=== PATIENT | male | born 1950 | race Caucasian/White ===

== ENCOUNTER 2019-08-18 21:58 | Inpatient (IN) | payer MEDICARE, MEDICAID ==
[~2019-08-18] VITALS: Ht 175.3 cm; Wt 103.5 kg
[2019-08-18] MEDS ORDERED: NS IV 1000 ML 1,000 ML IV SCH ×2 (22:37)
[2019-08-18] MEDS ORDERED: PIPERACILLIN SODIUM/TAZOBACTAM 4.5 GM in NS (IVPB) 100 ML IV ONE (22:45)
[2019-08-18] MEDS ORDERED: ACETAMINOPHEN 500 MG TAB (TYLENOL) PO PRN (22:45)
[2019-08-18] MEDS ORDERED: LIDOCAINE 1% INJ 20 ML 20 ML VIAL INJ ONE (22:45)
[2019-08-18] MEDS ORDERED: VANCOMYCIN INJECTION 1,000 MG in NS (IVPB) 250 ML IV ONE (22:45)
[2019-08-18] MEDS ORDERED: fentaNYL INJECTION 100 MCG/2 ML AMP IVP ONE (22:45)
--- NOTE | 2019-08-18 22:46 | ED General ---
General Chief Complaint: Rect Problems Stated Complaint: CYST ON BOTTOM Nursing Triage Note: PT AMBULATE TO [id number] WITH C/O A CYST ON HIS RECTUM. Nursing Sepsis Screen: No Definite Risk Source of Information: Patient, Family (daughter), Spouse Exam Limitations: No Limitations History of Present Illness Date Seen by Provider: Aug 18, 2019 Time Seen by Provider: 22:26 Initial Comments Patient presents to ER by private conveyance with chief complaint is had a abscess on his right medial cleft for the past 3 or 4 days. His been treating it with a poultice made of bread and milk. It is starting to come to the head. For the past 3 days however his daughter says he has had a fever Tmax of 103.1 and laying in bed not getting up checking his blood sugar or taking his medications routinely. He says he takes Trulicity and 80 units of Lantus daily. He does not take short acting insulin. He is not noticed blood sugar was for the past couple days. He's had some on again off again nausea but none presently. He rates pain as about a 7 out of 10 at present. Worse with movement or touching. He is having normal bowel movements. Normal fluid intake but not eating as much. He has not seen anybody for this or start any antibiotics. He's never had abscesses in the past. He follows with primary care provider Zana in [place], [place]. He has a history of hypertension but denies heart disease. Allergies and Home Medications Allergies Coded Allergies: Penicillins (Verified Adverse Reaction, Unknown, ears pop and eye's blurry, 08/18/19) Patient Home Medication List Home Medication List Reviewed: Yes Review of Systems Review of Systems Constitutional: chills, diaphoresis, dizziness, fever, malaise, weakness EENTM: No ear discharge, No ear pain Respiratory: No cough, No short of breath Cardiovascular: No chest pain, No edema Gastrointestinal: No abdominal pain, No constipation, No diarrhea; nausea; No vomiting Genitourinary: No discharge, No dysuria Musculoskeletal: No back pain, No joint pain, No joint swelling Skin: see HPI; No pruritus, No rash Psychiatric/Neurological: Denies Anxiety, Denies Depressed Past Ofzcxgq-Xzspfg-Rjjing Hx Patient Social History Alcohol Use: Denies Use Recreational Drug Use: No Smoking Status: Never a Smoker Recent Foreign Travel: No Contact w/Someone Who Travel: No Recent Infectious Disease Expo: No Physical Exam-Suspected Sepsis Physical Exam Vital Signs Vital Signs - First Documented 08/18/19 22:32 Temp 39.2 Pulse 111 Resp 19 B/P (MAP) 148/75 (99) O2 Delivery Room Air Capillary Refill : Less Than 3 Seconds Blood Pressure Mean: 99 Height, Weight, BMI Height: '" Weight: lbs. oz. kg; 32.00 BMI Method: General Appearance: Moderate Distress, Obese Eyes: Bilateral Eye Normal Inspection, Bilateral Eye PERRL, Bilateral Eye EOMI HEENT: PERRL/EOMI; No Pharynx Normal (dry mucosa), No Moist Mucous Membranes Neck: Full Range of Motion, Normal Inspection Respiratory: Lungs Clear, Normal Breath Sounds, No Accessory Muscle Use, No Respiratory Distress Cardiovascular: Regular Rate, Rhythm, No Edema Gastrointestinal: Normal Bowel Sounds, Non Tender, Soft Extremity: Normal Capillary Refill, Normal Inspection, No Pedal Edema Neurologic/Psychiatric: Alert, Oriented x3, No Motor/Sensory Deficits Skin: other (superior portion of the right gluteal cleft has a 6 cm area of induration with a central pore and fluctuance.) Focused Exam Sepsis Stage: Sepsis Possible Source: Skin/Soft Tissue Lactate Level 08/18/19 22:50: Lactic Acid Level 1.43 Time of Focused Exam: 00:01 Respiratory: Lungs Clear, Normal Breath Sounds, No Accessory Muscle Use, No Respiratory Distress Cardiovascular: Regular Rate, Rhythm, Normal Peripheral Pulses, Tachycardia Capillary Refill: Less Than 3 Seconds Peripheral Pulses: 2+ Dorsalis Pedis (R), 2+ Left Dors-Pedis (L) Skin: other (warm, indurated, erythematous around the right butt cheek) Lactic Acid Level Laboratory Tests Test 08/18/19 22:50 Lactic Acid Level 1.43 MMOL/L (0.50-2.00) Within 3hrs of presentation: Admin fluids, Admin 30ml/kg IBW due to BMI>30, Admin ABX, Blood cultures prior to ABX's, Focus exam, Lactate level Procedures/Interventions Lumen: triple Central Line Procedure: betadine prep, sterile drapes applied, sterile dressing applied Anesthesia: Lidocaine Volume Anesthetic (ccs): 3 Complications: none Post Position: sutured, good blood return, position confirmed w/ CXR Risks, benefits and alternatives were explained the patient and he accepted and consented to the procedure. We positioned him appropriately draped in usual sterile fashion and cleaned the skin using chlorhexidine. After it dried we draped him out and applied 3 mL of 1% lidocaine the skin. We then used the ultrasound to guide the tip of the introducer needle into the right internal jugular. We were able to pass the guidewire. No ectopy was noted on the monitor. We will then able to make a small incision in the skin using the supplied 11 blade scalpel and removed the needle. The dilator was passed and removed. The triple-lumen 20 cm 7 Latvian catheter was flushed and then threaded over the central lumen of the central line. It was stitched in place at 15 cm tear points using the supplied suture. We then used the supplied sterile dressing with bio gel. Patient tolerated procedure well. Minimal blood loss. I&D : Site: right buttock Blade Size: 11 I & D Procedure: betadine prep (chlorhexidine, sterile water and alcohol) Packing/Drain: Idoform 06/20 Progress Patient's wound was thoroughly cleaned using chlorhexidine and alcohol and then infiltrated around the skin with 6 cc of 1% lidocaine until we obtained good analgesia. We use an 11 blade scalpel to make a cross vargas incision over the central pore and expressed no 100 cc of thin, purulent, malodorous material. We obtained a sterile wound culture. We then probed the wound using sterile cotton tip applicators down to about 5-6 cm heading towards the perineum and stopped. Broke up any loculations or could flush the wound using the sterile saline and reexpressed. We then packed it with about 15 cm iodinated quarter inch gauze packing strip. Patient tolerated procedure well. Progress/Results/Core Measures Suspected Sepsis Recent Fever Within 48 Hours: No Infection Criteria Present: None New/Unexplained Altered Menta: No Sepsis Screen: No Definite Risk SIRS Temperature: Pulse: 111 Respiratory Rate: 19 Laboratory Tests 08/18/19 22:50: White Blood Count 18.8H Blood Pressure 148 /75 Mean: 99 08/18/19 22:50: Lactic Acid Level 1.43 Laboratory Tests 08/18/19 22:50: Creatinine 1.70H, INR Comment 1.2, Platelet Count 152, Total Bilirubin 0.6 Results/Orders Lab Results Laboratory Tests Test 08/18/19 22:37 08/18/19 22:50 08/18/19 23:30 08/19/19 00:24 Range/Units Glucometer 211 H 199 H 70-110 MG/DL White Blood Count 18.8 H 4.3-11.0 10^3/uL Red Blood Count 4.37 4.35-5.85 10^6/uL Hemoglobin 12.6 L 13.3-17.7 G/DL Hematocrit 39 L 40-54 % Mean Corpuscular Volume 88 80-99 FL Mean Corpuscular Hemoglobin 29 25-34 PG Mean Corpuscular Hemoglobin Concent 33 32-36 G/DL Red Cell Distribution Width 14.3 10.0-14.5 % Platelet Count 152 130-400 10^3/uL Mean Platelet Volume 11.4 H 7.4-10.4 FL Neutrophils (%) (Auto) 81 H 42-75 % Lymphocytes (%) (Auto) 6 L 12-44 % Monocytes (%) (Auto) 12 0-12 % Eosinophils (%) (Auto) 0 0-10 % Basophils (%) (Auto) 0 0-10 % Neutrophils # (Auto) 15.3 H 1.8-7.8 X 10^3 Lymphocytes # (Auto) 1.1 1.0-4.0 X 10^3 Monocytes # (Auto) 2.3 H 0.0-1.0 X 10^3 Eosinophils # (Auto) 0.0 0.0-0.3 10^3/uL Basophils # (Auto) 0.0 0.0-0.1 10^3/uL Neutrophils % (Manual) 77 % Lymphocytes % (Manual) 5 % Monocytes % (Manual) 8 % Band Neutrophils 10 % Blood Morphology Comment NORMAL Prothrombin Time 15.3 H 12.2-14.7 SEC INR Comment 1.2 0.8-1.4 Activated Partial Thromboplast Time 36 H 24-35 SEC Sodium Level 132 L 135-145 MMOL/L Potassium Level 5.2 H 3.6-5.0 MMOL/L Chloride Level 99 98-107 MMOL/L Carbon Dioxide Level 22 21-32 MMOL/L Anion Gap 11 5-14 MMOL/L Blood Urea Nitrogen 44 H 7-18 MG/DL Creatinine 1.70 H 0.60-1.30 MG/DL Estimat Glomerular Filtration Rate 40 BUN/Creatinine Ratio 26 Glucose Level 225 H 70-105 MG/DL Lactic Acid Level 1.43 0.50-2.00 MMOL/L Calcium Level 9.5 8.5-10.1 MG/DL Corrected Calcium 9.6 8.5-10.1 MG/DL Total Bilirubin 0.6 0.1-1.0 MG/DL Aspartate Amino Transf (AST/SGOT) 17 5-34 U/L Alanine Aminotransferase (ALT/SGPT) 18 0-55 U/L Alkaline Phosphatase 100 40-136 U/L Total Protein 7.0 6.4-8.2 GM/DL Albumin 3.9 3.2-4.5 GM/DL Urine Color YELLOW Urine Clarity CLEAR Urine pH 6.0 5-9 Urine Specific [place] 1.010 L 1.016-1.022 Urine Protein NEGATIVE NEGATIVE Urine Glucose (UA) 3+ H NEGATIVE Urine Ketones NEGATIVE NEGATIVE Urine Nitrite NEGATIVE NEGATIVE Urine Bilirubin NEGATIVE NEGATIVE Urine Urobilinogen 0.2 < = 1.0 MG/DL Urine Leukocyte Esterase NEGATIVE NEGATIVE Urine RBC (Auto) NEGATIVE NEGATIVE Urine RBC RARE /HPF Urine WBC NONE /HPF Urine Squamous Epithelial Cells RARE /HPF Urine Crystals NONE /LPF Urine Bacteria TRACE /HPF Urine Casts NONE /LPF Urine Mucus NEGATIVE /LPF Urine Culture Indicated CULTURE PENDING My Orders Orders - DEBBY LÓPEZ Accucheck Stat ONCE (08/18/19 22:37) Cbc With Automated Diff (08/18/19 22:37) Comprehensive Metabolic Panel (08/18/19 22:37) Blood Culture (08/18/19 22:37) Urinalysis (08/18/19 22:37) Urine Culture (08/18/19 22:37) Protime With Inr (08/18/19 22:37) Partial Thromboplastin Time (08/18/19 22:37) Chest 1 View, Ap/Pa Only (08/18/19 22:37) Acetaminophen Tablet (Tylenol Tablet) (08/18/19 22:45) Ed Iv/Invasive Line Start (08/18/19 22:37) Ed Iv/Invasive Line Start (08/18/19 22:37) Vital Signs Adult Sepsis Patie Q15M (08/18/19 22:37) O2 (08/18/19 22:37) Remove Rings In Anticipation O (08/18/19 22:37) Lactic Acid Analyzer (08/18/19 22:37) Ns Iv 1000 Ml (Sodium Chloride 0.9%) (08/18/19 22:37) Piperacillin Sodium/Tazobactam (Zosyn Vi (08/18/19 22:45) Vancomycin Injection (Vancomycin Injecti (08/18/19 22:45) Ed Iv/Invasive Line Start (08/18/19 22:37) Ns Iv 1000 Ml (Sodium Chloride 0.9%) (08/18/19 22:37) Fentanyl Injection (Sublimaze Injection (08/18/19 22:45) Lidocaine 1% Inj 20 Ml (Xylocaine 1% Inj (08/18/19 22:45) Vancomycin Injection (Vancomycin Injecti (08/18/19 23:00) Manual Differential (08/18/19 22:50) Wound Culture (08/19/19 00:03) Accucheck Stat ONCE (08/19/19 00:25) Ed Iv/Invasive Line Start (08/19/19 00:25) Ns Iv 1000 Ml (Sodium Chloride 0.9%) (08/19/19 00:25) Chest 1 View, Ap/Pa Only (08/19/19 00:29) Ct Abdomen/Pelvis Wo (08/19/19 00:35) Medications Given in ED Current Medications Medications Dose Ordered Sig/Jania Route Start Time Stop Time Status Last Admin Dose Admin Acetaminophen 1,000 mg ONCE PRN PO 08/18/19 22:45 08/18/19 23:32 DC 08/18/19 23:30 1,000 MG Fentanyl Citrate 50 mcg ONCE ONCE IVP 08/18/19 22:45 08/18/19 22:46 DC 08/18/19 23:31 50 MCG Lidocaine HCl 20 ml ONCE ONCE INJ 08/18/19 22:45 08/18/19 22:46 DC 08/18/19 23:40 20 ML Piperacillin Sod/ Tazobactam Sod 4.5 gm/Sodium Chloride 100 ml @ 200 mls/hr ONCE ONCE IV 08/18/19 22:45 08/18/19 23:14 DC 08/19/19 00:26 200 MLS/HR Vital Signs/I&O 08/18/19 08/18/19 08/19/19 22:32 23:30 00:25 Temp 39.2 39.2 39.1 Pulse 111 Resp 19 B/P (MAP) 148/75 (99) O2 Delivery Room Air Capillary Refill : Less Than 3 Seconds Blood Pressure Mean: 99 Point of Care Testing Finger Stick Blood Glucose: 211 Blood Glucose Action Taken: rn notified Progress Note #1: Time: 22:45 Progress Note Plan to maximiliano the abscess. We have him some fentanyl for his pain. He is septic so he is going to get a workup and since he is diabetic we will give him Zosyn and vancomycin. IV fluids 2 L which is greater than 20 mm/kg based on an adjusted ideal body weight of 182 pounds. He has a stated allergy to penicillin which does not seem to be a true allergy. Progress Note #2: Time: 01:26 Progress Note The patient's blood pressure continue to dwindle even before the antibiotics were given around 100 systolic. We increased the fluid bolus to greater than 30 mL/kg based on ideal body weight 3 L total. His blood pressure is staying stable around 100 210 systolic. A central line was initiated. We also bumped into the ICU instead of stepdown. Orders for pressors as needed were written. We'll send the patient down for a CT of the abdomen pelvis without IV contrast looking for evidence of abscess tracking up that may be amenable to surgical debridement. Diagnostic Imaging Diagonstic Imaging: Xray Plain Films/CT/US/NM/MRI: chest (1v) Comments No acute pulmonary cardiopulmonary process. Reviewed: Reviewed by Me Diagonstic Imaging: Xray Plain Films/CT/US/NM/MRI: chest Comments No acute cardiopulmonary process. No pneumothorax. There is a central line in her Duran placed over the silhouette of the right internal jugular terminating in the superior vena cava just above the right atrium. Reviewed: Reviewed by Me Diagonstic Imaging: CT (without IV contrast) Plain Films/CT/US/NM/MRI: abdomen, pelvis Comments No cyst is seen. Hepatomegaly with steatosis. Copious amounts of stool throughout the colon. Mild colonic diverticulosis. Reviewed: Reviewed Night edmar Study, Reviewed by Me Departure Communication (Admissions) Time/Spoke to Admitting Phy: 00:01 Discussed the case with Dr. Samuels. She agrees with anabolic selection and placing the patient and stepdown given his history of rheumatoid arthritis and immunocompromise. Impression Primary Impression: Sepsis Qualified Codes: A41.9 - Sepsis, unspecified organism; R65.20 - Severe sepsis without septic shock; N17.9 - Acute kidney failure, unspecified Additional Impressions: Abscess Acute kidney failure Qualified Codes: N17.9 - Acute kidney failure, unspecified Disposition: ADMITTED INPATIENT Condition: Stable Admissions Decision to Admit Reason: Admit from ER (General) Decision to Admit/Date: Aug 19, 2019 Time/Decision to Admit Time: 00:00 Departure-Patient Inst. Referrals: PETTY MIRANDA (PCP) Primary Care Physician DEBBY LÓPEZ Aug 18, 2019 22:46
[2019-08-18 23:14] LABS: BASOPHILS % (AUTO) 0 % (0-10); EOSINOPHILS % (AUTO) 0 % (0-10); HEMATOCRIT 39 % (40-54); HEMOGLOBIN 12.6 G/DL (13.3-17.7); LYMPHOCYTES # (AUTO) 1.1 X 10^3 (1.0-4.0); LYMPHOCYTES % (AUTO) 6 % (12-44); MEAN CORPUSCULAR HEMOGLOBIN 29 PG (25-34); MEAN CORPUSCULAR HGB CONC 33 G/DL (32-36); MEAN CORPUSCULAR VOLUME 88 FL (80-99); MEAN PLATELET VOLUME 11.4 FL (7.4-10.4); MONOCYTES # (AUTO) 2.3 X 10^3 (0.0-1.0); MONOCYTES % (AUTO) 12 % (0-12); NEUTROPHILS # (AUTO) 15.3 X 10^3 (1.8-7.8); NEUTROPHILS % (AUTO) 81 % (42-75); PLATELET COUNT 152 10^3/uL (130-400); RED CELL DISTRIBUTION WIDTH 14.3 % (10.0-14.5); WHITE BLOOD COUNT 18.8 10^3/uL (4.3-11.0)
[2019-08-18 23:25] LABS: INR 1.2 (0.8-1.4); PROTHROMBIN TIME PATIENT 15.3 SEC (12.2-14.7)
[2019-08-18 23:35] LABS: ALBUMIN 3.9 GM/DL (3.2-4.5); BILIRUBIN,TOTAL 0.6 MG/DL (0.1-1.0); CALCIUM 9.5 MG/DL (8.5-10.1); CREATININE SERUM 1.7 MG/DL (0.60-1.30); POTASSIUM 5.2 MMOL/L (3.6-5.0)
--- NOTE | 2019-08-18 23:43 | NUR ---
WOUND CX COLLECTED FROM RIGHT GLUTEAL FOLD/PERINEUM AREA. Addendum: 08/18/19 at 2356 by DAYNE I&D PER DR. LÓPEZ WITH 4 IODOFORM PACKING PLACED.
[2019-08-18 23:44] LABS: BILIRUBIN,URINE NEGATIVE (NEGATIVE); CLARITY,URINE CLEAR; COLOR,URINE YELLOW; GLUCOSE, URINE (UA) 3+ (NEGATIVE); KETONES,URINE NEGATIVE (NEGATIVE); LEUKOCYTE ESTERASE ,URINE NEGATIVE (NEGATIVE); NITRITE,URINE NEGATIVE (NEGATIVE); PROTEIN,URINE NEGATIVE (NEGATIVE)
[2019-08-18 23:46] LABS: BAND NEUTROPHILS 10 %; LYMPHOCYTES % (MANUAL) 5 %; MONOCYTES % (MANUAL) 8 %; NEUTROPHILS % (MANUAL) 77 %; RBC MORPH NORMAL
[2019-08-18 23:57] LABS: BACTERIA,URINE TRACE /HPF; RBC,URINE RARE /HPF; SQUAMOUS EPITHELIAL CELL,UR RARE /HPF
[2019-08-19] VITALS (23 sets, daily range): BP systolic 73–155; BP diastolic 41–95
[2019-08-19] MEDS ORDERED: NS IV 1000 ML 1,000 ML IV SCH (00:25)
[2019-08-19] MEDS: VANCOMYCIN INJECTION 1,000 MG in NS (IVPB) 250 ML IV SCH ×2 (00:27→01:42)
--- NOTE | 2019-08-19 01:25 | NUR ---
CENTRAL LINE IS OK TO USE PER DR. LÓPEZ.
[2019-08-19] MEDS: NS IV 1000 ML 1,000 ML IV SCH ×4 (03:45→19:33)
[2019-08-19] MEDS ORDERED: ONDANSETRON 4 MG/2 ML (SDV) Z0FRAN IV PRN (03:45)
[2019-08-19] MEDS ORDERED: IBUPROFEN 600 MG (MOTRIN) TAB PO PRN (03:45)
[2019-08-19] MEDS ORDERED: fentaNYL INJECTION 100 MCG/2 ML AMP IV PRN (03:45)
[2019-08-19 04:29] LABS: BASOPHILS % (AUTO) 0 % (0-10); EOSINOPHILS % (AUTO) 0 % (0-10); HEMATOCRIT 35 % (40-54); HEMOGLOBIN 11.4 G/DL (13.3-17.7); LYMPHOCYTES # (AUTO) 1.1 X 10^3 (1.0-4.0); LYMPHOCYTES % (AUTO) 6 % (12-44); MEAN CORPUSCULAR HEMOGLOBIN 29 PG (25-34); MEAN CORPUSCULAR HGB CONC 33 G/DL (32-36); MEAN CORPUSCULAR VOLUME 88 FL (80-99); MEAN PLATELET VOLUME 11.7 FL (7.4-10.4); MONOCYTES # (AUTO) 1.8 X 10^3 (0.0-1.0); MONOCYTES % (AUTO) 10 % (0-12); NEUTROPHILS # (AUTO) 14.6 X 10^3 (1.8-7.8); NEUTROPHILS % (AUTO) 83 % (42-75); PLATELET COUNT 132 10^3/uL (130-400); RED CELL DISTRIBUTION WIDTH 14.2 % (10.0-14.5); WHITE BLOOD COUNT 17.6 10^3/uL (4.3-11.0)
[2019-08-19 04:54] LABS: ALBUMIN 3.2 GM/DL (3.2-4.5); BILIRUBIN,TOTAL 0.7 MG/DL (0.1-1.0); CALCIUM 7.9 MG/DL (8.5-10.1); CREATININE SERUM 1.47 MG/DL (0.60-1.30); MAGNESIUM 1.6 MG/DL (1.6-2.4); PHOSPHORUS 2.6 MG/DL (2.3-4.7); POTASSIUM 4.7 MMOL/L (3.6-5.0); TOTAL PROTEIN 5.7 GM/DL (6.4-8.2)
[2019-08-19] MEDS: ACETAMINOPHEN 500 MG TAB (TYLENOL) PO PRN ×2 (04:56→17:33)
[2019-08-19] MEDS: inSUlin ASPART (NovoLOG) 1 UNIT/0.01 ML (CHARGE PER UNIT) SC SCH ×4 (05:57→21:28)
[2019-08-19] MEDS: CEFEPIME 1,000 MG/SWFI 10 ML IV PUSH IV SCH ×6 (05:57→17:34)
[2019-08-19] MEDS: LEVOTHYROXINE 50 MCG (LEVOTHROID) TAB PO SCH (05:57)
--- NOTE | 2019-08-19 06:39 | Diagnostic Imaging Report ---
INDICATION: Follow-up right central line placement. Comparison with 08/18/2019. FINDINGS: Right central line has been placed tip is in the superior vena cava. Lungs are well-aerated and clear. Heart is not enlarged. No pulmonary edema or hilar adenopathy. No pneumothorax or pleural effusion. IMPRESSION: Satisfactory right central line placement. Dictated by: Dictated on workstation # [id number]
--- NOTE | 2019-08-19 07:05 | Diagnostic Imaging Report ---
INDICATION: Cough, congestion and fever Upright portable chest shows normal heart size and vascularity. The lungs are clear. There is no effusion or pneumothorax. There is no bony abnormality. IMPRESSION: Normal chest. Dictated by: Dictated on workstation # [id number]
--- NOTE | 2019-08-19 07:06 | Diagnostic Imaging Report ---
PROCEDURE: CT abdomen and pelvis without contrast. TECHNIQUE: Multiple contiguous axial images were obtained through the abdomen and pelvis without the use of intravenous contrast. Auto Exposure Controls were utilized during the CT exam to meet ALARA standards for radiation dose reduction. INDICATION: Complains of cyst in the gluteal region. FINDINGS: There is 12 mm low-density lesion in the left lobe of the liver, consistent with a cyst. No suspicious liver lesions are seen. Liver is prominent measuring 19 cm in cephalocaudad length. The spleen, pancreas, and adrenals are normal. The kidneys, ureters, and bladder are normal. Fat planes around the prostate are well maintained. There is constipation with no acute bowel abnormality seen. The appendix is normal. There is no mass or adenopathy. There is no ascites. No acute bony abnormality is seen. No pilonidal cyst or other soft tissue mass in the gluteal region is seen. IMPRESSION: No acute abnormality is seen. There is hepatomegaly. There is constipation. Dictated by: Dictated on workstation # [id number]
--- NOTE | 2019-08-19 07:36 | History & Physical ---
LUKAS HUDDLESTON MED STUDENT 08/19/19 0736: HPI History of Present Illness: CC: "cyst on my butt" Mr. Alvarado reports that a cyst developed on the right side of his buttocks about a week ago. It has been painful and he felt feverish and weak during that time. He did not have any particular words to describe the pain associated with it, and he was unsure of anything that made the pain worse or improved the pain. His pain did not radiate elsewhere. He did notice that his blood sugar had become difficult to control recently. Interval Update: - I&D was completed after arrival to the hospital 08/17. He feels like things are improving and he feels like stuff is draining out. He feels 'worn out' this morning and his pain is hardly bothering him. He did not have any complaints. Source: patient Exam Limitations: no limitations Date seen by provider: Aug 19, 2019 Time Seen by Provider: 07:15 Attending Physician Laura Wiggins MD PCP Brian Claudio MD Consult Date of Admission Aug 19, 2019 at 00:30 Home Medications Home Medications Reviewed patient Home Medication Reconciliation performed by pharmacy medication reconciliations location and measurement technician and/or nursing. Patients Allergies have been reviewed. Allergies Coded Allergies: Penicillins (Verified Adverse Reaction, Unknown, ears pop and eye's blurry, 08/18/19) BEY-Jmgpte-Hvqxpi Hx Patient Social History Marrital Status: Employed/Student: retired Alcohol Use: Denies Use Recreational Drug Use: No Smoking Status: Former Smoker (quit 20 years ago) Type Used: Smokeless Tobacco 2nd Hand Smoke Exposure: Yes Recent Foreign Travel: No Contact w/other who traveled: No Recent Hopitalizations: No Recent Infectious Disease Expo: No Immunizations Up To Date Date of Pneumonia Vaccine: Mar 17, 2018 Date of Influenza Vaccine: Mar 17, 2019 Past Medical History Pt reports history of rheumatoid arthritis (doctor says in remission, pt doesn't think it is), diabetes mellitus - type 2, depression, "thyroid," and says "he can't remember them all" Family Medical History Significant Family History: No Pertinent Family Hx Review of Systems ([facility]) Constitutional: chills, diaphoresis, fever, malaise, weakness EENTM: blurred vision Respiratory: cough; No hemoptysis; short of breath Cardiovascular: No chest pain, No palpitations Gastrointestinal: No abdominal pain, No constipation, No diarrhea Genitourinary: No dysuria Musculoskeletal: joint pain (a/w RA) Physical Exam-([facility]) Physical Exam Vital Signs VS - Last 72 Hours, by Label 08/18/19 08/18/19 08/19/19 08/19/19 22:32 23:30 00:25 02:38 Temp 39.2 39.2 39.1 39.1 Pulse 111 97 Resp 19 20 B/P (MAP) 148/75 (99) 122/58 (99) Pulse Ox 93 O2 Delivery Room Air Room Air 08/19/19 08/19/19 08/19/19 08/19/19 02:56 02:57 03:00 03:15 Temp 37.7 Pulse 92 105 100 101 Resp 18 28 16 B/P (MAP) 127/90 (102) 154/44 (80) Pulse Ox 93 89 O2 Delivery Room Air Room Air Room Air 08/19/19 08/19/19 08/19/19 08/19/19 03:18 03:30 04:15 04:17 Temp 38.8 Pulse 103 104 Resp 18 29 B/P (MAP) 155/74 (101) 125/84 (98) Pulse Ox 93 90 O2 Delivery Room Air Room Air Room Air 08/19/19 08/19/19 08/19/19 08/19/19 04:56 04:56 05:00 05:57 Temp 38.4 38.4 37.3 Pulse 106 B/P (MAP) 113/95 (101) O2 Delivery Room Air 08/19/19 08/19/19 08/19/19 08/19/19 06:00 06:15 06:30 06:49 Temp 37.2 Pulse 108 93 96 Resp 31 B/P (MAP) 106/52 (70) O2 Delivery Room Air Room Air 08/19/19 08/19/19 08/19/19 08/19/19 07:00 07:21 08:00 08:00 Temp 36.6 Pulse 93 91 Resp 13 26 B/P (MAP) 123/65 (84) 146/68 (94) Pulse Ox 92 90 O2 Delivery Room Air Room Air Room Air 08/19/19 08/19/19 09:00 09:54 Pulse 90 Resp 23 B/P (MAP) 132/56 (81) Pulse Ox 90 O2 Delivery Room Air Nasal Cannula O2 Flow Rate 2.00 Capillary Refill : Less Than 3 Seconds Eyes: Bilateral Eye EOMI Neck: other (Central line in place on R side) Respiratory: chest non-tender, lungs clear, other (became tachynpeic during interview) Cardiovascular: tachycardia Gastrointestinal: normal bowel sounds, non tender Genital/Rectal: other (Duran in place; dark yellow to verito urine) Extremities: no pedal edema, no calf tenderness Neurologic/Psychiatric: alert, oriented x 3 Skin: normal color (lower legs cool, chest diaphoretic) Assessment/Plan Assessment/Plan Admission Dx #Suspicion of sepsis - Continue to maintain IV access - Continue IVF; can decrease NS rate to 100mL/h with stabilization of vitals and adequate PO intake - Continue metronidazole and cefepime #R gluteal cleft cyst/abscess - I&D completed; change packing @ 24h - Imaging completed to check for complication of abscess; none seen on CT #Diabetes Mellitus Type 2 - Insulin for control of blood sugar - Hold [employer] Trulicity #Hypothyroidism - Continue [employer] synthroid 50mcg #Depression - Continue [employer] sertraline #Acute Kidney Injury - BUN and Cr improving with fluids; continue to monitor with daily BMP - Having adequate urine output - Encourage PO fluid intake - If pt having good PO fluid intake, can consider decreasing rate of IVF and removing Duran catheter Clinical Quality Measures DVT/VTE Risk/Contraindication: Risk Factor Score Per Nursin RFS Level Per Nursing on Admit: 4+=Very High LAURA WIGGINS MD 08/19/19 1430: HPI History of Present Illness: Time Seen by Provider: 08:25 Home Medications Allergies Coded Allergies: Penicillins (Verified Adverse Reaction, Unknown, ears pop and eye's blurry, 08/18/19) Physical Exam-([facility]) Physical Exam General Appearance: no apparent distress Genital/Rectal: other (Duran in place; dark yellow to verito urine) Skin: other (packing in place in right buttock with surrounding erythema, no fluctuance) Assessment/Plan Assessment/Plan Admission Status: Inpatient Order (span 2 midnights) Reason for Inpatient Admission: Sepsis with multiple underlying comorbidities, high risk for decompensation (1) Sepsis Status: Acute Assessment & Plan: Secondary to cellulitis. Lactic acid normal. IVF and started on vancomycin, cefepime and metronidazole. Blood cultures pending. Fever still present overnight. Qualifiers: Qualified Codes: A41.9 - Sepsis, unspecified organism; R65.20 - Severe sepsis without septic shock; N17.9 - Acute kidney failure, unspecified (2) Abscess Status: Acute Assessment & Plan: Symptomatically improving, change packing q24, monitor with abx. CT does not show deep abscess. (3) Acute kidney failure Status: Acute Assessment & Plan: Improving overnight with IVF, monitor. Qualifiers: Qualified Codes: N17.9 - Acute kidney failure, unspecified (4) Hypertension Status: Chronic Assessment & Plan: Currently low to low normal BP, hold home meds. Qualifiers: Qualified Codes: I10 - Essential (primary) hypertension (5) Hyperlipidemia Status: Chronic Assessment & Plan: Resume home statin (6) Hypothyroidism Status: Chronic Assessment & Plan: Resume home levothyroxine (7) Diabetes Status: Chronic Assessment & Plan: Resume home medications, diabetic diet, sliding scale insulin Qualifiers: (8) Depression Status: Chronic Assessment & Plan: Resume home SSRI (9) DVT prophylaxis Status: Acute Assessment & Plan: Enoxaparin Supervisory-Addendum Brief Verification & Attestation Participated in pt care: history, MDM, physical Personally performed: exam, history, MDM Care discussed with: Medical Student Procedures: n/a I personally have seen and evaluated the patient and performed the history and physical exam, I agree with student documentation, see problem list for my assessment and plan. LUKAS HUDDLESTON MED STUDENT Aug 19, 2019 07:36 LAURA WIGGINS MD Aug 19, 2019 14:30
--- NOTE | 2019-08-19 08:13 | NUR ---
PHARMACY TO DOSE VANCOMYCIN X 3 DAYS: PATIENT WEIGHT 100.7 KG, CrCl 57.1, LOADING DOSE 20MG/KG X 100.7 KG ~ 2G (LOADING DOSE 2X1G GIVEN 08/18 @0000), MAINT DOSE 15MG/KG X 100.7KG ~ 1500MG Q24H X 2 ADDITIONAL DAYS STARTING 08/19 @0000
[2019-08-19] MEDS: metroNIDAZOLE 500 MG/100 ML IVPB (PRE-MIX) IV SCH ×2 (08:29→21:28)
[2019-08-19] MEDS ORDERED: SERTRALINE 100 MG (ZOLOFT) TAB PO SCH (09:00)
[2019-08-19] MEDS: ENOXAPARIN 40 MG/0.4 ML (LOVENOX) SYR SQ SCH (12:09)
[2019-08-19] MEDS ORDERED: INSU100I10 SC (13:38)
[2019-08-19] MEDS ORDERED: DULA1.5P2 SC (13:38)
[2019-08-19] MEDS ORDERED: SERT100T8 PO (13:38)
[2019-08-19] MEDS ORDERED: LEVO50TA6 PO (13:38)
[2019-08-19] MEDS ORDERED: ROSU40TA23 PO (13:38)
[2019-08-19] MEDS ORDERED: LISI10TA2 PO (13:38)
[2019-08-19] MEDS ORDERED: FENO160T12 PO (13:38)
[2019-08-19] MEDS ORDERED: EMPA1TAB21 PO (13:38)
[2019-08-19] MEDS ORDERED: FOLI1TAB24 PO (13:38)
[2019-08-19] MEDS ORDERED: ATEN50TA PO (13:38)
[2019-08-19] MEDS ORDERED: ACET-2267 PO (13:39)
--- NOTE | 2019-08-19 13:45 | NUR ---
SPOKE WITH THE PT (AND CALLED HIS CORNELIO) WENT THRU THE EXT MED HISTORY AND SPOKE WITH RUDY TO COMPLETE THE MED REC. THE FOLLOWING ARE FILL DATES NOT ON THE EXT MED HISTORY: 07-27-2019 TRULICITY 1.5MG/50ML #4/28DS 07-27-2019 FOLIC ACID 1 MG #30/30DS 07-27-2019 SYNJARDY XR 12.10/999 #60/30DS ON THE EXT MED HISTORY IT SHOW LEFLUNOMIDE 20MG FROM 06-24-2019- WHEN I SPOKE WITH THE PT'S SHE SAID HE WAS TOLD TO NOT TAKE THE MEDS FOR 3 MONTHS UNTIL A FOLLOW UP APPT. FOR THAT REASON I LEFT IT OFF THE MED REC. OTC MEDS: TYLENOL
[2019-08-19] MEDS ORDERED: NON-FORMULARY MEDICATION 1 EA EA (Dulaglutide (Trulicity) 1.5 MG) SC SCH (14:30)
[2019-08-19] MEDS ORDERED: EMPAGLIFLOZIN PO SCH (21:00)
[2019-08-19] MEDS ORDERED: INSULIN GLARGINE HUM REC ANLOG 80 UNIT SC SCH (21:00)
[2019-08-19] MEDS ORDERED: [UNRECOGNIZED DRUG - OTHER] SC SCH (21:00)
[2019-08-19] MEDS ORDERED: NON-FORMULARY MEDICATION 1 EA EA (Rosuvastatin Calcium 40 MG) PO SCH (21:00)
[2019-08-19] MEDS ORDERED: [UNRECOGNIZED DRUG - OTHER] PO SCH (21:00)
[2019-08-19] MEDS ORDERED: METFORMIN HCL PO SCH (21:00)
[2019-08-19] MEDS: ROSUVASTATIN 20 MG (CRESTOR) TABLET PO SCH (21:28)
[2019-08-20] VITALS (15 sets, daily range): BP systolic 114–181; BP diastolic 51–114
[2019-08-20] MEDS: VANCOMYCIN 1500 MG/NS 500 ML IVPB IV SCH ×2 (00:22)
[2019-08-20] MEDS: CEFEPIME 1,000 MG/SWFI 10 ML IV PUSH IV SCH ×8 (00:22→18:08)
[2019-08-20] MEDS: NS IV 1000 ML 1,000 ML IV SCH (00:22)
[2019-08-20] MEDS: HYDROcodone/APAP 5 MG/325 MG (LORTAB) TAB PO PRN ×2 (03:05→10:22)
[2019-08-20 03:07] LABS: BASOPHILS % (AUTO) 0 % (0-10); EOSINOPHILS # (AUTO) 0.3 10^3/uL (0.0-0.3); EOSINOPHILS % (AUTO) 2 % (0-10); HEMATOCRIT 32 % (40-54); HEMOGLOBIN 10.2 G/DL (13.3-17.7); LYMPHOCYTES # (AUTO) 1.1 X 10^3 (1.0-4.0); LYMPHOCYTES % (AUTO) 7 % (12-44); MEAN CORPUSCULAR HEMOGLOBIN 29 PG (25-34); MEAN CORPUSCULAR HGB CONC 32 G/DL (32-36); MEAN CORPUSCULAR VOLUME 90 FL (80-99); MEAN PLATELET VOLUME 11.6 FL (7.4-10.4); MONOCYTES # (AUTO) 1.9 X 10^3 (0.0-1.0); MONOCYTES % (AUTO) 12 % (0-12); NEUTROPHILS # (AUTO) 11.7 X 10^3 (1.8-7.8); NEUTROPHILS % (AUTO) 78 % (42-75); PLATELET COUNT 119 10^3/uL (130-400); RED CELL DISTRIBUTION WIDTH 14.1 % (10.0-14.5)
[2019-08-20 03:29] LABS: BUN/CREATININE RATIO 29; CALCIUM 7.6 MG/DL (8.5-10.1); CARBON DIOXIDE 18 MMOL/L (21-32); CHLORIDE 112 MMOL/L (98-107); CREATININE SERUM 0.91 MG/DL (0.60-1.30); GFR ESTIMATED > 60; GLUCOSE 107 MG/DL (70-105); MAGNESIUM 1.8 MG/DL (1.6-2.4); PHOSPHORUS 1.8 MG/DL (2.3-4.7); POTASSIUM 4.4 MMOL/L (3.6-5.0); SODIUM 138 MMOL/L (135-145)
[2019-08-20] MEDS: inSUlin ASPART (NovoLOG) 1 UNIT/0.01 ML (CHARGE PER UNIT) SC SCH ×4 (05:27→20:29)
[2019-08-20] MEDS: LEVOTHYROXINE 50 MCG (LEVOTHROID) TAB PO SCH (05:39)
--- NOTE | 2019-08-20 07:24 | Diagnostic Imaging Report ---
INDICATION: Sepsis COMPARISON: 08/19/2019 FINDINGS: Single view of the chest demonstrates stable right IJ central venous catheter. The lungs remain clear. There is no pneumothorax. The heart is normal in size. Osseous structures are age-appropriate. IMPRESSION: No acute cardiopulmonary findings. Stable right IJ catheter. Dictated by: Dictated on workstation # [id number]
[2019-08-20] MEDS ORDERED: SODIUM PHOSPHATE INJ 15 MM in D5W 100 ML IVPB 100 ML IV NR (08:30)
[2019-08-20] MEDS ORDERED: NON-FORMULARY MEDICATION 1 EA EA (Fenofibrate 160 MG) PO SCH (09:00)
[2019-08-20] MEDS ORDERED: LEVOTHYROXINE 50 MCG (LEVOTHROID) TAB PO SCH (09:00)
[2019-08-20] MEDS: metroNIDAZOLE 500 MG/100 ML IVPB (PRE-MIX) IV SCH ×2 (10:21→20:29)
[2019-08-20] MEDS: FENOFIBRATE 134 MG (LOFIBRA) CAPSULE PO SCH (10:22)
[2019-08-20] MEDS: SERTRALINE 100 MG (ZOLOFT) TAB PO SCH ×2 (10:22→20:29)
[2019-08-20] MEDS: 1/2 NS IV SOLUTION 1,000 ML IV SCH ×2 (10:41→16:58)
[2019-08-20] MEDS: ENOXAPARIN 40 MG/0.4 ML (LOVENOX) SYR SQ SCH (12:07)
--- NOTE | 2019-08-20 13:50 | Progress Note ---
DEBBI HUDDLESTON MED STUDENT 08/20/19 1350: Subjective Subjective/Events-last exam Pt without complaints this morning. He felt feverish overnight but is unsure if he actually had a fever. Had a BM yesterday; reports no difficulty with defecation. Pain is responsive to pain medications. He feels a little anxious, but reports that it is 'part of his depression.' Review of Systems General: Chills, Other (Feverish) HEENT: No Head Aches, No Sore Throat Pulmonary: Dyspnea Cardiovascular: No: Chest Pain Gastrointestinal: No: Nausea, Vomiting, Abdominal Pain, Diarrhea, Constipation Focused Exam Lactate Level 08/18/19 22:50: Lactic Acid Level 1.43 Time of Focused Exam: 00:01 Objective Exam Last Set of Vital Signs Vital Signs Date Time Temp Pulse Resp B/P (MAP) Pulse Ox O2 Delivery O2 Flow Rate FiO2 08/20/19 12:00 36.8 08/20/19 12:00 91 25 130/59 (82) 94 Nasal Cannula 2.00 Capillary Refill : Less Than 3 Seconds I&O Intake and Output 08/20/19 00:00 Intake Total 5950 ml Output Total 3100 ml Balance 2850 ml Intake Oral 2250 ml IV Total 3700 ml Output Urine Total 3100 ml # Bowel Movements 1 Daily Weight Change No General: Alert, Oriented X3, No Acute Distress HEENT: EOMI Lungs: Other (Audible wheezing; occasional periods of tachypnea, especially while talking) Heart: Regular Rate Abdomen: Normal Bowel Sounds, Soft, No Tenderness Extremities: No Edema, Normal Pulses Skin: Other (Area around incised abscess is red; draining purulent fluid; tender to palpation) Neuro: Normal Speech Psych/Mental Status: Mental Status NL, Mood NL Results/Procedures Lab Laboratory Tests 08/19/19 16:37: Glucometer 172H 08/19/19 20:54: Glucometer 148H 08/20/19 03:00: White Blood Count 15.0H, Red Blood Count 3.50L, Hemoglobin 10.2L, Hematocrit 32L , Mean Corpuscular Volume 90, Mean Corpuscular Hemoglobin 29, Mean Corpuscular Hemoglobin Concent 32, Red Cell Distribution Width 14.1, Platelet Count 119L, Mean Platelet Volume 11.6H, Neutrophils (%) (Auto) 78H, Lymphocytes (%) (Auto) 7L, Monocytes (%) (Auto) 12, Eosinophils (%) (Auto) 2, Basophils (%) (Auto) 0, Neutrophils # (Auto) 11.7H, Lymphocytes # (Auto) 1.1, Monocytes # (Auto) 1.9H, Eosinophils # (Auto) 0.3, Basophils # (Auto) 0.0, Sodium Level 138, Potassium Level 4.4, Chloride Level 112H, Carbon Dioxide Level 18L, Anion Gap 8, Blood Urea Nitrogen 26H, Creatinine 0.91, Estimat Glomerular Filtration Rate > 60, BUN/Creatinine Ratio 29, Glucose Level 107H, Calcium Level 7.6L, Phosphorus Level 1.8L, Magnesium Level 1.8 08/20/19 12:00: Glucometer 159H Microbiology 08/19/19 MRSA Screen - Final, Complete MRSA not isolated 08/18/19 Gram Stain, Resulted Pending 08/18/19 Wound Culture - Preliminary, Resulted No growth 08/18/19 Urine Culture - Final, Complete 3 or more isolates 08/18/19 Blood Culture - Preliminary, Resulted No growth Assessment/Plan Assessment/Plan Admission Dx #Sepsis - Vitals improving; afebrile >24h - Only requiring oxygen when sleeping - Urine culture pending - Blood cultures showing no growth - Continue Tx with broad spectrum antibiotics (vancomycin, cefepime, metronidazole); F/U cultures for possible narrowing - Can move to floor given improvement #Abscess - Continuing to drain purulent fluid - Change dressing q24h - Hydrocodone available for pain #Acute Kidney Failure - BUN continuing to improve; down to 26 today from 40 yesterday - Continue adequate PO fluid intake #Hypertension - BP 130s-150s/60s-80s - Hold [employer] atenolol #Hyperlipidemia - Continue [employer] meds #Diabetes Mellitus - BS in acceptable range; continue to monitor - Continue insulin; hold Trulicity #Depression - Continue [employer] sertraline (1) Sepsis Status: Acute Assessment & Plan: Secondary to cellulitis. Lactic acid normal. IVF and started on vancomycin, cefepime and metronidazole. Blood cultures pending. Fever still present overnight. Qualifiers: Qualified Codes: A41.9 - Sepsis, unspecified organism; R65.20 - Severe sepsis without septic shock; N17.9 - Acute kidney failure, unspecified (2) Abscess Status: Acute Assessment & Plan: Symptomatically improving, change packing q24, monitor with abx. CT does not show deep abscess. (3) Acute kidney failure Status: Acute Assessment & Plan: Improving overnight with IVF, monitor. Qualifiers: Qualified Codes: N17.9 - Acute kidney failure, unspecified (4) Hypertension Status: Chronic Assessment & Plan: Currently low to low normal BP, hold home meds. Qualifiers: Qualified Codes: I10 - Essential (primary) hypertension (5) Hyperlipidemia Status: Chronic Assessment & Plan: Resume home statin (6) Hypothyroidism Status: Chronic Assessment & Plan: Resume home levothyroxine (7) Diabetes Status: Chronic Assessment & Plan: Resume home medications, diabetic diet, sliding scale insulin Qualifiers: (8) Depression Status: Chronic Assessment & Plan: Resume home SSRI (9) DVT prophylaxis Status: Acute Assessment & Plan: Enoxaparin Clinical Quality Measures DVT/VTE Risk/Contraindication: Risk Factor Score Per Nursin RFS Level Per Nursing on Admit: 4+=Very High LAURA WIGGINS MD 08/20/19 4833: Objective Exam Skin: Other (Area around incised abscess is red; draining purulent fluid; tender to palpation) Supervisory-Addendum Brief Verification & Attestation Participated in pt care: history, MDM, physical Personally performed: exam, history Care discussed with: Medical Student Procedures: n/a I personally have seen and evaluated the patient and repeated the history and physical exam. I agree with the documentation by MS3 Debbi Huddleston. DEBBI HUDDLESTON MED STUDENT Aug 20, 2019 13:50 LAURA WIGGINS MD Aug 20, 2019 16:53
--- NOTE | 2019-08-20 15:55 | NUR ---
REPORT GIVEN TO ORQUIDEA PANDYA. PT TRANSPORTED TO ROOM [id number]
[2019-08-20] MEDS ORDERED: WATER (STERILE) FOR INJECTION 10 ML ONE (17:58)
[2019-08-20] MEDS ORDERED: CEFEPIME 1 GM (MAXIPIME) VIAL ONE (17:58)
[2019-08-20] MEDS: ROSUVASTATIN 20 MG (CRESTOR) TABLET PO SCH (20:29)
[2019-08-21] MEDS: VANCOMYCIN 1500 MG/NS 500 ML IVPB IV SCH ×2 (00:03)
[2019-08-21] MEDS: CEFEPIME 1,000 MG/SWFI 10 ML IV PUSH IV SCH ×4 (00:03→05:46)
[2019-08-21 04:15] VITALS: BP 152/65
[2019-08-21 05:15] LABS: BASOPHILS % (AUTO) 0 % (0-10); EOSINOPHILS # (AUTO) 0.6 10^3/uL (0.0-0.3); EOSINOPHILS % (AUTO) 4 % (0-10); HEMATOCRIT 30 % (40-54); HEMOGLOBIN 9.7 G/DL (13.3-17.7); LYMPHOCYTES # (AUTO) 1.4 X 10^3 (1.0-4.0); LYMPHOCYTES % (AUTO) 11 % (12-44); MEAN CORPUSCULAR HEMOGLOBIN 29 PG (25-34); MEAN CORPUSCULAR HGB CONC 32 G/DL (32-36); MEAN CORPUSCULAR VOLUME 89 FL (80-99); MEAN PLATELET VOLUME 11.6 FL (7.4-10.4); MONOCYTES # (AUTO) 1.5 X 10^3 (0.0-1.0); MONOCYTES % (AUTO) 11 % (0-12); NEUTROPHILS # (AUTO) 9.8 X 10^3 (1.8-7.8); NEUTROPHILS % (AUTO) 74 % (42-75); PLATELET COUNT 140 10^3/uL (130-400); RED CELL DISTRIBUTION WIDTH 14.5 % (10.0-14.5); WHITE BLOOD COUNT 13.3 10^3/uL (4.3-11.0)
[2019-08-21 05:25] LABS: BUN/CREATININE RATIO 18; CALCIUM 7.6 MG/DL (8.5-10.1); CARBON DIOXIDE 21 MMOL/L (21-32); CHLORIDE 112 MMOL/L (98-107); CREATININE SERUM 0.83 MG/DL (0.60-1.30); GFR ESTIMATED > 60; GLUCOSE 119 MG/DL (70-105); POTASSIUM 4.1 MMOL/L (3.6-5.0); SODIUM 138 MMOL/L (135-145)
[2019-08-21] MEDS: inSUlin ASPART (NovoLOG) 1 UNIT/0.01 ML (CHARGE PER UNIT) SC SCH ×2 (05:29→12:49)
[2019-08-21] MEDS: 1/2 NS IV SOLUTION 1,000 ML IV SCH (05:47)
[2019-08-21] MEDS: LEVOTHYROXINE 50 MCG (LEVOTHROID) TAB PO SCH (05:47)
[2019-08-21 08:00] VITALS: BP 142/57
--- NOTE | 2019-08-21 08:33 | Progress Note ---
LUKAS HUDDLESTON MED STUDENT 08/21/19 0833: Subjective Subjective/Events-last exam Pt reports that he had a rough night; wasn't able to get comfortable and didn't sleep well due to being awakened frequently. He had a couple episodes of 'the squirts' and expressed embarrassment about this. He also had a mild headache that resolved. He feels like he just can't get rested and reports being tired. Review of Systems General: No Chills; Fatigue HEENT: Head Aches Pulmonary: No Dyspnea Cardiovascular: No: Chest Pain, Palpitations Gastrointestinal: Diarrhea (Denies blood in stool or dark tarry color); No: Nausea, Vomiting, Abdominal Pain Focused Exam Lactate Level 08/18/19 22:50: Lactic Acid Level 1.43 Time of Focused Exam: 00:01 Objective Exam Last Set of Vital Signs Vital Signs Date Time Temp Pulse Resp B/P (MAP) Pulse Ox O2 Delivery O2 Flow Rate FiO2 08/21/19 06:40 88 08/21/19 04:15 37.6 20 152/65 (94) 96 Nasal Cannula 2.00 Capillary Refill : Less Than 3 Seconds I&O Intake and Output 08/21/19 00:00 Intake Total 2905 ml Output Total 3050 ml Balance -145 ml Intake Oral 2290 ml IV Total 615 ml Output Urine Total 3050 ml # Bowel Movements 2 General: Alert, Oriented X3, Cooperative, No Acute Distress HEENT: Atraumatic Lungs: Other (Wheeze in L upper lung; denies being short of breath on ROS, but pt placed NC on during exam) Heart: Regular Rate Abdomen: Normal Bowel Sounds, No Tenderness Extremities: No Edema Neuro: Normal Speech Psych/Mental Status: Mental Status NL, Mood NL Results/Procedures Lab Laboratory Tests 08/20/19 12:00: Glucometer 159H 08/20/19 16:18: Glucometer 97 08/20/19 20:26: Glucometer 187H 08/21/19 05:00: White Blood Count 13.3H, Red Blood Count 3.39L, Hemoglobin 9.7L, Hematocrit 30L, Mean Corpuscular Volume 89, Mean Corpuscular Hemoglobin 29, Mean Corpuscular Hemoglobin Concent 32, Red Cell Distribution Width 14.5, Platelet Count 140, Mean Platelet Volume 11.6H, Neutrophils (%) (Auto) 74, Lymphocytes (%) (Auto) 11L, Monocytes (%) (Auto) 11, Eosinophils (%) (Auto) 4, Basophils (%) (Auto) 0, Neutrophils # (Auto) 9.8H, Lymphocytes # (Auto) 1.4, Monocytes # (Auto) 1.5H, Eosinophils # (Auto) 0.6H, Basophils # (Auto) 0.0, Sodium Level 138, Potassium Level 4.1, Chloride Level 112H, Carbon Dioxide Level 21, Anion Gap 5, Blood Urea Nitrogen 15, Creatinine 0.83, Estimat Glomerular Filtration Rate > 60, BUN/Creatinine Ratio 18, Glucose Level 119H, Calcium Level 7.6L Microbiology 08/19/19 MRSA Screen - Final, Complete MRSA not isolated 08/18/19 Gram Stain, Resulted Pending 08/18/19 Wound Culture - Preliminary, Resulted Usual Mixed Skin Toshia 08/18/19 Urine Culture - Final, Complete 3 or more isolates 08/18/19 Blood Culture - Preliminary, Resulted No growth Assessment/Plan Assessment/Plan Admission Dx #Sepsis - Pt remains afebrile; vitals stable - Reports feeling well enough to go home - Can D/C with clindamycin #Abscess - Area still red but drainage has decreased - No longer need to pack #Acute kidney injury - Resolved; BUN and Cr normalized - Patient has not been in maintenance fluids & appears to be having adequate PO intake of fluids - Remove Duran catheter #Normocytic Anemia - Hgb has dropped approximately 1 each day since admission - Denies blood in stool, easy bruising, or easy bleeding - Can f/u outpatient #Diabetes Mellitus Type 2 - Restart 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 Lactic acid normal. IVF and started on vancomycin, cefepime and metronidazole. Blood cultures pending. Fever still present overnight. Qualifiers: Qualified Codes: A41.9 - Sepsis, unspecified organism; R65.20 - Severe sepsis without septic shock; N17.9 - Acute kidney failure, unspecified (2) Abscess Status: Acute Assessment & Plan: Symptomatically improving, change packing q24, monitor with abx. CT does not show deep abscess. (3) Acute kidney failure Status: Resolved Assessment & Plan: Improving overnight with IVF, monitor. Qualifiers: Qualified Codes: N17.9 - Acute kidney failure, unspecified (4) Hypertension Status: Chronic Assessment & Plan: Currently low to low normal BP, hold home meds. Qualifiers: Qualified Codes: I10 - Essential (primary) hypertension (5) Hyperlipidemia Status: Chronic Assessment & Plan: Resume home statin (6) Hypothyroidism Status: Chronic Assessment & Plan: Resume home levothyroxine (7) Diabetes Status: Chronic Assessment & Plan: Resume home medications, diabetic diet, sliding scale insulin Qualifiers: (8) Depression Status: Chronic Assessment & Plan: Resume home SSRI (9) DVT prophylaxis Status: Acute Assessment & Plan: Enoxaparin Clinical Quality Measures DVT/VTE Risk/Contraindication: Risk Factor Score Per Nursin RFS Level Per Nursing on Admit: 4+=Very High LAURA WIGGINS MD 08/21/19 1044: Supervisory-Addendum Brief Verification & Attestation Participated in pt care: history, MDM, physical Personally performed: exam, history, MDM Care discussed with: Medical Student Procedures: n/a See discharge summary for my note today. LUKAS HUDDLESTON MED STUDENT Aug 21, 2019 08:33 LAURA WIGGINS MD Aug 21, 2019 10:44
[2019-08-21] MEDS ORDERED: ATENOLOL 50 MG (TENORMIN) TAB PO SCH (09:00)
[2019-08-21] MEDS: metroNIDAZOLE 500 MG/100 ML IVPB (PRE-MIX) IV SCH (09:07)
[2019-08-21] MEDS: SERTRALINE 100 MG (ZOLOFT) TAB PO SCH (09:07)
[2019-08-21] MEDS: FENOFIBRATE 134 MG (LOFIBRA) CAPSULE PO SCH (09:07)
[2019-08-21] MEDS ORDERED: CLIN300C11 PO (10:07)
[2019-08-21] MEDS ORDERED: CEPH500T PO (10:07)
--- NOTE | 2019-08-21 10:11 | Discharge Summary ---
Discharge Summary Hospital Course Problems/Diagnosis: (1) Sepsis Status: Resolved Resolution Date/Time: 08/21/19 @ 10:07 Assessment & Plan: Secondary to cellulitis. Lactic acid normal. IVF and started on vancomycin, cefepime and metronidazole. Blood cultures no growth at d/c, wound/abscess culture with mixed skin laura. Sepsis criteria resolved before d/c, sent on clindamycin and cephalexin. Qualifiers: Qualified Codes: A41.9 - Sepsis, unspecified organism; R65.20 - Severe sepsis without septic shock; N17.9 - Acute kidney failure, unspecified (2) Abscess Status: Acute Assessment & Plan: Symptomatically improving, change packing q24, monitor with abx. CT does not show deep abscess. On d/c had minimal drainage, change dressing daily, okay to stop packing. (3) Acute kidney failure Status: Resolved Resolution Date/Time: 08/20/19 @ 10:08 Assessment & Plan: Improving overnight with IVF, monitor. Qualifiers: Qualified Codes: N17.9 - Acute kidney failure, unspecified (4) Hypertension Status: Chronic Assessment & Plan: Initially had low to low normal BP, held home meds, but on d/c BP was back up and all meds resumed. Qualifiers: Qualified Codes: I10 - Essential (primary) hypertension (5) Hyperlipidemia Status: Chronic Assessment & Plan: Resume home statin (6) Hypothyroidism Status: Chronic Assessment & Plan: Resume home levothyroxine (7) Diabetes Status: Chronic Assessment & Plan: Resume home medications, diabetic diet, sliding scale insulin Qualifiers: (8) Depression Status: Chronic Assessment & Plan: Resume home SSRI Hospital Course Date of Admission: Aug 19, 2019 at 00:30 Admission Diagnosis : Family Physician/Provider: Kristopher Dela Cruz [facility] Date of Discharge: 08/21/19 Discharge Diagnosis: See problem list Hospital Course: See problem list Labs and Pending Lab Test: Laboratory Tests 08/20/19 12:00: Glucometer 159H 08/20/19 16:18: Glucometer 97 08/20/19 20:26: Glucometer 187H 08/21/19 05:00: White Blood Count 13.3H, Red Blood Count 3.39L, Hemoglobin 9.7L, Hematocrit 30L, Mean Corpuscular Volume 89, Mean Corpuscular Hemoglobin 29, Mean Corpuscular Hemoglobin Concent 32, Red Cell Distribution Width 14.5, Platelet Count 140, Mean Platelet Volume 11.6H, Neutrophils (%) (Auto) 74, Lymphocytes (%) (Auto) 11L, Monocytes (%) (Auto) 11, Eosinophils (%) (Auto) 4, Basophils (%) (Auto) 0, Neutrophils # (Auto) 9.8H, Lymphocytes # (Auto) 1.4, Monocytes # (Auto) 1.5H, Eosinophils # (Auto) 0.6H, Basophils # (Auto) 0.0, Sodium Level 138, Potassium Level 4.1, Chloride Level 112H, Carbon Dioxide Level 21, Anion Gap 5, Blood Urea Nitrogen 15, Creatinine 0.83, Estimat Glomerular Filtration Rate > 60, BUN/Creatinine Ratio 18, Glucose Level 119H, Calcium Level 7.6L Microbiology 08/19/19 MRSA Screen - Final, Complete MRSA not isolated 08/18/19 Gram Stain, Resulted Pending 08/18/19 Wound Culture - Final, Resulted Usual Mixed Skin Laura 08/18/19 Urine Culture - Final, Complete 3 or more isolates 08/18/19 Blood Culture - Preliminary, Resulted No growth Home Meds Active Reported Tylenol Extra Strength (Acetaminophen) 500 Mg Tablet 1,000 Mg PO Q8H PRN Folic Acid 1 Mg Tablet 1 Mg PO HS Sertraline HCl 100 Mg Tablet 100 Mg PO BID Synjardy Xr 12.5-1,000 mg Tab (Empagliflozin/Metformin HCl) 1 Each Tab.bp.24h 1 Tab PO BID Atenolol 50 Mg Tablet 50 Mg PO DAILY Fenofibrate 160 Mg Tablet 160 Mg PO DAILY Levothyroxine Sodium 50 Mcg Tablet 50 Mcg PO DAILY Trulicity (Dulaglutide) 1.5 Mg/0.5 Ml Pen.injctr 1.5 Mg SC INJECT ONCE WEEKLY ON SATURDAY Rosuvastatin Calcium 40 Mg Tablet 40 Mg PO HS Lantus Solostar (Insulin Glargine,Hum.rec.anlog) 100 Unit/1 Ml Insuln.pen 80 Units SC HS Lisinopril 10 Mg Tablet 10 Mg PO DAILY Assessment/Pt DC Instructions Follow up with Alexandra Wynn APRN (Dr. Claudio is out of the office next week) on 08/25 at 12:20 pm. Change dressing over wound with gauze and tape daily or when saturated. Discharge Diet: ADA Diet Activity as Tolerated: Yes Discharge Physical Examination Allergies: Coded Allergies: Penicillins (Verified Adverse Reaction, Unknown, ears pop and eye's blurry, 08/18/19) General Appearance: No Apparent Distress, WD/WN Respiratory: Lungs Clear, Normal Breath Sounds Cardiovascular: Regular Rate, Rhythm, No Murmur Gastrointestinal: Normal Bowel Sounds Skin: Other (no purulence from right buttock abscess area, erythema improved but continues to have induration) Neurologic/Psychiatric: Alert, Normal Mood/Affect Copy Copies To 1: William Claudio MD Clinical Quality Measures DVT/VTE Risk/Contraindication: Risk Factor Score Per Nursin RFS Level Per Nursing on Admit: 4+=Very High LAURA WIGGINS MD Aug 21, 2019 10:11
[2019-08-21 12:00] VITALS: BP 136/54
--- OUTSIDE RECORDS SUMMARY | 2019-08-24 05:11 | XMS REPORT | Continuity of Care Document ---
Author Organization Unknown Address Unknown Phone Unavailable Allergies Active Description Code Type Severity Reaction Onset Reported/Identified Relationship to Patient Clinical Status Yes No Known Drug Allergies [id number] Drug Allergy Unknown N/A 08/18/2019 Yes Penicillins [id number] Drug Aller gy Unknown ears pop and ey 08/18/2019 Medications There is no data. Problems Date Dx Coded Attending Type Code Diagnosis Diagnosed By 08/20/2019 LAURA WIGGINS MD, Ot A41 .9 SEPSIS, UNSPECIFIED ORGANISM 08/20/2019 LAURA WIGGINS MD Ot E03 .9 HYPOTHYROIDISM, UNSPECIFIED 08/20/2019 LAURA WIGGINS MD Ot E66 .9 OBESITY, UNSPECIFIED 08/20/2019 LAURA WIGGINS MD Ot E78 .5 HYPERLIPIDEMIA, UNSPECIFIED 08/20/2019 LAURA WIGGINS MD Ot F32 .9 MAJOR DEPRESSIVE DISORDER, SINGLE EPISOD 08/20/2019 LAURA WIGGINS MD Ot L02.31 CUTANEOUS ABSCESS OF BUTTOCK 08/20/2019 LAURA WIGGINS MD Ot M06 .9 RHEUMATOID ARTHRITIS, UNSPECIFIED 08/20/2019 LAURA WIGGINS MD Ot N17 .9 ACUTE KIDNEY FAILURE, UNSPECIFIED 08/20/2019 LAURA WIGGINS MD Ot R65.20 SEVERE SEPSIS WITHOUT SEPTIC SHOCK 08/20/2019 LAURA WIGGINS MD Ot Z68.34 BODY MASS INDEX (BMI) 34.0-34.9, ADULT 08/20/2019 LAURA WIGGINS MD Ot Z87.891 PERSONAL HISTORY OF NICOTINE DEPENDENCE 08/20/2019 LAURA WIGGINS MD Ot A41 .9 SEPSIS, UNSPECIFIED ORGANISM 08/20/2019 LAURA WIGGINS MD Ot E03 .9 HYPOTHYROIDISM, UNSPECIFIED 08/20/2019 LAURA WIGGINS MD Ot E66 .9 OBESITY, UNSPECIFIED 08/20/2019 LAURA WIGGINS MD Ot E78 .5 HYPERLIPIDEMIA, UNSPECIFIED 08/20/2019 LAURA WIGGINS MD Ot F32 .9 MAJOR DEPRESSIVE DISORDER, SINGLE EPISOD 08/20/2019 LAURA WIGGINS MD N Ot L02.31 CUTANEOUS ABSCESS OF BUTTOCK 08/20/2019 LAURA WIGGINS MD Ot M06 .9 RHEUMATOID ARTHRITIS, UNSPECIFIED 08/20/2019 LAURA WIGGINS MD Ot N17 .9 ACUTE KIDNEY FAILURE, UNSPECIFIED 08/20/2019 LAURA WIGGINS MD Ot R65.20 SEVERE SEPSIS WITHOUT SEPTIC SHOCK 08/20/2019 LAURA WIGGINS MD Ot Z68.34 BODY MASS INDEX (BMI) 34.0-34.9, ADULT 08/20/2019 LAURA WIGGINS MD Ot Z87.891 PERSONAL HISTORY OF NICOTINE DEPENDENCE 08/21/2019 LAURA WIGGINS MD Ot A41 .9 SEPSIS, UNSPECIFIED ORGANISM 08/21/2019 LAURA WIGGINS MD Ot E03 .9 HYPOTHYROIDISM, UNSPECIFIED 08/21/2019 LAURA WIGGINS MD N Ot E66 .9 OBESITY, UNSPECIFIED 08/21/2019 LAURA WIGGINS MD Ot E78 .5 HYPERLIPIDEMIA, UNSPECIFIED 08/21/2019 LAURA WIGGINS MD Ot F32 .9 MAJOR DEPRESSIVE DISORDER, SINGLE EPISOD 08/21/2019 LAURA WIGGINS MD Ot L02.31 CUTANEOUS ABSCESS OF BUTTOCK 08/21/2019 LAURA WIGGINS MD Ot M06 .9 RHEUMATOID ARTHRITIS, UNSPECIFIED 08/21/2019 LAURA WIGGINS MD Ot N17 .9 ACUTE KIDNEY FAILURE, UNSPECIFIED 08/21/2019 LAURA WIGGINS MD N Ot R65.20 SEVERE SEPSIS WITHOUT SEPTIC SHOCK 08/21/2019 LAURA WIGGINS MD Ot Z68.34 BODY MASS INDEX (BMI) 34.0-34.9, ADULT 08/21/2019 LAURA WIGGINS MD Ot Z87.891 PERSONAL HISTORY OF NICOTINE DEPENDENCE 08/21/2019 LAURA WIGGINS MD Ot A41 .9 SEPSIS, UNSPECIFIED ORGANISM 08/21/2019 LAURA WIGGINS MD Ot E03 .9 HYPOTHYROIDISM, UNSPECIFIED 08/21/2019 LAURA WIGGINS MD N Ot E66 .9 OBESITY, UNSPECIFIED 08/21/2019 LAURA WIGGINS MD, Ot E78 .5 HYPERLIPIDEMIA, UNSPECIFIED 08/21/2019 LAURA WIGGINS MD, Ot F32 .9 MAJOR DEPRESSIVE DISORDER, SINGLE EPISOD 08/21/2019 LAURA WIGGINS MD Ot L02.31 CUTANEOUS ABSCESS OF BUTTOCK 08/21/2019 LAURA WIGGINS MD, Ot M06 .9 RHEUMATOID ARTHRITIS, UNSPECIFIED 08/21/2019 LAURA WIGGINS MD, Ot N17 .9 ACUTE KIDNEY FAILURE, UNSPECIFIED 08/21/2019 LAURA WIGGINS MD, Ot R65.20 SEVERE SEPSIS WITHOUT SEPTIC SHOCK 08/21/2019 LAURA WIGGINS MD, Ot Z68.34 BODY MASS INDEX (BMI) 34.0-34.9, ADULT 08/21/2019 LAURA WIGGINS MD, Ot Z87.891 PERSONAL HISTORY OF NICOTINE DEPENDENCE Procedures Code Description Performed By Per formed On [id number] DR CABRALES OF BUTTOCK SUBCU/FASCIA, PERC A 08/18/2019 Results Test Result Range Capillary blood glucose measurement by g lucometer (mass/volume) - 08/18/19 22:37 Capillary blood glucose measurement by glucometer (mas s/volume) 211 mg/dL 70-110 Complete blood count (CBC) with automate d white blood cell (WBC) differential - 08/18/19 22:50 Blood leukocytes automated count (number/volume) 18.8 10*3/uL 4.3-11.0 Blood erythrocytes automated count (number/volume) 4.37 10*6/uL 4.35-5.85 Venous blood hemoglobin measurement (mass/volume) 12.6 g/dL 13.3-17.7 Blood hematocrit (volume fraction) 39 % 40-54 Automated erythrocyte mean corpuscular volume 88 [ foz_us] 80-99 Automated erythrocyte mean corpuscular h emoglobin (mass per erythrocyte) 29 pg 25-34 Automated erythrocyte mean corpuscular h emoglobin concentration measurement (mass/volume) 33 g/dL 32-36 Automated erythrocyte distribution width ratio 14. 3 % 10.0- 14.5 Automated blood platelet count (count/volume) 152 10*3/uL 130-400 Automated blood platelet mean volume measurement 11.4 [foz_us] 7.4-10.4 Automated blood neutrophils/100 leukocytes 81 % 42-75 Automated blood lymphocytes/100 leukocytes 6 % 12-44 Blood monocytes/100 leukocytes 12 % 0-12 Automated blood eosinophils/100 leukocytes 0 % 0-10 Automated blood basophils/100 leukocytes 0 % 0-10 Blood neutrophils automated count (number/volume) 15.3 10*3 1.8-7.8 Blood lymphocytes automated count (number/volume) 1.1 10*3 1.0-4.0 Blood monocytes automated count (number/volume) 2. 3 10*3 0.0-1.0 Automated eosinophil count 0.0 10*3/uL 0 .0-0.3 Automated blood basophil count (count/volume) 0.0 10*3/uL 0.0-0.1 Blood lactic acid measurement (moles/vol ume) - 08/18/19 22:50 Blood lactic acid measurement (moles/volume) 1.43 mmol/L 0.50-2.00 PT panel in platelet poor plasma by coag ulation assay - 08/18/19 22:50 Prothrombin time (PT) in platelet poor plasma by coagu lation assay 15.3 s 12.2-14.7 INR in platelet poor plasma or blood by coagulation as say 1.2 0.8-1.4 Activated partial thromboplastin time (a PTT) in platelet poor plasma bycoagulation assay - 08/18/19 22:50 Activated partial thromboplastin time (a PTT) in platelet poor plasma bycoagulation assay 36 s 24-35 Comprehensive metabolic panel - 08/18/19 22:50 Serum or plasma sodium measurement (moles/volume) 132 mmol/L 135-145 Serum or plasma potassium measurement (moles/volume) 5.2 mmol/L 3.6-5.0 Serum or plasma chloride measurement (moles/volume) 99 mmol/L 98-107 Carbon dioxide 22 mmol/L 21-32 Serum or plasma anion gap determination (moles/volume) 11 mmol/L 5-14 Serum or plasma urea nitrogen measurement (mass/volume ) 44 mg/dL 7-18 Serum or plasma creatinine measurement (mass/volume) 1.70 mg/dL 0.60-1.30 Serum or plasma urea nitrogen/creatinine mass ratio 26 NRG Serum or plasma creatinine measurement w ith calculation of estimated glomerular filtration rate 40 NRG Serum or plasma glucose measurement (mass/volume) 225 mg/dL 70-105 Serum or plasma calcium measurement (mass/volume) 9.5 mg/dL 8.5-10.1 Serum or plasma total bilirubin measurement (mass/volu me) 0.6 mg/dL 0.1-1.0 Serum or plasma alkaline phosphatase marco surement (enzymatic activity/volume) 100 U/L 40-136 Serum or plasma aspartate aminotransfera se measurement (enzymatic activity/volume) 17 U/L 5-34 Serum or plasma alanine aminotransferase measurement (enzymatic activity/volume) 18 U/L 0-55 Serum or plasma protein measurement (mass/volume) 7.0 g/dL 6.4-8.2 Serum or plasma albumin measurement (mass/volume) 3.9 g/dL 3.2-4.5 CALCIUM CORRECTED 9.6 mg/dL 8.5-10.1 Manual absolute plasma cell count - 09/03 22:50 Blood monocytes/100 leukocytes 8 % NRG Manual blood segmented neutrophils/100 leukocytes 77 % NRG Blood band neutrophils/100 leukocytes 10 % NRG Manual blood lymphocytes/100 leukocytes 5 % NRG Blood erythrocyte morphology finding identification NORMAL NRG Bacterial blood culture - 08/18/19 22:50 Bacterial blood culture NG NRG Bacterial blood culture - 08/18/19 22:57 Bacterial blood culture NG NRG Complete urinalysis with reflex to cultu re - 08/18/19 23:30 Urine color determination YELLOW NRG Urine clarity determination CLEAR NR G Urine pH measurement by test strip 6.0 5-9 Specific gravity of urine by test strip 1.010 1.016-1.022 Urine protein assay by test strip, semi-quantitative NEGATIVE NEGATIVE Urine glucose detection by automated test strip 3+ NEGATIVE Erythrocytes detection in urine sediment by light micr oscopy NEGATIVE NEGATIVE Urine ketones detection by automated test strip NE GATIVE NEGATIVE Urine nitrite detection by test strip NEGATIVE NEGATIVE Urine total bilirubin detection by test strip NEGA TIVE NEGATIVE Urine urobilinogen measurement by automated test strip (mass/volume) 0.2 mg/dL < = 1.0 Urine leukocyte esterase detection by dipstick NEG ATIVE NEGATIVE Automated urine sediment erythrocyte cou nt by microscopy (number/high power field) RARE NRG Automated urine sediment leukocyte count by microscopy (number/high power field) NONE NRG Bacteria detection in urine sediment by light microsco py TRACE NRG Squamous epithelial cells detection in u rine sediment by light microscopy RARE NRG Crystals detection in urine sediment by light microsco py NONE NRG Casts detection in urine sediment by light microscopy NONE NRG Mucus detection in urine sediment by light microscopy NEGATIVE NRG Complete urinalysis with reflex to culture CULTURE PENDING NRG Bacterial urine culture - 08/18/19 23:30 Bacterial urine culture 3 OR MORE NRG COLONY COUNT 20,000 CFU/ML NRG FTX;REPORTABLE GRAM POSITIVES , SUGGESTING PROBABL E NRG FREE TEXT ENTRY 2 COLLECTION CONTAMINATION WITH SK IN RAFI NRG FREE TEXT ENTRY 3 NO SUSCEPTIBILITY PERFORMED NRG Bacteria identification in wound by cult ure - 08/18/19 23:43 Bacteria identification in wound by culture UMSF NRG QUANTITY OF GROWTH Rare NRG Capillary blood glucose measurement by g lucometer (mass/volume) - 08/19/19 00:24 Capillary blood glucose measurement by glucometer (mas s/volume) 199 mg/dL 70-110 Methicillin resistant Staphylococcus aur eus (MRSA) screening culture - 08/19/19 03:09 Methicillin resistant Staphylococcus aureus (MRSA) scr eening culture NEG NRG Complete blood count (CBC) with automate d white blood cell (WBC) differential - 08/19/19 04:16 Blood leukocytes automated count (number/volume) 17.6 10*3/uL 4.3-11.0 Blood erythrocytes automated count (number/volume) 3.97 10*6/uL 4.35-5.85 Venous blood hemoglobin measurement (mass/volume) 11.4 g/dL 13.3-17.7 Blood hematocrit (volume fraction) 35 % 40-54 Automated erythrocyte mean corpuscular volume 88 [ foz_us] 80-99 Automated erythrocyte mean corpuscular h emoglobin (mass per erythrocyte) 29 pg 25-34 Automated erythrocyte mean corpuscular h emoglobin concentration measurement (mass/volume) 33 g/dL 32-36 Automated erythrocyte distribution width ratio 14. 2 % 10.0- 14.5 Automated blood platelet count (count/volume) 132 10*3/uL 130-400 Automated blood platelet mean volume measurement 11.7 [foz_us] 7.4-10.4 Automated blood neutrophils/100 leukocytes 83 % 42-75 Automated blood lymphocytes/100 leukocytes 6 % 12-44 Blood monocytes/100 leukocytes 10 % 0-12 Automated blood eosinophils/100 leukocytes 0 % 0-10 Automated blood basophils/100 leukocytes 0 % 0-10 Blood neutrophils automated count (number/volume) 14.6 10*3 1.8-7.8 Blood lymphocytes automated count (number/volume) 1.1 10*3 1.0-4.0 Blood monocytes automated count (number/volume) 1. 8 10*3 0.0-1.0 Automated eosinophil count 0.0 10*3/uL 0 .0-0.3 Automated blood basophil count (count/volume) 0.0 10*3/uL 0.0-0.1 Comprehensive metabolic panel - 08/19/19 04:16 Serum or plasma sodium measurement (moles/volume) 134 mmol/L 135-145 Serum or plasma potassium measurement (moles/volume) 4.7 mmol/L 3.6-5.0 Serum or plasma chloride measurement (moles/volume) 107 mmol/L 98-107 Carbon dioxide 17 mmol/L 21-32 Serum or plasma anion gap determination (moles/volume) 10 mmol/L 5-14 Serum or plasma urea nitrogen measurement (mass/volume ) 40 mg/dL 7-18 Serum or plasma creatinine measurement (mass/volume) 1.47 mg/dL 0.60-1.30 Serum or plasma urea nitrogen/creatinine mass ratio 27 NRG Serum or plasma creatinine measurement w ith calculation of estimated glomerular filtration rate 48 NRG Serum or plasma glucose measurement (mass/volume) 175 mg/dL 70-105 Serum or plasma calcium measurement (mass/volume) 7.9 mg/dL 8.5-10.1 Serum or plasma total bilirubin measurement (mass/volu me) 0.7 mg/dL 0.1-1.0 Serum or plasma alkaline phosphatase marco surement (enzymatic activity/volume) 82 U/L 40-136 Serum or plasma aspartate aminotransfera se measurement (enzymatic activity/volume) 17 U/L 5-34 Serum or plasma alanine aminotransferase measurement (enzymatic activity/volume) 15 U/L 0-55 Serum or plasma protein measurement (mass/volume) 5.7 g/dL 6.4-8.2 Serum or plasma albumin measurement (mass/volume) 3.2 g/dL 3.2-4.5 CALCIUM CORRECTED 8.5 mg/dL 8.5-10.1 Serum or plasma phosphate measurement (m ass/volume) - 08/19/19 04:16 Serum or plasma phosphate measurement (mass/volume) 2.6 mg/dL 2.3-4.7 Magnesium - 08/19/19 04:16 Magnesium 1.6 mg/dL 1.6-2.4 Capillary blood glucose measurement by g lucometer (mass/volume) - 08/19/19 11:59 Capillary blood glucose measurement by glucometer (mas s/volume) 182 mg/dL 70-110 Capillary blood glucose measurement by g lucometer (mass/volume) - 08/19/19 16:37 Capillary blood glucose measurement by glucometer (mas s/volume) 172 mg/dL 70-110 Capillary blood glucose measurement by g lucometer (mass/volume) - 08/19/19 20:54 Capillary blood glucose measurement by glucometer (mas s/volume) 148 mg/dL 70-110 Complete blood count (CBC) with automate d white blood cell (WBC) differential - 08/20/19 03:00 Blood leukocytes automated count (number/volume) 15.0 10*3/uL 4.3-11.0 Blood erythrocytes automated count (number/volume) 3.50 10*6/uL 4.35-5.85 Venous blood hemoglobin measurement (mass/volume) 10.2 g/dL 13.3-17.7 Blood hematocrit (volume fraction) 32 % 40-54 Automated erythrocyte mean corpuscular volume 90 [ foz_us] 80-99 Automated erythrocyte mean corpuscular h emoglobin (mass per erythrocyte) 29 pg 25-34 Automated erythrocyte mean corpuscular h emoglobin concentration measurement (mass/volume) 32 g/dL 32-36 Automated erythrocyte distribution width ratio 14. 1 % 10.0- 14.5 Automated blood platelet count (count/volume) 119 10*3/uL 130-400 Automated blood platelet mean volume measurement 11.6 [foz_us] 7.4-10.4 Automated blood neutrophils/100 leukocytes 78 % 42-75 Automated blood lymphocytes/100 leukocytes 7 % 12-44 Blood monocytes/100 leukocytes 12 % 0-12 Automated blood eosinophils/100 leukocytes 2 % 0-10 Automated blood basophils/100 leukocytes 0 % 0-10 Blood neutrophils automated count (number/volume) 11.7 10*3 1.8-7.8 Blood lymphocytes automated count (number/volume) 1.1 10*3 1.0-4.0 Blood monocytes automated count (number/volume) 1. 9 10*3 0.0-1.0 Automated eosinophil count 0.3 10*3/uL 0 .0-0.3 Automated blood basophil count (count/volume) 0.0 10*3/uL 0.0-0.1 Whole blood basic metabolic panel - 11/03 03:00 Serum or plasma sodium measurement (moles/volume) 138 mmol/L 135-145 Serum or plasma potassium measurement (moles/volume) 4.4 mmol/L 3.6-5.0 Serum or plasma chloride measurement (moles/volume) 112 mmol/L 98-107 Carbon dioxide 18 mmol/L 21-32 Serum or plasma anion gap determination (moles/volume) 8 mmol/L 5-14 Serum or plasma urea nitrogen measurement (mass/volume ) 26 mg/dL 7-18 Serum or plasma creatinine measurement (mass/volume) 0.91 mg/dL 0.60-1.30 Serum or plasma urea nitrogen/creatinine mass ratio 29 NRG Serum or plasma creatinine measurement w ith calculation of estimated glomerular filtration rate > NRG Serum or plasma glucose measurement (mass/volume) 107 mg/dL 70-105 Serum or plasma calcium measurement (mass/volume) 7.6 mg/dL 8.5-10.1 Serum or plasma phosphate measurement (m ass/volume) - 08/20/19 03:00 Serum or plasma phosphate measurement (mass/volume) 1.8 mg/dL 2.3-4.7 Magnesium - 08/20/19 03:00 Magnesium 1.8 mg/dL 1.6-2.4 Capillary blood glucose measurement by g lucometer (mass/volume) - 08/20/19 12:00 Capillary blood glucose measurement by glucometer (mas s/volume) 159 mg/dL 70-110 Capillary blood glucose measurement by g lucometer (mass/volume) - 08/20/19 16:18 Capillary blood glucose measurement by glucometer (mas s/volume) 97 mg/dL 70-110 Capillary blood glucose measurement by g lucometer (mass/volume) - 08/20/19 20:26 Capillary blood glucose measurement by glucometer (mas s/volume) 187 mg/dL 70-110 Whole blood basic metabolic panel - 12/04 05:00 Serum or plasma sodium measurement (moles/volume) 138 mmol/L 135-145 Serum or plasma potassium measurement (moles/volume) 4.1 mmol/L 3.6-5.0 Serum or plasma chloride measurement (moles/volume) 112 mmol/L 98-107 Carbon dioxide 21 mmol/L 21-32 Serum or plasma anion gap determination (moles/volume) 5 mmol/L 5-14 Serum or plasma urea nitrogen measurement (mass/volume ) 15 mg/dL 7-18 Serum or plasma creatinine measurement (mass/volume) 0.83 mg/dL 0.60-1.30 Serum or plasma urea nitrogen/creatinine mass ratio 18 NRG Serum or plasma creatinine measurement w ith calculation of estimated glomerular filtration rate > NRG Serum or plasma glucose measurement (mass/volume) 119 mg/dL 70-105 Serum or plasma calcium measurement (mass/volume) 7.6 mg/dL 8.5-10.1 Complete blood count (CBC) with automate d white blood cell (WBC) differential - 08/21/19 05:00 Blood leukocytes automated count (number/volume) 13.3 10*3/uL 4.3-11.0 Blood erythrocytes automated count (number/volume) 3.39 10*6/uL 4.35-5.85 Venous blood hemoglobin measurement (mass/volume) 9.7 g/dL 13.3-17.7 Blood hematocrit (volume fraction) 30 % 40-54 Automated erythrocyte mean corpuscular volume 89 [ foz_us] 80-99 Automated erythrocyte mean corpuscular h emoglobin (mass per erythrocyte) 29 pg 25-34 Automated erythrocyte mean corpuscular h emoglobin concentration measurement (mass/volume) 32 g/dL 32-36 Automated erythrocyte distribution width ratio 14. 5 % 10.0- 14.5 Automated blood platelet count (count/volume) 140 10*3/uL 130-400 Automated blood platelet mean volume measurement 11.6 [foz_us] 7.4-10.4 Automated blood neutrophils/100 leukocytes 74 % 42-75 Automated blood lymphocytes/100 leukocytes 11 % 12-44 Blood monocytes/100 leukocytes 11 % 0-12 Automated blood eosinophils/100 leukocytes 4 % 0-10 Automated blood basophils/100 leukocytes 0 % 0-10 Blood neutrophils automated count (number/volume) 9.8 10*3 1.8-7.8 Blood lymphocytes automated count (number/volume) 1.4 10*3 1.0-4.0 Blood monocytes automated count (number/volume) 1. 5 10*3 0.0-1.0 Automated eosinophil count 0.6 10*3/uL 0 .0-0.3 Automated blood basophil count (count/volume) 0.0 10*3/uL 0.0-0.1 Capillary blood glucose measurement by g lucometer (mass/volume) - 08/21/19 12:20 Capillary blood glucose measurement by glucometer (mas s/volume) 128 mg/dL 70-110 Encounters ACCT No. Visit Date/Time Discharge Status Pt. Type Provider Facility Loc./Unit Complaint [id number] 08/12/2019 14:00:00 08/12/2019 23:59: 59 [facility] [id number] 08/19/2019 00:30:00 020 15:08:00 DIS Inpatient FELICIANO RIOJAS, LAURA [facility] 4TH SEPSIS,ABSCESS
--- OUTSIDE RECORDS SUMMARY | 2019-08-24 05:15 | XMS REPORT | Continuity of Care Document ---
Author Organization Unknown Address Unknown Phone Unavailable Allergies Active Description Code Type Severity Reaction Onset Reported/Identified Relationship to Patient Clinical Status Yes No Known Drug Allergies [id number] Drug Allergy Unknown N/A 08/18/2019 Yes Penicillins [id number] Drug Aller gy Unknown ears pop and [...] MASS INDEX (BMI) 34.0-34.9, ADULT 08/21/2019 LAURA WIGIGNS MD Ot Z87.891 PERSONAL HISTORY OF NICOTINE [...] Code Description Performed By Per formed On [id number] DR CABRALES OF BUTTOCK SUBCU/FASCIA, PERC A [...] Status Pt. Type Provider Facility Loc./Unit Complaint [id number] 08/12/2019 14:00:00 08/12/2019 23:59: 59 [facility] [place] [id number] 08/19/2019 00:30:00 020 15:08:00 DIS Inpatient FELICIANO RIOJAS, LAURA Loaiza [facility] 4TH SEPSIS,ABSCESS
--- NOTE | 2019-08-24 17:02 | Physician Query Clarification ---
PQ-Link Manifestation-Etiology Admission/Discharge Admission Date: Aug 19, 2019 at 00:30 Discharge Date: Aug 21, 2019 at 15:08 The medical record reflects the following clinical scenario: History/Risk Factors: Diabetes type q Clinical Findings: abscess/cellulitis buttock Treatment: IV antibiotics, I&D Question: Can you specify if the CELLULITIS is due to/associated with diabetes mellitus type 2? Please document a response in the Progress Note or Discharge Summary. 1. Yes - cellulitis is due to/associated with diabetes mellitus. 2. No - cellulitis is not due to/associated with diabetes mellitus. 3. Other, with explanation of the clinical findings. 4. Clinically undetermined, no explanation for the clinical findings. PHYSICIAN RESPONSE Manifestation due to/assoic: Yes Please remember a lack of response to the above will prompt a phone page by [facility]/Coding staff. In responding to this query, please exercise your independent professional judgment. The purpose of this communication is to more accurately reflect the complexity of your patients condition. The fact that a question is asked does not imply that any particular answer is desired or expected. Thank you for your timely response to this clarification. Requestors name: Tatianna THIS PHYSICIAN QUERY FORM IS A PERMANENT PART OF THE MEDICAL RECORD TATIANNA PRESCOTT Aug 24, 2019 17:02 LAURA WIGGINS MD Aug 27, 2019 11:06
== END 2019-08-21 15:08 | disposition home or self-care (01) | DRG 872 ==
LOC: EDUNIT# 21:58 → ER 22:00 → ICU 08-19 00:30 → 4TH 08-20 15:54
PROVIDERS: ADMIT Family Medicine; ATTEND Family Medicine
PROC: 0J993ZZ Drainage of Buttock Subcutaneous Tissue and Fascia, Percutaneous Approach (ICD-10-PCS; principal; 2019-08-18)
DX: A41.9 Sepsis, unspecified organism (principal); R65.20 Severe sepsis without septic shock; N17.9 Acute kidney failure, unspecified; L02.31 Cutaneous abscess of buttock; L03.317 Cellulitis of buttock; E11.628 Type 2 diabetes mellitus with other skin complications; E66.9 Obesity, unspecified; Z68.34 Body mass index [BMI] 34.0-34.9, adult; M06.9 Rheumatoid arthritis, unspecified; E03.9 Hypothyroidism, unspecified; F32.9 Major depressive disorder, single episode, unspecified; E78.5 Hyperlipidemia, unspecified; I10 Essential (primary) hypertension; D64.9 Anemia, unspecified; Z87.891 Personal history of nicotine dependence; Z79.4 Long term (current) use of insulin
CPT/HCPCS: 36415; 46050; 71045; 74176; 80048; 80053; 81000; 82962; 83605; 83735; 84100; 85007; 85025; 85027; 85610; 85730; 87040; 87070; 87081; 87088; 87205; 96361; 96365; 96366; 96367; 96375; G0378

== ENCOUNTER 2023-01-15 11:07 | Inpatient (IN) | payer MEDICARE, MEDICAID ==
[~2023-01-15] VITALS: Ht 175.3 cm; Wt 109.6 kg
[~2023-01-15 11:07] MED LIST: ACET-2267 PO; ATEN50TA PO; CEPH500T PO; CLIN-144 PO; DULA1.5P2 SC; EMPA1TAB21 PO; FENO160T12 PO; FOLI1TAB33 PO; INSU100I10 SC; LEVO50TA6 PO; LISI10TA25 PO; ROSU40TA23 PO; SERT-414 PO
[2023-01-15 11:24] LABS: HEMATOCRIT 38 % (40-54); HEMOGLOBIN 11.8 g/dL (13.3-17.7); MEAN CORPUSCULAR HEMOGLOBIN 28 pg (25-34); MEAN CORPUSCULAR HGB CONC 31 g/dL (32-36); MEAN CORPUSCULAR VOLUME 89 fL (80-99); MEAN PLATELET VOLUME 12.9 fL (9.0-12.2); PLATELET COUNT 176 10^3/uL (130-400)
[2023-01-15 11:28] LABS: ALBUMIN 3.7 GM/DL (3.2-4.5); CHLORIDE 105 MMOL/L (98-107); POTASSIUM 4.5 MMOL/L (3.6-5.0); SODIUM 140 MMOL/L (135-145)
[2023-01-15 11:29] LABS: CALCIUM 8.6 MG/DL (8.5-10.1)
[2023-01-15] MEDS ORDERED: IOHEXOL 350 MG/ML 100 ML (OMNIPAQUE 350) VIAL IV ONE (11:30)
[2023-01-15] MEDS ORDERED: Tetanus/Diphtheria/Pertussis (Acell) ADULT Vaccine 0.5 ML IM ONE (11:30)
[2023-01-15] MEDS ORDERED: NS 100 ML (IVPB) BAG IV ONE (11:30)
[2023-01-15] MEDS ORDERED: HOLD METFORMIN - RECEIVED CONTRAST 20 ML VIAL IV SCH (11:30)
[2023-01-15 11:31] LABS: GLUCOSE 204 MG/DL (70-105); TOTAL PROTEIN 6.6 GM/DL (6.4-8.2)
[2023-01-15 11:32] LABS: BILIRUBIN,TOTAL 0.5 MG/DL (0.1-1.0); CARBON DIOXIDE 23 MMOL/L (21-32)
[2023-01-15 11:34] LABS: ALKALINE PHOSPHATASE 112 U/L (40-136); GFR ESTIMATED 72
[2023-01-15 11:35] LABS: BUN/CREATININE RATIO 15
[2023-01-15 11:36] LABS: BILIRUBIN,DIRECT 0.2 MG/DL (0.0-0.3); BILIRUBIN,INDIRECT 0.3 MG/DL
[2023-01-15 11:37] LABS: ALANINE AMINOTRANSFERASE 33 U/L (0-55)
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
--- NOTE | 2023-01-15 11:42 | Diagnostic Imaging Report ---
EXAMINATION: Pelvis 1 or 2 views HISTORY: Pelvic injury. COMPARISON: None available. FINDINGS: The film is underpenetrated. There is a right hip arthroplasty. No dislocation. No fracture. There is moderate left hip osteoarthritis. IMPRESSION: 1. No fracture is seen in the pelvis. Dictated by: Dictated on workstation # [id number]
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
[2023-01-15] MEDS ORDERED: morphine INJ 10 MG/ML 1ML (SYR OR VIAL) IVP STA (12:13)
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
[2023-01-15 12:35] LABS: BILIRUBIN,URINE NEGATIVE (NEGATIVE); CLARITY,URINE CLEAR; COLOR,URINE YELLOW; GLUCOSE, URINE (UA) 3+ (NEGATIVE); KETONES,URINE NEGATIVE (NEGATIVE); LEUKOCYTE ESTERASE ,URINE NEGATIVE (NEGATIVE); NITRITE,URINE NEGATIVE (NEGATIVE); PROTEIN,URINE 2+ (NEGATIVE)
[2023-01-15] MEDS ORDERED: LIDOCAINE 1% INJ 10 ML VIAL ONE (12:43)
[2023-01-15] MEDS ORDERED: CLINDAMYCIN 600 MG/50 ML IVPB 50 ML IV ONE (12:45)
[2023-01-15] MEDS ORDERED: LIDOCAINE 1% INJ 20 ML VIAL INJ ONE (12:45)
[2023-01-15 12:46] LABS: BACTERIA,URINE NEGATIVE /HPF; SQUAMOUS EPITHELIAL CELL,UR RARE /HPF
[2023-01-15 12:49] LABS: AMPHETAMINE SCREEN, URINE NEGATIVE (NEGATIVE); BARBITURATE SCREEN URINE NEGATIVE (NEGATIVE); BENZODIAZEPINES SCREEN URINE NEGATIVE (NEGATIVE); CANNABINOID SCREEN, URINE NEGATIVE (NEGATIVE); COCAINE SCREEN URINE NEGATIVE (NEGATIVE); METHADONE STAT NEGATIVE (NEGATIVE); OPIATE SCREEN URINE NEGATIVE (NEGATIVE); OXYCODONE STAT NEGATIVE (NEGATIVE); PROPOXYPHENE STAT NEGATIVE (NEGATIVE); TRICYCLIC ANTIDEPRESSANTS SCRE NEGATIVE (NEGATIVE)
[2023-01-15] MEDS ORDERED: morphine INJ 10 MG/ML 1ML (SYR OR VIAL) ONE (13:54)
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
--- NOTE | 2023-01-15 15:01 | Diagnostic Imaging Report ---
SHOULDER, RIGHT, 3 VIEWS INDICATION: Right shoulder pain. COMPARISON: None available. TECHNIQUE: Three views of the right shoulder. FINDINGS: Moderate hypertrophic osteoarthrosis of the AC joint. No acute fracture or traumatic malalignment. Subacromial space is preserved. No abnormal soft tissue mineralizations. IMPRESSION: 1. No acute osseous abnormality about the right shoulder. 2. AC joint osteoarthritis. Dictated by: Dictated on workstation # [id number]
--- NOTE | 2023-01-15 15:06 | Diagnostic Imaging Report ---
EXAMINATION: Right elbow radiographs, 3 views. COMPARISON: None. HISTORY: 72-year-old male, right elbow pain. FINDINGS: There is a soft tissue defect posteriorly superficial to the olecranon. There is no elbow joint effusion. There is no identified acute fracture. There is no radiopaque foreign body. IMPRESSION: 1. Soft tissue defect posteriorly superficial to the olecranon. 2. No identified radiopaque foreign body. 3. No acute osseous abnormality. Dictated by: Dictated on workstation # [id number]
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
--- NOTE | 2023-01-15 15:19 | Diagnostic Imaging Report ---
INDICATION: Hand pain. FINDINGS: There are superficial soft tissue radiopaque foreign bodies, presumed from trauma. Two of these are just dorsal to the second and third MCP levels measuring each about 4-5 mm. There are two dorsal to the carpometacarpal joints along the third ray of similar size, and there is an additional one posterior to the radiocarpal level dorsally. This one is not clearly seen on the frontal view, and I am uncertain as to its laterality. No identifiable fracture. There are arthritic changes to the carpus, MCPs, and phalangeal joints. No dislocation. IMPRESSION: Superficial dorsal soft tissue foreign bodies accompany soft tissue swelling. No fracture identified. Dictated by: Dictated on workstation # [id number]
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
[2023-01-15 16:02] VITALS: BP 109/54
[2023-01-15] MEDS ORDERED: ONDANSETRON INJECTION 4 MG/2 ML (SDV) IV PRN (16:30)
[2023-01-15] MEDS: CLINDAMYCIN 150 MG CAPSULE PO SCH ×2 (16:45→20:53)
[2023-01-15 17:02] VITALS: BP 109/54
[2023-01-15 19:07] VITALS: BP 111/58
[2023-01-15] MEDS ORDERED: FAMOTIDINE 20 MG TABLET PO SCH (21:00)
[2023-01-15] MEDS: RT-ALBUTEROL SULF 2.5 MG/3 ML PRE-MIX VIAL INH PRN (21:07)
[2023-01-15] MEDS: oxyCODONE/ACETAMINOPHEN 5/325MG TABLET PO PRN (21:16)
[2023-01-15 23:20] VITALS: BP 125/69
[2023-01-16] VITALS (12 sets, daily range): BP systolic 112–170; BP diastolic 57–80
[2023-01-16 05:25] LABS: BASOPHILS # (AUTO) 0.1 10^3/uL (0.0-0.1); BASOPHILS % (AUTO) 1 % (0-10); EOSINOPHILS # (AUTO) 0.1 10^3/uL (0.0-0.3); EOSINOPHILS % (AUTO) 1 % (0-10); HEMATOCRIT 37 % (40-54); HEMOGLOBIN 11.2 g/dL (13.3-17.7); LYMPHOCYTES # (AUTO) 1.3 10^3/uL (1.0-4.0); LYMPHOCYTES % (AUTO) 13 % (12-44); MEAN CORPUSCULAR HEMOGLOBIN 28 pg (25-34); MEAN CORPUSCULAR HGB CONC 31 g/dL (32-36); MEAN CORPUSCULAR VOLUME 90 fL (80-99); MEAN PLATELET VOLUME 12.9 fL (9.0-12.2); MONOCYTES # (AUTO) 1.5 10^3/uL (0.0-1.0); MONOCYTES % (AUTO) 14 % (0-12); NEUTROPHILS # (AUTO) 7.5 10^3/uL (1.8-7.8); NEUTROPHILS % (AUTO) 72 % (42-75); PLATELET COUNT 157 10^3/uL (130-400); WHITE BLOOD COUNT 10.5 10^3/uL (4.3-11.0)
[2023-01-16 05:33] LABS: POTASSIUM 5.6 MMOL/L (3.6-5.0)
[2023-01-16 05:34] LABS: CALCIUM 8.4 MG/DL (8.5-10.1)
[2023-01-16 05:39] LABS: CREATININE SERUM 2.53 MG/DL (0.60-1.30)
[2023-01-16] MEDS: oxyCODONE/ACETAMINOPHEN 5/325MG TABLET PO PRN ×2 (06:24→15:10)
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
[2023-01-16] MEDS: CLINDAMYCIN 150 MG CAPSULE PO SCH ×4 (08:13→20:44)
[2023-01-16] MEDS ORDERED: NS IV 1000 ML 1,000 ML IV SCH ×2 (09:15→19:30)
[2023-01-16] MEDS ORDERED: ACET-2650 PO (10:11)
[2023-01-16] MEDS ORDERED: PANT40TA52 PO (10:11)
[2023-01-16] MEDS ORDERED: LEFL20TA18 PO (10:11)
[2023-01-16] MEDS: inSUlin ASPART 1 UNIT/0.01 ML (PER UNIT) SC SCH ×3 (11:44→22:28)
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
[2023-01-16] MEDS: HYPOCHLOROUS ACID/NaCl WOUND SOLN 250 ML IR SCH (16:48)
[2023-01-16] MEDS: SILVER SULFADIAZINE 400 GM CREAM TOP SCH (16:48)
[2023-01-16 18:10] LABS: CALCIUM 8.5 MG/DL (8.5-10.1)
[2023-01-16 18:15] LABS: CREATININE SERUM 3.56 MG/DL (0.60-1.30)
[2023-01-16 18:18] LABS: POTASSIUM 6.6 MMOL/L (3.6-5.0)
[2023-01-16] MEDS ORDERED: SODIUM POLYSTYRENE POWDER 15 GM BOTTLE PO NR (18:30)
[2023-01-16] MEDS: RT-ALBUTEROL SULF 2.5 MG/3 ML PRE-MIX VIAL INH PRN (18:49)
[2023-01-16] MEDS ORDERED: inSUlin ASPART 1 UNIT/0.01 ML (PER UNIT) SC NR (19:00)
[2023-01-16] MEDS ORDERED: NS IV 1000 ML 1,000 ML ONE (19:28)
[2023-01-16] MEDS ORDERED: CALCIUM GLUCONATE 1GM IVPB 100 ML IV ONE ×2 (20:09→20:15)
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
[2023-01-16] MEDS: SERTRALINE 100 MG TABLET PO SCH (20:44)
[2023-01-16] MEDS: FAMOTIDINE 20 MG TABLET PO SCH (20:44)
[2023-01-16] MEDS: NS IV 1000 ML 1,000 ML IV SCH (20:44)
[2023-01-16 21:45] LABS: POTASSIUM 5.8 MMOL/L (3.6-5.0)
[2023-01-16 21:46] LABS: CALCIUM 8.4 MG/DL (8.5-10.1)
[2023-01-16 21:50] LABS: CREATININE SERUM 3.39 MG/DL (0.60-1.30)
--- NOTE | 2023-01-16 22:22 | Tele-ICU Progress Note ---
Subjective Date Seen by a Provider: Jan 16, 2023 Time Seen by a Provider: 22:20 Subjective/Events-last exam Repeat potassium 5.8, will give IV insulin, IV NaHCO3, IV D50W CK lower than I expcected at 3351 Bobby Sterling MD Sepsis Event Evaluation Height, Weight, BMI Height: '" Weight: lbs. oz. kg; 33.22 BMI Method: Focused Exam Time of Focused Exam: 07:19 Exam Exam Patient acknowledged, consented, and participated in this virtual visit which was conducted using real time audio/video Vital Signs Date Time Temp Pulse Resp B/P (MAP) Pulse Ox O2 Delivery O2 Flow Rate FiO2 01/16/23 21:20 95 Nasal Cannula 1.50 01/16/23 20:05 92 01/16/23 19:50 36.9 Nasal Cannula 2.00 01/16/23 18:50 95 Nasal Cannula 2.00 01/16/23 15:52 37.3 82 18 154/64 (94) 96 Nasal Cannula 2.00 01/16/23 11:37 37.0 82 22 112/57 (75) 94 Nasal Cannula 2.00 01/16/23 07:53 Nasal Cannula 2.00 01/16/23 07:31 36.8 89 20 170/72 (104) 95 Nasal Cannula 2.00 01/16/23 06:53 94 Nasal Cannula 1.00 01/16/23 04:05 36.6 77 18 123/72 (89) 98 Nasal Cannula 4.00 01/16/23 02:33 96 Nasal Cannula 4.00 01/15/23 23:20 36.4 80 18 125/69 (87) 92 Nasal Cannula 4.00 I & O 01/16/23 07:00 Intake Total 450 ml Output Total 275 ml Balance 175 ml Height & Weight Height: '" Weight: lbs. oz. kg; 33.22 BMI Method: General Appearance: No Apparent Distress, Other (drowsy but and answer quesitons) HEENT: PERRL/EOMI Neck: Tender Lateral (rt) Respiratory: Lungs Clear, No Accessory Muscle Use, No Respiratory Distress, Wheezing Cardiovascular: Regular Rate, Rhythm, No Murmur Peripheral Pulses: 2+ Carotid (R), 2+ Carotid (L), 2+ Dorsalis Pedis (R), 2+ Left Dors-Pedis (L), 2+ Radial Pulses (L) Gastrointestinal: non tender, soft Extremity: No Calf Tenderness, No Pedal Edema Neurologic/Psychiatric: Alert, Oriented x3, No Motor/Sensory Deficits Skin: Other (rash on forehead, right elbow to wrist, black eye on right, right knee) Results Lab Laboratory Tests 01/15/23 11:14 01/16/23 05:05 01/16/23 17:35 01/16/23 21:09 Assessment/Plan Assessment/Plan Repeat potassium 5.8, will give IV insulin, IV NaHCO3, IV D50W CK lower than I expcected at 3351 Critical Care: Critically Ill Patient Time spent with patient (mins): 15 EDMUND STERLING MD Jan 16, 2023 22:22
[2023-01-16] MEDS ORDERED: inSUlin (REGULAR) HUMAN 1 UNIT/0.01 ML (CHARGE PER UNIT) SC ONE (22:30)
[2023-01-16] MEDS ORDERED: SODIUM BICARB 8.4% 50 MEQ/50 ML (ABBOTT) SYR IV ONE (22:30)
[2023-01-16] MEDS ORDERED: DEXTROSE 50% 50 ML (IMS) SYR IV ONE (22:30)
[2023-01-17] VITALS (7 sets, daily range): BP systolic 138–175; BP diastolic 63–78
[2023-01-17] MEDS ORDERED: NS IV 500 ML 500 ML IV PRN (00:45)
[2023-01-17] MEDS: NS IV 1000 ML 1,000 ML IV SCH ×5 (02:32→19:30)
[2023-01-17] MEDS: oxyCODONE/ACETAMINOPHEN 5/325MG TABLET PO PRN ×2 (03:42→09:43)
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
[2023-01-17 04:58] LABS: POTASSIUM 5.5 MMOL/L (3.6-5.0)
[2023-01-17 04:59] LABS: CALCIUM 8.5 MG/DL (8.5-10.1)
[2023-01-17 05:03] LABS: CREATININE SERUM 2.84 MG/DL (0.60-1.30)
[2023-01-17 05:04] LABS: BASOPHILS # (AUTO) 0.1 10^3/uL (0.0-0.1); MONOCYTES % (AUTO) 16 % (0-12)
[2023-01-17 05:06] LABS: BASOPHILS % (AUTO) 1 % (0-10); EOSINOPHILS # (AUTO) 0.1 10^3/uL (0.0-0.3); EOSINOPHILS % (AUTO) 1 % (0-10); HEMATOCRIT 32 % (40-54); LYMPHOCYTES # (AUTO) 0.7 10^3/uL (1.0-4.0); LYMPHOCYTES % (AUTO) 9 % (12-44); MEAN CORPUSCULAR HEMOGLOBIN 28 pg (25-34); MEAN CORPUSCULAR HGB CONC 31 g/dL (32-36); MEAN CORPUSCULAR VOLUME 89 fL (80-99); MEAN PLATELET VOLUME 12.9 fL (9.0-12.2); MONOCYTES # (AUTO) 1.3 10^3/uL (0.0-1.0); NEUTROPHILS # (AUTO) 5.9 10^3/uL (1.8-7.8); NEUTROPHILS % (AUTO) 74 % (42-75); PLATELET COUNT 101 10^3/uL (130-400); WHITE BLOOD COUNT 8.1 10^3/uL (4.3-11.0)
[2023-01-17 05:23] LABS: BAND NEUTROPHILS 9 %; EOSINOPHILS % (MANUAL) 1 %; LYMPHOCYTES % (MANUAL) 9 %; MONOCYTES % (MANUAL) 15 %; NEUTROPHILS % (MANUAL) 66 %
[2023-01-17 05:24] LABS: ANISOCYTOSIS SLIGHT
[2023-01-17] MEDS: POTASSIUM CHLORIDE 20 MEQ TABLET PO SCH (05:28)
[2023-01-17] MEDS: POTASSIUM CL 10MEQ/50ML IVPB 50 ML IV SCH (05:28)
[2023-01-17] MEDS: inSUlin ASPART 1 UNIT/0.01 ML (PER UNIT) SC SCH ×4 (05:40→21:25)
[2023-01-17] MEDS: LEVOTHYROXINE 50 MCG TABLET PO SCH (05:41)
[2023-01-17] MEDS: MAGNESIUM 1 GM/100 ML IVPB 100 ML IV SCH (06:23)
[2023-01-17] MEDS ORDERED: MAGNESIUM 1 GM/100 ML IVPB 100 ML IV SCH (06:30)
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
[2023-01-17] MEDS ORDERED: MAGNESIUM 1 GM/100 ML IVPB 100 ML IV ONE (07:00)
--- NOTE | 2023-01-17 07:18 | Physical Therapy Progress Note ---
Therapy Progress Note Patient transferred to ICU due to critical labs. PT will require new orders when patient is deemed medically stable and able to safely participate with skilled PT. GRISEL PALAFOX PT Jan 17, 2023 07:18
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
[2023-01-17] MEDS ORDERED: ANTACID SUSPENSION 30 ML UDC PO PRN (09:45)
[2023-01-17] MEDS ORDERED: LORazepam 1 MG TABLET PO ONE (09:45)
[2023-01-17] MEDS ORDERED: ONDANSETRON INJECTION 4 MG/2 ML (SDV) IV PRN (09:45)
[2023-01-17] MEDS ORDERED: 1/2 NS IV SOLUTION 1000 ML 1,000 ML IV PRN (09:45)
[2023-01-17] MEDS ORDERED: ONDANSETRON 4 MG ORAL DISSOLVE TABLET SL PRN (09:45)
[2023-01-17] MEDS ORDERED: SENNA W/DOCUSATE TABLET PO PRN (09:45)
[2023-01-17] MEDS ORDERED: D5 1/2 NS 1,000 ML IV 1,000 ML IV PRN (09:45)
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
[2023-01-17 09:59] LABS: INR 1.2 (0.8-1.4); PROTHROMBIN TIME PATIENT 15.7 SEC (12.2-14.7)
[2023-01-17] MEDS: SERTRALINE 100 MG TABLET PO SCH ×2 (10:14→21:24)
[2023-01-17] MEDS: SILVER SULFADIAZINE 400 GM CREAM TOP SCH (10:17)
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
--- NOTE | 2023-01-17 14:11 | Diagnostic Imaging Report ---
INDICATION: Acute renal failure. PROCEDURE: Ultrasound abdomen complete. TECHNIQUE: Multiple Real-time grayscale images were obtained of the abdomen in various projections. FINDINGS: The liver is normal in size at 16 cm. The portal vein is patent and shows normal direction of flow. No liver mass is identified. The gallbladder is hydropic measuring approximately 9 x 4 cm. No stones are detected. There is no wall thickening identified. The extrahepatic bile duct measures approximately 8 mm. The visualized pancreas is unremarkable. The spleen is normal in size at 13 cm. The aorta is nonaneurysmal. The IVC is patent. The kidneys demonstrate normal cortical thickness and echogenicity. The right kidney is 10.8 cm in length and the left kidney is 11.5 cm in length. No calculus or hydronephrosis is detected. There is no ascites. IMPRESSION: Essentially unremarkable abdominal ultrasound apart from gallbladder hydrops. No gallstone or evidence of acute cholecystitis is identified. Dictated by: Dictated on workstation # [id number]
[2023-01-17] MEDS: CLINDAMYCIN 150 MG CAPSULE PO SCH ×4 (14:40→21:24)
[2023-01-17] MEDS: morphine INJ 10 MG/ML 1ML (SYR OR VIAL) IV PRN (15:01)
[2023-01-17 15:26] LABS: HEMATOCRIT 31 % (40-54); HEMOGLOBIN 9.4 g/dL (13.3-17.7); MEAN CORPUSCULAR HEMOGLOBIN 28 pg (25-34); MEAN CORPUSCULAR HGB CONC 31 g/dL (32-36); MEAN CORPUSCULAR VOLUME 91 fL (80-99); MEAN PLATELET VOLUME 13.2 fL (9.0-12.2); PLATELET COUNT 110 10^3/uL (130-400); WHITE BLOOD COUNT 6.7 10^3/uL (4.3-11.0)
[2023-01-17 15:37] LABS: POTASSIUM 5.3 MMOL/L (3.6-5.0)
[2023-01-17 15:38] LABS: CALCIUM 8.4 MG/DL (8.5-10.1)
[2023-01-17 15:42] LABS: CREATININE SERUM 2.3 MG/DL (0.60-1.30)
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
[2023-01-17] MEDS: FAMOTIDINE 20 MG TABLET PO SCH (21:24)
[2023-01-18] MEDS: NS IV 1000 ML 1,000 ML IV SCH ×3 (02:11→23:37)
[2023-01-18 03:38] LABS: BASOPHILS # (AUTO) 0.1 10^3/uL (0.0-0.1); BASOPHILS % (AUTO) 1 % (0-10); EOSINOPHILS # (AUTO) 0.2 10^3/uL (0.0-0.3); EOSINOPHILS % (AUTO) 2 % (0-10); HEMATOCRIT 32 % (40-54); HEMOGLOBIN 9.6 g/dL (13.3-17.7); LYMPHOCYTES # (AUTO) 0.6 10^3/uL (1.0-4.0); LYMPHOCYTES % (AUTO) 8 % (12-44); MEAN CORPUSCULAR HEMOGLOBIN 27 pg (25-34); MEAN CORPUSCULAR HGB CONC 30 g/dL (32-36); MEAN CORPUSCULAR VOLUME 91 fL (80-99); MEAN PLATELET VOLUME 13.7 fL (9.0-12.2); MONOCYTES # (AUTO) 1.2 10^3/uL (0.0-1.0); MONOCYTES % (AUTO) 17 % (0-12); NEUTROPHILS % (AUTO) 71 % (42-75)
[2023-01-18 03:46] LABS: ALBUMIN 3.1 GM/DL (3.2-4.5); POTASSIUM 5.2 MMOL/L (3.6-5.0)
[2023-01-18 03:48] LABS: CALCIUM 8.5 MG/DL (8.5-10.1)
[2023-01-18 03:51] LABS: BILIRUBIN,TOTAL 0.6 MG/DL (0.1-1.0)
[2023-01-18 03:52] LABS: CREATININE SERUM 1.55 MG/DL (0.60-1.30)
[2023-01-18 03:55] LABS: MAGNESIUM 2.2 MG/DL (1.6-2.4)
[2023-01-18 04:04] LABS: SMEAR SCAN COMMENT YES
[2023-01-18 04:05] LABS: PLATELET COUNT 90 10^3/uL (130-400)
--- NOTE | 2023-01-18 06:20 | Diagnostic Imaging Report ---
INDICATION: Wheezing TECHNIQUE: Single view chest 6:00 AM CORRELATION STUDY: 01/16/2023 FINDINGS: Heart size and mediastinum are unremarkable. Vascularity is borderline. Faint opacities of both lung mathews have developed particularly in the right [id number] lung field. IMPRESSION: 1. Borderline heart size with vasculature appearing slightly increased along with increasing opacities of both lung mathews. May be reflective of edema versus developing infiltrate. Follow-up imaging recommended. Dictated by: Dictated on workstation # [id number]
[2023-01-18] MEDS: MAGNESIUM 1 GM/100 ML IVPB 100 ML IV SCH (06:52)
[2023-01-18] MEDS: inSUlin ASPART 1 UNIT/0.01 ML (PER UNIT) SC SCH ×4 (06:52→20:53)
[2023-01-18] MEDS: POTASSIUM CHLORIDE 20 MEQ TABLET PO SCH (06:52)
[2023-01-18] MEDS: POTASSIUM CL 10MEQ/50ML IVPB 50 ML IV SCH (06:52)
[2023-01-18] MEDS: LEVOTHYROXINE 50 MCG TABLET PO SCH (06:55)
--- NOTE | 2023-01-18 07:13 | Physical Therapy Progress Note ---
Therapy Progress Note Patient transferred to ICU due to critical labs. PT will require new orders when patient is deemed medically stable and able to safely participate with skilled PT. GRISEL PALAFOX PT Jan 18, 2023 07:13
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
[2023-01-18] MEDS: SERTRALINE 100 MG TABLET PO SCH ×2 (08:37→20:52)
[2023-01-18] MEDS: oxyCODONE/ACETAMINOPHEN 5/325MG TABLET PO PRN ×2 (08:37→13:53)
[2023-01-18] MEDS: CLINDAMYCIN 150 MG CAPSULE PO SCH ×4 (08:37→20:52)
[2023-01-18] MEDS: SILVER SULFADIAZINE 400 GM CREAM TOP SCH (08:45)
[2023-01-18] MEDS: RT-ALBUTEROL SULF 2.5 MG/3 ML PRE-MIX VIAL INH PRN (09:10)
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
--- NOTE | 2023-01-18 12:53 | Tele-ICU Progress Note ---
Subjective Date Seen by a Provider: Jan 18, 2023 Time Seen by a Provider: 12:53 Subjective/Events-last exam 1 Sepsis Event Evaluation Height, Weight, BMI Height: '" Weight: lbs. oz. kg; 33.22 BMI Method: Focused Exam Time of Focused Exam: 07:19 Exam Exam Patient acknowledged, consented, and participated in this virtual visit which was conducted using real time audio/video Vital Signs Date Time Temp Pulse Resp B/P (MAP) Pulse Ox O2 Delivery O2 Flow Rate FiO2 01/18/23 12:33 74 01/18/23 12:17 36.3 01/18/23 12:00 73 16 123/52 (84) 99 Nasal Cannula 1.50 01/18/23 11:00 76 14 141/51 (77) 97 Nasal Cannula 1.50 01/18/23 10:00 78 14 141/51 (74) 94 Nasal Cannula 1.50 01/18/23 09:16 97 Nasal Cannula 2.00 01/18/23 09:07 36.3 01/18/23 09:00 87 18 160/58 (92) 97 Nasal Cannula 1.50 01/18/23 08:37 36.3 01/18/23 08:00 96 22 142/107 (109) 95 Nasal Cannula 1.50 01/18/23 08:00 96 Nasal Cannula 2.00 01/18/23 07:51 36.3 01/18/23 07:24 97 Nasal Cannula 2.00 01/18/23 07:00 79 01/18/23 07:00 81 18 188/61 (124) 99 Nasal Cannula 1.50 01/18/23 06:00 76 16 165/57 (93) 98 Nasal Cannula 1.50 01/18/23 05:00 87 28 98 Nasal Cannula 1.50 01/18/23 04:00 96 Nasal Cannula 2.00 01/18/23 04:00 82 17 130/63 (85) 99 Nasal Cannula 1.50 01/18/23 03:00 96 17 165/68 (100) 98 Nasal Cannula 1.50 01/18/23 02:52 99 Nasal Cannula 2.00 01/18/23 02:00 93 18 157/87 (110) 97 Nasal Cannula 1.50 01/18/23 01:00 91 01/18/23 01:00 83 17 124/57 (79) 97 Nasal Cannula 1.50 01/18/23 00:00 90 17 128/62 (84) 98 Nasal Cannula 1.50 01/18/23 00:00 36.4 Nasal Cannula 1.50 01/17/23 23:29 97 Nasal Cannula 2.00 01/17/23 23:00 93 21 154/68 (96) 97 Nasal Cannula 1.50 01/17/23 22:00 93 18 179/76 (110) 98 Nasal Cannula 1.50 01/17/23 21:22 97 Nasal Cannula 2.00 01/17/23 21:00 90 15 168/83 (111) 98 Nasal Cannula 1.50 01/17/23 20:00 97 Nasal Cannula 2.00 01/17/23 20:00 81 14 98 Nasal Cannula 1.50 01/17/23 20:00 36.3 Nasal Cannula 1.50 01/17/23 19:00 82 15 98 Nasal Cannula 1.50 01/17/23 19:00 80 01/17/23 18:03 97 Nasal Cannula 2.00 01/17/23 18:00 82 16 97 Nasal Cannula 1.50 01/17/23 17:00 81 17 143/56 (85) 95 Nasal Cannula 1.50 01/17/23 16:11 93 Nasal Cannula 1.50 01/17/23 16:00 36.2 Nasal Cannula 1.50 01/17/23 16:00 94 Nasal Cannula 1.50 01/17/23 16:00 81 20 94 Nasal Cannula 1.50 01/17/23 15:31 36.2 01/17/23 15:01 36.4 01/17/23 15:00 89 17 93 Nasal Cannula 1.50 01/17/23 14:00 24 24 127/59 (81) 95 Nasal Cannula 1.50 01/17/23 13:00 100 01/17/23 13:00 93 20 89 Nasal Cannula 1.50 I & O 01/18/23 07:00 Intake Total 2200 ml Output Total 1850 ml Balance 350 ml Height & Weight Height: '" Weight: lbs. oz. kg; 33.22 BMI Method: General Appearance: No Apparent Distress HEENT: PERRL/EOMI, Moist Mucous Membranes Respiratory: No Accessory Muscle Use, No Respiratory Distress, Inspiration, Whe ezing Cardiovascular: Regular Rate, Rhythm, No Murmur Gastrointestinal: non tender, soft Extremity: No Calf Tenderness Neurologic/Psychiatric: Alert, Oriented x3 Skin: Other (wound healing on rt forehead, rt shoulder to rt hand, rt big toe scabbing) Results Lab Laboratory Tests 01/16/23 17:35 01/16/23 21:09 01/17/23 04:21 01/17/23 15:04 01/18/23 03:25 Assessment/Plan Assessment/Plan 1 PAIGE MCMANUS MD Jan 18, 2023 12:53
[2023-01-18] MEDS: predniSONE 20 MG TABLET PO SCH (15:59)
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
[2023-01-18] MEDS: morphine INJ 10 MG/ML 1ML (SYR OR VIAL) IV PRN ×2 (16:24→18:20)
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
[2023-01-18] MEDS: FAMOTIDINE 20 MG TABLET PO SCH (20:52)
[2023-01-19 04:26] LABS: BASOPHILS % (AUTO) 0 % (0-10); EOSINOPHILS % (AUTO) 0 % (0-10); HEMATOCRIT 31 % (40-54); HEMOGLOBIN 9.3 g/dL (13.3-17.7); MEAN CORPUSCULAR HEMOGLOBIN 28 pg (25-34); MEAN CORPUSCULAR HGB CONC 31 g/dL (32-36); MEAN CORPUSCULAR VOLUME 91 fL (80-99)
[2023-01-19 04:28] LABS: LYMPHOCYTES # (AUTO) 0.3 10^3/uL (1.0-4.0); LYMPHOCYTES % (AUTO) 7 % (12-44); MONOCYTES # (AUTO) 0.3 10^3/uL (0.0-1.0); MONOCYTES % (AUTO) 7 % (0-12); NEUTROPHILS # (AUTO) 4.3 10^3/uL (1.8-7.8); NEUTROPHILS % (AUTO) 86 % (42-75); PLATELET COUNT 95 10^3/uL (130-400)
[2023-01-19 04:42] LABS: BILIRUBIN,TOTAL 0.4 MG/DL (0.1-1.0); CALCIUM 8.5 MG/DL (8.5-10.1); CREATININE SERUM 1.29 MG/DL (0.60-1.30); POTASSIUM 5.7 MMOL/L (3.6-5.0); TOTAL PROTEIN 5.7 GM/DL (6.4-8.2)
[2023-01-19] MEDS ORDERED: SODIUM POLYSTYRENE POWDER 15 GM BOTTLE PO ONE (05:30)
[2023-01-19] MEDS: LEVOTHYROXINE 50 MCG TABLET PO SCH (06:16)
[2023-01-19] MEDS: inSUlin ASPART 1 UNIT/0.01 ML (PER UNIT) SC SCH ×4 (06:16→21:04)
[2023-01-19] MEDS: predniSONE 20 MG TABLET PO SCH (06:16)
[2023-01-19] MEDS: POTASSIUM CL 10MEQ/50ML IVPB 50 ML IV SCH (06:53)
[2023-01-19] MEDS: MAGNESIUM 1 GM/100 ML IVPB 100 ML IV SCH (06:53)
[2023-01-19] MEDS: POTASSIUM CHLORIDE 20 MEQ TABLET PO SCH (06:53)
[2023-01-19] MEDS: RT-ALBUTEROL SULF 2.5 MG/3 ML PRE-MIX VIAL INH PRN (08:18)
[2023-01-19] MEDS: CLINDAMYCIN 150 MG CAPSULE PO SCH ×4 (08:27→21:27)
[2023-01-19] MEDS: oxyCODONE/ACETAMINOPHEN 5/325MG TABLET PO PRN (08:27)
[2023-01-19] MEDS: SERTRALINE 100 MG TABLET PO SCH ×2 (08:27→21:01)
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
[2023-01-19] MEDS ORDERED: LABETALOL 5 mg/ml 4 ML SINGLE DOSE SYRINGE IV ONE (09:00)
[2023-01-19] MEDS: SILVER SULFADIAZINE 400 GM CREAM TOP SCH (10:20)
[2023-01-19] MEDS: HYPOCHLOROUS ACID/NaCl WOUND SOLN 250 ML IR SCH (10:20)
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
[2023-01-19] MEDS ORDERED: amLODIPine 5 MG TABLET PO ONE (11:15)
[2023-01-19] MEDS: LORazepam 1 MG TABLET PO PRN ×3 (11:46→13:49)
[2023-01-19] MEDS: NS IV 1000 ML 1,000 ML IV SCH ×2 (11:52→20:23)
[2023-01-19] MEDS ORDERED: LACTULOSE SYRUP 10GM/15ML 30ML UDC PO PRN (12:30)
[2023-01-19] MEDS ORDERED: SENNA W/DOCUSATE TABLET PO SCH (12:30)
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
[2023-01-19 15:54] LABS: ABG BASE EXCESS -1.6 MMOL/L (-2.5-2.5); ABG OXYGEN SATURATION 91 % (94-100); ABG PCO2 56 MMHG (35-45); ABG PO2 63 MMHG (79-93); ABG TCO2 26.3 MMOL/L (21.0-31.0)
[2023-01-19 15:58] LABS: ABG PH 7.26 (7.37-7.43); ALLENS TEST YES-POS; INSPIRED O2 3; PATIENT TEMP 36.7; VENTILATOR NO
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
[2023-01-19 16:28] VITALS: BP 145/56
[2023-01-19] MEDS: DexMEDEtomidine 1,000mcg/250ml 250 ML IV SCH (16:50)
--- NOTE | 2023-01-19 21:11 | Tele-ICU Progress Note ---
Progress Note Pt is on BIPAP and unable to take PO medications, Clindamycin and Pepcid Switched to IV for tonight. Focused Exam Height, Weight, BMI Height: '" Weight: lbs. oz. kg; 33.22 BMI Method: Time of Focused Exam: 07:19 LUIS KRUEGER MD Jan 19, 2023 21:11
[2023-01-19] MEDS ORDERED: FAMOTIDINE INJ 20MG/2ML VIAL IVP ONE (21:15)
[2023-01-19] MEDS ORDERED: CLINDAMYCIN 300 MG/50 ML IVPB 50 ML IV SCH (21:15)
[2023-01-19] MEDS: FAMOTIDINE 20 MG TABLET PO SCH (21:27)
[2023-01-19 21:50] VITALS: BP 99/49
[2023-01-19 22:25] LABS: ABG BASE EXCESS 0.4 MMOL/L (-2.5-2.5); ABG OXYGEN SATURATION 99 % (94-100); ABG PCO2 66 MMHG (35-45); ABG PO2 136 MMHG (79-93); ABG TCO2 29.4 MMOL/L (21.0-31.0)
[2023-01-19 22:29] LABS: ALLENS TEST YES-POS; INSPIRED O2 40%; PATIENT TEMP 36.3; VENTILATOR NO
[2023-01-19 22:36] LABS: ABG PH 7.23 (7.37-7.43)
--- NOTE | 2023-01-19 23:15 | Tele-ICU Progress Note ---
Progress Note ABG reviewed , Pt with KACEY and hypercapnic respiratory failure. Bipap changed to AVAPS TV 400. d/w the bedside nurse, ABG ordered for 2 am. nurse to call eicu with results. Focused Exam Height, Weight, BMI Height: '" Weight: lbs. oz. kg; 33.22 BMI Method: Time of Focused Exam: 07:19 LUIS KRUEGER MD Jan 19, 2023 23:14
[2023-01-19 23:38] VITALS: BP 112/51
[2023-01-20] VITALS (7 sets, daily range): BP systolic 103–162; BP diastolic 52–78
[2023-01-20 01:52] LABS: ABG BASE EXCESS 0.8 MMOL/L (-2.5-2.5); ABG OXYGEN SATURATION 99 % (94-100); ABG PCO2 53 MMHG (35-45); ABG PO2 155 MMHG (79-93)
[2023-01-20 01:53] LABS: ABG PH 7.31 (7.37-7.43)
[2023-01-20 01:54] LABS: ALLENS TEST YES-POS; INSPIRED O2 40%; PATIENT TEMP 36.5; VENTILATOR NO
[2023-01-20 05:46] LABS: BASOPHILS % (AUTO) 1 % (0-10); EOSINOPHILS # (AUTO) 0.1 10^3/uL (0.0-0.3); EOSINOPHILS % (AUTO) 1 % (0-10); HEMATOCRIT 27 % (40-54); HEMOGLOBIN 8.6 g/dL (13.3-17.7); LYMPHOCYTES # (AUTO) 0.9 10^3/uL (1.0-4.0); LYMPHOCYTES % (AUTO) 21 % (12-44); MEAN CORPUSCULAR HEMOGLOBIN 28 pg (25-34); MEAN CORPUSCULAR HGB CONC 32 g/dL (32-36); MEAN CORPUSCULAR VOLUME 89 fL (80-99); MEAN PLATELET VOLUME 11.5 fL (9.0-12.2); MONOCYTES # (AUTO) 0.5 10^3/uL (0.0-1.0); MONOCYTES % (AUTO) 13 % (0-12); NEUTROPHILS # (AUTO) 2.5 10^3/uL (1.8-7.8); NEUTROPHILS % (AUTO) 64 % (42-75); PLATELET COUNT 110 10^3/uL (130-400)
[2023-01-20] MEDS: inSUlin ASPART 1 UNIT/0.01 ML (PER UNIT) SC SCH ×4 (05:47→20:39)
[2023-01-20 05:58] LABS: ALBUMIN 2.8 GM/DL (3.2-4.5); POTASSIUM 4.7 MMOL/L (3.6-5.0)
[2023-01-20 05:59] LABS: CALCIUM 8.4 MG/DL (8.5-10.1)
[2023-01-20 06:01] LABS: TOTAL PROTEIN 5.5 GM/DL (6.4-8.2)
[2023-01-20 06:02] LABS: BILIRUBIN,TOTAL 0.5 MG/DL (0.1-1.0)
[2023-01-20 06:04] LABS: CREATININE SERUM 1.13 MG/DL (0.60-1.30); PHOSPHORUS 2.3 MG/DL (2.3-4.7)
[2023-01-20 06:07] LABS: MAGNESIUM 2.4 MG/DL (1.6-2.4)
[2023-01-20] MEDS: MAGNESIUM 1 GM/100 ML IVPB 100 ML IV SCH (06:08)
[2023-01-20] MEDS: POTASSIUM CHLORIDE 20 MEQ TABLET PO SCH (06:08)
[2023-01-20] MEDS: POTASSIUM CL 10MEQ/50ML IVPB 50 ML IV SCH (06:08)
[2023-01-20] MEDS: LEVOTHYROXINE 50 MCG TABLET PO SCH (06:24)
[2023-01-20] MEDS: predniSONE 20 MG TABLET PO SCH (06:24)
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
[2023-01-20] MEDS: NS IV 1000 ML 1,000 ML IV SCH ×2 (09:32→23:05)
[2023-01-20] MEDS: SERTRALINE 100 MG TABLET PO SCH ×2 (10:06→20:38)
[2023-01-20] MEDS: CLINDAMYCIN 150 MG CAPSULE PO SCH ×2 (10:06→13:50)
[2023-01-20] MEDS: amLODIPine 5 MG TABLET PO SCH (10:07)
--- NOTE | 2023-01-20 11:01 | Diagnostic Imaging Report ---
CLINICAL INDICATION: Patient with shortness of air and increased oxygen. Patient needs BiPAP. EXAM: Portable chest x-ray upright view. COMPARISON: Chest x-ray dated 01/18/2023. FINDINGS: Lungs/pleura: There is interval development of medial mild right lung base/inferior perihilar atelectasis versus infiltrate. There is stable groundglass consolidation involving the left lung base which may represent atelectasis versus infiltrate. There is blunting of the left costophrenic angle region and a pleural effusion cannot be completely excluded. There is no pneumothorax. Mediastinum: Unremarkable. Pulmonary vasculature: Unremarkable. Heart: Unremarkable. Bones/extrathoracic soft tissue: Unremarkable. IMPRESSION: 1: There is interval progression of atelectasis versus infiltrate involving the inferior right perihilar/medial right lung base region. 2: Stable blunting of left costophrenic angle region and a small pleural effusion may be considered. There is stable groundglass consolidation in the left lung base which may represent atelectasis versus infiltrate. 3. The remainder of this exam shows no significant interval change compared to the prior study of comparison. Dictated by: Dictated on workstation # [id number]
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
[2023-01-20] MEDS: SILVER SULFADIAZINE 400 GM CREAM TOP SCH (12:32)
[2023-01-20] MEDS: HYPOCHLOROUS ACID/NaCl WOUND SOLN 250 ML IR SCH (12:32)
[2023-01-20] MEDS: RT-Ipratropium/Albuterol NEB 3 ML VIAL INH SCH ×2 (14:39→21:22)
[2023-01-20] MEDS: DexMEDEtomidine 1,000mcg/250ml 250 ML IV SCH (20:30)
[2023-01-20] MEDS: FAMOTIDINE 20 MG TABLET PO SCH (20:39)
[2023-01-20] MEDS: morphine INJ 10 MG/ML 1ML (SYR OR VIAL) IV PRN (23:06)
[2023-01-21 00:36] LABS: ABG BASE EXCESS -0.9 MMOL/L (-2.5-2.5); ABG OXYGEN SATURATION 98 % (94-100); ABG PCO2 50 MMHG (35-45); ABG PO2 90 MMHG (79-93); ABG TCO2 26.3 MMOL/L (21.0-31.0)
[2023-01-21 00:37] LABS: ALLENS TEST YES-POS; INSPIRED O2 30%; PATIENT TEMP 36.1; VENTILATOR NO
[2023-01-21 00:38] LABS: ABG PH 7.31 (7.37-7.43)
[2023-01-21] MEDS ORDERED: QUEtiapine IMMEDIATE RELEASE 25 MG TABLET PO SCH (01:00)
[2023-01-21] MEDS ORDERED: QUEtiapine IMMEDIATE RELEASE 25 MG TABLET ONE (01:04)
[2023-01-21] MEDS: RT-Ipratropium/Albuterol NEB 3 ML VIAL INH SCH ×4 (03:19→21:31)
[2023-01-21 03:55] LABS: ABG BASE EXCESS -0.9 MMOL/L (-2.5-2.5); ABG OXYGEN SATURATION 98 % (94-100); ABG PCO2 52 MMHG (35-45); ABG PO2 114 MMHG (79-93); ABG TCO2 26.7 MMOL/L (21.0-31.0)
[2023-01-21 03:56] LABS: ALLENS TEST YES-POS; INSPIRED O2 30%; PATIENT TEMP 36; VENTILATOR NO
[2023-01-21 03:57] LABS: ABG PH 7.29 (7.37-7.43)
--- NOTE | 2023-01-21 04:55 | Anesthesia-Procedure Note ---
Procedures/Interventions Procedure Start/Stop/Diagnosis Date of Procedure: Jan 21, 2023 Start Time: 04:30 Brief History Called to intubate patient who is uncooperative wearing Bipap and has deteriorating ABG values. Increased confusion and agitation this admission. Stop Time: 04:38 Intubation 100% pre-Ox, [id number]: Yes Intubation Method: orotracheal (7.5) Videoscope used: Yes (glidescope 3 ) Grade View: 1 Medications: Propofol (100mg), Succinylcholine (100mg) Mask Ventilation: positive Positive End Tide CO2: Yes Breath Sounds after Intubation: bilateral-equal ETT Securred @ (cm): 22 Intubated with ease: Yes (x1 attempt) Intubation Complications: no complications Post Intubation Xray-done: Yes (ordered ) SE MARIN CRNA Jan 21, 2023 04:54
[2023-01-21 05:10] LABS: BASOPHILS % (AUTO) 1 % (0-10); EOSINOPHILS # (AUTO) 0.1 10^3/uL (0.0-0.3); EOSINOPHILS % (AUTO) 1 % (0-10); HEMATOCRIT 30 % (40-54); HEMOGLOBIN 9.3 g/dL (13.3-17.7); LYMPHOCYTES # (AUTO) 0.9 10^3/uL (1.0-4.0); LYMPHOCYTES % (AUTO) 15 % (12-44); MEAN CORPUSCULAR HEMOGLOBIN 27 pg (25-34); MEAN CORPUSCULAR HGB CONC 31 g/dL (32-36); MEAN CORPUSCULAR VOLUME 87 fL (80-99); MEAN PLATELET VOLUME 12.5 fL (9.0-12.2); MONOCYTES # (AUTO) 0.7 10^3/uL (0.0-1.0); MONOCYTES % (AUTO) 12 % (0-12); NEUTROPHILS # (AUTO) 4.3 10^3/uL (1.8-7.8); NEUTROPHILS % (AUTO) 71 % (42-75); PLATELET COUNT 133 10^3/uL (130-400); WHITE BLOOD COUNT 6.1 10^3/uL (4.3-11.0)
[2023-01-21 05:35] LABS: ALBUMIN 2.9 GM/DL (3.2-4.5); BILIRUBIN,TOTAL 0.5 MG/DL (0.1-1.0); CALCIUM 8.3 MG/DL (8.5-10.1); CREATININE SERUM 0.88 MG/DL (0.60-1.30); MAGNESIUM 2.1 MG/DL (1.6-2.4); PHOSPHORUS 2.6 MG/DL (2.3-4.7); POTASSIUM 4.5 MMOL/L (3.6-5.0); TOTAL PROTEIN 5.4 GM/DL (6.4-8.2)
[2023-01-21] MEDS: POTASSIUM CHLORIDE 20 MEQ TABLET PO SCH (06:58)
[2023-01-21] MEDS: POTASSIUM CL 10MEQ/50ML IVPB 50 ML IV SCH (06:58)
[2023-01-21] MEDS: MAGNESIUM 1 GM/100 ML IVPB 100 ML IV SCH (06:58)
[2023-01-21] MEDS: inSUlin ASPART 1 UNIT/0.01 ML (PER UNIT) SC SCH ×3 (07:06→17:26)
[2023-01-21] MEDS: LEVOTHYROXINE 50 MCG TABLET PO SCH (07:07)
[2023-01-21] MEDS: predniSONE 20 MG TABLET PO SCH (07:07)
--- NOTE | 2023-01-21 07:15 | Physical Therapy Progress Note ---
Therapy Progress Note Patient currently intubated. PT will require new orders when patient is deemed medically stable and able to actively participate with skilled PT. GRISEL PALAFOX PT Jan 21, 2023 07:15
[2023-01-21 07:25] VITALS: BP 167/89
[2023-01-21] MEDS ORDERED: proPOfol INJECTION 200 MG/20 ML VIAL IV ONE (07:28)
[2023-01-21] MEDS ORDERED: SUCCINYLCHOLINE INJ 100 MG/5 ML SYR/VIAL INJ ONE (07:28)
[2023-01-21 07:30] LABS: ABG BASE EXCESS -0.5 MMOL/L (-2.5-2.5); ABG OXYGEN SATURATION 98 % (94-100); ABG PCO2 40 MMHG (35-45); ABG PH 7.39 (7.37-7.43); ABG PO2 120 MMHG (79-93); ABG TCO2 25.2 MMOL/L (21.0-31.0)
[2023-01-21 07:31] LABS: ALLENS TEST YES-POS; VENTILATOR YES
[2023-01-21 07:32] LABS: INSPIRED O2 40%; PATIENT TEMP 36.1
--- NOTE | 2023-01-21 07:45 | Diagnostic Imaging Report ---
EXAM: CHEST 1 VIEW, AP/PA ONLY INDICATION: Respiratory failure. COMPARISON: Chest radiograph 01/20/2023. FINDINGS: Examination is limited by low lung volumes. Marked perihilar atelectasis. No large pleural effusion or pneumothorax. Heart size appears normal. ETT tip just below the level of the clavicles. NG tube tip is obscured by underpenetration. IMPRESSION: 1. Low lung volumes with marked perihilar atelectasis. 2. ETT tip just below the level clavicles. Dictated by: Dictated on workstation # [id number]
[2023-01-21] MEDS: SERTRALINE 100 MG TABLET PO SCH ×2 (09:22→21:05)
[2023-01-21] MEDS: amLODIPine 5 MG TABLET PO SCH (09:22)
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
[2023-01-21 10:38] VITALS: BP 135/65
[2023-01-21] MEDS: HYPOCHLOROUS ACID/NaCl WOUND SOLN 250 ML IR SCH (10:55)
[2023-01-21] MEDS: SILVER SULFADIAZINE 400 GM CREAM TOP SCH (10:55)
[2023-01-21] MEDS: MIDAZOLAM DRIP PRE-MIX 100 ML IV SCH (11:49)
[2023-01-21] MEDS: NS IV 1000 ML 1,000 ML IV SCH (12:46)
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
[2023-01-21 14:26] VITALS: BP 126/67
[2023-01-21 18:37] VITALS: BP 130/66
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
[2023-01-21] MEDS: ENOXAPARIN 40 MG/0.4 ML SYRINGE SC SCH (21:05)
[2023-01-21] MEDS: FAMOTIDINE 20 MG TABLET PO SCH (21:05)
[2023-01-21 21:32] VITALS: BP 151/64
[2023-01-21] MEDS: morphine INJ 10 MG/ML 1ML (SYR OR VIAL) IV PRN (22:34)
[2023-01-22] MEDS: inSUlin ASPART 1 UNIT/0.01 ML (PER UNIT) SC SCH ×5 (01:44→23:41)
[2023-01-22] MEDS: NS IV 1000 ML 1,000 ML IV SCH ×2 (02:16→18:30)
[2023-01-22 02:33] VITALS: BP 150/64
[2023-01-22] MEDS: RT-Ipratropium/Albuterol NEB 3 ML VIAL INH SCH ×4 (02:33→21:39)
[2023-01-22] MEDS: MIDAZOLAM DRIP PRE-MIX 100 ML IV SCH ×3 (03:11→22:19)
[2023-01-22 05:04] LABS: BASOPHILS % (AUTO) 0 % (0-10); EOSINOPHILS # (AUTO) 0.1 10^3/uL (0.0-0.3); EOSINOPHILS % (AUTO) 2 % (0-10); HEMATOCRIT 29 % (40-54); HEMOGLOBIN 9.2 g/dL (13.3-17.7); LYMPHOCYTES % (AUTO) 14 % (12-44); MEAN CORPUSCULAR HEMOGLOBIN 27 pg (25-34); MEAN CORPUSCULAR HGB CONC 32 g/dL (32-36); MEAN CORPUSCULAR VOLUME 86 fL (80-99); MEAN PLATELET VOLUME 11.6 fL (9.0-12.2); MONOCYTES # (AUTO) 0.6 10^3/uL (0.0-1.0); MONOCYTES % (AUTO) 9 % (0-12); NEUTROPHILS # (AUTO) 5.3 10^3/uL (1.8-7.8); NEUTROPHILS % (AUTO) 74 % (42-75); PLATELET COUNT 153 10^3/uL (130-400); WHITE BLOOD COUNT 7.1 10^3/uL (4.3-11.0)
[2023-01-22 05:32] LABS: ALBUMIN 2.5 GM/DL (3.2-4.5); BILIRUBIN,TOTAL 0.4 MG/DL (0.1-1.0); CREATININE SERUM 0.91 MG/DL (0.60-1.30); PHOSPHORUS 2.6 MG/DL (2.3-4.7); POTASSIUM 3.9 MMOL/L (3.6-5.0); TOTAL PROTEIN 4.8 GM/DL (6.4-8.2)
[2023-01-22] MEDS: MAGNESIUM 1 GM/100 ML IVPB 100 ML IV SCH (05:39)
[2023-01-22] MEDS: POTASSIUM CHLORIDE 20 MEQ TABLET PO SCH (05:40)
[2023-01-22] MEDS: POTASSIUM CL 10MEQ/50ML IVPB 50 ML IV SCH (05:58)
[2023-01-22] MEDS: predniSONE 20 MG TABLET PO SCH (06:25)
[2023-01-22] MEDS: LEVOTHYROXINE 50 MCG TABLET PO SCH (06:25)
[2023-01-22 06:30] VITALS: BP 125/61
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
[2023-01-22] MEDS: DexMEDEtomidine 1,000mcg/250ml 250 ML IV SCH (08:57)
[2023-01-22] MEDS: amLODIPine 5 MG TABLET PO SCH (08:57)
[2023-01-22] MEDS: SERTRALINE 100 MG TABLET PO SCH ×2 (08:57→22:20)
--- NOTE | 2023-01-22 09:45 | Diagnostic Imaging Report ---
HISTORY: Pneumonia. COMPARISON: 01/21/2023. TECHNIQUE: Frontal view of the chest. FINDINGS: The endotracheal tube is about 6.8 cm above the kenna. The enteric tube is difficult to visualize distal to the GE junction, likely due to radiographic underpenetration. Lung volumes are low. There are airspace opacities in the lungs bilaterally, particularly at the lung bases. There is a small left pleural effusion. The heart is normal in size. There is aortic atherosclerosis. IMPRESSION: 1. The endotracheal tube is about 6.8 cm above the kenna. The enteric tube is not visible beyond the GE junction. 2. Bilateral pulmonary airspace opacities with moderately improved aeration compared to the prior exam. 3. Low lung volumes with small left pleural effusion. Dictated by: Dictated on workstation # [id number]
[2023-01-22] MEDS: ACETAMINOPHEN 325 MG/10.15 ML ORAL SOLN UDC PO PRN (10:10)
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
[2023-01-22] MEDS ORDERED: PIPERACILLIN/Tazobactam 4.5 GM in NS (IVPB) 100 ML 100 ML IV ONE (12:30)
[2023-01-22 14:14] LABS: CLARITY,URINE CLEAR; COLOR,URINE YELLOW
[2023-01-22 14:15] LABS: BILIRUBIN,URINE NEGATIVE (NEGATIVE); GLUCOSE, URINE (UA) 3+ (NEGATIVE); KETONES,URINE TRACE (NEGATIVE); LEUKOCYTE ESTERASE ,URINE NEGATIVE (NEGATIVE); NITRITE,URINE NEGATIVE (NEGATIVE); PROTEIN,URINE 2+ (NEGATIVE)
[2023-01-22 14:23] LABS: BACTERIA,URINE TRACE /HPF
[2023-01-22 14:24] VITALS: BP 135/67
[2023-01-22 14:24] LABS: URIC ACID CRYSTALS,URINE MODERATE /LPF
[2023-01-22 14:42] LABS: ABG BASE EXCESS -3.3 MMOL/L (-2.5-2.5); ABG OXYGEN SATURATION 95 % (94-100); ABG PCO2 36 MMHG (35-45); ABG PH 7.38 (7.37-7.43); ABG PO2 72 MMHG (79-93); ABG TCO2 22.2 MMOL/L (21.0-31.0)
[2023-01-22 14:45] LABS: ALLENS TEST Positive; INSPIRED O2 30%; PATIENT TEMP 36.6; VENTILATOR YES
[2023-01-22] MEDS: morphine INJ 10 MG/ML 1ML (SYR OR VIAL) IV PRN (16:30)
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
[2023-01-22 18:22] VITALS: BP 146/76
[2023-01-22] MEDS: PIPERACILLIN/Tazobactam 4.5 GM in NS (IVPB) 100 ML 100 ML IV SCH (18:30)
[2023-01-22 21:39] VITALS: BP 150/71
[2023-01-22] MEDS: ENOXAPARIN 40 MG/0.4 ML SYRINGE SC SCH (22:19)
[2023-01-22] MEDS: MICONAZOLE 2% POWDER 90 GM TOP SCH (22:20)
[2023-01-22] MEDS: FAMOTIDINE 20 MG TABLET PO SCH (22:20)
[2023-01-23] MEDS: DexMEDEtomidine 1,000mcg/250ml 250 ML IV SCH ×2 (00:55→14:27)
[2023-01-23] MEDS: RT-Ipratropium/Albuterol NEB 3 ML VIAL INH SCH ×4 (02:44→19:43)
[2023-01-23 02:55] LABS: ABG OXYGEN SATURATION 95 % (94-100); ABG PCO2 39 MMHG (35-45); ABG PH 7.38 (7.37-7.43); ABG PO2 75 MMHG (79-93); ABG TCO2 23.7 MMOL/L (21.0-31.0)
[2023-01-23 02:56] LABS: ALLENS TEST YES-POS; INSPIRED O2 30%; PATIENT TEMP 36.7; VENTILATOR NO
[2023-01-23] MEDS: PIPERACILLIN/Tazobactam 4.5 GM in NS (IVPB) 100 ML 100 ML IV SCH ×3 (03:57→18:28)
[2023-01-23 04:00] LABS: BASOPHILS % (AUTO) 0 % (0-10); EOSINOPHILS # (AUTO) 0.1 10^3/uL (0.0-0.3); EOSINOPHILS % (AUTO) 1 % (0-10); HEMATOCRIT 27 % (40-54); HEMOGLOBIN 8.5 g/dL (13.3-17.7); LYMPHOCYTES # (AUTO) 0.8 10^3/uL (1.0-4.0); LYMPHOCYTES % (AUTO) 12 % (12-44); MEAN CORPUSCULAR HEMOGLOBIN 27 pg (25-34); MEAN CORPUSCULAR HGB CONC 32 g/dL (32-36); MEAN CORPUSCULAR VOLUME 86 fL (80-99); MEAN PLATELET VOLUME 12.4 fL (9.0-12.2); MONOCYTES # (AUTO) 0.7 10^3/uL (0.0-1.0); MONOCYTES % (AUTO) 10 % (0-12); NEUTROPHILS # (AUTO) 5.2 10^3/uL (1.8-7.8); NEUTROPHILS % (AUTO) 77 % (42-75); PLATELET COUNT 145 10^3/uL (130-400); WHITE BLOOD COUNT 6.8 10^3/uL (4.3-11.0)
[2023-01-23 04:21] LABS: ALBUMIN 2.4 GM/DL (3.2-4.5); BILIRUBIN,TOTAL 0.3 MG/DL (0.1-1.0); CALCIUM 7.5 MG/DL (8.5-10.1); CREATININE SERUM 0.85 MG/DL (0.60-1.30); PHOSPHORUS 2.4 MG/DL (2.3-4.7); POTASSIUM 4.1 MMOL/L (3.6-5.0); TOTAL PROTEIN 4.7 GM/DL (6.4-8.2)
[2023-01-23] MEDS: POTASSIUM CHLORIDE 20 MEQ TABLET PO SCH (04:47)
[2023-01-23] MEDS: POTASSIUM CL 10MEQ/50ML IVPB 50 ML IV SCH (04:47)
[2023-01-23] MEDS: MAGNESIUM 1 GM/100 ML IVPB 100 ML IV SCH (04:47)
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
[2023-01-23] MEDS: inSUlin ASPART 1 UNIT/0.01 ML (PER UNIT) SC SCH ×3 (05:50→18:28)
[2023-01-23] MEDS: LEVOTHYROXINE 50 MCG TABLET PO SCH (05:50)
[2023-01-23] MEDS: MIDAZOLAM DRIP PRE-MIX 100 ML IV SCH (07:05)
[2023-01-23 07:24] VITALS: BP 162/76
--- NOTE | 2023-01-23 08:14 | Diagnostic Imaging Report ---
INDICATION: Pneumonia, intubated. TECHNIQUE: Single view chest 3:26 AM CORRELATION STUDY: 01/22/2023 FINDINGS: Endotracheal tube, gastric tube right-sided central line all remain in place. Heart size and mediastinum are generally stable. Improved aeration of the lung mathews. Some residual infiltrate-like opacity and/or edema persisting in the right lung base medially and left lung base. Small effusions suspected. IMPRESSION: 1. Stable support lines and tubes. 2. Improvement in overall aeration of the lung mathews with some residual infiltrate or edema suggested about the lung bases along with small effusions. Dictated by: Dictated on workstation # [id number]
[2023-01-23] MEDS: SERTRALINE 100 MG TABLET PO SCH ×2 (08:52→20:16)
[2023-01-23] MEDS: NS IV 1000 ML 1,000 ML IV SCH (08:52)
[2023-01-23] MEDS: amLODIPine 5 MG TABLET PO SCH (08:52)
[2023-01-23] MEDS: morphine INJ 10 MG/ML 1ML (SYR OR VIAL) IV PRN ×3 (09:50→22:26)
[2023-01-23] MEDS: MICONAZOLE 2% POWDER 90 GM TOP SCH ×2 (09:52→22:28)
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
[2023-01-23 10:45] VITALS: BP 162/76
[2023-01-23] MEDS: HYPOCHLOROUS ACID/NaCl WOUND SOLN 250 ML IR SCH (11:05)
[2023-01-23] MEDS: ACETAMINOPHEN 325 MG/10.15 ML ORAL SOLN UDC PO PRN (11:44)
[2023-01-23] MEDS ORDERED: ACETAMINOPHEN 325 MG/10.15 ML ORAL SOLN UDC PO ONE (13:45)
[2023-01-23 14:24] VITALS: BP 129/62
[2023-01-23 19:53] LABS: ABG BASE EXCESS -1.6 MMOL/L (-2.5-2.5); ABG OXYGEN SATURATION 95 % (94-100); ABG PCO2 49 MMHG (35-45); ABG PO2 79 MMHG (79-93); ABG TCO2 25.3 MMOL/L (21.0-31.0); ALLENS TEST YES-POS; INSPIRED O2 30%; PATIENT TEMP 36.9; VENTILATOR YES
[2023-01-23 19:57] LABS: ABG PH 7.31 (7.37-7.43)
[2023-01-23] MEDS: ENOXAPARIN 40 MG/0.4 ML SYRINGE SC SCH (20:16)
[2023-01-23] MEDS: FAMOTIDINE 20 MG TABLET PO SCH (20:17)
[2023-01-23] MEDS: fentaNYL DRIP PRE-MIX 250 ML IV SCH (21:00)
[2023-01-23] MEDS: fentaNYL INJECTION 100 MCG/2 ML VIAL IVP PRN (21:29)
[2023-01-23 22:19] VITALS: BP 153/85
[2023-01-24 02:41] VITALS: BP 162/81
[2023-01-24] MEDS: RT-Ipratropium/Albuterol NEB 3 ML VIAL INH SCH ×3 (02:41→14:37)
[2023-01-24] MEDS: PIPERACILLIN/Tazobactam 4.5 GM in NS (IVPB) 100 ML 100 ML IV SCH ×3 (03:26→17:39)
[2023-01-24] MEDS: hydrALAZINE INJECTION 20 MG/ML VIAL IV PRN ×2 (03:26→08:22)
[2023-01-24] MEDS: fentaNYL INJECTION 100 MCG/2 ML VIAL IVP PRN ×4 (03:26→09:33)
[2023-01-24] MEDS: DexMEDEtomidine 1,000mcg/250ml 250 ML IV SCH ×4 (03:27→20:32)
[2023-01-24 04:12] LABS: BASOPHILS % (AUTO) 0 % (0-10); EOSINOPHILS # (AUTO) 0.4 10^3/uL (0.0-0.3); EOSINOPHILS % (AUTO) 4 % (0-10); HEMATOCRIT 30 % (40-54); HEMOGLOBIN 9.5 g/dL (13.3-17.7); LYMPHOCYTES # (AUTO) 1.1 10^3/uL (1.0-4.0); LYMPHOCYTES % (AUTO) 12 % (12-44); MEAN CORPUSCULAR HEMOGLOBIN 28 pg (25-34); MEAN CORPUSCULAR HGB CONC 32 g/dL (32-36); MEAN CORPUSCULAR VOLUME 87 fL (80-99); MEAN PLATELET VOLUME 10.7 fL (9.0-12.2); MONOCYTES # (AUTO) 0.9 10^3/uL (0.0-1.0); MONOCYTES % (AUTO) 9 % (0-12); NEUTROPHILS # (AUTO) 7.3 10^3/uL (1.8-7.8); NEUTROPHILS % (AUTO) 74 % (42-75); PLATELET COUNT 154 10^3/uL (130-400); WHITE BLOOD COUNT 9.9 10^3/uL (4.3-11.0)
[2023-01-24 04:20] LABS: ABG BASE EXCESS -1.8 MMOL/L (-2.5-2.5); ABG OXYGEN SATURATION 98 % (94-100); ABG PCO2 37 MMHG (35-45); ABG PH 7.39 (7.37-7.43); ABG PO2 91 MMHG (79-93); ABG TCO2 23.5 MMOL/L (21.0-31.0)
[2023-01-24 04:21] LABS: INSPIRED O2 30%; PATIENT TEMP 36.9; VENTILATOR YES
[2023-01-24 04:22] LABS: ALLENS TEST YES-POS
[2023-01-24 04:31] LABS: ALBUMIN 2.6 GM/DL (3.2-4.5); BILIRUBIN,TOTAL 0.5 MG/DL (0.1-1.0); CREATININE SERUM 0.93 MG/DL (0.60-1.30); MAGNESIUM 2.1 MG/DL (1.6-2.4); PHOSPHORUS 2.8 MG/DL (2.3-4.7); POTASSIUM 4.6 MMOL/L (3.6-5.0); TOTAL PROTEIN 5.1 GM/DL (6.4-8.2)
[2023-01-24] MEDS: MAGNESIUM 1 GM/100 ML IVPB 100 ML IV SCH (04:43)
[2023-01-24] MEDS: POTASSIUM CL 10MEQ/50ML IVPB 50 ML IV SCH (04:43)
[2023-01-24] MEDS: POTASSIUM CHLORIDE 20 MEQ TABLET PO SCH (04:43)
[2023-01-24] MEDS: LEVOTHYROXINE 50 MCG TABLET PO SCH (05:25)
[2023-01-24] MEDS: inSUlin ASPART 1 UNIT/0.01 ML (PER UNIT) SC SCH ×4 (05:26→17:45)
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
[2023-01-24 07:10] VITALS: BP 175/91
[2023-01-24] MEDS: amLODIPine 5 MG TABLET PO SCH (08:08)
[2023-01-24] MEDS: SERTRALINE 100 MG TABLET PO SCH ×2 (08:08→20:30)
[2023-01-24] MEDS: MICONAZOLE 2% POWDER 90 GM TOP SCH ×2 (08:09→22:56)
[2023-01-24] MEDS ORDERED: FUROSEMIDE INJECTION 40 MG/4 ML VIAL IVP ONE (09:00)
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
--- NOTE | 2023-01-24 10:27 | Diagnostic Imaging Report ---
CHEST 1 VIEW, AP/PA ONLY Indication: Pneumonia and intubation Comparison: 01/23/2023 Findings: Stable ET and enteric tubes. Stable right PICC. Bibasilar hazy pulmonary opacities have worsened as lung volumes have decreased. No pleural effusion or pneumothorax. Stable cardiac silhouette. Impression: 1. Stable support devices. 2. Increased basilar opacities may in part be due to atelectasis as lung volumes have increased. Worsening pneumonia or edema could also give this appearance. Dictated by: Dictated on workstation # [id number]
[2023-01-24] MEDS: morphine INJ 10 MG/ML 1ML (SYR OR VIAL) IV PRN (10:39)
[2023-01-24 10:49] VITALS: BP 143/67
[2023-01-24] MEDS ORDERED: BUMETANIDE INJ 1 MG/4 ML VIAL IV NR (13:00)
--- NOTE | 2023-01-24 13:33 | Diagnostic Imaging Report ---
INDICATION: Nasogastric tube assessment. Portable AP view of the chest is obtained with comparison made to study of earlier in the day. FINDINGS: Endotracheal tube remains in place with tip at the level of the thoracic inlet. Nasogastric tube passes below the diaphragm. Right upper extremity PICC is in stable position with tip projecting over the lower superior vena cava. There is blunting of the costophrenic sulci suggestive of pleural fluid with continued atelectasis with associated edema and/or pneumonitis in the right lung. There is no pneumothorax. IMPRESSION: No evidence of complication or adverse positioning of support tubes. Dictated by: Dictated on workstation # [id number]
[2023-01-24 14:38] VITALS: BP 143/71
[2023-01-24] MEDS: MIDAZOLAM DRIP PRE-MIX 100 ML IV SCH (15:03)
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
[2023-01-24 18:24] VITALS: BP 138/72
[2023-01-24] MEDS: fentaNYL DRIP PRE-MIX 250 ML IV SCH (20:04)
[2023-01-24] MEDS: ENOXAPARIN 40 MG/0.4 ML SYRINGE SC SCH (20:31)
[2023-01-24] MEDS: FAMOTIDINE 20 MG TABLET PO SCH (20:32)
[2023-01-24 21:39] VITALS: BP 160/77
[2023-01-25] MEDS: inSUlin ASPART 1 UNIT/0.01 ML (PER UNIT) SC SCH ×4 (00:24→17:27)
[2023-01-25 01:53] VITALS: BP 170/83
[2023-01-25] MEDS: RT-Ipratropium/Albuterol NEB 3 ML VIAL INH SCH ×4 (01:53→22:36)
[2023-01-25] MEDS: DexMEDEtomidine 1,000mcg/250ml 250 ML IV SCH ×4 (02:30→20:17)
[2023-01-25] MEDS: PIPERACILLIN/Tazobactam 4.5 GM in NS (IVPB) 100 ML 100 ML IV SCH ×3 (02:43→17:27)
[2023-01-25 03:20] LABS: BASOPHILS % (AUTO) 0 % (0-10); EOSINOPHILS # (AUTO) 0.3 10^3/uL (0.0-0.3); EOSINOPHILS % (AUTO) 3 % (0-10); HEMATOCRIT 31 % (40-54); HEMOGLOBIN 9.9 g/dL (13.3-17.7); LYMPHOCYTES # (AUTO) 0.8 10^3/uL (1.0-4.0); LYMPHOCYTES % (AUTO) 8 % (12-44); MEAN CORPUSCULAR HEMOGLOBIN 27 pg (25-34); MEAN CORPUSCULAR HGB CONC 32 g/dL (32-36); MEAN CORPUSCULAR VOLUME 87 fL (80-99); MEAN PLATELET VOLUME 11.6 fL (9.0-12.2); MONOCYTES # (AUTO) 0.7 10^3/uL (0.0-1.0); MONOCYTES % (AUTO) 7 % (0-12); NEUTROPHILS % (AUTO) 81 % (42-75); PLATELET COUNT 158 10^3/uL (130-400); WHITE BLOOD COUNT 9.9 10^3/uL (4.3-11.0)
[2023-01-25 03:31] LABS: ALBUMIN 2.7 GM/DL (3.2-4.5); POTASSIUM 4.4 MMOL/L (3.6-5.0)
[2023-01-25 03:32] LABS: CALCIUM 8.6 MG/DL (8.5-10.1)
[2023-01-25 03:33] LABS: TOTAL PROTEIN 5.6 GM/DL (6.4-8.2)
[2023-01-25 03:35] LABS: BILIRUBIN,TOTAL 0.5 MG/DL (0.1-1.0)
[2023-01-25 03:36] LABS: PHOSPHORUS 3.3 MG/DL (2.3-4.7)
[2023-01-25 03:37] LABS: CREATININE SERUM 1.07 MG/DL (0.60-1.30)
[2023-01-25 03:40] LABS: MAGNESIUM 1.9 MG/DL (1.6-2.4)
[2023-01-25 04:33] LABS: ABG BASE EXCESS 0.9 MMOL/L (-2.5-2.5); ABG OXYGEN SATURATION 95 % (94-100); ABG PCO2 38 MMHG (35-45); ABG PH 7.43 (7.37-7.43); ABG PO2 66 MMHG (79-93); ABG TCO2 26.1 MMOL/L (21.0-31.0)
[2023-01-25] MEDS: POTASSIUM CL 10MEQ/50ML IVPB 50 ML IV SCH (04:33)
[2023-01-25 04:35] LABS: ALLENS TEST YES-POS; INSPIRED O2 30%; PATIENT TEMP 36.2; VENTILATOR NO
[2023-01-25] MEDS: MAGNESIUM 1 GM/100 ML IVPB 100 ML IV SCH ×3 (05:31→06:51)
[2023-01-25] MEDS: POTASSIUM CHLORIDE 20 MEQ TABLET PO SCH (05:32)
[2023-01-25] MEDS: LEVOTHYROXINE 50 MCG TABLET PO SCH (05:44)
[2023-01-25] MEDS: MIDAZOLAM DRIP PRE-MIX 100 ML IV SCH ×2 (06:47→21:14)
[2023-01-25 07:33] VITALS: BP 158/78
[2023-01-25] MEDS: MICONAZOLE 2% POWDER 90 GM TOP SCH ×2 (08:31→21:24)
[2023-01-25] MEDS: amLODIPine 5 MG TABLET PO SCH (08:31)
[2023-01-25] MEDS: SERTRALINE 100 MG TABLET PO SCH ×2 (08:31→19:53)
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
[2023-01-25] MEDS: inSUlin DETERMIR 1 UNIT/0.01 ML (CHARGE PER UNIT) SQ SCH ×2 (10:39→19:53)
[2023-01-25 10:50] VITALS: BP 132/76
--- NOTE | 2023-01-25 12:46 | Diagnostic Imaging Report ---
INDICATION: Pneumonia. COMPARISON: 01/24/2023. TECHNIQUE: Single frontal radiograph of the chest dated 01/25/2023. FINDINGS: Endotracheal tube, enteric catheter, and right-sided PICC line are again identified, appearing similar. Small left basilar pleural-parenchymal opacity is again identified, appearing similar to the prior examination. The right lung remains clear. No significant right-sided pleural effusion. No pneumothorax. No acute osseous abnormality. IMPRESSION: Essentially stable appearing examination with a small left basilar pleural-parenchymal opacity present with unchanged lines and tubes. Dictated by: Dictated on workstation # [id number]
[2023-01-25 14:28] VITALS: BP 159/76
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
[2023-01-25 18:30] VITALS: BP 155/77
[2023-01-25] MEDS: ENOXAPARIN 40 MG/0.4 ML SYRINGE SC SCH (19:52)
[2023-01-25] MEDS: FAMOTIDINE 20 MG TABLET PO SCH (19:53)
[2023-01-25] MEDS: fentaNYL DRIP PRE-MIX 250 ML IV SCH (21:33)
[2023-01-25 22:36] VITALS: BP 167/76
[2023-01-26] MEDS: inSUlin ASPART 1 UNIT/0.01 ML (PER UNIT) SC SCH ×4 (00:03→17:30)
[2023-01-26] MEDS: DexMEDEtomidine 1,000mcg/250ml 250 ML IV SCH ×4 (02:09→22:26)
[2023-01-26] MEDS: PIPERACILLIN/Tazobactam 4.5 GM in NS (IVPB) 100 ML 100 ML IV SCH ×3 (02:43→17:10)
[2023-01-26 02:53] VITALS: BP 145/67
[2023-01-26] MEDS: RT-Ipratropium/Albuterol NEB 3 ML VIAL INH SCH ×4 (02:53→21:07)
[2023-01-26 04:24] LABS: BASOPHILS % (AUTO) 0 % (0-10); EOSINOPHILS # (AUTO) 0.3 10^3/uL (0.0-0.3); EOSINOPHILS % (AUTO) 2 % (0-10); HEMATOCRIT 28 % (40-54); HEMOGLOBIN 8.9 g/dL (13.3-17.7); LYMPHOCYTES # (AUTO) 0.9 10^3/uL (1.0-4.0); LYMPHOCYTES % (AUTO) 9 % (12-44); MEAN CORPUSCULAR HEMOGLOBIN 28 pg (25-34); MEAN CORPUSCULAR HGB CONC 32 g/dL (32-36); MEAN CORPUSCULAR VOLUME 87 fL (80-99); MEAN PLATELET VOLUME 11.6 fL (9.0-12.2); MONOCYTES # (AUTO) 0.8 10^3/uL (0.0-1.0); MONOCYTES % (AUTO) 8 % (0-12); NEUTROPHILS # (AUTO) 8.3 10^3/uL (1.8-7.8); NEUTROPHILS % (AUTO) 81 % (42-75); PLATELET COUNT 161 10^3/uL (130-400); WHITE BLOOD COUNT 10.3 10^3/uL (4.3-11.0)
[2023-01-26 04:33] LABS: ALBUMIN 2.4 GM/DL (3.2-4.5); POTASSIUM 4.3 MMOL/L (3.6-5.0)
[2023-01-26 04:36] LABS: TOTAL PROTEIN 4.9 GM/DL (6.4-8.2)
[2023-01-26 04:37] LABS: BILIRUBIN,TOTAL 0.4 MG/DL (0.1-1.0)
[2023-01-26 04:39] LABS: CREATININE SERUM 0.98 MG/DL (0.60-1.30); PHOSPHORUS 2.6 MG/DL (2.3-4.7)
[2023-01-26] MEDS: POTASSIUM CHLORIDE 20 MEQ TABLET PO SCH (05:16)
[2023-01-26] MEDS: MAGNESIUM 1 GM/100 ML IVPB 100 ML IV SCH (05:16)
[2023-01-26] MEDS: POTASSIUM CL 10MEQ/50ML IVPB 50 ML IV SCH (05:16)
[2023-01-26] MEDS: LEVOTHYROXINE 50 MCG TABLET PO SCH (05:32)
[2023-01-26 05:33] LABS: ABG BASE EXCESS 0.3 MMOL/L (-2.5-2.5); ABG OXYGEN SATURATION 93 % (94-100); ABG PCO2 41 MMHG (35-45); ABG PO2 66 MMHG (79-93); ABG TCO2 25.7 MMOL/L (21.0-31.0)
[2023-01-26 05:34] LABS: ALLENS TEST YES-POS; INSPIRED O2 30%; PATIENT TEMP 37.4; VENTILATOR YES
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
[2023-01-26 07:19] VITALS: BP 150/86
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
[2023-01-26] MEDS: SERTRALINE 100 MG TABLET PO SCH ×2 (08:28→21:02)
[2023-01-26] MEDS: inSUlin DETERMIR 1 UNIT/0.01 ML (CHARGE PER UNIT) SQ SCH ×2 (08:28→21:02)
[2023-01-26] MEDS: amLODIPine 5 MG TABLET PO SCH (08:28)
[2023-01-26] MEDS: MICONAZOLE 2% POWDER 90 GM TOP SCH (09:11)
[2023-01-26] MEDS: MIDAZOLAM DRIP PRE-MIX 100 ML IV SCH (09:12)
--- NOTE | 2023-01-26 09:35 | Diagnostic Imaging Report ---
INDICATION: Dyspnea, follow-up pneumonia. COMPARISON: 01/25/2023. DISCUSSION: Single portable upright view of the chest was obtained. Endotracheal tube and enteric tube are stable. Stable heart size. Low lung volumes. Mild interstitial thickening is again noted bilaterally, stable. Stable right-sided PICC line. No pneumothorax. Possible small left effusion. No osseous abnormality. IMPRESSION: 1. Stable chest. Dictated by: Dictated on workstation # [id number]
[2023-01-26 10:00] VITALS: BP 158/76
[2023-01-26] MEDS: hydrALAZINE INJECTION 20 MG/ML VIAL IV PRN (13:54)
[2023-01-26 14:42] VITALS: BP 143/63
[2023-01-26] MEDS: ACETAMINOPHEN 325 MG/10.15 ML ORAL SOLN UDC PO PRN (17:02)
[2023-01-26 18:42] VITALS: BP 142/68
[2023-01-26] MEDS: fentaNYL INJECTION 100 MCG/2 ML VIAL IVP PRN ×2 (19:53→22:42)
[2023-01-26] MEDS: FAMOTIDINE 20 MG TABLET PO SCH (21:02)
[2023-01-26] MEDS: ENOXAPARIN 40 MG/0.4 ML SYRINGE SC SCH (21:02)
[2023-01-26 21:08] VITALS: BP_SYST 143; BP_SYST 145; BP_DIAS 63; BP_DIAS 68
[2023-01-26] MEDS: fentaNYL DRIP PRE-MIX 250 ML IV SCH (22:29)
[2023-01-27] MEDS: inSUlin ASPART 1 UNIT/0.01 ML (PER UNIT) SC SCH ×5 (00:37→23:33)
[2023-01-27] MEDS: MICONAZOLE 2% POWDER 90 GM TOP SCH ×3 (00:39→20:43)
[2023-01-27] MEDS: PIPERACILLIN/Tazobactam 4.5 GM in NS (IVPB) 100 ML 100 ML IV SCH ×3 (02:35→18:15)
[2023-01-27 03:26] VITALS: BP 155/75
[2023-01-27] MEDS: RT-Ipratropium/Albuterol NEB 3 ML VIAL INH SCH ×4 (03:26→21:58)
[2023-01-27] MEDS: DexMEDEtomidine 1,000mcg/250ml 250 ML IV SCH ×3 (04:28→18:20)
[2023-01-27 04:37] LABS: BASOPHILS # (AUTO) 0.1 10^3/uL (0.0-0.1); BASOPHILS % (AUTO) 0 % (0-10); EOSINOPHILS # (AUTO) 0.3 10^3/uL (0.0-0.3); EOSINOPHILS % (AUTO) 3 % (0-10); HEMATOCRIT 29 % (40-54); HEMOGLOBIN 8.9 g/dL (13.3-17.7); LYMPHOCYTES # (AUTO) 1.3 10^3/uL (1.0-4.0); LYMPHOCYTES % (AUTO) 11 % (12-44); MEAN CORPUSCULAR HEMOGLOBIN 27 pg (25-34); MEAN CORPUSCULAR HGB CONC 31 g/dL (32-36); MEAN CORPUSCULAR VOLUME 88 fL (80-99); MEAN PLATELET VOLUME 12.4 fL (9.0-12.2); MONOCYTES # (AUTO) 0.9 10^3/uL (0.0-1.0); MONOCYTES % (AUTO) 8 % (0-12); NEUTROPHILS # (AUTO) 9.2 10^3/uL (1.8-7.8); NEUTROPHILS % (AUTO) 78 % (42-75); PLATELET COUNT 165 10^3/uL (130-400); WHITE BLOOD COUNT 11.8 10^3/uL (4.3-11.0)
[2023-01-27 04:45] LABS: ALBUMIN 2.5 GM/DL (3.2-4.5)
[2023-01-27 04:47] LABS: CALCIUM 8.4 MG/DL (8.5-10.1)
[2023-01-27 04:48] LABS: TOTAL PROTEIN 5.4 GM/DL (6.4-8.2)
[2023-01-27 04:50] LABS: BILIRUBIN,TOTAL 0.5 MG/DL (0.1-1.0)
[2023-01-27 04:51] LABS: PHOSPHORUS 2.7 MG/DL (2.3-4.7)
[2023-01-27 04:52] LABS: CREATININE SERUM 1.02 MG/DL (0.60-1.30)
[2023-01-27 04:54] LABS: MAGNESIUM 2.1 MG/DL (1.6-2.4)
[2023-01-27] MEDS: MAGNESIUM 1 GM/100 ML IVPB 100 ML IV SCH (05:01)
[2023-01-27] MEDS: POTASSIUM CL 10MEQ/50ML IVPB 50 ML IV SCH (05:01)
[2023-01-27] MEDS: POTASSIUM CHLORIDE 20 MEQ TABLET PO SCH (05:02)
[2023-01-27 05:24] LABS: ABG BASE EXCESS -1.2 MMOL/L (-2.5-2.5); ABG OXYGEN SATURATION 95 % (94-100); ABG PCO2 37 MMHG (35-45); ABG PH 7.41 (7.37-7.43); ABG PO2 72 MMHG (79-93); ALLENS TEST YES-POS; INSPIRED O2 25%; VENTILATOR YES
[2023-01-27 05:25] LABS: PATIENT TEMP 36.5
[2023-01-27] MEDS: LEVOTHYROXINE 50 MCG TABLET PO SCH (06:17)
--- NOTE | 2023-01-27 07:21 | Diagnostic Imaging Report ---
INDICATION: Pneumonia, dyspnea, ICU management, intubated. TECHNIQUE: Single view chest 5:10 AM. CORRELATION STUDY: 01/26/2023. FINDINGS: Endotracheal tube, gastric tube, and right-sided central line all remain in place. Heart size and mediastinum are stable. Vasculature appears decreased from prior. Minimal perihilar and basilar opacities but overall are improved as well. Likely small effusion on the left. IMPRESSION: Generally stable appearance about the support lines and tubes. Overall improvement in appearance of the chest with improved aeration and overall decreased edema. Dictated by: Dictated on workstation # [id number]
[2023-01-27 07:47] VITALS: BP 154/80
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
[2023-01-27] MEDS: SERTRALINE 100 MG TABLET PO SCH ×2 (08:13→20:44)
[2023-01-27] MEDS: inSUlin DETERMIR 1 UNIT/0.01 ML (CHARGE PER UNIT) SQ SCH ×2 (08:13→20:47)
[2023-01-27] MEDS: amLODIPine 5 MG TABLET PO SCH (08:13)
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
[2023-01-27 10:00] VITALS: BP 152/70
[2023-01-27 12:55] VITALS: BP 149/69
--- NOTE | 2023-01-27 13:14 | Tele-ICU Progress Note ---
Progress Note attempted SBT this am, however patient failed by becoming aggitated, restless and combative. Placed back on vent. Will try again tomorrow Focused Exam Height, Weight, BMI Height: '" Weight: lbs. oz. kg; 37.84 BMI Method: Time of Focused Exam: 07:19 EDMUND LUNDY MD Jan 27, 2023 13:14
[2023-01-27] MEDS: MIDAZOLAM DRIP PRE-MIX 100 ML IV SCH (14:12)
[2023-01-27 14:20] VITALS: BP 145/60
[2023-01-27 18:32] VITALS: BP 154/76
[2023-01-27] MEDS: FAMOTIDINE 20 MG TABLET PO SCH (20:44)
[2023-01-27] MEDS: ENOXAPARIN 40 MG/0.4 ML SYRINGE SC SCH (20:44)
[2023-01-27] MEDS: fentaNYL DRIP PRE-MIX 250 ML IV SCH (21:01)
[2023-01-28] MEDS: DexMEDEtomidine 1,000mcg/250ml 250 ML IV SCH ×4 (00:33→21:53)
[2023-01-28 02:23] VITALS: BP 149/72
[2023-01-28] MEDS: RT-Ipratropium/Albuterol NEB 3 ML VIAL INH SCH ×4 (02:28→22:08)
[2023-01-28 04:40] LABS: BASOPHILS % (AUTO) 0 % (0-10); EOSINOPHILS # (AUTO) 0.3 10^3/uL (0.0-0.3); EOSINOPHILS % (AUTO) 3 % (0-10); HEMATOCRIT 25 % (40-54); HEMOGLOBIN 7.8 g/dL (13.3-17.7); LYMPHOCYTES # (AUTO) 1.1 10^3/uL (1.0-4.0); LYMPHOCYTES % (AUTO) 10 % (12-44); MEAN CORPUSCULAR HEMOGLOBIN 27 pg (25-34); MEAN CORPUSCULAR HGB CONC 31 g/dL (32-36); MEAN CORPUSCULAR VOLUME 89 fL (80-99); MEAN PLATELET VOLUME 12.5 fL (9.0-12.2); MONOCYTES # (AUTO) 0.7 10^3/uL (0.0-1.0); MONOCYTES % (AUTO) 7 % (0-12); NEUTROPHILS # (AUTO) 8.7 10^3/uL (1.8-7.8); NEUTROPHILS % (AUTO) 79 % (42-75); PLATELET COUNT 171 10^3/uL (130-400); WHITE BLOOD COUNT 10.9 10^3/uL (4.3-11.0)
[2023-01-28 04:48] LABS: ALBUMIN 2.3 GM/DL (3.2-4.5); POTASSIUM 3.8 MMOL/L (3.6-5.0)
[2023-01-28 04:49] LABS: CALCIUM 7.8 MG/DL (8.5-10.1)
[2023-01-28 04:50] LABS: TOTAL PROTEIN 5.1 GM/DL (6.4-8.2)
[2023-01-28 04:52] LABS: BILIRUBIN,TOTAL 0.4 MG/DL (0.1-1.0)
[2023-01-28 04:54] LABS: CREATININE SERUM 0.83 MG/DL (0.60-1.30)
[2023-01-28] MEDS: POTASSIUM CL 10MEQ/50ML IVPB 50 ML IV SCH ×3 (04:58→06:35)
[2023-01-28] MEDS: MAGNESIUM 1 GM/100 ML IVPB 100 ML IV SCH (04:58)
[2023-01-28] MEDS: POTASSIUM CHLORIDE 20 MEQ TABLET PO SCH (04:59)
[2023-01-28 05:18] LABS: ABG BASE EXCESS -2.2 MMOL/L (-2.5-2.5); ABG OXYGEN SATURATION 92 % (94-100); ABG PCO2 37 MMHG (35-45); ABG PH 7.39 (7.37-7.43); ABG PO2 65 MMHG (79-93); ABG TCO2 23.2 MMOL/L (21.0-31.0)
[2023-01-28 05:22] LABS: ALLENS TEST YES-POS; INSPIRED O2 21%; PATIENT TEMP 36.4; VENTILATOR YES
[2023-01-28] MEDS: inSUlin ASPART 1 UNIT/0.01 ML (PER UNIT) SC SCH ×4 (06:04→23:40)
[2023-01-28] MEDS: LEVOTHYROXINE 50 MCG TABLET PO SCH (06:05)
[2023-01-28] MEDS: MIDAZOLAM DRIP PRE-MIX 100 ML IV SCH (06:08)
[2023-01-28 07:03] VITALS: BP 127/65
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
[2023-01-28] MEDS: amLODIPine 5 MG TABLET PO SCH (08:36)
[2023-01-28] MEDS: SERTRALINE 100 MG TABLET PO SCH ×2 (08:36→20:55)
[2023-01-28] MEDS: inSUlin DETERMIR 1 UNIT/0.01 ML (CHARGE PER UNIT) SQ SCH ×2 (08:37→20:56)
--- NOTE | 2023-01-28 10:21 | Diagnostic Imaging Report ---
INDICATION: Pneumonia. Comparison is made with prior exam of 01/27/2023. FINDINGS: The ET and NG tube and right upper extremity PICC line are in satisfactory position. The heart size is normal. There is some left perihilar and right perihilar atelectasis and/or pneumonitis. There is no pleural effusion or pneumothorax. The mediastinum is unremarkable. IMPRESSION: Bilateral perihilar atelectasis and/or pneumonitis, right greater than left. Dictated by: Dictated on workstation # [id number]
[2023-01-28] MEDS: MICONAZOLE 2% POWDER 90 GM TOP SCH ×2 (12:15→20:56)
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
[2023-01-28 18:22] VITALS: BP 153/67
[2023-01-28] MEDS: fentaNYL DRIP PRE-MIX 250 ML IV SCH (20:44)
[2023-01-28] MEDS: ENOXAPARIN 40 MG/0.4 ML SYRINGE SC SCH (20:55)
[2023-01-28] MEDS: FAMOTIDINE 20 MG TABLET PO SCH (20:55)
[2023-01-28 22:08] VITALS: BP 146/68
[2023-01-29 02:58] VITALS: BP 138/72
[2023-01-29] MEDS: RT-Ipratropium/Albuterol NEB 3 ML VIAL INH SCH ×4 (02:58→22:19)
[2023-01-29 03:46] LABS: BASOPHILS % (AUTO) 0 % (0-10); EOSINOPHILS # (AUTO) 0.3 10^3/uL (0.0-0.3); EOSINOPHILS % (AUTO) 3 % (0-10); HEMATOCRIT 26 % (40-54); HEMOGLOBIN 8.1 g/dL (13.3-17.7); LYMPHOCYTES # (AUTO) 1.6 10^3/uL (1.0-4.0); LYMPHOCYTES % (AUTO) 16 % (12-44); MEAN CORPUSCULAR HEMOGLOBIN 27 pg (25-34); MEAN CORPUSCULAR HGB CONC 31 g/dL (32-36); MEAN CORPUSCULAR VOLUME 89 fL (80-99); MEAN PLATELET VOLUME 12.2 fL (9.0-12.2); MONOCYTES # (AUTO) 0.7 10^3/uL (0.0-1.0); MONOCYTES % (AUTO) 7 % (0-12); NEUTROPHILS # (AUTO) 7.2 10^3/uL (1.8-7.8); NEUTROPHILS % (AUTO) 72 % (42-75); PLATELET COUNT 162 10^3/uL (130-400)
[2023-01-29 03:57] LABS: ALBUMIN 2.3 GM/DL (3.2-4.5); POTASSIUM 3.8 MMOL/L (3.6-5.0)
[2023-01-29 03:58] LABS: CALCIUM 7.8 MG/DL (8.5-10.1)
[2023-01-29 04:01] LABS: BILIRUBIN,TOTAL 0.4 MG/DL (0.1-1.0)
[2023-01-29 04:03] LABS: CREATININE SERUM 0.81 MG/DL (0.60-1.30)
[2023-01-29 04:06] LABS: MAGNESIUM 1.9 MG/DL (1.6-2.4)
[2023-01-29] MEDS: POTASSIUM CL 10MEQ/50ML IVPB 50 ML IV SCH (04:32)
[2023-01-29] MEDS: POTASSIUM CHLORIDE 20 MEQ TABLET PO SCH (04:33)
[2023-01-29] MEDS: MAGNESIUM 1 GM/100 ML IVPB 100 ML IV SCH ×3 (04:33→05:58)
[2023-01-29] MEDS ORDERED: MAGNESIUM 1 GM/100 ML IVPB 200 ML IV ONE (04:35)
[2023-01-29] MEDS: LEVOTHYROXINE 50 MCG TABLET PO SCH (05:25)
[2023-01-29] MEDS ORDERED: POTASSIUM BICARB 20 MEQ effervescent TABLET PO ONE (05:30)
[2023-01-29] MEDS: MIDAZOLAM DRIP PRE-MIX 100 ML IV SCH (05:33)
[2023-01-29] MEDS: DexMEDEtomidine 1,000mcg/250ml 250 ML IV SCH ×2 (05:35→13:04)
[2023-01-29 05:38] LABS: ABG BASE EXCESS -2.4 MMOL/L (-2.5-2.5); ABG OXYGEN SATURATION 95 % (94-100); ABG PCO2 35 MMHG (35-45); ABG PH 7.41 (7.37-7.43); ABG PO2 77 MMHG (79-93); ABG TCO2 22.5 MMOL/L (21.0-31.0)
[2023-01-29 05:39] LABS: ALLENS TEST YES-POS; INSPIRED O2 21%; VENTILATOR YES
[2023-01-29] MEDS: inSUlin ASPART 1 UNIT/0.01 ML (PER UNIT) SC SCH ×4 (05:46→23:44)
[2023-01-29 06:45] VITALS: BP 146/68
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
[2023-01-29] MEDS: amLODIPine 5 MG TABLET PO SCH (08:59)
[2023-01-29] MEDS: SERTRALINE 100 MG TABLET PO SCH ×2 (08:59→21:13)
[2023-01-29] MEDS: inSUlin DETERMIR 1 UNIT/0.01 ML (CHARGE PER UNIT) SQ SCH ×2 (09:00→21:13)
[2023-01-29] MEDS: fentaNYL DRIP PRE-MIX 250 ML IV SCH ×2 (09:00→23:40)
[2023-01-29 09:56] VITALS: BP 144/64
--- NOTE | 2023-01-29 09:58 | Diagnostic Imaging Report ---
INDICATION: ICU care, pneumonia. COMPARISON: 01/28/2023 TECHNIQUE: Single radiograph of the chest dated 01/29/2023. FINDINGS: Right-sided PICC line, endotracheal tube and enteric catheter are again identified, appearing stable. The cardiac silhouette is within normal limits in size. No significant pulmonary vascular congestion. Perihilar and bibasilar pulmonary opacities are again identified. These appear slightly worsened within the medial left lung base with worsening obscuration of the left hemidiaphragm. No large-volume pleural effusion. No pneumothorax. Vascular calcifications of the aortic arch. No acute osseous abnormality. IMPRESSION: Persistent perihilar and bibasilar atelectasis and/or infiltrate, slightly worsened within the medial left lung base. Unchanged lines and tubes. Dictated by: Dictated on workstation # [id number]
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
[2023-01-29] MEDS: MICONAZOLE 2% POWDER 90 GM TOP SCH ×2 (10:38→21:14)
[2023-01-29 14:28] VITALS: BP 107/54
[2023-01-29] MEDS: ENOXAPARIN 40 MG/0.4 ML SYRINGE SC SCH (21:13)
[2023-01-29] MEDS: FAMOTIDINE 20 MG TABLET PO SCH (21:14)
[2023-01-29 22:19] VITALS: BP 118/65
[2023-01-30] VITALS (9 sets, daily range): BP systolic 117–149; BP diastolic 57–70
[2023-01-30] MEDS: DexMEDEtomidine 1,000mcg/250ml 250 ML IV SCH ×4 (00:37→22:39)
[2023-01-30] MEDS: RT-Ipratropium/Albuterol NEB 3 ML VIAL INH SCH ×4 (02:16→21:50)
[2023-01-30 05:05] LABS: BASOPHILS # (AUTO) 0.1 10^3/uL (0.0-0.1); BASOPHILS % (AUTO) 1 % (0-10); EOSINOPHILS # (AUTO) 0.3 10^3/uL (0.0-0.3); EOSINOPHILS % (AUTO) 3 % (0-10); HEMATOCRIT 25 % (40-54); HEMOGLOBIN 7.5 g/dL (13.3-17.7); LYMPHOCYTES # (AUTO) 1.3 10^3/uL (1.0-4.0); LYMPHOCYTES % (AUTO) 14 % (12-44); MEAN CORPUSCULAR HEMOGLOBIN 28 pg (25-34); MEAN CORPUSCULAR HGB CONC 31 g/dL (32-36); MEAN CORPUSCULAR VOLUME 90 fL (80-99); MEAN PLATELET VOLUME 12.4 fL (9.0-12.2); MONOCYTES # (AUTO) 0.6 10^3/uL (0.0-1.0); MONOCYTES % (AUTO) 6 % (0-12); NEUTROPHILS # (AUTO) 7.3 10^3/uL (1.8-7.8); NEUTROPHILS % (AUTO) 76 % (42-75); PLATELET COUNT 164 10^3/uL (130-400); WHITE BLOOD COUNT 9.7 10^3/uL (4.3-11.0)
[2023-01-30 05:16] LABS: ALBUMIN 2.3 GM/DL (3.2-4.5); POTASSIUM 4.4 MMOL/L (3.6-5.0)
[2023-01-30 05:17] LABS: CALCIUM 7.1 MG/DL (8.5-10.1)
[2023-01-30 05:18] LABS: TOTAL PROTEIN 4.9 GM/DL (6.4-8.2)
[2023-01-30 05:20] LABS: BILIRUBIN,TOTAL 0.3 MG/DL (0.1-1.0)
[2023-01-30 05:21] LABS: PHOSPHORUS 3.8 MG/DL (2.3-4.7)
[2023-01-30 05:25] LABS: MAGNESIUM 2.1 MG/DL (1.6-2.4)
[2023-01-30] MEDS: POTASSIUM CL 10MEQ/50ML IVPB 50 ML IV SCH (05:31)
[2023-01-30] MEDS: MAGNESIUM 1 GM/100 ML IVPB 100 ML IV SCH (05:31)
[2023-01-30] MEDS: POTASSIUM CHLORIDE 20 MEQ TABLET PO SCH (05:31)
[2023-01-30] MEDS: LEVOTHYROXINE 50 MCG TABLET PO SCH (05:52)
[2023-01-30] MEDS: inSUlin ASPART 1 UNIT/0.01 ML (PER UNIT) SC SCH ×4 (05:52→23:49)
[2023-01-30 08:05] LABS: ABG BASE EXCESS -3.3 MMOL/L (-2.5-2.5); ABG OXYGEN SATURATION 89 % (94-100); ABG PCO2 45 MMHG (35-45); ABG PO2 70 MMHG (79-93); ABG TCO2 22.9 MMOL/L (21.0-31.0)
[2023-01-30 08:08] LABS: ABG PH 7.32 (7.37-7.43); ALLENS TEST YES-POS; INSPIRED O2 25%; PATIENT TEMP 38.6; VENTILATOR YES
--- NOTE | 2023-01-30 08:13 | Diagnostic Imaging Report ---
EXAMINATION: Chest radiograph, portable AP view. DATE: 01/30/2023 6:29 AM INDICATION: 72-year-old male, shortness of breath, pneumonia. COMPARISON: January 29, 2023. FINDINGS: The endotracheal tube is approximately 5 cm above the kenna. The nasogastric tube tip is not well seen. There are limitations of the exam relating to patient body habitus and difficulties with exposure. Heart size and mediastinal contours appear unchanged. There is no identified pneumothorax. There is no identified large pleural effusion. There is unchanged opacification in the left medial lung base. There are streaky lung opacities bilaterally additionally present with overall unchanged appearance. IMPRESSION: 1. Nonspecific opacification in the left medial lung base and streaky bilateral lung opacities without interval change since January 29, 2023. 2. Support lines and tubes as above. The tip of the nasogastric tube is not well seen. Dictated by: Dictated on workstation # [id number]
--- NOTE | 2023-01-30 08:24 | Diagnostic Imaging Report ---
EXAMINATION: Chest radiograph, portable AP view. DATE: 01/30/2023 8:18 AM INDICATION: 72-year-old male, orogastric tube placement. COMPARISON: January 30, 2023 at 0602 hours. FINDINGS: The endotracheal tube position is unchanged. The nasogastric tube is in the stomach. There is a right-sided PICC line with tip near the level of the cavoatrial junction. Heart size and mediastinal contours are unchanged. There is no identified pneumothorax. There is nonspecific left basilar airspace consolidation. There are additional streaky bilateral lung opacities, right greater than left which are unchanged. IMPRESSION: 1. The nasogastric tube tip is in the stomach. 2. Unchanged nonspecific left basilar airspace consolidation and streaky bilateral lung opacities. Dictated by: Dictated on workstation # [id number]
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
[2023-01-30] MEDS: MEROPENEM INJECTION 500 MG in NS (IVPB) 100 ML 100 ML IV SCH ×3 (08:50→20:28)
[2023-01-30] MEDS: amLODIPine 5 MG TABLET PO SCH (08:50)
[2023-01-30] MEDS: inSUlin DETERMIR 1 UNIT/0.01 ML (CHARGE PER UNIT) SQ SCH ×2 (08:51→20:29)
[2023-01-30] MEDS: MICONAZOLE 2% POWDER 90 GM TOP SCH ×2 (08:51→21:44)
[2023-01-30] MEDS: SERTRALINE 100 MG TABLET PO SCH ×2 (08:51→20:29)
[2023-01-30] MEDS: ACETAMINOPHEN 325 MG/10.15 ML ORAL SOLN UDC PO PRN ×3 (08:52→20:30)
[2023-01-30] MEDS: fentaNYL DRIP PRE-MIX 250 ML IV SCH ×4 (09:00→23:54)
[2023-01-30] MEDS ORDERED: FUROSEMIDE INJECTION 40 MG/4 ML VIAL IVP NR ×2 (09:00→12:00)
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
[2023-01-30] MEDS ORDERED: NS IV 500 ML 500 ML IV SCH (09:15)
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
[2023-01-30 15:19] LABS: HEMATOCRIT 27 % (40-54); HEMOGLOBIN 8.4 g/dL (13.3-17.7); MEAN CORPUSCULAR HEMOGLOBIN 27 pg (25-34); MEAN CORPUSCULAR HGB CONC 31 g/dL (32-36); MEAN CORPUSCULAR VOLUME 89 fL (80-99); MEAN PLATELET VOLUME 11.9 fL (9.0-12.2); PLATELET COUNT 155 10^3/uL (130-400); WHITE BLOOD COUNT 10.7 10^3/uL (4.3-11.0)
[2023-01-30] MEDS: ENOXAPARIN 40 MG/0.4 ML SYRINGE SC SCH (20:28)
[2023-01-30] MEDS: FAMOTIDINE 20 MG TABLET PO SCH (20:29)
[2023-01-31] VITALS (7 sets, daily range): BP systolic 103–157; BP diastolic 52–80
[2023-01-31] MEDS: MEROPENEM INJECTION 500 MG in NS (IVPB) 100 ML 100 ML IV SCH ×4 (01:44→20:01)
[2023-01-31] MEDS: RT-Ipratropium/Albuterol NEB 3 ML VIAL INH SCH ×4 (02:35→23:04)
[2023-01-31] MEDS: fentaNYL DRIP PRE-MIX 250 ML IV SCH ×3 (03:24→10:13)
[2023-01-31] MEDS: DexMEDEtomidine 1,000mcg/250ml 250 ML IV SCH ×3 (04:08→15:48)
[2023-01-31 04:13] LABS: BASOPHILS # (AUTO) 0.1 10^3/uL (0.0-0.1); BASOPHILS % (AUTO) 1 % (0-10); EOSINOPHILS # (AUTO) 0.3 10^3/uL (0.0-0.3); EOSINOPHILS % (AUTO) 4 % (0-10); HEMATOCRIT 26 % (40-54); HEMOGLOBIN 8.1 g/dL (13.3-17.7); LYMPHOCYTES # (AUTO) 1.4 10^3/uL (1.0-4.0); LYMPHOCYTES % (AUTO) 15 % (12-44); MEAN CORPUSCULAR HEMOGLOBIN 28 pg (25-34); MEAN CORPUSCULAR HGB CONC 31 g/dL (32-36); MEAN CORPUSCULAR VOLUME 89 fL (80-99); MEAN PLATELET VOLUME 12.1 fL (9.0-12.2); MONOCYTES # (AUTO) 0.5 10^3/uL (0.0-1.0); MONOCYTES % (AUTO) 5 % (0-12); NEUTROPHILS # (AUTO) 6.8 10^3/uL (1.8-7.8); NEUTROPHILS % (AUTO) 75 % (42-75); PLATELET COUNT 155 10^3/uL (130-400); WHITE BLOOD COUNT 9.1 10^3/uL (4.3-11.0)
[2023-01-31 04:41] LABS: BAND NEUTROPHILS 1 %; BASOPHILS % (MANUAL) 0 %; EOSINOPHILS % (MANUAL) 4 %; LYMPHOCYTES % (MANUAL) 13 %; MONOCYTES % (MANUAL) 3 %; NEUTROPHILS % (MANUAL) 79 %
[2023-01-31 04:42] LABS: ANISOCYTOSIS SLIGHT; MICROCYTOSIS SLIGHT; POIKILOCYTOSIS SLIGHT; POLYCHROMASIA SLIGHT; TEAR DROP CELLS SLIGHT
[2023-01-31 04:48] LABS: ALBUMIN 2.2 GM/DL (3.2-4.5); BILIRUBIN,TOTAL 0.3 MG/DL (0.1-1.0); CALCIUM 6.7 MG/DL (8.5-10.1); CREATININE SERUM 0.87 MG/DL (0.60-1.30); MAGNESIUM 1.8 MG/DL (1.6-2.4); PHOSPHORUS 3.2 MG/DL (2.3-4.7); POTASSIUM 3.8 MMOL/L (3.6-5.0); TOTAL PROTEIN 4.3 GM/DL (6.4-8.2)
[2023-01-31] MEDS: MAGNESIUM 1 GM/100 ML IVPB 100 ML IV SCH ×3 (05:33→05:39)
[2023-01-31] MEDS: POTASSIUM CHLORIDE 20 MEQ TABLET PO SCH (05:33)
[2023-01-31] MEDS: POTASSIUM CL 10MEQ/50ML IVPB 50 ML IV SCH (05:33)
[2023-01-31] MEDS: inSUlin ASPART 1 UNIT/0.01 ML (PER UNIT) SC SCH ×3 (05:38→19:03)
[2023-01-31] MEDS: LEVOTHYROXINE 50 MCG TABLET PO SCH (05:38)
[2023-01-31] MEDS: ACETAMINOPHEN 325 MG/10.15 ML ORAL SOLN UDC PO PRN ×2 (05:46→16:18)
[2023-01-31] MEDS ORDERED: POTASSIUM BICARB 20 MEQ effervescent TABLET PO ONE (06:00)
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
--- NOTE | 2023-01-31 08:22 | Diagnostic Imaging Report ---
EXAMINATION: Chest 1 view HISTORY: Pneumonia COMPARISON: 01/30/2023 FINDINGS: Endotracheal tube tip terminates 5 cm above the kenna. Gastric tube tip terminates below the field of view. There is left base atelectasis or pneumonia. Lung volumes are small. No pneumothorax. Heart size is normal. IMPRESSION: 1. Left base atelectasis or pneumonia. Dictated by: Dictated on workstation # [id number]
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
[2023-01-31] MEDS: SERTRALINE 100 MG TABLET PO SCH ×2 (09:40→21:01)
[2023-01-31] MEDS: inSUlin DETERMIR 1 UNIT/0.01 ML (CHARGE PER UNIT) SQ SCH ×2 (09:40→21:02)
[2023-01-31] MEDS: amLODIPine 5 MG TABLET PO SCH (09:40)
[2023-01-31] MEDS: MICONAZOLE 2% POWDER 90 GM TOP SCH ×2 (09:42→21:02)
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
[2023-01-31] MEDS ORDERED: BUMETANIDE INJ 1 MG/4 ML VIAL IV NR ×2 (11:30→18:45)
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
[2023-01-31] MEDS: RT-ALBUTEROL SULF 2.5 MG/3 ML PRE-MIX VIAL INH PRN (14:47)
[2023-01-31] MEDS: RT-BUDESONIDE NEBS 0.5 MG/2ML VIAL INH SCH (19:09)
[2023-01-31 19:10] LABS: ABG BASE EXCESS -2.4 MMOL/L (-2.5-2.5); ABG OXYGEN SATURATION 95 % (94-100); ABG PCO2 49 MMHG (35-45); ABG PO2 78 MMHG (79-93); ABG TCO2 24.7 MMOL/L (21.0-31.0)
[2023-01-31 19:11] LABS: ALLENS TEST YES-POS; INSPIRED O2 35%; PATIENT TEMP 36.7; VENTILATOR YES
[2023-01-31] MEDS: FAMOTIDINE 20 MG TABLET PO SCH (21:01)
[2023-01-31] MEDS: ENOXAPARIN 40 MG/0.4 ML SYRINGE SC SCH (21:01)
[2023-02-01] MEDS: inSUlin ASPART 1 UNIT/0.01 ML (PER UNIT) SC SCH ×5 (00:15→23:24)
[2023-02-01] MEDS: MEROPENEM INJECTION 500 MG in NS (IVPB) 100 ML 100 ML IV SCH ×4 (01:36→21:28)
[2023-02-01 02:11] VITALS: BP 133/65
[2023-02-01] MEDS: RT-Ipratropium/Albuterol NEB 3 ML VIAL INH SCH ×6 (02:11→21:52)
[2023-02-01 03:13] LABS: BASOPHILS # (AUTO) 0.1 10^3/uL (0.0-0.1); BASOPHILS % (AUTO) 1 % (0-10); EOSINOPHILS # (AUTO) 0.3 10^3/uL (0.0-0.3); EOSINOPHILS % (AUTO) 3 % (0-10); HEMATOCRIT 28 % (40-54); HEMOGLOBIN 8.7 g/dL (13.3-17.7); LYMPHOCYTES # (AUTO) 1.4 10^3/uL (1.0-4.0); LYMPHOCYTES % (AUTO) 15 % (12-44); MEAN CORPUSCULAR HEMOGLOBIN 28 pg (25-34); MEAN CORPUSCULAR HGB CONC 31 g/dL (32-36); MEAN CORPUSCULAR VOLUME 88 fL (80-99); MEAN PLATELET VOLUME 12.8 fL (9.0-12.2); MONOCYTES # (AUTO) 0.5 10^3/uL (0.0-1.0); MONOCYTES % (AUTO) 5 % (0-12); NEUTROPHILS # (AUTO) 7.4 10^3/uL (1.8-7.8); NEUTROPHILS % (AUTO) 76 % (42-75); PLATELET COUNT 176 10^3/uL (130-400); WHITE BLOOD COUNT 9.8 10^3/uL (4.3-11.0)
[2023-02-01 03:37] LABS: ALBUMIN 2.4 GM/DL (3.2-4.5); BILIRUBIN,TOTAL 0.3 MG/DL (0.1-1.0); CALCIUM 7.8 MG/DL (8.5-10.1); CREATININE SERUM 1.11 MG/DL (0.60-1.30); MAGNESIUM 2.1 MG/DL (1.6-2.4); PHOSPHORUS 3.4 MG/DL (2.3-4.7); POTASSIUM 4.7 MMOL/L (3.6-5.0); TOTAL PROTEIN 5.4 GM/DL (6.4-8.2)
[2023-02-01] MEDS: POTASSIUM CHLORIDE 20 MEQ TABLET PO SCH (03:42)
[2023-02-01] MEDS: MAGNESIUM 1 GM/100 ML IVPB 100 ML IV SCH (03:42)
[2023-02-01] MEDS: POTASSIUM CL 10MEQ/50ML IVPB 50 ML IV SCH (03:42)
[2023-02-01] MEDS: fentaNYL DRIP PRE-MIX 250 ML IV SCH (03:56)
[2023-02-01] MEDS: LEVOTHYROXINE 50 MCG TABLET PO SCH (03:57)
[2023-02-01] MEDS: ACETAMINOPHEN 325 MG/10.15 ML ORAL SOLN UDC PO PRN (03:57)
[2023-02-01] MEDS: DexMEDEtomidine 1,000mcg/250ml 250 ML IV SCH ×2 (03:57→21:26)
[2023-02-01 04:05] LABS: LYMPHOCYTES % (MANUAL) 15 %; NEUTROPHILS % (MANUAL) 78 %
[2023-02-01 04:06] LABS: BASOPHILS % (MANUAL) 1 %; ELLIPT/OVALOCYTES SLIGHT; EOSINOPHILS % (MANUAL) 3 %; MONOCYTES % (MANUAL) 3 %
[2023-02-01 04:13] LABS: SCHISTOCYTES SLIGHT
[2023-02-01 05:17] LABS: ABG BASE EXCESS -2.2 MMOL/L (-2.5-2.5); ABG OXYGEN SATURATION 94 % (94-100); ABG PCO2 45 MMHG (35-45); ABG PO2 74 MMHG (79-93); ABG TCO2 24.1 MMOL/L (21.0-31.0)
[2023-02-01 05:18] LABS: ALLENS TEST YES-POS; INSPIRED O2 25%; PATIENT TEMP 37.5; VENTILATOR YES
[2023-02-01 05:19] LABS: ABG PH 7.33 (7.37-7.43)
[2023-02-01 06:40] VITALS: BP 175/79
[2023-02-01] MEDS: RT-BUDESONIDE NEBS 0.5 MG/2ML VIAL INH SCH ×2 (06:40→20:20)
[2023-02-01] MEDS: PANTOPRAZOLE INJECTION 40 MG VIAL IV SCH (08:09)
[2023-02-01] MEDS: SERTRALINE 100 MG TABLET PO SCH ×2 (08:09→21:28)
[2023-02-01] MEDS: inSUlin DETERMIR 1 UNIT/0.01 ML (CHARGE PER UNIT) SQ SCH ×2 (08:10→21:32)
[2023-02-01] MEDS: amLODIPine 5 MG TABLET PO SCH (08:17)
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
[2023-02-01] MEDS: MICONAZOLE 2% POWDER 90 GM TOP SCH ×2 (08:36→21:29)
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
--- NOTE | 2023-02-01 09:46 | Diagnostic Imaging Report ---
INDICATION: Pneumonia. COMPARISON: 01/31/2023 FINDINGS: Single frontal radiographic view of the chest was obtained and demonstrates indwelling endotracheal tube with tip approximately 1.4 cm above the kenna. Gastric tube extends inferiorly beyond the dirzc-ha-used. Right upper extremity PICC line is also seen with tip in the high SVC. Cardiac silhouette and pulmonary vasculature stable. Lungs show low inspiratory volumes with crowding of the central hilar structures. Again identified is partial opacification left hemidiaphragm. Overall, aeration is stable. There is no pneumothorax. IMPRESSION: 1. Lines and tubes as above. 2. Low lung volumes with probable left basilar atelectasis versus pneumonia. Dictated by: Dictated on workstation # [id number]
[2023-02-01 10:42] VITALS: BP 121/63
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
[2023-02-01 11:41] LABS: ABG BASE EXCESS -2.4 MMOL/L (-2.5-2.5); ABG OXYGEN SATURATION 98 % (94-100); ABG PCO2 52 MMHG (35-45); ABG PO2 98 MMHG (79-93)
[2023-02-01 11:45] LABS: ABG PH 7.28 (7.37-7.43)
[2023-02-01 11:46] LABS: ALLENS TEST YES-POS; INSPIRED O2 35%; VENTILATOR YES
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
[2023-02-01 15:11] LABS: ABG BASE EXCESS -2.5 MMOL/L (-2.5-2.5); ABG OXYGEN SATURATION 94 % (94-100); ABG PCO2 55 MMHG (35-45); ABG PO2 82 MMHG (79-93); ABG TCO2 25.2 MMOL/L (21.0-31.0)
[2023-02-01 15:21] LABS: ABG PH 7.26 (7.37-7.43); ALLENS TEST YES-POS; INSPIRED O2 3; PATIENT TEMP 37; VENTILATOR NO
[2023-02-01 16:11] VITALS: BP 82/57
[2023-02-01 18:38] LABS: ABG BASE EXCESS -2.7 MMOL/L (-2.5-2.5); ABG OXYGEN SATURATION 97 % (94-100); ABG PCO2 43 MMHG (35-45); ABG PO2 89 MMHG (79-93); ABG TCO2 23.7 MMOL/L (21.0-31.0)
[2023-02-01 18:39] LABS: ABG PH 7.33 (7.37-7.43); ALLENS TEST YES-POS; INSPIRED O2 RM; PATIENT TEMP 36.7; VENTILATOR NO
[2023-02-01 20:27] VITALS: BP 119/65
[2023-02-01] MEDS: FAMOTIDINE 20 MG TABLET PO SCH (21:28)
[2023-02-01] MEDS: ENOXAPARIN 40 MG/0.4 ML SYRINGE SC SCH (21:28)
[2023-02-02] MEDS: MEROPENEM INJECTION 500 MG in NS (IVPB) 100 ML 100 ML IV SCH ×4 (03:22→21:09)
[2023-02-02] MEDS: RT-Ipratropium/Albuterol NEB 3 ML VIAL INH SCH ×6 (03:25→22:48)
[2023-02-02 05:12] LABS: ABG BASE EXCESS -2.1 MMOL/L (-2.5-2.5); ABG OXYGEN SATURATION 98 % (94-100); ABG PCO2 54 MMHG (35-45); ABG PO2 113 MMHG (79-93); ABG TCO2 25.6 MMOL/L (21.0-31.0)
[2023-02-02 05:13] LABS: ALLENS TEST YES-POS; INSPIRED O2 30%; PATIENT TEMP 36.7; VENTILATOR NO
[2023-02-02 05:14] LABS: ABG PH 7.27 (7.37-7.43)
[2023-02-02 05:31] LABS: BASOPHILS # (AUTO) 0.1 10^3/uL (0.0-0.1); BASOPHILS % (AUTO) 1 % (0-10); EOSINOPHILS # (AUTO) 0.4 10^3/uL (0.0-0.3); EOSINOPHILS % (AUTO) 4 % (0-10); HEMATOCRIT 29 % (40-54); HEMOGLOBIN 8.6 g/dL (13.3-17.7); LYMPHOCYTES # (AUTO) 1.4 10^3/uL (1.0-4.0); LYMPHOCYTES % (AUTO) 16 % (12-44); MEAN CORPUSCULAR HEMOGLOBIN 27 pg (25-34); MEAN CORPUSCULAR HGB CONC 30 g/dL (32-36); MEAN CORPUSCULAR VOLUME 91 fL (80-99); MEAN PLATELET VOLUME 12.9 fL (9.0-12.2); MONOCYTES # (AUTO) 0.5 10^3/uL (0.0-1.0); MONOCYTES % (AUTO) 6 % (0-12); NEUTROPHILS % (AUTO) 72 % (42-75); PLATELET COUNT 147 10^3/uL (130-400); WHITE BLOOD COUNT 8.4 10^3/uL (4.3-11.0)
[2023-02-02 06:01] LABS: BASOPHILS % (MANUAL) 1 %; EOSINOPHILS % (MANUAL) 5 %; LYMPHOCYTES % (MANUAL) 18 %; MONOCYTES % (MANUAL) 1 %; NEUTROPHILS % (MANUAL) 75 %
[2023-02-02 06:02] LABS: SCHISTOCYTES SLIGHT
[2023-02-02 06:25] LABS: ALBUMIN 2.5 GM/DL (3.2-4.5); BILIRUBIN,TOTAL 0.5 MG/DL (0.1-1.0); CALCIUM 7.7 MG/DL (8.5-10.1); CREATININE SERUM 0.83 MG/DL (0.60-1.30); MAGNESIUM 2.2 MG/DL (1.6-2.4); PHOSPHORUS 3.7 MG/DL (2.3-4.7); TOTAL PROTEIN 5.6 GM/DL (6.4-8.2)
[2023-02-02] MEDS: MAGNESIUM 1 GM/100 ML IVPB 100 ML IV SCH (06:36)
[2023-02-02] MEDS: POTASSIUM CL 10MEQ/50ML IVPB 50 ML IV SCH (06:36)
[2023-02-02] MEDS: POTASSIUM CHLORIDE 20 MEQ TABLET PO SCH (06:36)
[2023-02-02] MEDS: inSUlin ASPART 1 UNIT/0.01 ML (PER UNIT) SC SCH ×3 (06:37→19:35)
[2023-02-02] MEDS: LEVOTHYROXINE 50 MCG TABLET PO SCH (06:42)
[2023-02-02] MEDS: RT-BUDESONIDE NEBS 0.5 MG/2ML VIAL INH SCH (07:06)
[2023-02-02] MEDS: fentaNYL DRIP PRE-MIX 250 ML IV SCH (07:39)
--- NOTE | 2023-02-02 08:28 | Diagnostic Imaging Report ---
EXAMINATION: Chest 1 view HISTORY: Pneumonia COMPARISON: 02/01/2023 FINDINGS: The left base opacity has improved and there is minimal atelectasis in the lung bases. Lung volumes are small. No pneumothorax. Heart size is normal. IMPRESSION: 1. Improving aeration in the lung bases with minimal atelectasis remaining. Dictated by: Dictated on workstation # [id number]
[2023-02-02] MEDS: PANTOPRAZOLE INJECTION 40 MG VIAL IV SCH (09:15)
[2023-02-02] MEDS: inSUlin DETERMIR 1 UNIT/0.01 ML (CHARGE PER UNIT) SQ SCH ×2 (09:15→21:10)
[2023-02-02] MEDS: SERTRALINE 100 MG TABLET PO SCH ×2 (09:15→21:10)
[2023-02-02] MEDS: amLODIPine 5 MG TABLET PO SCH (09:15)
[2023-02-02] MEDS: MICONAZOLE 2% POWDER 90 GM TOP SCH ×2 (09:16→21:11)
[2023-02-02 11:14] VITALS: BP 121/67
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
[2023-02-02 19:08] VITALS: BP 149/58
[2023-02-02] MEDS: ENOXAPARIN 40 MG/0.4 ML SYRINGE SC SCH (21:09)
[2023-02-02] MEDS: FAMOTIDINE 20 MG TABLET PO SCH (21:10)
[2023-02-02 22:49] VITALS: BP 174/62
[2023-02-03] MEDS: inSUlin ASPART 1 UNIT/0.01 ML (PER UNIT) SC SCH ×4 (00:40→17:41)
[2023-02-03] MEDS: RT-Ipratropium/Albuterol NEB 3 ML VIAL INH SCH ×6 (02:11→21:43)
[2023-02-03] MEDS: MEROPENEM INJECTION 500 MG in NS (IVPB) 100 ML 100 ML IV SCH ×2 (04:16→08:53)
[2023-02-03 04:35] LABS: BASOPHILS # (AUTO) 0.1 10^3/uL (0.0-0.1); BASOPHILS % (AUTO) 1 % (0-10); EOSINOPHILS # (AUTO) 0.5 10^3/uL (0.0-0.3); EOSINOPHILS % (AUTO) 4 % (0-10); HEMATOCRIT 29 % (40-54); HEMOGLOBIN 8.7 g/dL (13.3-17.7); LYMPHOCYTES # (AUTO) 1.4 10^3/uL (1.0-4.0); LYMPHOCYTES % (AUTO) 13 % (12-44); MEAN CORPUSCULAR HEMOGLOBIN 27 pg (25-34); MEAN CORPUSCULAR HGB CONC 30 g/dL (32-36); MEAN CORPUSCULAR VOLUME 90 fL (80-99); MEAN PLATELET VOLUME 12.1 fL (9.0-12.2); MONOCYTES # (AUTO) 0.8 10^3/uL (0.0-1.0); MONOCYTES % (AUTO) 7 % (0-12); NEUTROPHILS % (AUTO) 75 % (42-75); PLATELET COUNT 243 10^3/uL (130-400); WHITE BLOOD COUNT 10.7 10^3/uL (4.3-11.0)
[2023-02-03 04:53] LABS: ALBUMIN 2.6 GM/DL (3.2-4.5); BILIRUBIN,TOTAL 0.5 MG/DL (0.1-1.0); CREATININE SERUM 0.81 MG/DL (0.60-1.30); MAGNESIUM 2.1 MG/DL (1.6-2.4); PHOSPHORUS 3.2 MG/DL (2.3-4.7); POTASSIUM 3.5 MMOL/L (3.6-5.0); TOTAL PROTEIN 5.6 GM/DL (6.4-8.2)
[2023-02-03 04:55] LABS: BASOPHILS % (MANUAL) 1 %; ELLIPT/OVALOCYTES SLIGHT; EOSINOPHILS % (MANUAL) 4 %; LYMPHOCYTES % (MANUAL) 16 %; MONOCYTES % (MANUAL) 3 %; NEUTROPHILS % (MANUAL) 76 %
[2023-02-03] MEDS: MAGNESIUM 1 GM/100 ML IVPB 100 ML IV SCH (05:08)
[2023-02-03] MEDS: POTASSIUM CL 10MEQ/50ML IVPB 50 ML IV SCH (05:08)
[2023-02-03] MEDS: POTASSIUM CHLORIDE 20 MEQ TABLET PO SCH (05:33)
[2023-02-03] MEDS: LEVOTHYROXINE 50 MCG TABLET PO SCH (05:33)
[2023-02-03] MEDS: hydrALAZINE INJECTION 20 MG/ML VIAL IV PRN (06:06)
[2023-02-03] MEDS: RT-BUDESONIDE NEBS 0.5 MG/2ML VIAL INH SCH ×2 (06:39→21:43)
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
[2023-02-03] MEDS: fentaNYL DRIP PRE-MIX 250 ML IV SCH (08:52)
[2023-02-03] MEDS: inSUlin DETERMIR 1 UNIT/0.01 ML (CHARGE PER UNIT) SQ SCH ×2 (08:52→20:57)
[2023-02-03] MEDS: PANTOPRAZOLE INJECTION 40 MG VIAL IV SCH (08:53)
[2023-02-03] MEDS: SERTRALINE 100 MG TABLET PO SCH ×2 (08:53→20:57)
[2023-02-03] MEDS: amLODIPine 5 MG TABLET PO SCH (08:53)
[2023-02-03] MEDS: MICONAZOLE 2% POWDER 90 GM TOP SCH ×2 (08:54→20:57)
[2023-02-03 09:16] LABS: ABG BASE EXCESS -2.5 MMOL/L (-2.5-2.5); ABG OXYGEN SATURATION 98 % (94-100); ABG PCO2 40 MMHG (35-45); ABG PH 7.36 (7.37-7.43); ABG PO2 100 MMHG (79-93); ABG TCO2 23.5 MMOL/L (21.0-31.0)
[2023-02-03 09:17] LABS: ALLENS TEST YES-POS; INSPIRED O2 21%; PATIENT TEMP 36.5; VENTILATOR NO
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
[2023-02-03] MEDS: ENOXAPARIN 40 MG/0.4 ML SYRINGE SC SCH (20:57)
[2023-02-03] MEDS: FAMOTIDINE 20 MG TABLET PO SCH (20:57)
[2023-02-04] MEDS: RT-Ipratropium/Albuterol NEB 3 ML VIAL INH SCH ×4 (02:00→20:47)
[2023-02-04 05:06] LABS: BASOPHILS # (AUTO) 0.1 10^3/uL (0.0-0.1); BASOPHILS % (AUTO) 1 % (0-10); EOSINOPHILS # (AUTO) 0.5 10^3/uL (0.0-0.3); EOSINOPHILS % (AUTO) 5 % (0-10); HEMATOCRIT 29 % (40-54); HEMOGLOBIN 8.8 g/dL (13.3-17.7); LYMPHOCYTES # (AUTO) 1.4 10^3/uL (1.0-4.0); LYMPHOCYTES % (AUTO) 16 % (12-44); MEAN CORPUSCULAR HEMOGLOBIN 27 pg (25-34); MEAN CORPUSCULAR HGB CONC 30 g/dL (32-36); MEAN CORPUSCULAR VOLUME 91 fL (80-99); MEAN PLATELET VOLUME 11.8 fL (9.0-12.2); MONOCYTES # (AUTO) 0.8 10^3/uL (0.0-1.0); MONOCYTES % (AUTO) 9 % (0-12); NEUTROPHILS # (AUTO) 6.2 10^3/uL (1.8-7.8); NEUTROPHILS % (AUTO) 69 % (42-75); PLATELET COUNT 245 10^3/uL (130-400)
[2023-02-04 05:23] LABS: ALBUMIN 2.7 GM/DL (3.2-4.5); BILIRUBIN,TOTAL 0.4 MG/DL (0.1-1.0); CREATININE SERUM 0.77 MG/DL (0.60-1.30); MAGNESIUM 2.1 MG/DL (1.6-2.4); PHOSPHORUS 3.1 MG/DL (2.3-4.7); POTASSIUM 3.5 MMOL/L (3.6-5.0); TOTAL PROTEIN 5.2 GM/DL (6.4-8.2)
[2023-02-04] MEDS: inSUlin ASPART 1 UNIT/0.01 ML (PER UNIT) SC SCH ×4 (05:25→21:25)
[2023-02-04 05:28] LABS: ATYPICAL LYMPHOCYTES 1 %; EOSINOPHILS % (MANUAL) 5 %; HYPOCHROMASIA SLIGHT; LYMPHOCYTES % (MANUAL) 14 %; MONOCYTES % (MANUAL) 6 %; NEUTROPHILS % (MANUAL) 74 %
[2023-02-04 05:29] LABS: SCHISTOCYTES SLIGHT
[2023-02-04] MEDS: MAGNESIUM 1 GM/100 ML IVPB 100 ML IV SCH (05:44)
[2023-02-04] MEDS: POTASSIUM CL 10MEQ/50ML IVPB 50 ML IV SCH (05:44)
[2023-02-04] MEDS: POTASSIUM CHLORIDE 20 MEQ TABLET PO SCH (05:44)
[2023-02-04] MEDS: LEVOTHYROXINE 50 MCG TABLET PO SCH (06:16)
[2023-02-04] MEDS: RT-BUDESONIDE NEBS 0.5 MG/2ML VIAL INH SCH ×2 (07:10→20:47)
[2023-02-04 07:33] VITALS: BP 141/56
[2023-02-04] MEDS: fentaNYL DRIP PRE-MIX 250 ML IV SCH (08:07)
[2023-02-04] MEDS: amLODIPine 5 MG TABLET PO SCH (08:58)
[2023-02-04] MEDS: PANTOPRAZOLE INJECTION 40 MG VIAL IV SCH (08:58)
[2023-02-04] MEDS: MICONAZOLE 2% POWDER 90 GM TOP SCH ×2 (08:58→21:55)
[2023-02-04] MEDS: inSUlin DETERMIR 1 UNIT/0.01 ML (CHARGE PER UNIT) SQ SCH ×2 (08:58→21:55)
[2023-02-04] MEDS: SERTRALINE 100 MG TABLET PO SCH ×2 (08:58→20:08)
[2023-02-04] MEDS ORDERED: POTASSIUM CHLORIDE 20 MEQ TABLET PO ONE (09:00)
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
[2023-02-04 11:35] VITALS: BP 142/65
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
[2023-02-04 15:56] VITALS: BP 165/67
[2023-02-04 19:58] VITALS: BP 169/90
[2023-02-04] MEDS: FAMOTIDINE 20 MG TABLET PO SCH (20:08)
[2023-02-04] MEDS: ENOXAPARIN 40 MG/0.4 ML SYRINGE SC SCH (20:08)
[2023-02-04 23:50] VITALS: BP 189/83
[2023-02-05] MEDS: hydrALAZINE INJECTION 20 MG/ML VIAL IV PRN ×3 (00:23→11:27)
[2023-02-05 00:55] VITALS: BP 165/72
[2023-02-05] MEDS: RT-Ipratropium/Albuterol NEB 3 ML VIAL INH SCH ×2 (03:09→11:07)
[2023-02-05 03:49] VITALS: BP 168/67
[2023-02-05 05:19] LABS: BASOPHILS # (AUTO) 0.1 10^3/uL (0.0-0.1); BASOPHILS % (AUTO) 1 % (0-10); EOSINOPHILS # (AUTO) 0.4 10^3/uL (0.0-0.3); EOSINOPHILS % (AUTO) 5 % (0-10); HEMATOCRIT 30 % (40-54); HEMOGLOBIN 8.8 g/dL (13.3-17.7); LYMPHOCYTES % (AUTO) 13 % (12-44); MEAN CORPUSCULAR HEMOGLOBIN 27 pg (25-34); MEAN CORPUSCULAR HGB CONC 30 g/dL (32-36); MEAN CORPUSCULAR VOLUME 91 fL (80-99); MEAN PLATELET VOLUME 11.6 fL (9.0-12.2); MONOCYTES # (AUTO) 0.6 10^3/uL (0.0-1.0); MONOCYTES % (AUTO) 8 % (0-12); NEUTROPHILS # (AUTO) 5.7 10^3/uL (1.8-7.8); NEUTROPHILS % (AUTO) 72 % (42-75); PLATELET COUNT 237 10^3/uL (130-400); WHITE BLOOD COUNT 7.9 10^3/uL (4.3-11.0)
[2023-02-05] MEDS: inSUlin ASPART 1 UNIT/0.01 ML (PER UNIT) SC SCH ×2 (05:46→11:26)
[2023-02-05 05:47] LABS: ALBUMIN 2.7 GM/DL (3.2-4.5); BILIRUBIN,TOTAL 0.4 MG/DL (0.1-1.0); CALCIUM 8.1 MG/DL (8.5-10.1); CREATININE SERUM 0.7 MG/DL (0.60-1.30); MAGNESIUM 1.8 MG/DL (1.6-2.4); POTASSIUM 3.7 MMOL/L (3.6-5.0); TOTAL PROTEIN 5.2 GM/DL (6.4-8.2)
[2023-02-05 06:09] LABS: EOSINOPHILS % (MANUAL) 7 %; LYMPHOCYTES % (MANUAL) 20 %; MONOCYTES % (MANUAL) 3 %; NEUTROPHILS % (MANUAL) 70 %
[2023-02-05 06:10] LABS: SCHISTOCYTES SLIGHT
[2023-02-05] MEDS: LEVOTHYROXINE 50 MCG TABLET PO SCH (06:16)
[2023-02-05 07:36] VITALS: BP 169/61
[2023-02-05 07:47] VITALS: BP 158/68
[2023-02-05] MEDS: amLODIPine 5 MG TABLET PO SCH (09:05)
[2023-02-05] MEDS: SERTRALINE 100 MG TABLET PO SCH (09:05)
[2023-02-05] MEDS: PANTOPRAZOLE INJECTION 40 MG VIAL IV SCH (09:05)
[2023-02-05] MEDS: inSUlin DETERMIR 1 UNIT/0.01 ML (CHARGE PER UNIT) SQ SCH (09:07)
--- NOTE | 2023-02-05 09:12 | Physical Therapy Daily Note ---
PT Daily Note-Current Subjective Patient agrees to PT. Pain Section J - Health Conditions 1. Rarely or not at all 2. Occasionally 3. Frequently 4. Almost constantly 8. Unable to answer Pain Effect on Sleep: 1 Pain Interference with Therapy: 1 Pain Interference w/Day-to-Day: 1 Mental Status Attachments: Oxygen, Duran Catheter Transfers SCALE: Activities may be completed with or without assistive devices. 8-Pjcltbvavd-darbely completes the activity by him/herself with no assistance from a helper. 5-Set-up or Clean-up Assistance-helper sets up or cleans up; patient completes activity. [place] assists only prior to or following the activity. 4-Supervision or Touching Assistance-helper provides verbal cues and/or touching/steadying and/or contact guard assistance as patient completes activity. Assistance may be provided throughout the activity or intermittently. 3-Partial/Moderate Assistance-helper does LESS THAN HALF the effort. [place] lifts, holds or supports trunk or limbs, but provides less than half the effort. 2-Substantial/Maximal Assistance-helper does MORE THAN HALF the effort. [place] lifts or holds trunk or limbs and provides more than half the effort. 2-Tiledyrgt-qglcax does ALL the effort. Patient does none of the effort to complete the activity. Or, the assistance of 2 or more helpers is required for the patient to complete the activity. If activity was not attempted, code reason: 7-Patient Refused. 9-Not Applicable-not attempted and the patient did not perform the activity before the current illness, exacerbation or injury. 10-Not Attempted due to Environmental Limitations-(lack of equipment, weather restraints, etc.). 88-Not Attempted due to Medical Conditions or Safety Concerns. Lying to Sitting/Side of Bed(Q: 4 Sit to Stand (QC): 3 Chair/Zpe-pr-Ootnm Xfer(QC): 3 Weight Bearing Right Lower Extremity: Right Full Weight Bearing Left Lower Extremity: Left Full Weight Bearing Gait Training Distance: 40' Walk 10 feet (QC): 3 Gait Assistive Device: FWW slightly unsteady with PT correct Exercises Supine Ex: Ankle pumps, Quad Set, Heel Slides, Straight leg raise Supine Reps: 12 Seated Therapy Exercises: Ankle pumps, Long arc quads Seated Reps: 15 Assessment Patient up in recliner with chair alarm activated. Patient improving with treatment plan. Continue to increase activity as tolerated by patient. PT Short Term Goals Short Term Goals Time Frame: Feb 14, 2023 Roll Left & Right: 3 Sit to lyin Lying to sitting on side of be: 3 Sit to stand: 3 Chair/eih-qf-juksl transfer: 3 Toilet transfer: 3 Walk 10 feet: 3 Walk 50 feet with two turns: 3 Walk 150 feet: 3 PT Alf Goals Interior Mechanic Goals PT Alf Goals Time Frame: Mar 02, 2023 Roll Left & Right (QC): 6 Sit to Lying (QC): 6 Lying-Sitting on Side/Bed(QC): 6 Sit to Stand (QC): 6 Chair/Dyk-ga-Pyubc Xfer(QC): 6 Toilet Transfer (QC): 6 Does the Patient Walk: Yes Walk 10 feet (QC): 6 Walk 50ft with 2 Turns (QC): 5 Walk 150 ft (QC): 5 1 Step (curb) (QC): 3 4 Steps (QC): 3 12 Steps (QC): 3 PT Plan Treatment/Plan Treatment Plan: Continue Plan of Care Treatment Plan: Bed Mobility, Education, Functional Activity Shae, Functional Strength, Group Therapy, Gait, Safety, Therapeutic Exercise, Transfers Treatment Duration: Mar 02, 2023 Frequency: 6 times per week Estimated Hrs Per Day: .25 hour per day Patient and/or Family Agrees t: Yes Time Time In: 734 Time Out: 757 DATE: Feb 05, 2023 Total Billed Treatment Time: 23 Total Billed Treatment 1 visit GT 10 min EX 13 min GRISEL PALAFOX PT Feb 05, 2023 09:12
[2023-02-05] MEDS: MICONAZOLE 2% POWDER 90 GM TOP SCH (09:17)
--- NOTE | 2023-02-05 10:16 | Occupational Ther Daily Note ---
OT Current Status-Daily Note Subjective Pt found in room standing at bedside, chair alarm going off. No pain mentioned. Appearance Agreeable to OT. Decreased safety awareness ADL-Treatment Pt sat back in chair after found standing at bedside, cues to sit and reach back with arms for arm rests. Pt agreed that he needed to have BM. Cues for hand placement from recliner to transfer to BS and then physical assist for hand placement to get up off BSC. Two person transfer for safety. Two person assist for toileting - pt unable to manage nuria hygiene. Cont with Duran catheter. Pt with decreased awareness of O2 tubing. While seated on BSC, he washed his face with bath pack. Returned to recliner, with chair alarm on, fresh water, O2 in place, all needs met. Therapy Code Descriptions/Definitions Functional [place] Measure: 0=Not Assessed/NA 4=Minimal Assistance 1=Total Assistance 5=Supervision or Setup 2=Maximal Assistance 6=Modified [place] 3=Moderate Assistance 7=Complete IndependenceSCALE: Activities may be completed with or without assistive devices. 4-Dboykyczgh-koaruhi completes the activity by him/herself with no assistance from a helper. 5-Set-up or Clean-up Assistance-helper sets up or cleans up; patient completes activity. Viper assists only prior to or following the activity. 4-Supervision or Touching Assistance-helper provides verbal cues and/or touching/steadying and/or contact guard assistance as patient completes activity. Assistance may be provided throughout the activity or intermittently. 3-Partial/Moderate Assistance-helper does LESS THAN HALF the effort. Viper lifts, holds or supports trunk or limbs, but provides less than half the effort. 2-Substantial/Maximal Assistance-helper does MORE THAN HALF the effort. Viper lifts or holds trunk or limbs and provides more than half the effort. 4-Yanehfhrt-fsbhgm does ALL the effort. Patient does none of the effort to complete the activity. Or, the assistance of 2 or more helpers is required for the patient to complete the activity. If activity was not attempted, code reason: 7-Patient Refused. 9-Not Applicable-not attempted and the patient did not perform the activity before the current illness, exacerbation or injury. 10-Not Attempted due to Environmental Limitations-(lack of equipment, weather restraints, etc.). 88-Not Attempted due to Medical Conditions or Safety Concerns. Toileting Hygiene (QC): 1 Education OT Patient Education: Purpose of tx/functional activities, Safety issues, Transfer techniques Teaching Recipient: Patient Teaching Methods: Demonstration, Discussion Response to Teaching: Verbalize Understanding, Return Demonstration, Reinforcement Needed OT Racecar Driver Goals Racecar Driver Goals Time Frame: Feb 14, 2023 Eating (QC): 6 Oral Hygiene (QC): 6 Toileting Hygiene (QC): 4 Shower/Bathe Self (QC): 4 Upper Body Dressing (QC): 5 Lower Body Dressing (QC): 4 On/Off Footwear (QC): 4 Additional Goals: 1-Demonstrate ADL Tasks, 2-Verbalize Understanding, 3- ImproveStrength/Shae 1=Demonstrate adherence to instructed precautions during ADL tasks. 2=Patient will verbalize/demonstrate understanding of assistive devices/modifications for ADL. 3=Patient will improve strength/tolerance for activity to enable patient to perform ADL's. OT Education/Plan Discharge Recommendations Plan/Recommendations: Continue POC Treatment Plan/Plan of Care Patient would benefit from OT for education, treatment and training to promote independence in ADL's, mobility, safety and/or upper extremity function for ADL's. Plan of Care: ADL Retraining, Cognitive Retraining, Functional Mobility, UE Funct Exercise/Act Treatment Duration: Jan 25, 2023 Frequency: 3 times per week (3-5 TIMES PER WEEK) Estimated Hrs Per Day: .25 hour per day Agreement: Yes Rehab Potential: Fair Time Start Time: 09:50 Stop Time: 10:01 DATE: Feb 05, 2023 Total Time Billed (hr/min): 11 Billed Treatment Time visit, 11 minutes ADL GUSTAVO SANDOVAL OT Feb 05, 2023 10:16
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
[2023-02-05] MEDS: RT-BUDESONIDE NEBS 0.5 MG/2ML VIAL INH SCH (11:07)
[2023-02-05 11:14] VITALS: BP 180/68
--- NOTE | 2023-02-05 12:46 | Discharge Summary ---
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 (Auto) 0.1, Sodium Level 148H, Potassium Level 4.0, Chloride Level 117H, Carbon Dioxide Level 22, Anion Gap 9, Blood Urea Nitrogen 28H, Creatinine 1.02, Estimat Glomerular Filtration Rate 79, BUN/Creatinine Ratio 27, Glucose Level 312H, Calcium Level 8.4L, Corrected Calcium 9.6, Phosphorus Level 2.7, Magnesium Level 2.1, Total Bilirubin 0.5, Aspartate Amino Transf (AST/SGOT) 26, Alanine Aminotransferase (ALT/SGPT) 20, Alkaline Phosphatase 213H, Total Creatine Kinase 112, Total Protein 5.4L, Albumin 2.5L 01/27/23 05:15: Blood Gas Puncture Site LEFT RADIAL, Blood Gas Patient Temperature 36.5, Arterial Blood pH 7.41, Arterial Blood Partial Pressure CO2 37, Arterial Blood Partial Pressure O2 72L, Arterial Blood HCO3 23, Arterial Blood Total CO2 24.0, Arterial Blood Oxygen Saturation 95, Arterial Blood Base Excess -1.2, Kaiden Test YES-POS, Blood Gas Ventilator Setting YES, Blood Gas Inspired Oxygen 25% 01/27/23 06:03: Glucometer 296H 01/27/23 11:58: Glucometer 250H 01/27/23 17:30: Glucometer 268H 01/27/23 23:26: Glucometer 277H 01/28/23 04:30: White Blood Count 10.9, Red Blood Count 2.86L, Hemoglobin 7.8L, Hematocrit 25L, Mean Corpuscular Volume 89, Mean Corpuscular Hemoglobin 27, Mean Corpuscular Hemoglobin Concent 31L, Red Cell Distribution Width 16.1H, Platelet Count 171, Mean Platelet Volume 12.5H, Immature Granulocyte % (Auto) 1, Neutrophils (%) (Auto) 79H, Lymphocytes (%) (Auto) 10L, Monocytes (%) (Auto) 7, Eosinophils (%) (Auto) 3, Basophils (%) (Auto) 0, Neutrophils # (Auto) 8.7H, Lymphocytes # (Auto) 1.1, Monocytes # (Auto) 0.7, Eosinophils # (Auto) 0.3, Basophils # (Auto) 0.0, Immature Granulocyte # (Auto) 0.1, Sodium Level 147H, Potassium Level 3.8, Chloride Level 117H, Carbon Dioxide Level 20L, Anion Gap 10, Blood Urea Nitrogen 23H, Creatinine 0.83, Estimat Glomerular Filtration Rate 94, BUN/Creatinine Ratio 28, Glucose Level 271H, Calcium Level 7.8L, Corrected Calcium 9.2, Phosphorus Level 3.0, Magnesium Level 2.0, Total Bilirubin 0.4, Aspartate Amino Transf (AST/SGOT) 31, Alanine Aminotransferase (ALT/SGPT) 23, Alkaline Phosphatase 223H, Total Protein 5.1L, Albumin 2.3L 01/28/23 05:05: Blood Gas Puncture Site LEFT RADIAL, Blood Gas Patient Temperature 36.4, Arterial Blood pH 7.39, Arterial Blood Partial Pressure CO2 37, Arterial Blood Partial Pressure O2 65L, Arterial Blood HCO3 22L, Arterial Blood Total CO2 23.2, Arterial Blood Oxygen Saturation 92L, Arterial Blood Base Excess -2.2, Kaiden Test YES-POS, Blood Gas Ventilator Setting YES, Blood Gas Inspired Oxygen 21% 01/28/23 11:52: Glucometer 298H 01/28/23 17:49: Glucometer 255H 01/28/23 18:10: Glucometer 244H 01/28/23 23:35: Glucometer 205H 01/29/23 03:40: White Blood Count 10.0, Red Blood Count 2.97L, Hemoglobin 8.1L, Hematocrit 26L, Mean Corpuscular Volume 89, Mean Corpuscular Hemoglobin 27, Mean Corpuscular Hemoglobin Concent 31L, Red Cell Distribution Width 15.9H, Platelet Count 162, Mean Platelet Volume 12.2, Immature Granulocyte % (Auto) 1, Neutrophils (%) (Auto) 72, Lymphocytes (%) (Auto) 16, Monocytes (%) (Auto) 7, Eosinophils (%) (Auto) 3, Basophils (%) (Auto) 0, Neutrophils # (Auto) 7.2, Lymphocytes # (Auto) 1.6, Monocytes # (Auto) 0.7, Eosinophils # (Auto) 0.3, Basophils # (Auto) 0.0, Immature Granulocyte # (Auto) 0.1, Sodium Level 147H, Potassium Level 3.8, Chloride Level 119H, Carbon Dioxide Level 21, Anion Gap 7, Blood Urea Nitrogen 21H, Creatinine 0.81, Estimat Glomerular Filtration Rate 95, BUN/Creatinine Ratio 26, Glucose Level 211H, Calcium Level 7.8L, Corrected Calcium 9.2, Phosphorus Level 3.0, Magnesium Level 1.9, Total Bilirubin 0.4, Aspartate Amino Transf (AST/SGOT) 31, Alanine Aminotransferase (ALT/SGPT) 22, Alkaline Phosphatase 245H, Total Protein 5.0L, Albumin 2.3L 01/29/23 05:30: Blood Gas Puncture Site LR, Blood Gas Patient Temperature UNK, Arterial Blood pH 7.41, Arterial Blood Partial Pressure CO2 35, Arterial Blood Partial Pressure O2 77L, Arterial Blood HCO3 22L, Arterial Blood Total CO2 22.5, Arterial Blood Oxygen Saturation 95, Arterial Blood Base Excess -2.4, Kaiden Test YES-POS, Blood Gas Ventilator Setting YES, Blood Gas Inspired Oxygen 21% 01/29/23 11:27: Glucometer 229H 01/29/23 17:43: Glucometer 226H 01/29/23 23:43: Glucometer 179H 01/30/23 04:55: White Blood Count 9.7, Red Blood Count 2.72L, Hemoglobin 7.5L, Hematocrit 25L, Mean Corpuscular Volume 90, Mean Corpuscular Hemoglobin 28, Mean Corpuscular Hemoglobin Concent 31L, Red Cell Distribution Width 15.9H, Platelet Count 164, Mean Platelet Volume 12.4H, Immature Granulocyte % (Auto) 0, Neutrophils (%) (Auto) 76H, Lymphocytes (%) (Auto) 14, Monocytes (%) (Auto) 6, Eosinophils (%) (Auto) 3, Basophils (%) (Auto) 1, Neutrophils # (Auto) 7.3, Lymphocytes # (Auto) 1.3, Monocytes # (Auto) 0.6, Eosinophils # (Auto) 0.3, Basophils # (Auto) 0.1, Immature Granulocyte # (Auto) 0.0, Sodium Level 146H, Potassium Level 4.4, Chloride Level 119H, Carbon Dioxide Level 21, Anion Gap 6, Blood Urea Nitrogen 2 8H, Creatinine 1.00, Estimat Glomerular Filtration Rate 81, BUN/Creatinine Ratio 28, Glucose Level 195H, Calcium Level 7.1L, Corrected Calcium 8.5, Phosphorus Level 3.8, Magnesium Level 2.1, Total Bilirubin 0.3, Aspartate Amino Transf (AST/SGOT) 44H, Alanine Aminotransferase (ALT/SGPT) 28, Alkaline Phosphatase 264H, Total Protein 4.9L, Albumin 2.3L 01/30/23 08:02: Blood Gas Puncture Site R RAD, Blood Gas Patient Temperature 38.6, Arterial Blood pH 7.32*L, Arterial Blood Partial Pressure CO2 45, Arterial Blood Partial Pressure O2 70L, Arterial Blood HCO3 22L, Arterial Blood Total CO2 22.9, Arterial Blood Oxygen Saturation 89L, Arterial Blood Base Excess -3.3L, Kaiden Test YES-POS, Blood Gas Ventilator Setting YES, Blood Gas Inspired Oxygen 25% 01/30/23 11:31: Glucometer 172H 01/30/23 14:50: White Blood Count 10.7, Red Blood Count 3.07L, Hemoglobin 8.4L, Hematocrit 27L, Mean Corpuscular Volume 89, Mean Corpuscular Hemoglobin 27, Mean Corpuscular Hemoglobin Concent 31L, Red Cell Distribution Width 15.9H, Platelet Count 155, Mean Platelet Volume 11.9 01/30/23 17:31: Glucometer 218H 01/30/23 20:22: Glucometer 203H 01/30/23 23:40: Glucometer 239H 01/31/23 04:02: White Blood Count 9.1, Red Blood Count 2.95L, Hemoglobin 8.1L, Hematocrit 26L, Mean Corpuscular Volume 89, Mean Corpuscular Hemoglobin 28, Mean Corpuscular Hemoglobin Concent 31L, Red Cell Distribution Width 15.8H, Platelet Count 155, Mean Platelet Volume 12.1, Immature Granulocyte % (Auto) 0, Neutrophils (%) (Auto) 75, Lymphocytes (%) (Auto) 15, Monocytes (%) (Auto) 5, Eosinophils (%) (Auto) 4, Basophils (%) (Auto) 1, Neutrophils # (Auto) 6.8, Lymphocytes # (Auto) 1.4, Monocytes # (Auto) 0.5, Eosinophils # (Auto) 0.3, Basophils # (Auto) 0.1, Immature Granulocyte # (Auto) 0.0, Neutrophils % (Manual) 79, Lymphocytes % (Manual) 13, Monocytes % (Manual) 3, Eosinophils % (Manual) 4, Basophils % (Manual) 0, Band Neutrophils 1, Smudge Cells SLIGHT, Polychromasia SLIGHT, Poikilocytosis SLIGHT, Anisocytosis SLIGHT, Microcytosis SLIGHT, Tear Drop Cells SLIGHT, Sodium Level 144, Potassium Level 3.8, Chloride Level 120H, Carbon Dioxide Level 18L, Anion Gap 6, Blood Urea Nitrogen 28H, Creatinine 0.87, Estimat Glomerular Filtration Rate 93, BUN/Creatinine Ratio 32, Glucose Level 227H, Calcium Level 6.7L, Corrected Calcium 8.1L, Phosphorus Level 3.2, Magnesium Level 1.8, Total Bilirubin 0.3, Aspartate Amino Transf (AST/SGOT) 53H, Alanine Aminotransferase (ALT/SGPT) 33, Alkaline Phosphatase 295H, Total Protein 4.3L, Albumin 2.2L 01/31/23 11:45: Glucometer 250H 01/31/23 18:34: Glucometer 273H 01/31/23 19:00: Blood Gas Puncture Site LR, Blood Gas Patient Temperature 36.7, Arterial Blood pH 7.30*L, Arterial Blood Partial Pressure CO2 49H, Arterial Blood Partial Pressure O2 78L, Arterial Blood HCO3 23, Arterial Blood Total CO2 24.7, Arterial Blood Oxygen Saturation 95, Arterial Blood Base Excess -2.4, Kaiden Test YES-POS, Blood Gas Ventilator Setting YES, Blood Gas Inspired Oxygen 35% 01/31/23 20:59: Glucometer 256H 02/01/23 00:04: Glucometer 270H 02/01/23 02:55: White Blood Count 9.8, Red Blood Count 3.15L, Hemoglobin 8.7L, Hematocrit 28L, Mean Corpuscular Volume 88, Mean Corpuscular Hemoglobin 28, Mean Corpuscular Hemoglobin Concent 31L, Red Cell Distribution Width 15.8H, Platelet Count 176, Mean Platelet Volume 12.8H, Immature Granulocyte % (Auto) 1, Neutrophils (%) (Auto) 76H, Lymphocytes (%) (Auto) 15, Monocytes (%) (Auto) 5, Eosinophils (%) (Auto) 3, Basophils (%) (Auto) 1, Neutrophils # (Auto) 7.4, Lymphocytes # (Auto) 1.4, Monocytes # (Auto) 0.5, Eosinophils # (Auto) 0.3, Basophils # (Auto) 0.1, Immature Granulocyte # (Auto) 0.1, Neutrophils % (Manual) 78, Lymphocytes % (Manual) 15, Monocytes % (Manual) 3, Eosinophils % (Manual) 3, Basophils % (Manual) 1, Elliptocytes SLIGHT, Schistocytes SLIGHT, Sodium Level 145, Potassium Level 4.7, Chloride Level 115H, Carbon Dioxide Level 20L, Anion Gap 10, Blood Urea Nitrogen 35H, Creatinine 1.11, Estimat Glomerular Filtration Rate 71, BUN/Creatinine Ratio 32, Glucose Level 252H, Calcium Level 7.8L, Corrected Calcium 9.1, Phosphorus Level 3.4, Magnesium Level 2.1, Total Bilirubin 0.3, Aspartate Amino Transf (AST/SGOT) 69H, Alanine Aminotransferase (ALT/SGPT) 42, Alkaline Phosphatase 363H, Total Protein 5.4L, Albumin 2.4L 02/01/23 05:09: Blood Gas Puncture Site LR, Blood Gas Patient Temperature 37.5, Arterial Blood pH 7.33*L, Arterial Blood Partial Pressure CO2 45, Arterial Blood Partial Pressure O2 74L, Arterial Blood HCO3 23, Arterial Blood Total CO2 24.1, Arterial Blood Oxygen Saturation 94, Arterial Blood Base Excess -2.2, Kaiden Test YES-POS, Blood Gas Ventilator Setting YES, Blood Gas Inspired Oxygen 25% 02/01/23 06:08: Glucometer 224H 02/01/23 11:29: Glucometer 231H 02/01/23 11:35: Blood Gas Puncture Site LT RAD, Blood Gas Patient Temperature 37.0, Arterial Blood pH 7.28*L, Arterial Blood Partial Pressure CO2 52H, Arterial Blood Partial Pressure O2 98H, Arterial Blood HCO3 23, Arterial Blood Total CO2 25.0, Arterial Blood Oxygen Saturation 98, Arterial Blood Base Excess -2.4, Kaiden Test YES-POS, Blood Gas Ventilator Setting YES, Blood Gas Inspired Oxygen 35% 02/01/23 15:03: Blood Gas Puncture Site LEFT RADIAL, Blood Gas Patient Temperature 37, Arterial Blood pH 7.26*L, Arterial Blood Partial Pressure CO2 55H, Arterial Blood Partial Pressure O2 82, Arterial Blood HCO3 24, Arterial Blood Total CO2 25.2, Arterial Blood Oxygen Saturation 94, Arterial Blood Base Excess -2.5, Kaiden Test YES-POS, Blood Gas Ventilator Setting NO, Blood Gas Inspired Oxygen 3 02/01/23 18:17: Glucometer 133H 02/01/23 18:30: Blood Gas Puncture Site LEFT RADIAL, Blood Gas Patient Temperature 36.7, Arterial Blood pH 7.33*L, Arterial Blood Partial Pressure CO2 43, Arterial Blood Partial Pressure O2 89, Arterial Blood HCO3 22L, Arterial Blood Total CO2 23.7, Arterial Blood Oxygen Saturation 97, Arterial Blood Base Excess -2.7L, Kaiden Test YES-POS, Blood Gas Ventilator Setting NO, Blood Gas Inspired Oxygen RM 02/01/23 23:23: Glucometer 140H 02/02/23 05:00: Blood Gas Puncture Site LR, Blood Gas Patient Temperature 36.7, Arterial Blood pH 7.27*L, Arterial Blood Partial Pressure CO2 54H, Arterial Blood Partial Pressure O2 113H, Arterial Blood HCO3 24, Arterial Blood Total CO2 25.6, Arterial Blood Oxygen Saturation 98, Arterial Blood Base Excess -2.1, Kaiden Test YES-POS, Blood Gas Ventilator Setting NO, Blood Gas Inspired Oxygen 30% 02/02/23 05:15: White Blood Count 8.4, Red Blood Count 3.14L, Hemoglobin 8.6L, Hematocrit 29L, Mean Corpuscular Volume 91, Mean Corpuscular Hemoglobin 27, Mean Corpuscular Hemoglobin Concent 30L, Red Cell Distribution Width 15.8H, Platelet Count 147, Mean Platelet Volume 12.9H, Immature Granulocyte % (Auto) 1, Neutrophils (%) (Auto) 72, Lymphocytes (%) (Auto) 16, Monocytes (%) (Auto) 6, Eosinophils (%) (Auto) 4, Basophils (%) (Auto) 1, Neutrophils # (Auto) 6.0, Lymphocytes # (Auto) 1.4, Monocytes # (Auto) 0.5, Eosinophils # (Auto) 0.4H, Basophils # (Auto) 0.1, Immature Granulocyte # (Auto) 0.0, Neutrophils % (Manual) 75, Lymphocytes % (Manual) 18, Monocytes % (Manual) 1, Eosinophils % (Manual) 5, Basophils % (Manual) 1, Schistocytes SLIGHT, Sodium Level 148H, Potassium Level 4.0, Chloride Level 119H, Carbon Dioxide Level 22, Anion Gap 7, Blood Urea Nitrogen 33H, Creatinine 0.83, Estimat Glomerular Filtration Rate 94, BUN/Creatinine Ratio 40, Glucose Level 91, Calcium Level 7.7L, Corrected Calcium 8.9, Phosphorus Level 3.7, Magnesium Level 2.2, Total Bilirubin 0.5, Aspartate Amino Transf (AST/SGOT) 37H, Alanine Aminotransferase (ALT/SGPT) 34, Alkaline Phosphatase 322H, Total Protein 5.6L, Albumin 2.5L 02/02/23 05:46: Glucometer 86 02/02/23 13:49: Glucometer 111H 02/02/23 17:39: Glucometer 110 02/03/23 00:23: Glucometer 82 02/03/23 04:20: Glucometer 71 02/03/23 04:21: White Blood Count 10.7, Red Blood Count 3.23L, Hemoglobin 8.7L, Hematocrit 29L, Mean Corpuscular Volume 90, Mean Corpuscular Hemoglobin 27, Mean Corpuscular Hemoglobin Concent 30L, Red Cell Distribution Width 15.8H, Platelet Count 243, Mean Platelet Volume 12.1, Immature Granulocyte % (Auto) 1, Neutrophils (%) (Auto) 75, Lymphocytes (%) (Auto) 13, Monocytes (%) (Auto) 7, Eosinophils (%) (Auto) 4, Basophils (%) (Auto) 1, Neutrophils # (Auto) 8.0H, Lymphocytes # (Auto) 1.4, Monocytes # (Auto) 0.8, Eosinophils # (Auto) 0.5H, Basophils # (Auto) 0.1, Immature Granulocyte # (Auto) 0.1, Neutrophils % (Manual) 76, Lymphocytes % (Manual) 16, Monocytes % (Manual) 3, Eosinophils % (Manual) 4, Basophils % (Manual) 1, Elliptocytes SLIGHT, Sodium Level 147H, Potassium Level 3.5L, Chloride Level 118H, Carbon Dioxide Level 22, Anion Gap 7, Blood Urea Nitrogen 25H, Creatinine 0.81, Estimat Glomerular Filtration Rate 95, BUN/Creatinine Ratio 31, Glucose Level 88, Calcium Level 8.0L, Corrected Calcium 9.1, Phosphorus Level 3.2, Magnesium Level 2.1, Total Bilirubin 0.5, Aspartate Amino Transf (AST/SGOT) 37H, Alanine Aminotransferase (ALT/SGPT) 30, Alkaline Phosphatase 312H, Total Protein 5.6L, Albumin 2.6L 02/03/23 09:06: Blood Gas Puncture Site L RADIAL, Blood Gas Patient Temperature 36.5, Arterial Blood pH 7.36L, Arterial Blood Partial Pressure CO2 40, Arterial Blood Partial Pressure O2 100H, Arterial Blood HCO3 22L, Arterial Blood Total CO2 23.5, Arterial Blood Oxygen Saturation 98, Arterial Blood Base Excess -2.5, Kaiden Test YES-POS, Blood Gas Ventilator Setting NO, Blood Gas Inspired Oxygen 21% 02/03/23 11:48: Glucometer 141H 02/03/23 17:20: Glucometer 167H 02/03/23 20:52: Glucometer 138H 02/04/23 04:40: White Blood Count 9.0, Red Blood Count 3.22L, Hemoglobin 8.8L, Hematocrit 29L, Mean Corpuscular Volume 91, Mean Corpuscular Hemoglobin 27, Mean Corpuscular Hemoglobin Concent 30L, Red Cell Distribution Width 15.8H, Platelet Count 245, Mean Platelet Volume 11.8, Immature Granulocyte % (Auto) 1, Neutrophils (%) (Auto) 69, Lymphocytes (%) (Auto) 16, Monocytes (%) (Auto) 9, Eosinophils (%) (Auto) 5, Basophils (%) (Auto) 1, Neutrophils # (Auto) 6.2, Lymphocytes # (Auto) 1.4, Monocytes # (Auto) 0.8, Eosinophils # (Auto) 0.5H, Basophils # (Auto) 0.1, Immature Granulocyte # (Auto) 0.1, Neutrophils % (Manual) 74, Lymphocytes % (Manual) 14, Monocytes % (Manual) 6, Eosinophils % (Manual) 5, Atypical Lymphocytes 1, Hypochromasia SLIGHT, Schistocytes SLIGHT, Sodium Level 148H, Potassium Level 3.5L, Chloride Level 118H, Carbon Dioxide Level 23, Anion Gap 7, Blood Urea Nitrogen 21H, Creatinine 0.77, Estimat Glomerular Filtration Rate 96, BUN/Creatinine Ratio 27, Glucose Level 112H, Calcium Level 8.0L, Corrected Calcium 9.0, Phosphorus Level 3.1, Magnesium Level 2.1, Total Bilirubin 0.4, Aspartate Amino Transf (AST/SGOT) 30, Alanine Aminotransferase (ALT/SGPT) 24, Alkaline Phosphatase 313H, Total Protein 5.2L, Albumin 2.7L 02/04/23 11:09: Glucometer 144H 02/04/23 15:59: Glucometer 134H 02/05/23 05:10: White Blood Count 7.9, Red Blood Count 3.26L, Hemoglobin 8.8L, Hematocrit 30L, Mean Corpuscular Volume 91, Mean Corpuscular Hemoglobin 27, Mean Corpuscular Hemoglobin Concent 30L, Red Cell Distribution Width 15.7H, Platelet Count 237, Mean Platelet Volume 11.6, Immature Granulocyte % (Auto) 1, Neutrophils (%) (Auto) 72, Lymphocytes (%) (Auto) 13, Monocytes (%) (Auto) 8, Eosinophils (%) (Auto) 5, Basophils (%) (Auto) 1, Neutrophils # (Auto) 5.7, Lymphocytes # (Auto) 1.0, Monocytes # (Auto) 0.6, Eosinophils # (Auto) 0.4H, Basophils # (Auto) 0.1, Immature Granulocyte # (Auto) 0.0, Neutrophils % (Manual) 70, Lymphocytes % (Manual) 20, Monocytes % (Manual) 3, Eosinophils % (Manual) 7, Basophilic Stippling SLIGHT, Schistocytes SLIGHT, Sodium Level 148H, Potassium Level 3.7, Chloride Level 118H, Carbon Dioxide Level 23, Anion Gap 7, Blood Urea Nitrogen 14, Creatinine 0.70, Estimat Glomerular Filtration Rate 99, BUN/Creatinine Ratio 20, Glucose Level 146H, Calcium Level 8.1L, Corrected Calcium 9.1, Magnesium Level 1.8, Total Bilirubin 0.4, Aspartate Amino Transf (AST/SGOT) 32, Alanine Aminotransferase (ALT/SGPT) 26, Alkaline Phosphatase 322H, Total Protein 5.2L, Albumin 2.7L 02/05/23 05:24: Glucometer 131H 02/05/23 11:08: Glucometer 167H 02/05/23 13:32: Lab Scanned Report Transfusion Reaction Form Microbiology 02/03/23 C. difficile GDH Antigen & Toxins - Final, Complete 01/30/23 Gram Stain - Final, Complete 01/30/23 Sputum Culture - Final, Complete Usual upper respiratory laura 01/30/23 Urine Culture - Final, Complete NO GROWTH 01/30/23 Blood Culture - Final, Complete No growth 01/22/23 Gram Stain - Final, Complete 01/22/23 Wound Culture - Final, Complete Acinetobacter species Mixed Bacterial Laura Pending Labs Microbiology Date/Time Source Procedure Growth Status 02/03/23 13:16 Stool C. difficile GDH Antigen & Toxins - Final Complete 01/30/23 10:44 Sputum Endotracheal Gram Stain - Final Complete 01/30/23 10:44 Sputum Culture - Final Usual upper respiratory laura Complete 01/30/23 09:38 Urine Duran Cath Urine Culture - Final NO GROWTH Complete 01/30/23 08:15 [place], Nos Blood Culture - Final No growth Complete 01/30/23 08:15 Peripheral Lt Hand Blood Culture - Final No growth Complete 01/27/23 13:58 Stool C. difficile GDH Antigen & Toxins - Final Complete 01/24/23 10:55 Sputum Endotracheal Gram Stain - Final Complete 01/24/23 10:55 Sputum Culture - Final Usual upper respiratory laura Complete 01/22/23 16:58 Traumatic Wound Arm, Right Gram Stain - Final Complete 01/22/23 16:58 Wound Culture - Final Acinetobacter species Mixed Bacterial Laura Complete 01/22/23 09:54 Peripheral Lt Hand Blood Culture - Final No growth Complete 01/22/23 09:37 Peripheral Lt Hand Blood Culture - Final No growth Complete 01/21/23 10:40 Sputum Endotracheal Gram Stain - Final Complete 01/21/23 10:40 Sputum Culture - Final Corynebacterium pseudodiphther See Comments Dolosigranulum species Usual upper respiratory laura Complete 01/16/23 20:00 Nasal MRSA Screen - Final MRSA not isolated Complete Laboratory Tests 01/15/23 11:14: White Blood Count 12.0, Red Blood Count 4.24, Hemoglobin 11.8, Hematocrit 38, Mean Corpuscular Volume 89, Mean Corpuscular Hemoglobin 28, Mean Corpuscular Hemoglobin Concent 31, Red Cell Distribution Width 16.0, Platelet Count 176, Mean Platelet Volume 12.9, Sodium Level 140, Potassium Level 4.5, Chloride Level 105, Carbon Dioxide Level 23, Anion Gap 12, Blood Urea Nitrogen 16, Creatinine 1.10, Estimat Glomerular Filtration Rate 72, BUN/Creatinine Ratio 15, Glucose Level 204, Calcium Level 8.6, Total Bilirubin 0.5, Direct Bilirubin 0.2, Indirect Bilirubin 0.3, Aspartate Amino Transf (AST/SGOT) 79, Alanine Aminotransferase (ALT/SGPT) 33, Alkaline Phosphatase 112, Total Protein 6.6, Albumin 3.7, Serum Alcohol < 10 01/15/23 12:25: Urine Color YELLOW, Urine Clarity CLEAR, Urine pH 6.0, Urine Specific Dora 1.025, Urine Protein 2+, Urine Glucose (UA) 3+, Urine Ketones NEGATIVE, Urine Nitrite NEGATIVE, Urine Bilirubin NEGATIVE, Urine Urobilinogen 0.2, Urine Leuk ocyte Esterase NEGATIVE, Urine RBC (Auto) NEGATIVE, Urine RBC NONE, Urine WBC NONE, Urine Squamous Epithelial Cells RARE, Urine Crystals NONE, Urine Bacteria NEGATIVE, Urine Casts NONE, Urine Mucus NEGATIVE, Urine Culture Indicated NO, Urine Opiates Screen NEGATIVE, Urine Oxycodone Screen NEGATIVE, Urine Methadone Screen NEGATIVE, Urine Propoxyphene Screen NEGATIVE, Urine Barbiturates Screen NEGATIVE, Ur Tricyclic Antidepressants Screen NEGATIVE, Urine Phencyclidine Screen NEGATIVE, Urine Amphetamines Screen NEGATIVE, Urine Methamphetamines Screen NEGATIVE, Urine Benzodiazepines Screen NEGATIVE, Urine Cocaine Screen NEGATIVE, Urine Cannabinoids Screen NEGATIVE 01/15/23 19:23: Glucometer 199 01/16/23 05:05: White Blood Count 10.5, Red Blood Count 4.08, Hemoglobin 11.2, Hematocrit 37, Mean Corpuscular Volume 90, Mean Corpuscular Hemoglobin 28, Mean Corpuscular Hemoglobin Concent 31, Red Cell Distribution Width 16.4, Platelet Count 157, Mean Platelet Volume 12.9, Sodium Level 139, Potassium Level 5.6, Chloride Level 105, Carbon Dioxide Level 23, Anion Gap 11, Blood Urea Nitrogen 28, Creatinine 2.53, Estimat Glomerular Filtration Rate 27, BUN/Creatinine Ratio 11, Glucose Level 196, Calcium Level 8.4, Immature Granulocyte % (Auto) 1, Neutrophils (%) (Auto) 72, Lymphocytes (%) (Auto) 13, Monocytes (%) (Auto) 14, Eosinophils (%) (Auto) 1, Basophils (%) (Auto) 1, Neutrophils # (Auto) 7.5, Lymphocytes # (Auto) 1.3, Monocytes # (Auto) 1.5, Eosinophils # (Auto) 0.1, Basophils # (Auto) 0.1, Immature Granulocyte # (Auto) 0.1 01/16/23 10:24: Glucometer 249 01/16/23 11:27: Glucometer 218 01/16/23 15:55: Glucometer 258 01/16/23 17:35: Sodium Level 136, Potassium Level 6.6, Chloride Level 103, Carbon Dioxide Level 22, Anion Gap 11, Blood Urea Nitrogen 36, Creatinine 3.56, Estimat Glomerular Filtration Rate 18, BUN/Creatinine Ratio 10, Glucose Level 263, Calcium Level 8.5 01/16/23 19:13: Troponin I 0.040 01/16/23 21:09: Sodium Level 137, Potassium Level 5.8, Chloride Level 106, Carbon Dioxide Level 22, Anion Gap 9, Blood Urea Nitrogen 36, Creatinine 3.39, Estimat Glomerular Filtration Rate 19, BUN/Creatinine Ratio 11, Glucose Level 238, Calcium Level 8.4, Total Creatine Kinase 3351 01/17/23 00:50: Troponin I 0.088 01/17/23 04:21: Sodium Level 137, Potassium Level 5.5, Chloride Level 105, Carbon Dioxide Level 22, Anion Gap 10, Blood Urea Nitrogen 38, Creatinine 2.84, Estimat Glomerular Filtration Rate 23, BUN/Creatinine Ratio 13, Glucose Level 190, Calcium Level 8.5, White Blood Count 8.1, Red Blood Count 3.61, Hemoglobin 10.0, Hematocrit 32, Mean Corpuscular Volume 89, Mean Corpuscular Hemoglobin 28, Mean Corpuscular Hemoglobin Concent 31, Red Cell Distribution Width 16.4, Platelet Count 101, Mean Platelet Volume 12.9, Immature Granulocyte % (Auto) 0, Neutrophils (%) (Auto) 74, Lymphocytes (%) (Auto) 9, Monocytes (%) (Auto) 16, Eosinophils (%) (Auto) 1, Basophils (%) (Auto) 1, Neutrophils # (Auto) 5.9, Lymphocytes # (Auto) 0.7, Monocytes # (Auto) 1.3, Eosinophils # (Auto) 0.1, Basophils # (Auto) 0.1, Immature Granulocyte # (Auto) 0.0, Neutrophils % (Manual) 66, Lymphocytes % (Manual) 9, Monocytes % (Manual) 15, Eosinophils % (Manual) 1, Band Neutrophils 9, Clumped Platelets , Percent Immature Platelet Fraction 7.2, Anisocytosis SLIGHT, Magnesium Level 1.7 01/17/23 08:00: Prothrombin Time 15.7, INR Comment 1.2, Activated Partial Thromboplast Time 38, Magnesium Level 1.9, Total Creatine Kinase 3110, Albumin 3.0, HIV (1&2) Ag and Ab Screen Referral Non-Reactive 01/17/23 09:25: Lab Scanned Report Referred Lab Report 01/17/23 10:34: Glucometer 181 01/17/23 15:04: White Blood Count 6.7, Red Blood Count 3.38, Hemoglobin 9.4, Hematocrit 31, Mean Corpuscular Volume 91, Mean Corpuscular Hemoglobin 28, Mean Corpuscular Hemoglobin Concent 31, Red Cell Distribution Width 16.3, Platelet Count 110, Mean Platelet Volume 13.2, Sodium Level 138, Potassium Level 5.3, Chloride Level 106, Carbon Dioxide Level 27, Anion Gap 5, Blood Urea Nitrogen 40, Creatinine 2.30, Estimat Glomerular Filtration Rate 30, BUN/Creatinine Ratio 17, Glucose Level 199, Calcium Level 8.4 01/17/23 16:21: Glucometer 193 01/17/23 21:19: Glucometer 183 01/18/23 03:25: White Blood Count 7.0, Red Blood Count 3.50, Hemoglobin 9.6, Hematocrit 32, Mean Corpuscular Volume 91, Mean Corpuscular Hemoglobin 27, Mean Corpuscular Hemoglobin Concent 30, Red Cell Distribution Width 16.3, Platelet Count 90, Mean Platelet Volume 13.7, Immature Granulocyte % (Auto) 0, Neutrophils (%) (Auto) 71, Lymphocytes (%) (Auto) 8, Monocytes (%) (Auto) 17, Eosinophils (%) (Auto) 2, Basophils (%) (Auto) 1, Neutrophils # (Auto) 5.0, Lymphocytes # (Auto) 0.6, Monocytes # (Auto) 1.2, Eosinophils # (Auto) 0.2, Basophils # (Auto) 0.1, Immature Granulocyte # (Auto) 0.0, Percent Immature Platelet Fraction 6.7, Sodium Level 140, Potassium Level 5.2, Chloride Level 109, Carbon Dioxide Level 21, Anion Gap 10, Blood Urea Nitrogen 36, Creatinine 1.55, Estimat Glomerular Filtration Rate 48, BUN/Creatinine Ratio 23, Glucose Level 174, Calcium Level 8.5, Corrected Calcium 9.2, Magnesium Level 2.2, Total Bilirubin 0.6, Aspartate Amino Transf (AST/SGOT) 74, Alanine Aminotransferase (ALT/SGPT) 39, Alkaline Phosphatase 69, Total Creatine Kinase 1546, Total Protein 6.0, Albumin 3.1, Smear Scan YES 01/18/23 06:00: Glucometer 156 01/18/23 10:38: Glucometer 180 01/18/23 15:43: Glucometer 166 01/18/23 20:48: Glucometer 221 01/19/23 04:15: White Blood Count 5.0, Red Blood Count 3.36, Hemoglobin 9.3, Hematocrit 31, Mean Corpuscular Volume 91, Mean Corpuscular Hemoglobin 28, Mean Corpuscular Hemoglobin Concent 31, Red Cell Distribution Width 16.1, Platelet Count 95, Mean Platelet Volume 13.0, Immature Granulocyte % (Auto) 0, Neutrophils (%) (Auto) 86, Lymphocytes (%) (Auto) 7, Monocytes (%) (Auto) 7, Eosinophils (%) (Auto) 0, Basophils (%) (Auto) 0, Neutrophils # (Auto) 4.3, Lymphocytes # (Auto) 0.3, Monocytes # (Auto) 0.3, Eosinophils # (Auto) 0.0, Basophils # (Auto) 0.0, Immature Granulocyte # (Auto) 0.0, Percent Immature Platelet Fraction 6.8, Sodium Level 138, Potassium Level 5.7, Chloride Level 109, Carbon Dioxide Level 21, Anion Gap 8, Blood Urea Nitrogen 42, Creatinine 1.29, Estimat Glomerular Filtration Rate 60, BUN/Creatinine Ratio 33, Glucose Level 231, Calcium Level 8.5, Corrected Calcium 9.3, Total Bilirubin 0.4, Aspartate Amino Transf (AST/SGOT) 37, Alanine Aminotransferase (ALT/SGPT) 31, Alkaline Phosphatase 78, Total Protein 5.7, Albumin 3.0 01/19/23 06:13: Glucometer 213 01/19/23 10:19: Glucometer 320 01/19/23 15:43: Glucometer 246 01/19/23 15:45: Blood Gas Puncture Site LEFT RADIAL, Blood Gas Patient Temperature 36.7, Arterial Blood pH 7.26, Arterial Blood Partial Pressure CO2 56, Arterial Blood Partial Pressure O2 63, Arterial Blood HCO3 25, Arterial Blood Total CO2 26.3, Arterial Blood Oxygen Saturation 91, Arterial Blood Base Excess -1.6, Kaiden Test YES-POS, Blood Gas Ventilator Setting NO, Blood Gas Inspired Oxygen 3 01/19/23 20:55: Glucometer 229 01/19/23 22:20: Blood Gas Puncture Site LR, Blood Gas Patient Temperature 36.3, Arterial Blood pH 7.23, Arterial Blood Partial Pressure CO2 66, Arterial Blood Partial Pressure O2 136, Arterial Blood HCO3 27, Arterial Blood Total CO2 29.4, Arterial Blood Oxygen Saturation 99, Arterial Blood Base Excess 0.4, Kaiden Test YES-POS, Blood Gas Ventilator Setting NO, Blood Gas Inspired Oxygen 40% 01/20/23 01:40: Blood Gas Puncture Site LR, Blood Gas Patient Temperature 36.5, Arterial Blood pH 7.31, Arterial Blood Partial Pressure CO2 53, Arterial Blood Partial Pressure O2 155, Arterial Blood HCO3 26, Arterial Blood Total CO2 28.0, Arterial Blood Oxygen Saturation 99, Arterial Blood Base Excess 0.8, Kaiden Test YES-POS, Blood Gas Ventilator Setting NO, Blood Gas Inspired Oxygen 40% 01/20/23 05:38: Glucometer 211 01/20/23 05:39: White Blood Count 4.0, Red Blood Count 3.05, Hemoglobin 8.6, Hematocrit 27, Mean Corpuscular Volume 89, Mean Corpuscular Hemoglobin 28, Mean Corpuscular Hemoglobin Concent 32, Red Cell Distribution Width 15.9, Platelet Count 110, Mean Platelet Volume 11.5, Immature Granulocyte % (Auto) 0, Neutrophils (%) (Auto) 64, Lymphocytes (%) (Auto) 21, Monocytes (%) (Auto) 13, Eosinophils (%) (Auto) 1, Basophils (%) (Auto) 1, Neutrophils # (Auto) 2.5, Lymphocytes # (Auto) 0.9, Monocytes # (Auto) 0.5, Eosinophils # (Auto) 0.1, Basophils # (Auto) 0.0, Immature Granulocyte # (Auto) 0.0, Percent Immature Platelet Fraction 4.5, Sodium Level 143, Potassium Level 4.7, Chloride Level 112, Carbon Dioxide Level 22, Anion Gap 9, Blood Urea Nitrogen 41, Creatinine 1.13, Estimat Glomerular Filtration Rate 70, BUN/Creatinine Ratio 36, Glucose Level 222, Calcium Level 8.4, Corrected Calcium 9.4, Phosphorus Level 2.3, Magnesium Level 2.4, Total Bi lirubin 0.5, Aspartate Amino Transf (AST/SGOT) 27, Alanine Aminotransferase (ALT/SGPT) 28, Alkaline Phosphatase 92, Total Protein 5.5, Albumin 2.8 01/20/23 10:32: Glucometer 198 01/20/23 15:37: Glucometer 230 01/20/23 20:35: Glucometer 267 01/21/23 00:15: Blood Gas Puncture Site RR, Blood Gas Patient Temperature 36.1, Arterial Blood pH 7.31, Arterial Blood Partial Pressure CO2 50, Arterial Blood Partial Pressure O2 90, Arterial Blood HCO3 25, Arterial Blood Total CO2 26.3, Arterial Blood Oxygen Saturation 98, Arterial Blood Base Excess -0.9, Kaiden Test YES-POS, Blood Gas Ventilator Setting NO, Blood Gas Inspired Oxygen 30% 01/21/23 03:43: Blood Gas Puncture Site RR, Blood Gas Patient Temperature 36, Arterial Blood pH 7.29, Arterial Blood Partial Pressure CO2 52, Arterial Blood Partial Pressure O2 114, Arterial Blood HCO3 25, Arterial Blood Total CO2 26.7, Arterial Blood Oxygen Saturation 98, Arterial Blood Base Excess -0.9, Kaiden Test YES-POS, Blood Gas Ventilator Setting NO, Blood Gas Inspired Oxygen 30% 01/21/23 04:01: White Blood Count 6.1, Red Blood Count 3.40, Hemoglobin 9.3, Hematocrit 30, Mean Corpuscular Volume 87, Mean Corpuscular Hemoglobin 27, Mean Corpuscular Hemoglobin Concent 31, Red Cell Distribution Width 15.9, Platelet Count 133, Mean Platelet Volume 12.5, Immature Granulocyte % (Auto) 0, Neutrophils (%) (Auto) 71, Lymphocytes (%) (Auto) 15, Monocytes (%) (Auto) 12, Eosinophils (%) (Auto) 1, Basophils (%) (Auto) 1, Neutrophils # (Auto) 4.3, Lymphocytes # (Auto) 0.9, Monocytes # (Auto) 0.7, Eosinophils # (Auto) 0.1, Basophils # (Auto) 0.0, Immature Granulocyte # (Auto) 0.0, Sodium Level 140, Potassium Level 4.5, Chloride Level 111, Carbon Dioxide Level 22, Anion Gap 7, Blood Urea Nitrogen 38, Creatinine 0.88, Estimat Glomerular Filtration Rate 93, BUN/Creatinine Ratio 43, Glucose Level 202, Calcium Level 8.3, Corrected Calcium 9.2, Phosphorus Level 2.6, Magnesium Level 2.1, Total Bilirubin 0.5, Aspartate Amino Transf (AST/SGOT) 27, Alanine Aminotransferase (ALT/SGPT) 27, Alkaline Phosphatase 97, Total Protein 5.4, Albumin 2.9, Triglycerides Level 227 01/21/23 07:02: Glucometer 162 01/21/23 07:25: Blood Gas Puncture Site LEFT RADIAL, Blood Gas Patient Temperature 36.1, Arterial Blood pH 7.39, Arterial Blood Partial Pressure CO2 40, Arterial Blood Partial Pressure O2 120, Arterial Blood HCO3 24, Arterial Blood Total CO2 25.2, Arterial Blood Oxygen Saturation 98, Arterial Blood Base Excess -0.5, Kaiden Test YES-POS, Blood Gas Ventilator Setting YES, Blood Gas Inspired Oxygen 40% 01/21/23 12:03: Glucometer 154 01/21/23 17:19: Glucometer 140 01/21/23 23:28: Glucometer 191 01/22/23 01:40: Glucometer 184 01/22/23 04:21: White Blood Count 7.1, Red Blood Count 3.39, Hemoglobin 9.2, Hematocrit 29, Mean Corpuscular Volume 86, Mean Corpuscular Hemoglobin 27, Mean Corpuscular Hemoglobin Concent 32, Red Cell Distribution Width 16.1, Platelet Count 153, Mean Platelet Volume 11.6, Immature Granulocyte % (Auto) 1, Neutrophils (%) (Auto) 74, Lymphocytes (%) (Auto) 14, Monocytes (%) (Auto) 9, Eosinophils (%) (Auto) 2, Basophils (%) (Auto) 0, Neutrophils # (Auto) 5.3, Lymphocytes # (Auto) 1.0, Monocytes # (Auto) 0.6, Eosinophils # (Auto) 0.1, Basophils # (Auto) 0.0, Immature Granulocyte # (Auto) 0.1, Sodium Level 142, Potassium Level 3.9, Chloride Level 114, Carbon Dioxide Level 20, Anion Gap 8, Blood Urea Nitrogen 31, Creatinine 0.91, Estimat Glomerular Filtration Rate 91, BUN/Creatinine Ratio 34, Glucose Level 180, Calcium Level 8.0, Corrected Calcium 9.2, Phosphorus Level 2.6, Magnesium Level 2.0, Total Bilirubin 0.4, Aspartate Amino Transf (AST/SGOT) 26, Alanine Aminotransferase (ALT/SGPT) 20, Alkaline Phosphatase 89, Total Protein 4.8, Albumin 2.5 01/22/23 09:37: Lactic Acid Level 0.77 01/22/23 12:14: Urine Color YELLOW, Urine Clarity CLEAR, Urine pH 6.0, Urine Specific Dora 1.020, Urine Protein 2+, Urine Glucose (UA) 3+, Urine Ketones TRACE, Urine Nitrite NEGATIVE, Urine Bilirubin NEGATIVE, Urine Urobilinogen 0.2, Urine Leukocyte Esterase NEGATIVE, Urine RBC (Auto) NEGATIVE, Urine RBC NONE, Urine WBC NONE, Urine Squamous Epithelial Cells NONE, Urine Crystals PRESENT, Urine Uric Acid Crystals MODERATE, Urine Bacteria TRACE, Urine Casts NONE, Urine Mucus SMALL, Urine Culture Indicated NO 01/22/23 12:15: Glucometer 313 01/22/23 14:33: Blood Gas Puncture Site L rad, Blood Gas Patient Temperature 36.6, Arterial Blood pH 7.38, Arterial Blood Partial Pressure CO2 36, Arterial Blood Partial Pressure O2 72, Arterial Blood HCO3 21, Arterial Blood Total CO2 22.2, Arterial Blood Oxygen Saturation 95, Arterial Blood Base Excess -3.3, Kaiden Test Positive, Blood Gas Ventilator Setting YES, Blood Gas Inspired Oxygen 30% 01/22/23 18:34: Glucometer 324 01/22/23 23:37: Glucometer 292 01/23/23 02:48: Blood Gas Puncture Site LR, Blood Gas Patient Temperature 36.7, Arterial Blood pH 7.38, Arterial Blood Partial Pressure CO2 39, Arterial Blood Partial Pressure O2 75, Arterial Blood HCO3 23, Arterial Blood Total CO2 23.7, Arterial Blood Oxygen Saturation 95, Arterial Blood Base Excess -2.0, Kaiden Test YES-POS, Blood Gas Ventilator Setting NO, Blood Gas Inspired Oxygen 30% 01/23/23 03:40: White Blood Count 6.8, Red Blood Count 3.12, Hemoglobin 8.5, Hematocrit 27, Mean Corpuscular Volume 86, Mean Corpuscular Hemoglobin 27, Mean Corpuscular Hemoglobin Concent 32, Red Cell Distribution Width 16.2, Platelet Count 145, Mean Platelet Volume 12.4, Immature Granulocyte % (Auto) 1, Neutrophils (%) (Auto) 77, Lymphocytes (%) (Auto) 12, Monocytes (%) (Auto) 10, Eosinophils (%) (Auto) 1, Basophils (%) (Auto) 0, Neutrophils # (Auto) 5.2, Lymphocytes # (Auto) 0.8, Monocytes # (Auto) 0.7, Eosinophils # (Auto) 0.1, Basophils # (Auto) 0.0, Immature Granulocyte # (Auto) 0.1, Sodium Level 138, Potassium Level 4.1, Chloride Level 112, Carbon Dioxide Level 18, Anion Gap 8, Blood Urea Nitrogen 29 , Creatinine 0.85, Estimat Glomerular Filtration Rate 93, BUN/Creatinine Ratio 34, Glucose Level 293, Calcium Level 7.5, Corrected Calcium 8.8, Phosphorus Level 2.4, Magnesium Level 2.0, Total Bilirubin 0.3, Aspartate Amino Transf (AST/SGOT) 17, Alanine Aminotransferase (ALT/SGPT) 17, Alkaline Phosphatase 91, Total Protein 4.7, Albumin 2.4, Triglycerides Level 291 01/23/23 11:54: Glucometer 286 01/23/23 17:49: Glucometer 273 01/23/23 19:37: Blood Gas Puncture Site LRAD, Blood Gas Patient Temperature 36.9, Arterial Blood pH 7.31, Arterial Blood Partial Pressure CO2 49, Arterial Blood Partial Pressure O2 79, Arterial Blood HCO3 24, Arterial Blood Total CO2 25.3, Arterial Blood Oxygen Saturation 95, Arterial Blood Base Excess -1.6, Kaiden Test YES-POS, Blood Gas Ventilator Setting YES, Blood Gas Inspired Oxygen 30% 01/23/23 23:55: Glucometer 229 01/24/23 04:05: Blood Gas Puncture Site L RAD, Blood Gas Patient Temperature 36.9, Arterial Blood pH 7.39, Arterial Blood Partial Pressure CO2 37, Arterial Blood Partial Pressure O2 91, Arterial Blood HCO3 22, Arterial Blood Total CO2 23.5, Arterial Blood Oxygen Saturation 98, Arterial Blood Base Excess -1.8, Kaiden Test YES-POS, Blood Gas Ventilator Setting YES, Blood Gas Inspired Oxygen 30%, White Blood Count 9.9, Red Blood Count 3.42, Hemoglobin 9.5, Hematocrit 30, Mean Corpuscular Volume 87, Mean Corpuscular Hemoglobin 28, Mean Corpuscular Hemoglobin Concent 32, Red Cell Distribution Width 16.5, Platelet Count 154, Mean Platelet Volume 10.7, Immature Granulocyte % (Auto) 1, Neutrophils (%) (Auto) 74, Lymphocytes (%) (Auto) 12, Monocytes (%) (Auto) 9, Eosinophils (%) (Auto) 4, Basophils (%) (Auto) 0, Neutrophils # (Auto) 7.3, Lymphocytes # (Auto) 1.1, Monocytes # (Auto) 0.9, Eosinophils # (Auto) 0.4, Basophils # (Auto) 0.0, Immature Granulocyte # (Auto) 0.1, Sodium Level 145, Potassium Level 4.6, Chloride Level 116, Carbon Dioxide Level 23, Anion Gap 6, Blood Urea Nitrogen 28, Creatinine 0.93, Estimat Glomerular Filtration Rate 88, BUN/Creatinine Ratio 30, Glucose Level 257, Calcium Level 8.0, Corrected Calcium 9.1, Phosphorus Level 2.8, Magnesium Level 2.1, Total Bilirubin 0.5, Aspartate Amino Transf (AST/SGOT) 18, Alanine Peguero otransferase (ALT/SGPT) 17, Alkaline Phosphatase 126, Total Protein 5.1, Albumin 2.6 01/24/23 11:40: Glucometer 301 01/24/23 17:41: Glucometer 278 01/25/23 00:16: Glucometer 327 01/25/23 03:07: White Blood Count 9.9, Red Blood Count 3.61, Hemoglobin 9.9, Hematocrit 31, Mean Corpuscular Volume 87, Mean Corpuscular Hemoglobin 27, Mean Corpuscular Hemoglobin Concent 32, Red Cell Distribution Width 16.4, Platelet Count 158, Mean Platelet Volume 11.6, Immature Granulocyte % (Auto) 1, Neutrophils (%) (Auto) 81, Lymphocytes (%) (Auto) 8, Monocytes (%) (Auto) 7, Eosinophils (%) (Auto) 3, Basophils (%) (Auto) 0, Neutrophils # (Auto) 8.0, Lymphocytes # (Auto) 0.8, Monocytes # (Auto) 0.7, Eosinophils # (Auto) 0.3, Basophils # (Auto) 0.0, Immature Granulocyte # (Auto) 0.1, Sodium Level 146, Potassium Level 4.4, Chlo ride Level 112, Carbon Dioxide Level 23, Anion Gap 11, Blood Urea Nitrogen 28, Creatinine 1.07, Estimat Glomerular Filtration Rate 75, BUN/Creatinine Ratio 26, Glucose Level 347, Calcium Level 8.6, Corrected Calcium 9.6, Phosphorus Level 3.3, Magnesium Level 1.9, Total Bilirubin 0.5, Aspartate Amino Transf (AST/SGOT) 18, Alanine Aminotransferase (ALT/SGPT) 19, Alkaline Phosphatase 142, Total Protein 5.6, Albumin 2.7 01/25/23 04:24: Blood Gas Puncture Site RIGHT RADIAL, Blood Gas Patient Temperature 36.2, Arterial Blood pH 7.43, Arterial Blood Partial Pressure CO2 38, Arterial Blood Partial Pressure O2 66, Arterial Blood HCO3 25, Arterial Blood Total CO2 26.1, Arterial Blood Oxygen Saturation 95, Arterial Blood Base Excess 0.9, Kaiden Test YES-POS, Blood Gas Ventilator Setting NO, Blood Gas Inspired Oxygen 30% 01/25/23 11:25: Glucometer 319 01/25/23 17:15: Glucometer 340 01/25/23 19:51: Glucometer 338 01/25/23 23:56: Glucometer 356 01/26/23 04:13: White Blood Count 10.3, Red Blood Count 3.22, Hemoglobin 8.9, Hematocrit 28, Mean Corpuscular Volume 87, Mean Corpuscular Hemoglobin 28, Mean Corpuscular Hemoglobin Concent 32, Red Cell Distribution Width 16.1, Platelet Count 161, Mean Platelet Volume 11.6, Immature Granulocyte % (Auto) 1, Neutrophils (%) (Auto) 81, Lymphocytes (%) (Auto) 9, Monocytes (%) (Auto) 8, Eosinophils (%) (Auto) 2, Basophils (%) (Auto) 0, Neutrophils # (Auto) 8.3, Lymphocytes # (Auto) 0.9, Monocytes # (Auto) 0.8, Eosinophils # (Auto) 0.3, Basophils # (Auto) 0.0, Immature Granulocyte # (Auto) 0.1, Sodium Level 148, Potassium Level 4.3, Chloride Level 117, Carbon Dioxide Level 22, Anion Gap 9, Blood Urea Nitrogen 27, Creatinine 0.98, Estimat Glomerular Filtration Rate 83, BUN/Creatinine Ratio 28, Glucose Level 350, Calcium Level 8.0, Corrected Calcium 9.3, Phosphorus Level 2.6, Magnesium Level 2.0, Total Bilirubin 0.4, Aspartate Amino Transf (AST/SGOT) 19, Alanine Aminotransferase (ALT/SGPT) 19, Alkaline Phosphatase 165, Total Protein 4.9, Albumin 2.4 01/26/23 05:22: Blood Gas Puncture Site LR, Blood Gas Patient Temperature 37.4, Arterial Blood pH 7.40, Arterial Blood Partial Pressure CO2 41, Arterial Blood Partial Pressure O2 66, Arterial Blood HCO3 25, Arterial Blood Total CO2 25.7, Arterial Blood Oxygen Saturation 93, Arterial Blood Base Excess 0.3, Kaiden Test YES-POS, Blood Gas Ventilator Setting YES, Blood Gas Inspired Oxygen 30% 01/26/23 11:25: Glucometer 326 01/26/23 16:59: Glucometer 297 01/26/23 20:51: Glucometer 259 01/27/23 00:33: Glucometer 258 01/27/23 04:25: White Blood Count 11.8, Red Blood Count 3.27, Hemoglobin 8.9, Hematocrit 29, Mean Corpuscular Volume 88, Mean Corpuscular Hemoglobin 27, Mean Corpuscular Hemoglobin Concent 31, Red Cell Distribution Width 16.2, Platelet Count 165, Mean Platelet Volume 12.4, Immature Granulocyte % (Auto) 1, Neutrophils (%) (Auto) 78, Lymphocytes (%) (Auto) 11, Monocytes (%) (Auto) 8, Eosinophils (%) (Auto) 3, Basophils (%) (Auto) 0, Neutrophils # (Auto) 9.2, Lymphocytes # (Auto) 1.3, Monocytes # (Auto) 0.9, Eosinophils # (Auto) 0.3, Basophils # (Auto) 0.1, Immature Granulocyte # (Auto) 0.1, Sodium Level 148, Potassium Level 4.0, Chloride Level 117, Carbon Dioxide Level 22, Anion Gap 9, Blood Urea Nitrogen 28, Creatinine 1.02, Estimat Glomerular Filtration Rate 79, BUN/Creatinine Ratio 27, Glucose Level 312, Calcium Level 8.4, Corrected Calcium 9.6, Phosphorus Level 2.7, Magnesium Level 2.1, Total Bilirubin 0.5, Aspartate Amino Transf (AST/SGOT) 26, Alanine Aminotransferase (ALT/SGPT) 20, Alkaline Phosphatase 213, Total Creatine Kinase 112, Total Protein 5.4, Albumin 2.5 01/27/23 05:15: Blood Gas Puncture Site LEFT RADIAL, Blood Gas Patient Temperature 36.5, Arterial Blood pH 7.41, Arterial Blood Partial Pressure CO2 37, Arterial Blood Partial Pressure O2 72, Arterial Blood HCO3 23, Arterial Blood Total CO2 24.0, Arterial Blood Oxygen Saturation 95, Arterial Blood Base Excess -1.2, Kaiden Test YES-POS, Blood Gas Ventilator Setting YES, Blood Gas Inspired Oxygen 25% 01/27/23 06:03: Glucometer 296 01/27/23 11:58: Glucometer 250 01/27/23 17:30: Glucometer 268 01/27/23 23:26: Glucometer 277 01/28/23 04:30: White Blood Count 10.9, Red Blood Count 2.86, Hemoglobin 7.8, Hematocrit 25, Mean Corpuscular Volume 89, Mean Corpuscular Hemoglobin 27, Mean Corpuscular Hemoglobin Concent 31, Red Cell Distribution Width 16.1, Platelet Count 171, Mean Platelet Volume 12.5, Immature Granulocyte % (Auto) 1, Neutrophils (%) (Auto) 79, Lymphocytes (%) (Auto) 10, Monocytes (%) (Auto) 7, Eosinophils (%) (Auto) 3, Basophils (%) (Auto) 0, Neutrophils # (Auto) 8.7, Lymphocytes # (Auto) 1.1, Monocytes # (Auto) 0.7, Eosinophils # (Auto) 0.3, Basophils # (Auto) 0.0, Immature Granulocyte # (Auto) 0.1, Sodium Level 147, Potassium Level 3.8, Chloride Level 117, Carbon Dioxide Level 20, Anion Gap 10, Blood Urea Nitrogen 23, Creatinine 0.83, Estimat Glomerular Filtration Rate 94, BUN/Creatinine Ratio 28, Glucose Level 271, Calcium Level 7.8, Corrected Calcium 9.2, Phosphorus Level 3.0, Magnesium Level 2.0, Total Bilirubin 0.4, Aspartate Amino Transf (AST/SGOT) 31, Alanine Aminotransferase (ALT/SGPT) 23, Alkaline Phosphatase 223, Total Protein 5.1, Albumin 2.3 01/28/23 05:05: Blood Gas Puncture Site LEFT RADIAL, Blood Gas Patient Temperature 36.4, Arterial Blood pH 7.39, Arterial Blood Partial Pressure CO2 37, Arterial Blood Partial Pressure O2 65, Arterial Blood HCO3 22, Arterial Blood Total CO2 23.2, Arterial Blood Oxygen Saturation 92, Arterial Blood Base Excess -2.2, Kaiden Test YES-POS, Blood Gas Ventilator Setting YES, Blood Gas Inspired Oxygen 21% 01/28/23 11:52: Glucometer 298 01/28/23 17:49: Glucometer 255 01/28/23 18:10: Glucometer 244 01/28/23 23:35: Glucometer 205 01/29/23 03:40: White Blood Count 10.0, Red Blood Count 2.97, Hemoglobin 8.1, Hematocrit 26, Mean Corpuscular Volume 89, Mean Corpuscular Hemoglobin 27, Mean Corpuscular Hemoglobin Concent 31, Red Cell Distribution Width 15.9, Platelet Count 162, Mean Platelet Volume 12.2, Immature Granulocyte % (Auto) 1, Neutrophils (%) (Auto) 72, Lymphocytes (%) (Auto) 16, Monocytes (%) (Auto) 7, Eosinophils (%) (Auto) 3, Basophils (%) (Auto) 0, Neutrophils # (Auto) 7.2, Lymphocytes # (Auto) 1.6, Monocytes # (Auto) 0.7, Eosinophils # (Auto) 0.3, Basophils # (Auto) 0.0, Immature Granulocyte # (Auto) 0.1, Sodium Level 147, Potassium Level 3.8, Chloride Level 119, Carbon Dioxide Level 21, Anion Gap 7, Blood Urea Nitrogen 2 1, Creatinine 0.81, Estimat Glomerular Filtration Rate 95, BUN/Creatinine Ratio 26, Glucose Level 211, Calcium Level 7.8, Corrected Calcium 9.2, Phosphorus Level 3.0, Magnesium Level 1.9, Total Bilirubin 0.4, Aspartate Amino Transf (AST/SGOT) 31, Alanine Aminotransferase (ALT/SGPT) 22, Alkaline Phosphatase 245, Total Protein 5.0, Albumin 2.3 01/29/23 05:30: Blood Gas Puncture Site LR, Blood Gas Patient Temperature UNK, Arterial Blood pH 7.41, Arterial Blood Partial Pressure CO2 35, Arterial Blood Partial Pressure O2 77, Arterial Blood HCO3 22, Arterial Blood Total CO2 22.5, Arterial Blood Oxygen Saturation 95, Arterial Blood Base Excess -2.4, Kaiden Test YES-POS, Blood Gas Ventilator Setting YES, Blood Gas Inspired Oxygen 21% 01/29/23 11:27: Glucometer 229 01/29/23 17:43: Glucometer 226 01/29/23 23:43: Glucometer 179 01/30/23 04:55: White Blood Count 9.7, Red Blood Count 2.72, Hemoglobin 7.5, Hematocrit 25, Mean Corpuscular Volume 90, Mean Corpuscular Hemoglobin 28, Mean Corpuscular Hemoglobin Concent 31, Red Cell Distribution Width 15.9, Platelet Count 164, Mean Platelet Volume 12.4, Immature Granulocyte % (Auto) 0, Neutrophils (%) (Auto) 76, Lymphocytes (%) (Auto) 14, Monocytes (%) (Auto) 6, Eosinophils (%) (Auto) 3, Basophils (%) (Auto) 1, Neutrophils # (Auto) 7.3, Lymphocytes # (Auto) 1.3, Monocytes # (Auto) 0.6, Eosinophils # (Auto) 0.3, Basophils # (Auto) 0.1, Immature Granulocyte # (Auto) 0.0, Sodium Level 146, Potassium Level 4.4, Chloride Level 119, Carbon Dioxide Level 21, Anion Gap 6, Blood Urea Nitrogen 28, Creatinine 1.00, Estimat Glomerular Filtration Rate 81, BUN/Creatinine Ratio 28, Glucose Level 195, Calcium Level 7.1, Corrected Calcium 8.5, Phosphorus Level 3.8, Magnesium Level 2.1, Total Bilirubin 0.3, Aspartate Amino Transf (AST/SGOT) 44, Alanine Aminotransferase (ALT/SGPT) 28, Alkaline Phosphatase 264, Total Protein 4.9, Albumin 2.3 01/30/23 08:02: Blood Gas Puncture Site R RAD, Blood Gas Patient Temperature 38.6, Arterial Blood pH 7.32, Arterial Blood Partial Pressure CO2 45, Arterial Blood Partial Pressure O2 70, Arterial Blood HCO3 22, Arterial Blood Total CO2 22.9, Arterial Blood Oxygen Saturation 89, Arterial Blood Base Excess -3.3, Kaiden Test YES-POS, Blood Gas Ventilator Setting YES, Blood Gas Inspired Oxygen 25% 01/30/23 11:31: Glucometer 172 01/30/23 14:50: White Blood Count 10.7, Red Blood Count 3.07, Hemoglobin 8.4, Hematocrit 27, Mean Corpuscular Volume 89, Mean Corpuscular Hemoglobin 27, Mean Corpuscular Hemoglobin Concent 31, Red Cell Distribution Width 15.9, Platelet Count 155, Mean Platelet Volume 11.9 01/30/23 17:31: Glucometer 218 01/30/23 20:22: Glucometer 203 01/30/23 23:40: Glucometer 239 01/31/23 04:02: White Blood Count 9.1, Red Blood Count 2.95, Hemoglobin 8.1, Hematocrit 26, Mean Corpuscular Volume 89, Mean Corpuscular Hemoglobin 28, Mean Corpuscular Hemoglobin Concent 31, Red Cell Distribution Width 15.8, Platelet Count 155, Mean Platelet Volume 12.1, Immature Granulocyte % (Auto) 0, Neutrophils (%) (Auto) 75, Lymphocytes (%) (Auto) 15, Monocytes (%) (Auto) 5, Eosinophils (%) (Auto) 4, Basophils (%) (Auto) 1, Neutrophils # (Auto) 6.8, Lymphocytes # (Auto) 1.4, Monocytes # (Auto) 0.5, Eosinophils # (Auto) 0.3, Basophils # (Auto) 0.1, Immature Granulocyte # (Auto) 0.0, Neutrophils % (Manual) 79, Lymphocytes % (Manual) 13, Monocytes % (Manual) 3, Eosinophils % (Manual) 4, Basophils % (Manual) 0, Band Neutrophils 1, Smudge Cells SLIGHT, Polychromasia SLIGHT, Poik ilocytosis SLIGHT, Anisocytosis SLIGHT, Microcytosis SLIGHT, Tear Drop Cells SLIGHT, Sodium Level 144, Potassium Level 3.8, Chloride Level 120, Carbon Dioxide Level 18, Anion Gap 6, Blood Urea Nitrogen 28, Creatinine 0.87, Estimat Glomerular Filtration Rate 93, BUN/Creatinine Ratio 32, Glucose Level 227, Calcium Level 6.7, Corrected Calcium 8.1, Phosphorus Level 3.2, Magnesium Level 1.8, Total Bilirubin 0.3, Aspartate Amino Transf (AST/SGOT) 53, Alanine Aminotransferase (ALT/SGPT) 33, Alkaline Phosphatase 295, Total Protein 4.3, Albumin 2.2 01/31/23 11:45: Glucometer 250 01/31/23 18:34: Glucometer 273 01/31/23 19:00: Blood Gas Puncture Site LR, Blood Gas Patient Temperature 36.7, Arterial Blood pH 7.30, Arterial Blood Partial Pressure CO2 49, Arterial Blood Partial Pressure O2 78, Arterial Blood HCO3 23, Arterial Blood Total CO2 24.7, Arterial Blood Oxygen Saturation 95, Arterial Blood Base Excess -2.4, Kaiden Test YES-POS, Blood Gas Ventilator Setting YES, Blood Gas Inspired Oxygen 35% 01/31/23 20:59: Glucometer 256 02/01/23 00:04: Glucometer 270 02/01/23 02:55: White Blood Count 9.8, Red Blood Count 3.15, Hemoglobin 8.7, Hematocrit 28, Mean Corpuscular Volume 88, Mean Corpuscular Hemoglobin 28, Mean Corpuscular Hemoglobin Concent 31, Red Cell Distribution Width 15.8, Platelet Count 176, Mean Platelet Volume 12.8, Immature Granulocyte % (Auto) 1, Neutrophils (%) (Auto) 76, Lymphocytes (%) (Auto) 15, Monocytes (%) (Auto) 5, Eosinophils (%) (Auto) 3, Basophils (%) (Auto) 1, Neutrophils # (Auto) 7.4, Lymphocytes # (Auto) 1.4, Monocytes # (Auto) 0.5, Eosinophils # (Auto) 0.3, Basophils # (Auto) 0.1, Immature Granulocyte # (Auto) 0.1, Neutrophils % (Manual) 78, Lymphocytes % (Manual) 15, Monocytes % (Manual) 3, Eosinophils % (Manual) 3, Basophils % (Manual) 1, Elliptocytes SLIGHT, Schistocytes SLIGHT, Sodium Level 145, Potassium Level 4.7, Chloride Level 115, Carbon Dioxide Level 20, Anion Gap 10, Blood Urea Nitrogen 35, Creatinine 1.11, Estimat Glomerular Filtration Rate 71, BUN/Creatinine Ratio 32, Glucose Level 252, Calcium Level 7.8, Corrected Calcium 9.1, Phosphorus Level 3.4, Magnesium Level 2.1, Total Bilirubin 0.3, Aspartate Amino Transf (AST/SGOT) 69, Alanine Aminotransferase (ALT/SGPT) 42, Alkaline Phosphatase 363, Total Protein 5.4, Albumin 2.4 02/01/23 05:09: Blood Gas Puncture Site LR, Blood Gas Patient Temperature 37.5, Arterial Blood pH 7.33, Arterial Blood Partial Pressure CO2 45, Arterial Blood Partial Pressure O2 74, Arterial Blood HCO3 23, Arterial Blood Total CO2 24.1, Arterial Blood O xygen Saturation 94, Arterial Blood Base Excess -2.2, Kaiden Test YES-POS, Blood Gas Ventilator Setting YES, Blood Gas Inspired Oxygen 25% 02/01/23 06:08: Glucometer 224 02/01/23 11:29: Glucometer 231 02/01/23 11:35: Blood Gas Puncture Site LT RAD, Blood Gas Patient Temperature 37.0, Arterial Blood pH 7.28, Arterial Blood Partial Pressure CO2 52, Arterial Blood Partial Pressure O2 98, Arterial Blood HCO3 23, Arterial Blood Total CO2 25.0, Arterial Blood Oxygen Saturation 98, Arterial Blood Base Excess -2.4, Kaiden Test YES-POS, Blood Gas Ventilator Setting YES, Blood Gas Inspired Oxygen 35% 02/01/23 15:03: Blood Gas Puncture Site LEFT RADIAL, Blood Gas Patient Temperature 37, Arterial Blood pH 7.26, Arterial Blood Partial Pressure CO2 55, Arterial Blood Partial Pressure O2 82, Arterial Blood HCO3 24, Arterial Blood Total CO2 25.2, Arterial Blood Oxygen Saturation 94, Arterial Blood Base Excess -2.5, Kaiden Test YES-POS, Blood Gas Ventilator Setting NO, Blood Gas Inspired Oxygen 3 02/01/23 18:17: Glucometer 133 02/01/23 18:30: Blood Gas Puncture Site LEFT RADIAL, Blood Gas Patient Temperature 36.7, Arterial Blood pH 7.33, Arterial Blood Partial Pressure CO2 43, Arterial Blood Partial Pressure O2 89, Arterial Blood HCO3 22, Arterial Blood Total CO2 23.7, Arterial Blood Oxygen Saturation 97, Arterial Blood Base Excess -2.7, Kaiden Test YES-POS, Blood Gas Ventilator Setting NO, Blood Gas Inspired Oxygen RM 02/01/23 23:23: Glucometer 140 02/02/23 05:00: Blood Gas Puncture Site LR, Blood Gas Patient Temperature 36.7, Arterial Blood pH 7.27, Arterial Blood Partial Pressure CO2 54, Arterial Blood Partial Pressure O2 113, Arterial Blood HCO3 24, Arterial Blood Total CO2 25.6, Arterial Blood Oxygen Saturation 98, Arterial Blood Base Excess -2.1, Kaiden Test YES-POS, Blood Gas Ventilator Setting NO, Blood Gas Inspired Oxygen 30% 02/02/23 05:15: White Blood Count 8.4, Red Blood Count 3.14, Hemoglobin 8.6, Hematocrit 29, Mean Corpuscular Volume 91, Mean Corpuscular Hemoglobin 27, Mean Corpuscular Hemoglobin Concent 30, Red Cell Distribution Width 15.8, Platelet Count 147, Mean Platelet Volume 12.9, Immature Granulocyte % (Auto) 1, Neutrophils (%) (Auto) 72, Lymphocytes (%) (Auto) 16, Monocytes (%) (Auto) 6, Eosinophils (%) (A uto) 4, Basophils (%) (Auto) 1, Neutrophils # (Auto) 6.0, Lymphocytes # (Auto) 1.4, Monocytes # (Auto) 0.5, Eosinophils # (Auto) 0.4, Basophils # (Auto) 0.1, Immature Granulocyte # (Auto) 0.0, Neutrophils % (Manual) 75, Lymphocytes % (Manual) 18, Monocytes % (Manual) 1, Eosinophils % (Manual) 5, Basophils % (Manual) 1, Schistocytes SLIGHT, Sodium Level 148, Potassium Level 4.0, Chloride Level 119, Carbon Dioxide Level 22, Anion Gap 7, Blood Urea Nitrogen 33, Creatinine 0.83, Estimat Glomerular Filtration Rate 94, BUN/Creatinine Ratio 40, Glucose Level 91, Calcium Level 7.7, Corrected Calcium 8.9, Phosphorus Level 3.7, Magnesium Level 2.2, Total Bilirubin 0.5, Aspartate Amino Transf (AST/SGOT) 37, Alanine Aminotransferase (ALT/SGPT) 34, Alkaline Phosphatase 322, Total Protein 5.6, Albumin 2.5 02/02/23 05:46: Glucometer 86 02/02/23 13:49: Glucometer 111 02/02/23 17:39: Glucometer 110 02/03/23 00:23: Glucometer 82 02/03/23 04:20: Glucometer 71 02/03/23 04:21: White Blood Count 10.7, Red Blood Count 3.23, Hemoglobin 8.7, Hematocrit 29, Mean Corpuscular Volume 90, Mean Corpuscular Hemoglobin 27, Mean Corpuscular Hemoglobin Concent 30, Red Cell Distribution Width 15.8, Platelet Count 243, Mean Platelet Volume 12.1, Immature Granulocyte % (Auto) 1, Neutrophils (%) (Auto) 75, Lymphocytes (%) (Auto) 13, Monocytes (%) (Auto) 7, Eosinophils (%) (Auto) 4, Basophils (%) (Auto) 1, Neutrophils # (Auto) 8.0, Lymphocytes # (Auto) 1.4, Monocytes # (Auto) 0.8, Eosinophils # (Auto) 0.5, Basophils # (Auto) 0.1, Immature Granulocyte # (Auto) 0.1, Neutrophils % (Manual) 76, Lymphocytes % (Manual) 16, Monocytes % (Manual) 3, Eosinophils % (Manual) 4, Basophils % (Man ual) 1, Elliptocytes SLIGHT, Sodium Level 147, Potassium Level 3.5, Chloride Level 118, Carbon Dioxide Level 22, Anion Gap 7, Blood Urea Nitrogen 25, Creatinine 0.81, Estimat Glomerular Filtration Rate 95, BUN/Creatinine Ratio 31, Glucose Level 88, Calcium Level 8.0, Corrected Calcium 9.1, Phosphorus Level 3.2, Magnesium Level 2.1, Total Bilirubin 0.5, Aspartate Amino Transf (AST/SGOT) 37, Alanine Aminotransferase (ALT/SGPT) 30, Alkaline Phosphatase 312, Total Protein 5.6, Albumin 2.6 02/03/23 09:06: Blood Gas Puncture Site L RADIAL, Blood Gas Patient Temperature 36.5, Arterial Blood pH 7.36, Arterial Blood Partial Pressure CO2 40, Arterial Blood Partial Pressure O2 100, Arterial Blood HCO3 22, Arterial Blood Total CO2 23.5, Arterial Blood Oxygen Saturation 98, Arterial Blood Base Excess -2.5, [place]iden Test YES-POS, Blood Gas Ventilator Setting NO, Blood Gas Inspired Oxygen 21% 02/03/23 11:48: Glucometer 141 02/03/23 17:20: Glucometer 167 02/03/23 20:52: Glucometer 138 02/04/23 04:40: White Blood Count 9.0, Red Blood Count 3.22, Hemoglobin 8.8, Hematocrit 29, Mean Corpuscular Volume 91, Mean Corpuscular Hemoglobin 27, Mean Corpuscular Hemoglobin Concent 30, Red Cell Distribution Width 15.8, Platelet Count 245, Mean Platelet Volume 11.8, Immature Granulocyte % (Auto) 1, Neutrophils (%) (Au to) 69, Lymphocytes (%) (Auto) 16, Monocytes (%) (Auto) 9, Eosinophils (%) (Auto) 5, Basophils (%) (Auto) 1, Neutrophils # (Auto) 6.2, Lymphocytes # (Auto) 1.4, Monocytes # (Auto) 0.8, Eosinophils # (Auto) 0.5, Basophils # (Auto) 0.1, Immature Granulocyte # (Auto) 0.1, Neutrophils % (Manual) 74, Lymphocytes % (Manual) 14, Monocytes % (Manual) 6, Eosinophils % (Manual) 5, Atypical L ymphocytes 1, Hypochromasia SLIGHT, Schistocytes SLIGHT, Sodium Level 148, Potassium Level 3.5, Chloride Level 118, Carbon Dioxide Level 23, Anion Gap 7, Blood Urea Nitrogen 21, Creatinine 0.77, Estimat Glomerular Filtration Rate 96, BUN/Creatinine Ratio 27, Glucose Level 112, Calcium Level 8.0, Corrected Calcium 9.0, Phosphorus Level 3.1, Magnesium Level 2.1, Total Bilirubin 0.4, Aspartate Amino Transf (AST/SGOT) 30, Alanine Aminotransferase (ALT/SGPT) 24, Alkaline Phosphatase 313, Total Protein 5.2, Albumin 2.7 02/04/23 11:09: Glucometer 144 02/04/23 15:59: Glucometer 134 02/05/23 05:10: White Blood Count 7.9, Red Blood Count 3.26, Hemoglobin 8.8, Hematocrit 30, Mean Corpuscular Volume 91, Mean Corpuscular Hemoglobin 27, Mean Corpuscular Hemoglobin Concent 30, Red Cell Distribution Width 15.7, Platelet Count 237, Mean Platelet Volume 11.6, Immature Granulocyte % (Auto) 1, Neutrophils (%) (Auto) 72, Lymphocytes (%) (Auto) 13, Monocytes (%) (Auto) 8, Eosinophils (%) (Auto) 5, Basophils (%) (Auto) 1, Neutrophils # (Auto) 5.7, Lymphocytes # (Auto) 1.0, Monocytes # (Auto) 0.6, Eosinophils # (Auto) 0.4, Basophils # (Auto) 0.1, Immature Granulocyte # (Auto) 0.0, Neutrophils % (Manual) 70, Lymphocytes % (M anual) 20, Monocytes % (Manual) 3, Eosinophils % (Manual) 7, Basophilic Stippling SLIGHT, Schistocytes SLIGHT, Sodium Level 148, Potassium Level 3.7, Chloride Level 118, Carbon Dioxide Level 23, Anion Gap 7, Blood Urea Nitrogen 14, Creatinine 0.70, Estimat Glomerular Filtration Rate 99, BUN/Creatinine Ratio 20, Glucose Level 146, Calcium Level 8.1, Corrected Calcium 9.1, Magnesium Level 1.8, Total Bilirubin 0.4, Aspartate Amino Transf (AST/SGOT) 32, Alanine Aminotransferase (ALT/SGPT) 26, Alkaline Phosphatase 322, Total Protein 5.2, Albumin 2.7 02/05/23 05:24: Glucometer 131 02/05/23 11:08: Glucometer 167 02/05/23 13:32: Lab Scanned Report Transfusion Reaction Form Discharge Home Medications: Active Scripts Active Reported Tylenol Arthritis (Acetaminophen) 650 Mg Tablet.er 1,300 Mg PO Q8H PRN TAKES 2 (650MG) TABS Pantoprazole Sodium 40 Mg Tablet.dr 40 Mg PO BID Leflunomide 20 Mg Tablet 20 Mg PO DAILY Folic Acid 1 Mg Tablet 1 Mg PO HS Sertraline HCl 100 Mg Tablet 100 Mg PO BID Synjardy Xr 12.5-1,000 mg Tab (Empagliflozin/Metformin HCl) 12.5 Mg-1,000 Mg Tab.bp.24h 1 Ea PO BID Atenolol 50 Mg Tablet 50 Mg PO DAILY Fenofibrate 160 Mg Tablet 160 Mg PO DAILY Levothyroxine Sodium 50 Mcg Tablet 50 Mcg PO DAILY Trulicity (Dulaglutide) 1.5 Mg/0.5 Ml Pen.injctr 1.5 Mg SC BLU Rosuvastatin Calcium 40 Mg Tablet 40 Mg PO DAILY Lantus Solostar (Insulin Glargine,Hum.rec.anlog) 100 Unit/Ml (3 Ml) Insuln.pen 40 Units SC BID Lisinopril 10 Mg Tablet 10 Mg PO DAILY Instructions to patient/family Please see electronic discharge instructions given to patient. ANDRES GARCÍA DO Feb 05, 2023 12:46
== END 2023-02-05 15:00 | DRG 963 ==
LOC: EDUNIT# 11:07 → ER 11:08 → 4TH 15:04 → ICU 01-16 19:40 → OBSVTOIN 01-17 09:25 → ICU 01-21 14:10 → 4TH 02-04 11:21
PROVIDERS: ADMIT Family Medicine; ATTEND Internal Medicine
PROC: 0HQ1XZZ Repair Face Skin, External Approach (ICD-10-PCS; principal; 2023-01-17)
PROC: 0HQDXZZ Repair Right Lower Arm Skin, External Approach (ICD-10-PCS; 2023-01-17)
PROC: 0HQFXZZ Repair Right Hand Skin, External Approach (ICD-10-PCS; 2023-01-17)
PROC: 5A09457 Assistance with Respiratory Ventilation, 24-96 Consecutive Hours, Continuous Positive Airway Pressure (ICD-10-PCS; 2023-01-19)
PROC: 5A1955Z Respiratory Ventilation, Greater than 96 Consecutive Hours (ICD-10-PCS; 2023-01-21)
PROC: 0BH17EZ Insertion of Endotracheal Airway into Trachea, Via Natural or Artificial Opening (ICD-10-PCS; 2023-01-21)
PROC: 5A0945A Assistance with Respiratory Ventilation, 24-96 Consecutive Hours, High Flow/Velocity Cannula (ICD-10-PCS; 2023-01-28)
DX: S06.9XAA Unspecified intracranial injury with loss of consciousness status unknown, initial encounter (principal); J96.01 Acute respiratory failure with hypoxia; T79.6XXA Traumatic ischemia of muscle, initial encounter; N17.9 Acute kidney failure, unspecified; S22.41XA Multiple fractures of ribs, right side, initial encounter for closed fracture; J95.851 Ventilator associated pneumonia; G93.40 Encephalopathy, unspecified; V29.99XA Rider (driver) (passenger) of other motorcycle injured in unspecified traffic accident, initial encounter; Y92.410 Unspecified street and highway as the place of occurrence of the external cause; E11.9 Type 2 diabetes mellitus without complications; I10 Essential (primary) hypertension; M06.9 Rheumatoid arthritis, unspecified; F32.A Depression, unspecified; S01.81XA Laceration without foreign body of other part of head, initial encounter; S61.421A Laceration with foreign body of right hand, initial encounter; S51.011A Laceration without foreign body of right elbow, initial encounter; E03.9 Hypothyroidism, unspecified; E78.5 Hyperlipidemia, unspecified; E87.5 Hyperkalemia; Z79.4 Long term (current) use of insulin; Z79.890 Hormone replacement therapy; Z79.899 Other long term (current) drug therapy; Z87.891 Personal history of nicotine dependence; D64.9 Anemia, unspecified; D69.6 Thrombocytopenia, unspecified
CPT/HCPCS: 12031; 12041; 12052; 36415; 36569; 36600; 70450; 71045; 71260; 72125; 72170; 73030; 73080; 73130; 73610; 74177; 76700; 76937; 80048; 80053; 80076; 80306; 80320; 81000; 82040; 82550; 82805; 82947; 83605; 83735; 84100; 84478; 84484; 85007; 85025; 85027; 85610; 85730; 86850; 86900; 86901; 86920; 87040; 87070; 87077; 87081; 87088; 87186; 87205; 87324; 87389; 87449; 90715; 93005; 93041; 93306; 94002; 94003; 94640; 94660; 94664; 94760; 94799; 99291; G0378

== ENCOUNTER 2023-02-05 13:40 | Inpatient (IN) | payer MEDICARE, MEDICAID ==
[~2023-02-05] VITALS: Ht 175.3 cm; Wt 103.3 kg
[~2023-02-05 13:40] MED LIST changes: +ACET-2650 PO; +LEFL20TA18 PO; +PANT40TA52 PO
[2023-02-05 15:15] VITALS: BP 164/73
[2023-02-05] MEDS ORDERED: fentaNYL INJECTION 100 MCG/2 ML VIAL IVP PRN (15:45)
[2023-02-05] MEDS ORDERED: CALCIUM CARBONATE 500 MG CHEW TABLET PO PRN (15:45)
[2023-02-05] MEDS ORDERED: hydrALAZINE INJECTION 20 MG/ML VIAL IV PRN (15:45)
[2023-02-05] MEDS ORDERED: RT-ALBUTEROL SULF 2.5 MG/3 ML PRE-MIX VIAL INH PRN (15:45)
[2023-02-05] MEDS ORDERED: ACETAMINOPHEN 325 MG TABLET PO PRN (15:45)
[2023-02-05] MEDS ORDERED: diphenhydrAMINE 25 MG TABLET PO PRN (15:45)
[2023-02-05] MEDS ORDERED: ANTACID SUSPENSION 30 ML UDC PO PRN (15:45)
[2023-02-05] MEDS ORDERED: SENNA W/DOCUSATE TABLET PO PRN (15:45)
[2023-02-05] MEDS ORDERED: morphine INJ 10 MG/ML 1ML (SYR OR VIAL) IV PRN (15:45)
[2023-02-05] MEDS ORDERED: MELATONIN 3 MG TABLET PO PRN (15:45)
[2023-02-05] MEDS ORDERED: LOPERAMIDE 2 MG CAPSULE PO PRN (15:45)
[2023-02-05] MEDS ORDERED: ACETAMINOPHEN 325 MG/10.15 ML ORAL SOLN UDC PO PRN (15:45)
[2023-02-05] MEDS ORDERED: Sodium Phosphate/Sodium Biphosphate ADULT enema PR PRN (15:45)
[2023-02-05] MEDS ORDERED: BISACODYL 10 MG SUPPOSITORY PR PRN (15:45)
[2023-02-05] MEDS ORDERED: ONDANSETRON INJECTION 4 MG/2 ML (SDV) IV PRN (15:45)
[2023-02-05] MEDS ORDERED: ONDANSETRON 4 MG ORAL DISSOLVE TABLET PO PRN (15:45)
[2023-02-05] MEDS ORDERED: ONDANSETRON 4 MG ORAL DISSOLVE TABLET SL PRN (15:45)
[2023-02-05] MEDS ORDERED: ALPRAZolam 0.25 MG TABLET PO PRN (15:45)
[2023-02-05] MEDS ORDERED: LACTULOSE SYRUP 10GM/15ML 30ML UDC PO PRN (15:45)
[2023-02-05] MEDS ORDERED: DOCUSATE SODIUM 100 MG CAPSULE PO PRN (15:45)
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
[2023-02-05] MEDS: inSUlin ASPART 1 UNIT/0.01 ML (PER UNIT) SC SCH ×2 (16:38→21:30)
[2023-02-05] MEDS ORDERED: HYPOCHLOROUS ACID/NaCl WOUND SOLN 250 ML IR PRN (17:15)
[2023-02-05 20:05] VITALS: BP 169/69
[2023-02-05] MEDS: RT-BUDESONIDE NEBS 0.5 MG/2ML VIAL INH SCH (21:18)
[2023-02-05] MEDS: RT-Ipratropium/Albuterol NEB 3 ML VIAL INH SCH (21:18)
[2023-02-05] MEDS: DOCUSATE SODIUM 100 MG CAPSULE PO SCH (21:30)
[2023-02-05] MEDS: SENNA W/DOCUSATE TABLET PO SCH (21:30)
[2023-02-05] MEDS: MICONAZOLE 2% POWDER 90 GM TOP SCH (21:30)
[2023-02-05] MEDS: FAMOTIDINE 20 MG TABLET PO SCH (21:30)
[2023-02-05] MEDS: SERTRALINE 100 MG TABLET PO SCH (21:31)
[2023-02-05] MEDS: ENOXAPARIN 40 MG/0.4 ML SYRINGE SC SCH (21:31)
[2023-02-05] MEDS: inSUlin DETERMIR 1 UNIT/0.01 ML (CHARGE PER UNIT) SQ SCH (21:31)
[2023-02-05 22:20] VITALS: BP 152/67
[2023-02-05] MEDS: CATHETER FLUSH 10 ML SYR IVP SCH (22:23)
[2023-02-06] VITALS (18 sets, daily range): BP systolic 156–225; BP diastolic 67–92
[2023-02-06] MEDS: RT-Ipratropium/Albuterol NEB 3 ML VIAL INH SCH ×3 (03:40→22:22)
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
[2023-02-06 05:10] LABS: BASOPHILS # (AUTO) 0.1 10^3/uL (0.0-0.1); BASOPHILS % (AUTO) 1 % (0-10); EOSINOPHILS # (AUTO) 0.4 10^3/uL (0.0-0.3); EOSINOPHILS % (AUTO) 5 % (0-10); HEMATOCRIT 29 % (40-54); HEMOGLOBIN 8.9 g/dL (13.3-17.7); LYMPHOCYTES # (AUTO) 1.3 10^3/uL (1.0-4.0); LYMPHOCYTES % (AUTO) 16 % (12-44); MEAN CORPUSCULAR HEMOGLOBIN 28 pg (25-34); MEAN CORPUSCULAR HGB CONC 31 g/dL (32-36); MEAN CORPUSCULAR VOLUME 90 fL (80-99); MEAN PLATELET VOLUME 11.2 fL (9.0-12.2); MONOCYTES # (AUTO) 0.8 10^3/uL (0.0-1.0); MONOCYTES % (AUTO) 9 % (0-12); NEUTROPHILS # (AUTO) 5.8 10^3/uL (1.8-7.8); NEUTROPHILS % (AUTO) 69 % (42-75); PLATELET COUNT 233 10^3/uL (130-400); WHITE BLOOD COUNT 8.3 10^3/uL (4.3-11.0)
[2023-02-06 05:33] LABS: ALBUMIN 2.7 GM/DL (3.2-4.5); BILIRUBIN,TOTAL 0.4 MG/DL (0.1-1.0); CALCIUM 8.1 MG/DL (8.5-10.1); CREATININE SERUM 0.69 MG/DL (0.60-1.30); POTASSIUM 3.5 MMOL/L (3.6-5.0); TOTAL PROTEIN 5.1 GM/DL (6.4-8.2)
[2023-02-06] MEDS: LEVOTHYROXINE 50 MCG TABLET PO SCH (06:45)
[2023-02-06] MEDS: inSUlin ASPART 1 UNIT/0.01 ML (PER UNIT) SC SCH ×4 (06:45→21:00)
[2023-02-06] MEDS: CATHETER FLUSH 10 ML SYR IVP SCH ×3 (06:45→21:15)
[2023-02-06] MEDS: SERTRALINE 100 MG TABLET PO SCH ×2 (08:12→20:11)
[2023-02-06] MEDS: amLODIPine 5 MG TABLET PO SCH (08:12)
[2023-02-06] MEDS: PANTOPRAZOLE INJECTION 40 MG VIAL IV SCH (08:12)
[2023-02-06] MEDS: inSUlin DETERMIR 1 UNIT/0.01 ML (CHARGE PER UNIT) SQ SCH ×2 (08:20→21:33)
[2023-02-06] MEDS: DOCUSATE SODIUM 100 MG CAPSULE PO SCH ×2 (08:26→21:00)
[2023-02-06] MEDS: SENNA W/DOCUSATE TABLET PO SCH ×2 (08:26→21:00)
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
[2023-02-06] MEDS: MICONAZOLE 2% POWDER 90 GM TOP SCH ×2 (09:43→21:00)
[2023-02-06] MEDS: RT-BUDESONIDE NEBS 0.5 MG/2ML VIAL INH SCH ×2 (10:37→22:22)
[2023-02-06] MEDS ORDERED: HYPOCHLOROUS ACID/NaCl WOUND SOLN 250 ML IR SCH (12:00)
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
[2023-02-06] MEDS ORDERED: amLODIPine 5 MG TABLET PO NR (13:15)
[2023-02-06] MEDS: hydrALAZINE 25 MG TABLET PO SCH ×2 (13:19→20:11)
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
--- NOTE | 2023-02-06 15:32 | Occupational Ther Daily Note ---
OT Current Status-Daily Note Subjective Pt alert, lying in bed. Pt eating lunch. Pt agrees to therapy. Pt c/o not being hungry and being cold. Room temp increased and blanket placed. Mental Status/Objective Patient Orientation: Person, Place, Time, Situation ADL-Treatment Pt able to reach to grasp drink from tray, but refused to eat much of meal. Therapy Code Descriptions/Definitions Functional [place] Measure: 0=Not Assessed/NA 4=Minimal Assistance 1=Total Assistance 5=Supervision or Setup 2=Maximal Assistance 6=Modified [place] 3=Moderate Assistance 7=Complete IndependenceSCALE: Activities may be completed with or without assistive devices. 8-Iemtwwcftt-xvexwpx completes the activity by him/herself with no assistance from a helper. 5-Set-up or Clean-up Assistance-helper sets up or cleans up; patient completes activity. [place] assists only prior to or following the activity. 4-Supervision or Touching Assistance-helper provides verbal cues and/or touching/steadying and/or contact guard assistance as patient completes activity. Assistance may be provided throughout the activity or intermittently. 3-Partial/Moderate Assistance-helper does LESS THAN HALF the effort. [place] lif ts, holds or supports trunk or limbs, but provides less than half the effort. 2-Substantial/Maximal Assistance-helper does MORE THAN HALF the effort. [place] lifts or holds trunk or limbs and provides more than half the effort. 7-Xqtsgxrlq-qfsvjw does ALL the effort. Patient does none of the effort to complete the activity. Or, the assistance of 2 or more helpers is required for the patient to complete the activity. If activity was not attempted, code reason: 7-Patient Refused. 9-Not Applicable-not attempted and the patient did not perform the activity before the current illness, exacerbation or injury. 10-Not Attempted due to Environmental Limitations-(lack of equipment, weather restraints, etc.). 88-Not Attempted due to Medical Conditions or Safety Concerns. Other Treatment AE for lower body dressing in pt's room. Pt educated on use of equipment then declined to demonstrate knowledge. Will use at next session. After therapy, pt lying in bed with call light/phone in reach. All needs met. OT Short Term Goals Short Term Goals Time Frame: Feb 20, 2023 Eatin Oral hygiene: 5 Toileting hygiene: 3 (min assist) Shower/bathe self: 3 (min assist) Upper body dressin Lower body dressin (Min assist with AE) Putting on/taking off footwear: 4 (supervision with AE) OT Residential Goals Residential Goals Time Frame: Mar 06, 2023 Acute change in mental status: 0 Inattention: 0 Disorganized thinkin Altered level of consciousness: 0 Eating (QC): 6 Oral Hygiene (QC): 6 Toileting Hygiene (QC): 6 Shower/Bathe Self (QC): 4 Upper Body Dressing (QC): 5 Lower Body Dressing (QC): 5 (set up with AE) On/Off Footwear (QC): 5 (Set up with AE) Additional Goals: 1-Demonstrate ADL Tasks, 2-Verbalize Understanding, 3- ImproveStrength/Shae 1=Demonstrate adherence to instructed precautions during ADL tasks. 2=Patient will verbalize/demonstrate understanding of assistive devices/modific ations for ADL. 3=Patient will improve strength/tolerance for activity to enable patient to perform ADL's. OT Education/Plan Problem List/Assessment Assessment: Decreased Activ Tolerance, Impaired Self-Care Skills Discharge Recommendations Plan/Recommendations: Continue POC Treatment Plan/Plan of Care Patient would benefit from OT for education, treatment and training to promote independence in ADL's, mobility, safety and/or upper extremity function for ADL's. Plan of Care: ADL Retraining, Caregiver Training, Cognitive Retraining, Functional Mobility, Group Exercise/Act as Ind, UE Funct Exercise/Act Treatment Duration: Mar 06, 2023 Frequency: At least 5 of 7 days/Wk (IRF) Estimated Hrs Per Day: 1.5 hours per day Agreement: Yes Rehab Potential: Good Time Start Time: 13:05 Stop Time: 13:15 DATE: Feb 06, 2023 Total Time Billed (hr/min): 10 Billed Treatment Time 1 visit-FA 1 (10 min) MARY NAVARRETE Feb 06, 2023 15:32
[2023-02-06] MEDS: ENOXAPARIN 40 MG/0.4 ML SYRINGE SC SCH (20:11)
[2023-02-06] MEDS: FAMOTIDINE 20 MG TABLET PO SCH (20:11)
[2023-02-06] MEDS: MICONAZOLE 2% CREAM 30 GM TP SCH (21:14)
[2023-02-06] MEDS: MENTHOL/ZINC OXIDE OINTMENT 113 GM TUBE TOP SCH (21:15)
[2023-02-06] MEDS: guaiFENesin/CODEINE 10ML UDC PO PRN (21:33)
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
[2023-02-07] MEDS: CATHETER FLUSH 10 ML SYR IVP SCH ×3 (06:40→22:33)
[2023-02-07] MEDS: inSUlin ASPART 1 UNIT/0.01 ML (PER UNIT) SC SCH ×4 (06:40→21:51)
[2023-02-07] MEDS: LEVOTHYROXINE 50 MCG TABLET PO SCH (06:40)
[2023-02-07 08:17] VITALS: BP 159/72
[2023-02-07] MEDS: RT-BUDESONIDE NEBS 0.5 MG/2ML VIAL INH SCH ×2 (08:46→21:49)
[2023-02-07] MEDS: RT-Ipratropium/Albuterol NEB 3 ML VIAL INH SCH ×2 (08:47→21:50)
[2023-02-07] MEDS: SENNA W/DOCUSATE TABLET PO SCH ×2 (08:48→21:50)
[2023-02-07] MEDS: DOCUSATE SODIUM 100 MG CAPSULE PO SCH ×2 (08:48→21:50)
[2023-02-07] MEDS: inSUlin DETERMIR 1 UNIT/0.01 ML (CHARGE PER UNIT) SQ SCH ×2 (09:30→21:56)
[2023-02-07] MEDS: hydrALAZINE 25 MG TABLET PO SCH ×3 (09:30→21:24)
[2023-02-07] MEDS: SERTRALINE 100 MG TABLET PO SCH ×2 (09:30→21:24)
[2023-02-07] MEDS: PANTOPRAZOLE INJECTION 40 MG VIAL IV SCH (09:30)
[2023-02-07] MEDS: amLODIPine 5 MG TABLET PO SCH (09:30)
[2023-02-07] MEDS: MICONAZOLE 2% POWDER 90 GM TOP SCH ×2 (09:32→21:45)
[2023-02-07] MEDS: MENTHOL/ZINC OXIDE OINTMENT 113 GM TUBE TOP SCH ×2 (09:32→21:45)
--- NOTE | 2023-02-07 09:48 | Occupational Ther Daily Note ---
OT Current Status-Daily Note Subjective Pt sleeping in bed, woke to name though continued to be drowsy. Pt agrees to therapy. No c/o pain. Pt took increased time to fully wake. OT/PT co-treat ([id number]), skills of 2 clinicians required to decrease fall risk, monitor O2/modify tx accordingly and increase activity tolerance/strength. PT focusing on ambulation and transfers while OT focusing on ADLs, and B UE placement during mobility. Mental Status/Objective Patient Orientation: Person, Place, Time, Situation Attachments: Oxygen (4L) ADL-Treatment Mod A for supine to EOB, EOB independent. Supervision for eating due to pt losing focus on task and cues to remain on task. Min A for SPT from EOB to w/c. Mod A for sponge bath for focusing on task, assist with bathing lower legs/feet. Declines oral care. Set up for UBD. Pt able to thread L foot into pants then assist to thread L foot, stood with CGA while pt hiked pants over hips. Therapy Code Descriptions/Definitions Functional [place] Measure: 0=Not Assessed/NA 4=Minimal Assistance 1=Total Assistance 5=Supervision or Setup 2=Maximal Assistance 6=Modified [place] 3=Moderate Assistance 7=Complete IndependenceSCALE: Activities may be completed with or without assistive devices. 8-Lfjjmxrljm-acirppy completes the activity by him/herself with no assistance from a helper. 5-Set-up or Clean-up Assistance-helper sets up or cleans up; patient completes activity. [place] assists only prior to or following the activity. 4-Supervision or Touching Assistance-helper provides verbal cues and/or touc nuha/steadying and/or contact guard assistance as patient completes activity. Assistance may be provided throughout the activity or intermittently. 3-Partial/Moderate Assistance-helper does LESS THAN HALF the effort. [place] lifts, holds or supports trunk or limbs, but provides less than half the effort. 2-Substantial/Maximal Assistance-helper does MORE THAN HALF the effort. [place] lifts or holds trunk or limbs and provides more than half the effort. 5-Thswiiett-etxvnu does ALL the effort. Patient does none of the effort to complete the activity. Or, the assistance of 2 or more helpers is required for the patient to complete the activity. If activity was not attempted, code reason: 7-Patient Refused. 9-Not Applicable-not attempted and the patient did not perform the activity before the current illness, exacerbation or injury. 10-Not Attempted due to Environmental Limitations-(lack of equipment, weather restraints, etc.). 88-Not Attempted due to Medical Conditions or Safety Concerns. Eating (QC): 4 Shower/Bathe Self (QC): 3 (mod A) Upper Body Dressing (QC): 5 Lower Body Dressing (QC): 3 Other Treatment Pt educated on O2 tubing management while ambulating and transferring. Pt 50% accuracy with tubing management. Monitored O2% throughout session, remained 94% and above. See PT notes for ambulation progress. Pt then completed dynamic standing balance in //bars by standing with support of 1 UE while hitting a balloon back and forth with lore JARAMILLO's. After session, pt sitting in recliner with call light/phone in reach. All needs met in room. OT Short Term Goals Short Term Goals Time Frame: Feb 20, 2023 Eatin Oral hygiene: 5 Toileting hygiene: 3 (min assist) Shower/bathe self: 3 (min assist) Upper body dressin Lower body dressin (Min assist with AE) Putting on/taking off footwear: 4 (supervision with AE) OT Fpc Goals Fpc Goals Time Frame: Mar 06, 2023 Acute change in mental status: 0 Inattention: 0 Disorganized thinkin Altered level of consciousness: 0 Eating (QC): 6 Oral Hygiene (QC): 6 Toileting Hygiene (QC): 6 Shower/Bathe Self (QC): 4 Upper Body Dressing (QC): 5 Lower Body Dressing (QC): 5 (set up with AE) On/Off Footwear (QC): 5 (Set up with AE) Additional Goals: 1-Demonstrate ADL Tasks, 2-Verbalize Understanding, 3- ImproveStrength/Shae 1=Demonstrate adherence to instructed precautions during ADL tasks. 2=Patient will verbalize/demonstrate understanding of assistive devices/modifications for ADL. 3=Patient will improve strength/tolerance for activity to enable patient to perform ADL's. OT Education/Plan Problem List/Assessment Assessment: Decreased Activ Tolerance, Decreased Safety Aware, Impaired Bed Mobility, Impaired Cognition, Impaired Coordination, Impaired Self-Care Skills Discharge Recommendations Plan/Recommendations: Continue POC Treatment Plan/Plan of Care Patient would benefit from OT for education, treatment and training to promote independence in ADL's, mobility, safety and/or upper extremity function for ADL's. Plan of Care: ADL Retraining, Caregiver Training, Cognitive Retraining, Fu nctional Mobility, Group Exercise/Act as Ind, UE Funct Exercise/Act Treatment Duration: Mar 06, 2023 Frequency: At least 5 of 7 days/Wk (IRF) Estimated Hrs Per Day: 1.5 hours per day Agreement: Yes Rehab Potential: Good Time Start Time: 08:30 Stop Time: 10:00 DATE: Feb 07, 2023 Total Time Billed (hr/min): 90 Billed Treatment Time 1 visit-ADL 3 (45 min) FA 3 (45 min) co-treat with PT [id number], individual [id number] MARY NAVARRETE Feb 07, 2023 09:48
--- NOTE | 2023-02-07 10:06 | Physical Therapy Daily Note ---
PT Daily Note-Current Subjective Pt sitting in [facility] working w/OT in upon arrival. Pt agrees to PT/OT co-treat. OT/PT co-treat ([id number]), skills of 2 clinicians required to decrease fall risk, monitor O2/modify tx accordingly and increase activity tolerance/strength. PT focusing on ambulation and transfers while OT focusing on ADLs, and B UE pl acement during mobility. Pain Location: No Pain Reported Section J - Health Conditions 1. Rarely or not at all 2. Occasionally 3. Frequently 4. Almost constantly 8. Unable to answer Pain Effect on Sleep: 1 Pain Interference with Therapy: 1 Pain Interference w/Day-to-Day: 1 Mental Status Patient Orientation: Person, Place Attachments: Oxygen (4L) Transfers SCALE: Activities may be completed with or without assistive devices. 5-Skkvvsojsj-pjfhhub completes the activity by him/herself with no assistance from a helper. 5-Set-up or Clean-up Assistance-helper sets up or cleans up; patient completes activity. [place] assists only prior to or following the activity. 4-Supervision or Touching Assistance-helper provides verbal cues and/or touching/steadying and/or contact guard assistance as patient completes acti vity. Assistance may be provided throughout the activity or intermittently. 3-Partial/Moderate Assistance-helper does LESS THAN HALF the effort. [place] lifts, holds or supports trunk or limbs, but provides less than half the effort. 2-Substantial/Maximal Assistance-helper does MORE THAN HALF the effort. [place] lifts or holds trunk or limbs and provides more than half the effort. 1-Bqxsmgrof-kctjze does ALL the effort. Patient does none of the effort to complete the activity. Or, the assistance of 2 or more helpers is required for the patient to complete the activity. If activity was not attempted, code reason: 7-Patient Refused. 9-Not Applicable-not attempted and the patient did not perform the activity before the current illness, exacerbation or injury. 10-Not Attempted due to Environmental Limitations-(lack of equipment, weather restraints, etc.). 88-Not Attempted due to Medical Conditions or Safety Concerns. Sit to Stand (QC): 4 Toilet Transfer (QC): 4 Weight Bearing Right Lower Extremity: Right Full Weight Bearing Left Lower Extremity: Left Full Weight Bearing Gait Training Does the Patient Walk?: Yes Distance: 30' x5 Walk 10 feet (QC): 4 Walk 50 ft with 2 Turns(QC): 4 Walk 150 ft (QC): 4 Gait Assistive Device: FWW Treatments Pt educated on O2 tubing management while ambulating and transferring. Pt 50% accuracy with tubing management. Monitored O2% throughout session, remained 94% and above. Pt amb in Therapy Gym using FWW, taking RB after every ~ 30'. Pt then completed dynamic standing balance in //bars by standing with support of 1 UE while hitting a balloon back and forth, 3 reps w/RB between each. After session, pt sitting in recliner with call light/phone in reach. All needs met in room. Assessment Current Status: Good Progress Pt demonstrates confusion and needs reminders for safety and O2 tubing management. PT Director Radio Goals Mcc Goals PT Mcc Goals Time Frame: Feb 20, 2023 Roll Left & Right (QC): 6 (Pt will be Mod I with bed mobility and transfers. ) Sit to Lying (QC): 6 (Pt will be Mod I with bed mobility and transfers. ) Lying-Sitting on Side/Bed(QC): 6 (Pt will be Mod I with bed mobility and transfers. ) Sit to Stand (QC): 6 (Pt will be Mod I with bed mobility and transfers. ) Chair/Naf-cx-Vuoyr Xfer(QC): 6 (Pt will be Mod I with bed mobility and transfers. ) Toilet Transfer (QC): 6 (Pt will be Mod I with bed mobility and transfers. ) Car Transfer (QC): 6 (Pt will be Mod I with bed mobility and transfers. ) Does the Patient Walk: Yes Walk 10 feet (QC): 4 (Pt will be SBA for walking and stairs with the FWW. ) Walk 50ft with 2 Turns (QC): 4 (Pt will be SBA for walking and stairs with the FWW. ) Walk 150 ft (QC): 4 (Pt will be SBA for walking and stairs with the FWW. ) Walking 10ft on Uneven Surface: 4 (Pt will be SBA for walking and stairs with the FWW. ) 1 Step (curb) (QC): 4 (Pt will be SBA for walking and stairs with the FWW. ) 4 Steps (QC): 4 (Pt will be SBA for walking and stairs with the FWW. ) 12 Steps (QC): 9 Picking up an Object (QC): 6 (Mod I) Does the Pt use WC or Scooter?: No Wheel 50 feet with 2 turns (QC: 9 Type: N/A Wheel 150 feet: 9 Type: N/A PT Plan Problem List Problem List: Activity Tolerance, Safety Treatment/Plan Treatment Plan: Continue Plan of Care Treatment Plan: Bed Mobility, Concurrent Therapy, Education, Functional Activity Shae, Functional Strength, Group Therapy, Gait, Safety, Therapeutic Exercise, Transfers Treatment Duration: Feb 20, 2023 Frequency: At least 5 of 7 days/Wk (IRF) Estimated Hrs Per Day: 1.5 hours per day Patient and/or Family Agrees t: Yes Safety Risks/Education Patient Education: Transfer Techniques, Correct Positioning, Safety Issues Teaching Recipient: Patient Teaching Methods: Demonstration, Discussion Response to Teaching: Verbalize Understanding, Return Demonstration Time Time In: 0900 Time Out: 1000 DATE: Feb 07, 2023 Total Billed Treatment Time: 60 Total Billed Treatment Co-treat w/OT for 60m ([id number]) 1, FA x2 (30m) & GT x2 (30m) LEO DUNN HEADER UP Feb 07, 2023 10:06
[2023-02-07] MEDS: MICONAZOLE 2% CREAM 30 GM TP SCH ×2 (14:05→21:45)
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
[2023-02-07 19:05] VITALS: BP 150/66
[2023-02-07] MEDS: FAMOTIDINE 20 MG TABLET PO SCH (21:24)
[2023-02-07] MEDS: ENOXAPARIN 40 MG/0.4 ML SYRINGE SC SCH (21:25)
[2023-02-08] MEDS: guaiFENesin/CODEINE 10ML UDC PO PRN (01:33)
--- NOTE | 2023-02-08 05:22 | PM&R Progress Note ---
Subjective HPI/CC On Admission Date Seen by Provider: Feb 08, 2023 Time Seen by Provider: 13:00 Subjective/Events-last exam 02/08/2023: Patient remains impulsive Bowels are moving Weakness still an issue No pain is reported No falls 02/07/2023: Patient doing pretty well Very impulsive Patient was found after a minor fall in the bathroom Reviewed meds and labs Poor appetite continues 02/06/2023: Patient doing well Cognitions slow consistent with the post concussion syndrome No pain is reported Blood pressure really elevated so we will add another dose of Norvasc Reviewed meds and labs Review of Systems General: Fatigue, Malaise Pulmonary: Dyspnea Objective Exam Vital Signs Vital Signs Date Time Temp Pulse Resp B/P (MAP) Pulse Ox O2 Delivery O2 Flow Rate FiO2 02/08/23 09:20 Nasal Cannula 4.00 02/08/23 08:08 36.9 92 18 169/72 (104) 96 02/06/23 13:45 36 Capillary Refill : General Appearance: No Apparent Distress, WD/WN, Chronically ill, Obese HEENT: PERRL/EOMI, Normal ENT Inspection, Pharynx Normal Neck: Full Range of Motion, Normal Inspection, Non Tender, Supple, Carotid Bruit Respiratory: Chest Non Tender, Lungs Clear, No Accessory Muscle Use, No Respiratory Distress, Decreased Breath Sounds Cardiovascular: Regular Rate, Rhythm, No Edema, No Gallop, No JVD, No Murmur, Normal Peripheral Pulses Gastrointestinal: Normal Bowel Sounds, No Organomegaly, No Pulsatile Mass, Non Tender, Soft Back: Normal Inspection, No CVA Tenderness, No Vertebral Tenderness Extremity: Normal Capillary Refill, Normal Inspection, Normal Range of Motion, Non Tender, No Calf Tenderness, No Pedal Edema Neurologic/Psychiatric: Alert, Oriented x3, creative services manager II-XII Norm as Tested, Abnormal Gait, Depressed Affect, Motor Weakness ( generalized 3/5 all extremities) Skin: Normal Color, Warm/Dry Lymphatic: No Adenopathy Results/Procedures Lab Laboratory Tests 02/08/23 05:48 Patient resulted labs reviewed. FIM Transfers Therapy Code Descriptions/Definitions Functional [place] Measure: 0=Not Assessed/NA 4=Minimal Assistance 1=Total Assistance 5=Supervision or Setup 2=Maximal Assistance 6=Modified [place] 3=Moderate Assistance 7=Complete IndependenceSCALE: Activities may be completed with or without assistive devices. 6-Dwsmbcqkii-ggcddvj completes the activity by him/herself with no assistance from a helper. 5-Set-up or Clean-up Assistance-helper sets up or cleans up; patient completes activity. [place] assists only prior to or following the activity. 4-Supervision or Touching Assistance-helper provides verbal cues and/or touching/steadying and/or contact guard assistance as patient completes activity. Assistance may be provided throughout the activity or intermittently. 3-Partial/Moderate Assistance-helper does LESS THAN HALF the effort. [place] lifts, holds or supports trunk or limbs, but provides less than half the effort. 2-Substantial/Maximal Assistance-helper does MORE THAN HALF the effort. [place] lifts or holds trunk or limbs and provides more than half the effort. 3-Pnnymounq-gamury does ALL the effort. Patient does none of the effort to complete the activity. Or, the assistance of 2 or more helpers is required for the patient to complete the activity. If activity was not attempted, code reason: 7-Patient Refused. 9-Not Applicable-not attempted and the patient did not perform the activity before the current illness, exacerbation or injury. 10-Not Attempted due to Environmental Limitations-(lack of equipment, weather restraints, etc.). 88-Not Attempted due to Medical Conditions or Safety Concerns. Roll Left to Right (QC): 3 (Min A ) Sit to Lying (QC): 3 (Min A ) Sit to Stand (QC): 4 Chair/Zvu-jp-Ibram Xfer(QC): 3 (Min A ) Car Transfer (QC): 3 (Min A ) Gait Training Does the Patient Walk?: Yes Distance: 30' x5 Walk 10 feet (QC): 4 Walk 50 ft with 2 Turns(QC): 4 Walk 150 ft (QC): 4 Walking 10ft/uneven surface-QC: 3 (Min A ) Gait Assistive Device: FWW Wheelchair Training Does the Pt Use a Wheelchair?: No Wheel 50 ft with 2 turns (QC): 9 Wheel 150 ft (QC): 9 Type of Wheelchair: N/A Stair Training #of Steps: 8 1 Step (curb) (QC): 3 (Min A ) 4 Steps (QC): 3 (Min A ) 12 Steps (QC): 9 (Pt has 5 steps at home ) Balance Picking up an Object (QC): 3 (Min A with last turner ) ADL-Treatment Eating (QC): 4 Oral Hygiene (QC): 4 (Supervision to brush teeth up in chair.) Shower/Bathe Self (QC): 3 (mod A) Upper Body Dressing (QC): 5 Lower Body Dressing (QC): 3 On/Off Footwear (QC): 2 (Pt. attempts to bend over to doff slipper socks. He struggles greatly with reaching them, as well as with breathing while bending over. OT doffs/dons slipper socks. Pt. indicates that he has equipment at home, but can't state if he uses it or not.) Toileting Hygiene (QC): 2 (Pt. is able to state that he has to use the BSC. OT assists with transfer with min assist and cues. Pt. has BM, but is unable to reach nuria area. Requires OT to fully cleanse rear nuria area in stance.) Assessment/Plan Assessment and Plan Assess & Plan/Chief Complaint Assessment: Post concussion syndrome Acute respiratory failure failed BiPAP placed on ventilator 01/19/23 until 02/01/[address]ubation [address] with road rash Acute kidney injury resolved s/p encephalopathy s/p rhabdomyolysis IDDM: SSI Multiple rib fractures: pain control, encouraged patient to use IS Multiple abrasions HTN: restart home atenolol Hypothyroidism: continue home levothyroxine Poor oral intake Anemia Plan: Monitor closely Pain control PT OT O2 Bowel regimen Wound care 02/06/2023: Supportive care Monitor closely Blood pressure management 02/07/2023: Supportive care Fall risk Minimize insulin 02/08/2023: Decrease insulin Fall risk (1) Post concussion syndrome ANDRES GARCÍA DO Feb 08, 2023 05:21
[2023-02-08 05:52] LABS: BASOPHILS # (AUTO) 0.1 10^3/uL (0.0-0.1); BASOPHILS % (AUTO) 1 % (0-10); EOSINOPHILS # (AUTO) 0.6 10^3/uL (0.0-0.3); EOSINOPHILS % (AUTO) 7 % (0-10); HEMATOCRIT 29 % (40-54); HEMOGLOBIN 8.6 g/dL (13.3-17.7); LYMPHOCYTES # (AUTO) 1.3 10^3/uL (1.0-4.0); LYMPHOCYTES % (AUTO) 15 % (12-44); MEAN CORPUSCULAR HEMOGLOBIN 27 pg (25-34); MEAN CORPUSCULAR HGB CONC 30 g/dL (32-36); MEAN CORPUSCULAR VOLUME 92 fL (80-99); MEAN PLATELET VOLUME 11.6 fL (9.0-12.2); MONOCYTES # (AUTO) 0.9 10^3/uL (0.0-1.0); MONOCYTES % (AUTO) 10 % (0-12); NEUTROPHILS # (AUTO) 5.5 10^3/uL (1.8-7.8); NEUTROPHILS % (AUTO) 66 % (42-75); PLATELET COUNT 251 10^3/uL (130-400); WHITE BLOOD COUNT 8.2 10^3/uL (4.3-11.0)
[2023-02-08 06:03] LABS: ALBUMIN 2.7 GM/DL (3.2-4.5); POTASSIUM 3.6 MMOL/L (3.6-5.0)
[2023-02-08 06:04] LABS: CALCIUM 8.4 MG/DL (8.5-10.1)
[2023-02-08 06:05] LABS: TOTAL PROTEIN 5.2 GM/DL (6.4-8.2)
[2023-02-08 06:07] LABS: BILIRUBIN,TOTAL 0.4 MG/DL (0.1-1.0)
[2023-02-08 06:09] LABS: CREATININE SERUM 0.75 MG/DL (0.60-1.30)
[2023-02-08] MEDS: inSUlin ASPART 1 UNIT/0.01 ML (PER UNIT) SC SCH ×4 (06:09→21:50)
[2023-02-08] MEDS: CATHETER FLUSH 10 ML SYR IVP SCH ×3 (06:16→21:55)
[2023-02-08] MEDS: LEVOTHYROXINE 50 MCG TABLET PO SCH (06:16)
[2023-02-08] MEDS: RT-Ipratropium/Albuterol NEB 3 ML VIAL INH SCH ×2 (06:40→20:17)
[2023-02-08] MEDS: RT-BUDESONIDE NEBS 0.5 MG/2ML VIAL INH SCH ×2 (06:40→20:17)
--- NOTE | 2023-02-08 07:23 | Occupational Ther Daily Note ---
OT Current Status-Daily Note Subjective Pt sleeping laying in bed. Pt agrees to therapy. no c/o of pain. Mental Status/Objective Patient Orientation: Person, Place, Time, Situation ADL-Treatment Nrsg and MONTALVO positioned and scooted pt up in bed for meal, max A x2. Pt requires set up for meal then supervision due to lethargy and requires multiple cues to stay awake to eat meal. Pt will smile and mumble response only. After therapy, pt sitting up in bed with call light/phone in reach. All needs met in room. Therapy Code Descriptions/Definitions Functional [place] Measure: 0=Not Assessed/NA 4=Minimal Assistance 1=Total Assistance 5=Supervision or Setup 2=Maximal Assistance 6=Modified [place] 3=Moderate Assistance 7=Complete IndependenceSCALE: Activities may be completed with or without assistive devices. 9-Dqrvndsypm-uhuxddx completes the activity by him/herself with no assistance from a helper. 5-Set-up or Clean-up Assistance-helper sets up or cleans up; patient completes activity. [place] assists only prior to or following the activity. 4-Supervision or Touching Assistance-helper provides verbal cues and/or touching/steadying and/or contact guard assistance as patient completes act ivity. Assistance may be provided throughout the activity or intermittently. 3-Partial/Moderate Assistance-helper does LESS THAN HALF the effort. [place] lifts, holds or supports trunk or limbs, but provides less than half the effort. 2-Substantial/Maximal Assistance-helper does MORE THAN HALF the effort. [place] lifts or holds trunk or limbs and provides more than half the effort. 1-Gzydxbexy-chchgu does ALL the effort. Patient does none of the effort to complete the activity. Or, the assistance of 2 or more helpers is required for the patient to complete the activity. If activity was not attempted, code reason: 7-Patient Refused. 9-Not Applicable-not attempted and the patient did not perform the activity before the current illness, exacerbation or injury. 10-Not Attempted due to Environmental Limitations-(lack of equipment, weather restraints, etc.). 88-Not Attempted due to Medical Conditions or Safety Concerns. Eating (QC): 4 (Supervison to maintain focus on task.) OT Short Term Goals Short Term Goals Time Frame: Feb 20, 2023 Eatin Oral hygiene: 5 Toileting hygiene: 3 (min assist) Shower/bathe self: 3 (min assist) Upper body dressin Lower body dressin (Min assist with AE) Putting on/taking off footwear: 4 (supervision with AE) OT Lead Laying And Gluing Machine Operator Goals [facility] Goals Time Frame: Mar 06, 2023 Acute change in mental status: 0 Inattention: 0 Disorganized thinkin Altered level of consciousness: 0 Eating (QC): 6 Oral Hygiene (QC): 6 Toileting Hygiene (QC): 6 Shower/Bathe Self (QC): 4 Upper Body Dressing (QC): 5 Lower Body Dressing (QC): 5 (set up with AE) On/Off Footwear (QC): 5 (Set up with AE) Additional Goals: 1-Demonstrate ADL Tasks, 2-Verbalize Understanding, 3- ImproveStrength/Shae 1=Demonstrate adherence to instructed precautions during ADL tasks. 2=Patient will verbalize/demonstrate understanding of assistive devices/modifications for ADL. 3=Patient will improve strength/tolerance for activity to enable patient to perform ADL's. OT Education/Plan Problem List/Assessment Assessment: Decreased Activ Tolerance, Impaired Bed Mobility, Impaired Cognitio n, Impaired Self-Care Skills Discharge Recommendations Plan/Recommendations: Continue POC Treatment Plan/Plan of Care Patient would benefit from OT for education, treatment and training to promote independence in ADL's, mobility, safety and/or upper extremity function for ADL's. Plan of Care: ADL Retraining, Caregiver Training, Cognitive Retraining, Functional Mobility, Group Exercise/Act as Ind, UE Funct Exercise/Act Treatment Duration: Mar 06, 2023 Frequency: At least 5 of 7 days/Wk (IRF) Estimated Hrs Per Day: 1.5 hours per day Agreement: Yes Rehab Potential: Fair Time Start Time: 07:00 Stop Time: 07:30 DATE: Feb 08, 2023 Total Time Billed (hr/min): 30 Billed Treatment Time 1 visit-ADL 2 (30 min) MARY NAVARRETE Feb 08, 2023 07:23
[2023-02-08 08:08] VITALS: BP 169/72
[2023-02-08] MEDS: DOCUSATE SODIUM 100 MG CAPSULE PO SCH ×2 (08:30→21:50)
[2023-02-08] MEDS: SENNA W/DOCUSATE TABLET PO SCH ×2 (08:30→21:50)
[2023-02-08] MEDS: inSUlin DETERMIR 1 UNIT/0.01 ML (CHARGE PER UNIT) SQ SCH ×2 (08:40→21:53)
[2023-02-08] MEDS: hydrALAZINE 25 MG TABLET PO SCH ×3 (08:41→21:53)
[2023-02-08] MEDS: PANTOPRAZOLE 40 MG TABLET PO SCH (08:41)
[2023-02-08] MEDS: SERTRALINE 100 MG TABLET PO SCH ×2 (08:41→21:52)
[2023-02-08] MEDS: MENTHOL/ZINC OXIDE OINTMENT 113 GM TUBE TOP SCH ×2 (08:41→21:53)
[2023-02-08] MEDS: MICONAZOLE 2% POWDER 90 GM TOP SCH ×2 (08:41→21:55)
[2023-02-08] MEDS: amLODIPine 5 MG TABLET PO SCH (08:41)
[2023-02-08] MEDS: MICONAZOLE 2% CREAM 30 GM TP SCH ×2 (08:41→21:50)
--- NOTE | 2023-02-08 10:44 | Speech Therapy Daily Note ---
Speech Daily Progress Note Subjective Date Seen by Provider: Feb 08, 2023 Time Seen by Provider: 10:00 The patient was lying in bed, awake, upon entrance to his room by the clinician. The patient greeted the clinician appropriately and was hesitant, yet agreeable, to participation in the skilled cognitive therapy session. Objective The patient required maximum redirection for limited participation in skilled tasks on this date. The patient appeared uncomfortable in bed and was offered re-positioning on multiple occasions throughout the session (patient refused). The patient stated he "just didn't feel good" today and was "more tired." The patient's reports were provided to the RN. The patient frequently laughed and stated, "I don't know" to the clinician following multiple exercise tasks and questions. Regardless of maximum redirection and cueing, the patient would continue to state, "I don't know" while laughing. If continued participation is not displayed in subsequent treatment, the patient will be discharged from skilled speech pathology due to poor progress and overall prognosis towards cognitive goals. The patient remains oriented to self, location, month, and year. Sequencing exercises were attempted as the clinician provided the patient with three words and asked the patient to place the words in a sequence. The patient did not complete one question from the exercise. Due to this, the clinician decided to change to a functional sequence. 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 The patient does not participate in the task regardless of maximum cueing. Assessment Assessment Current Status: Poor Progress Treatment Plan Continue Plan of Care Speech Short Term Goals Short Term Goals Short Term Goals 1. The patient will demonstrate 75% accuracy with memory exercises with moderate clinician verbal and visual cueing. Time Frame-STG: One Week. Speech Clerical Associate Goals Snf Goals 1. The patient will demonstrate improved cognitive linguistic function for safe discharge to least restrictive environment. Time Frame: Two Weeks. Speech-Plan Treatment Plan Speech Therapy Treatment Plan: Continue Plan of Care Treatment Duration: Feb 15, 2023 Frequency: Modified Program (IRF) Estimated Hrs Per Day: .5 hour per day Rehab Potential: Poor Safety Risks/Education Teaching Recipient: Patient Teaching Methods: Discussion Response to Teaching: Reinforcement Needed Education Topics Provided: Orientation Strategies, Plan of Care Time Speech Therapy Time In: 10:00 Speech Therapy Time Out: 10:30 DATE: Feb 08, 2023 Total Billed Time: 30 Billed Treatment Time 1, INEZ AVERY Feb 08, 2023 10:44
--- NOTE | 2023-02-08 11:55 | Occupational Ther Daily Note ---
OT Current Status-Daily Note Subjective Pt sleeping in bed, difficult to wake. Pt lethargic during most of session, mumbling to questions. Pt kept say 'I don't know' or laughing. No c/o pain, c/o dizziness. Mental Status/Objective Patient Orientation: Person, Unable to Assess ADL-Treatment Mod A for supine to EOB, CGA for EOB to supine. Min A for SPT from surfaces to surface. Toilet transfer min A. Mod A for toileting, pt initiated pant hike up/down then assist to finish and pt initiate hygiene though inefficient and assist for thoroughness. Pt able to thread feet out of lower body clothing with verbal and physical cues, assist to don pants. Pt sat at sink and wash face then brushed hair after verbal cues to initiate. Therapy Code Descriptions/Definitions Functional [place] Measure: 0=Not Assessed/NA 4=Minimal Assistance 1=Total Assistance 5=Supervision or Setup 2=Maximal Assistance 6=Modified [place] 3=Moderate Assistance 7=Complete IndependenceSCALE: Activities may be completed with or without assistive devices. 9-Jnysyaecgt-vcjuqjm completes the activity by him/herself with no assistance from a helper. 5-Set-up or Clean-up Assistance-helper sets up or cleans up; patient completes activity. [place] assists only prior to or following the activity. 4-Supervision or Touching Assistance-helper provides verbal cues and/or touching/steadying and/or contact guard assistance as patient completes activity. Assistance may be provided throughout the activity or intermittently. 3-Partial/Moderate Assistance-helper does LESS THAN HALF the effort. [place] lifts, holds or supports trunk or limbs, but provides less than half the effort. 2-Substantial/Maximal Assistance-helper does MORE THAN HALF the effort. [place] lifts or holds trunk or limbs and provides more than half the effort. 5-Lljasviue-zqqqrw does ALL the effort. Patient does none of the effort to complete the activity. Or, the assistance of 2 or more helpers is required for the patient to complete the activity. If activity was not attempted, code reason: 7-Patient Refused. 9-Not Applicable-not attempted and the patient did not perform the activity before the current illness, exacerbation or injury. 10-Not Attempted due to Environmental Limitations-(lack of equipment, weather restraints, etc.). 88-Not Attempted due to Medical Conditions or Safety Concerns. Oral Hygiene (QC): 7 Lower Body Dressing (QC): 2 Toileting Hygiene (QC): 2 Toilet Transfer (QC): 2 Other Treatment Mod A to propel w/c to therapy gym. Arm bike for 8 min with multiple breaks and max encouragement to finish task, 15 jones resistance then lowered to no resistance. After session, pt lying in bed with call light/phone in reach. All needs met in room. OT Short Term Goals Short Term Goals Time Frame: Feb 20, 2023 Eatin Oral hygiene: 5 Toileting hygiene: 3 (min assist) Shower/bathe self: 3 (min assist) Upper body dressin Lower body dressin (Min assist with AE) Putting on/taking off footwear: 4 (supervision with AE) OT Half-Way Goals Half-Way Goals Time Frame: Mar 06, 2023 Acute change in mental status: 0 Inattention: 0 Disorganized thinkin Altered level of consciousness: 0 Eating (QC): 6 Oral Hygiene (QC): 6 Toileting Hygiene (QC): 6 Shower/Bathe Self (QC): 4 Upper Body Dressing (QC): 5 Lower Body Dressing (QC): 5 (set up with AE) On/Off Footwear (QC): 5 (Set up with AE) Additional Goals: 1-Demonstrate ADL Tasks, 2-Verbalize Understanding, 3- ImproveStrength/Shae 1=Demonstrate adherence to instructed precautions during ADL tasks. 2=Patient will verbalize/demonstrate understanding of assistive devices/modifications for ADL. 3=Patient will improve strength/tolerance for activity to enable patient to perform ADL's. OT Education/Plan Problem List/Assessment Assessment: Decreased Activ Tolerance, Decreased UE Strength, Impaired Cognition, Impaired Funct Balance, Impaired Self-Care Skills Discharge Recommendations Plan/Recommendations: Continue POC Treatment Plan/Plan of Care Patient would benefit from OT for education, treatment and training to promote independence in ADL's, mobility, safety and/or upper extremity function for ADL's. Plan of Care: ADL Retraining, Caregiver Training, Cognitive Retraining, Functional Mobility, Group Exercise/Act as Ind, UE Funct Exercise/Act Treatment Duration: Mar 06, 2023 Frequency: At least 5 of 7 days/Wk (IRF) Estimated Hrs Per Day: 1.5 hours per day Agreement: Yes Rehab Potential: Poor Time Start Time: 10:30 Stop Time: 11:30 DATE: Feb 08, 2023 Total Time Billed (hr/min): 60 Billed Treatment Time 1 visit-ADL 3 (40 min) EX 1 (20 min) MARY NAVARRETE Feb 08, 2023 11:55
--- NOTE | 2023-02-08 14:05 | Physical Therapy Daily Note ---
PT Daily Note-Current Subjective Pt found lying in bed upon entry. Agreed to PT. Reports that he is having some pain on his rear while seated. Pain Section J - Health Conditions 1. Rarely or not at all 2. Occasionally 3. Frequently 4. Almost constantly 8. Unable to answer Pain Effect on Sleep: 1 Pain Interference with Therapy: 1 Pain Interference w/Day-to-Day: 1 Mental Status Patient Orientation: Person Attachments: Oxygen 4L O2 Transfers SCALE: Activities may be completed with or without assistive devices. 5-Usyctgqpel-mzyeamq completes the activity by him/herself with no assistance from a helper. 5-Set-up or Clean-up Assistance-helper sets up or cleans up; patient completes activity. [place] assists only prior to or following the activity. 4-Supervision or Touching Assistance-helper provides verbal cues and/or touching/steadying and/or contact guard assistance as patient completes activity. Assistance may be provided throughout the activity or intermittently. 3-Partial/Moderate Assistance-helper does LESS THAN HALF the effort. [place] lifts, holds or supports trunk or limbs, but provides less than half the effort. 2-Substantial/Maximal Assistance-helper does MORE THAN HALF the effort. [place] lifts or holds trunk or limbs and provides more than half the effort. 2-Gzntembnf-wmvmnd does ALL the effort. Patient does none of the effort to complete the activity. Or, the assistance of 2 or more helpers is required for the patient to complete the activity. If activity was not attempted, code reason: 7-Patient Refused. 9-Not Applicable-not attempted and the patient did not perform the activity before the current illness, exacerbation or injury. 10-Not Attempted due to Environmental Limitations-(lack of equipment, weather restraints, etc.). 88-Not Attempted due to Medical Conditions or Safety Concerns. Sit to Lying (QC): 4 Lying to Sitting/Side of Bed(Q: 4 Sit to Stand (QC): 4 Pt performs bed mobility /c SBA for safety due to strength and balance deficits. CGA required for completion of sit to stand transfer due to unsteadiness. Sit to stand transfer completed 5x from chair. Weight Bearing Right Lower Extremity: Right Full Weight Bearing Left Lower Extremity: Left Full Weight Bearing Gait Training Does the Patient Walk?: Yes Distance: 30 feet x 8 Walk 10 feet (QC): 4 Gait Persons Needed: 1 Gait Assistive Device: FWW Pt ambulates /c use of FWW and required CGA for safety due to balance deficits. Demonstrates increased fatigue throughout gait training /c slight unsteadiness. O2 saturation measured at 95% after 30 feet of ambulation. Pt ambulated 30 feet x 8 total. Exercises NuStep Minutes: 5 NuStep Workload: 3 Treatments O2 sats Pre-treatment: 96% After 30 feet of ambulation: 95% After 5 minutes on nu step: 99% Assessment Current Status: Fair Progress Pt demonstrates poor muscle endurance /c decent strength throughout visit. O2 s ats monitored throughout visit and do not drop below 95%. Pt able to ambulate up to 30 feet /c use of a FWW. Requires verbal cues while performing sit to stand transfers for proper hand and FWW placement. Continue to progress pt per POC. PT Health Officer Goals Health Officer Goals PT Jail Goals Time Frame: Feb 20, 2023 Roll Left & Right (QC): 6 (Pt will be Mod I with bed mobility and transfers. ) Sit to Lying (QC): 6 (Pt will be Mod I with bed mobility and transfers. ) Lying-Sitting on Side/Bed(QC): 6 (Pt will be Mod I with bed mobility and transfers. ) Sit to Stand (QC): 6 (Pt will be Mod I with bed mobility and transfers. ) Chair/Sis-nt-Xdweq Xfer(QC): 6 (Pt will be Mod I with bed mobility and transfers. ) Toilet Transfer (QC): 6 (Pt will be Mod I with bed mobility and transfers. ) Car Transfer (QC): 6 (Pt will be Mod I with bed mobility and transfers. ) Does the Patient Walk: Yes Walk 10 feet (QC): 4 (Pt will be SBA for walking and stairs with the FWW. ) Walk 50ft with 2 Turns (QC): 4 (Pt will be SBA for walking and stairs with the FWW. ) Walk 150 ft (QC): 4 (Pt will be SBA for walking and stairs with the FWW. ) Walking 10ft on Uneven Surface: 4 (Pt will be SBA for walking and stairs with the FWW. ) 1 Step (curb) (QC): 4 (Pt will be SBA for walking and stairs with the FWW. ) 4 Steps (QC): 4 (Pt will be SBA for walking and stairs with the FWW. ) 12 Steps (QC): 9 Picking up an Object (QC): 6 (Mod I) Does the Pt use WC or Scooter?: No Wheel 50 feet with 2 turns (QC: 9 Type: N/A Wheel 150 feet: 9 Type: N/A PT Plan Treatment/Plan Treatment Plan: Continue Plan of Care Treatment Plan: Bed Mobility, Concurrent Therapy, Education, Functional Activity Shae, Functional Strength, Group Therapy, Gait, Safety, Therapeutic Exercise, Transfers Treatment Duration: Feb 20, 2023 Frequency: At least 5 of 7 days/Wk (IRF) Estimated Hrs Per Day: 1.5 hours per day Patient and/or Family Agrees t: Yes Time Time In: 0900 Time Out: 1000 DATE: Feb 08, 2023 Total Billed Treatment Time: 60 Total Billed Treatment 1 visit GT x 2 FA x 1 EX x 1 YEISON PEOPLES PTA Feb 08, 2023 14:05
[2023-02-08 20:00] VITALS: BP 137/63
[2023-02-08] MEDS: FAMOTIDINE 20 MG TABLET PO SCH (21:52)
[2023-02-08] MEDS: oxyCODONE/ACETAMINOPHEN 5/325MG TABLET PO PRN (21:53)
[2023-02-08] MEDS: ENOXAPARIN 40 MG/0.4 ML SYRINGE SC SCH (21:53)
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
[2023-02-09] MEDS: CATHETER FLUSH 10 ML SYR IVP SCH ×3 (06:50→20:58)
[2023-02-09] MEDS: inSUlin ASPART 1 UNIT/0.01 ML (PER UNIT) SC SCH ×4 (06:50→20:40)
[2023-02-09] MEDS: LEVOTHYROXINE 50 MCG TABLET PO SCH (06:50)
[2023-02-09] MEDS: RT-Ipratropium/Albuterol NEB 3 ML VIAL INH SCH ×2 (07:33→21:38)
[2023-02-09] MEDS: RT-BUDESONIDE NEBS 0.5 MG/2ML VIAL INH SCH ×2 (07:33→21:38)
[2023-02-09 07:35] VITALS: BP 137/63
[2023-02-09 08:00] VITALS: BP 154/67
[2023-02-09] MEDS: amLODIPine 5 MG TABLET PO SCH (08:48)
[2023-02-09] MEDS: PANTOPRAZOLE 40 MG TABLET PO SCH (08:48)
[2023-02-09] MEDS: SENNA W/DOCUSATE TABLET PO SCH ×2 (08:48→21:00)
[2023-02-09] MEDS: DOCUSATE SODIUM 100 MG CAPSULE PO SCH ×2 (08:48→21:00)
[2023-02-09] MEDS: hydrALAZINE 25 MG TABLET PO SCH ×3 (08:48→20:58)
[2023-02-09] MEDS: SERTRALINE 100 MG TABLET PO SCH ×2 (08:49→20:58)
[2023-02-09] MEDS: inSUlin DETERMIR 1 UNIT/0.01 ML (CHARGE PER UNIT) SQ SCH ×2 (08:51→20:57)
--- NOTE | 2023-02-09 10:54 | Physical Therapy Daily Note ---
PT Daily Note-Current Subjective Pt found in shower room /c OT present upon entry. Agreed to PT/OT co-treatment. PT focus on gait training, transfers, and LE strength. OT focus on ADLs, self- care, and UE strength. Pt reports that he is still having some pain on his rear that has not any better than it was yesterday. Does not rate pain. RN/OT reports that O2 was increased from 2L to 4L /c activity due to low O2 saturation levels. Pain Section J - Health Conditions 1. Rarely or not at all 2. Occasionally 3. Frequently 4. Almost constantly 8. Unable to answer Pain Effect on Sleep: 1 Pain Interference with Therapy: 1 Pain Interference w/Day-to-Day: 1 Mental Status Patient Orientation: Person Attachments: Oxygen 4L O2 Transfers SCALE: Activities may be completed with or without assistive devices. 3-Ukojqfjwnu-rjrkqua completes the activity by him/herself with no assistance from a helper. 5-Set-up or Clean-up Assistance-helper sets up or cleans up; patient completes activity. [place] assists only prior to or following the activity. 4-Supervision or Touching Assistance-helper provides verbal cues and/or touching/steadying and/or contact guard assistance as patient completes activi ty. Assistance may be provided throughout the activity or intermittently. 3-Partial/Moderate Assistance-helper does LESS THAN HALF the effort. [place] lifts, holds or supports trunk or limbs, but provides less than half the effort. 2-Substantial/Maximal Assistance-helper does MORE THAN HALF the effort. [place] lifts or holds trunk or limbs and provides more than half the effort. 4-Dswnssxrg-qlygjg does ALL the effort. Patient does none of the effort to complete the activity. Or, the assistance of 2 or more helpers is required for the patient to complete the activity. If activity was not attempted, code reason: 7-Patient Refused. 9-Not Applicable-not attempted and the patient did not perform the activity before the current illness, exacerbation or injury. 10-Not Attempted due to Environmental Limitations-(lack of equipment, weather restraints, etc.). 88-Not Attempted due to Medical Conditions or Safety Concerns. Sit to Lying (QC): 4 Sit to Stand (QC): 4 Toilet Transfer (QC): 4 Pt CGA /c sit to stand and toilet transfers for lifting assistance. Performs sit to lying transfer /c verbal cues for proper hand placement and SBA for safety due to strength deficits. Sit to stand transfer performed 5x from wheelchair and 1x at //. Weight Bearing Right Lower Extremity: Right Full Weight Bearing Left Lower Extremity: Left Full Weight Bearing Gait Training Does the Patient Walk?: Yes Distance: 30 feet x 3 Walk 10 feet (QC): 4 Gait Persons Needed: 1 Gait Assistive Device: FWW Pt ambulates /c use of FWW and CGA for safety due to balance and vision deficits. Pt able to ambulate up to 30 feet before requiring a seated rest break. O2 levels monitored throughout gait training and do not fall below 95%. Pt displays decent step length and balance while ambulating. Ambulated 30 feet x 3. Wheelchair Training Does the Pt Use a Wheelchair?: Yes Wheel 50 ft with 2 turns (QC): 4 Treatments Supine Therapeutic Exercises (B) x 10 ea: - SLRs - Heel slides - Ankle Pumps - Quad sets - Glute sets Assessment Current Status: Fair Progress Pt tolerance to therapeutic interventions very limited today due to reported fatigue. Pt able to ambulate up to 30 feet /c use of FWW before requiring a s eated rest break. O2 levels maintained betwee 95-100% throughout treatment at 4L O2. Pt required frequent verbal cues for sequencing during transfers and to perform therapeutic exercises. Pt placed back in bed post-treatment /c all needs met and is currently on 2L of O2 at rest. O2 sats measured at 96%. RN notified. Continue to progress pt per POC. PT Configuration Management Manager Goals Senior Care Goals PT Configuration Management Manager Goals Time Frame: Feb 20, 2023 Roll Left & Right (QC): 6 (Pt will be Mod I with bed mobility and transfers. ) Sit to Lying (QC): 6 (Pt will be Mod I with bed mobility and transfers. ) Lying-Sitting on Side/Bed(QC): 6 (Pt will be Mod I with bed mobility and t ransfers. ) Sit to Stand (QC): 6 (Pt will be Mod I with bed mobility and transfers. ) Chair/Uws-jb-Gthht Xfer(QC): 6 (Pt will be Mod I with bed mobility and transfers. ) Toilet Transfer (QC): 6 (Pt will be Mod I with bed mobility and transfers. ) Car Transfer (QC): 6 (Pt will be Mod I with bed mobility and transfers. ) Does the Patient Walk: Yes Walk 10 feet (QC): 4 (Pt will be SBA for walking and stairs with the FWW. ) Walk 50ft with 2 Turns (QC): 4 (Pt will be SBA for walking and stairs with the FWW. ) Walk 150 ft (QC): 4 (Pt will be SBA for walking and stairs with the FWW. ) Walking 10ft on Uneven Surface: 4 (Pt will be SBA for walking and stairs with the FWW. ) 1 Step (curb) (QC): 4 (Pt will be SBA for walking and stairs with the FWW. ) 4 Steps (QC): 4 (Pt will be SBA for walking and stairs with the FWW. ) 12 Steps (QC): 9 Picking up an Object (QC): 6 (Mod I) Does the Pt use WC or Scooter?: No Wheel 50 feet with 2 turns (QC: 9 Type: N/A Wheel 150 feet: 9 Type: N/A PT Plan Treatment/Plan Treatment Plan: Continue Plan of Care Treatment Plan: Bed Mobility, Concurrent Therapy, Education, Functional Activity Shae, Functional Strength, Group Therapy, Gait, Safety, Therapeutic Exercise, Transfers Treatment Duration: Feb 20, 2023 Frequency: At least 5 of 7 days/Wk (IRF) Estimated Hrs Per Day: 1.5 hours per day Patient and/or Family Agrees t: Yes Time Time In: 919 Time Out: 105 DATE: Feb 09, 2023 Total Billed Treatment Time: 90 Total Billed Treatment 1 visit FA x 3 GT x 2 EX x 1 Co-treatment time: 5950-0998 Individual treatment time: 6607-9213 Total treatment time: 7442-3077 YEISON PEOPLES PTA Feb 09, 2023 10:54
[2023-02-09] MEDS: MENTHOL/ZINC OXIDE OINTMENT 113 GM TUBE TOP SCH ×2 (11:01→20:59)
[2023-02-09] MEDS: MICONAZOLE 2% POWDER 90 GM TOP SCH ×2 (11:01→21:00)
[2023-02-09] MEDS: MICONAZOLE 2% CREAM 30 GM TP SCH ×2 (11:02→21:00)
--- NOTE | 2023-02-09 12:02 | Occupational Ther Daily Note ---
OT Current Status-Daily Note Subjective Pt seen in room, up in recliner, agreeable to OT. No pain reported. Appearance Alert but inattentive at times. Slow to respond. Mental Status/Objective Attachments: Central Line, Oxygen ADL-Treatment Pt needed cues to eat breakfast (donato) but did drink orange juice on his own. Able to feed himself without assistance except setup and initiation cues. Agreeable to shower and ADLs. Nursing covered central line site. O2 sats 91% to nursing increased O2 from 2L/min to 4L/min and sats improved to 95% or better. Continued to monitor sats during ADLs. They tended to drop after activity but recovered quickly on 4L/min. Transferred from recliner to w/c with min assist, FWW. Cues for hand placement during transfers. Pt transported to shower room per w/c. Transferred to shower chair with min assist, grab bars, cues for safety. Nursing present during shower and assisted with bathing, as well as co-tx with PT, with PT working on transfers, standing balance, gross motor movements and LEs and OT working on ADLs, UE strength and coordination, safety. Help needed to wash hair and back - hair is matted and detangler put in, although all tangles not eliminated. Pt washed face, hands and arms, chest, thighs but unable to wash lower legs, nuria front and nuria back. Help to dry same areas. Verbal cues and occasional tactile cues needed for washing. Pt was incontinent of stool in shower chair. Two person assist to stand to wash nuria areas front and back. Mod assist to doff and don paper briefs. He could not get them over his feet but could pull them up with CGA from knees to over bottom, FWW. He could pull slipper socks off his feet using the other foot but could not reach forward to take them off or put them on. Transported back to room per w/c. Help to put pant s on over feet and pull them to knees, then he could pull them up. Donned shirt with min assist - put arms through incorrect openings on shirt. Pt walked to bathroom with FWW, with OT managing w/c and O2 due to fatigue. Pt stood at sink to clean dentures and brush teeth but needed cues and supervision, CGA for standing. Care transferred to PT. Therapy Code Descriptions/Definitions Functional [place] Measure: 0=Not Assessed/NA 4=Minimal Assistance 1=Total Assistance 5=Supervision or Setup 2=Maximal Assistance 6=Modified [place] 3=Moderate Assistance 7=Complete IndependenceSCALE: Activities may be completed with or without assistive devices. 2-Aqlilvaqjd-mkkxwvc completes the activity by him/herself with no assistance from a helper. 5-Set-up or Clean-up Assistance-helper sets up or cleans up; patient completes activity. [place] assists only prior to or following the activity. 4-Supervision or Touching Assistance-helper provides verbal cues and/or touching/steadying and/or contact guard assistance as patient completes activi ty. Assistance may be provided throughout the activity or intermittently. 3-Partial/Moderate Assistance-helper does LESS THAN HALF the effort. [place] lifts, holds or supports trunk or limbs, but provides less than half the effort. 2-Substantial/Maximal Assistance-helper does MORE THAN HALF the effort. [place] lifts or holds trunk or limbs and provides more than half the effort. 5-Hulmnmapy-rvrbib does ALL the effort. Patient does none of the effort to complete the activity. Or, the assistance of 2 or more helpers is required for the patient to complete the activity. If activity was not attempted, code reason: 7-Patient Refused. 9-Not Applicable-not attempted and the patient did not perform the activity before the current illness, exacerbation or injury. 10-Not Attempted due to Environmental Limitations-(lack of equipment, weather restraints, etc.). 88-Not Attempted due to Medical Conditions or Safety Concerns. Eating (QC): 4 (Supervision and cues) Oral Hygiene (QC): 4 (Supervision and cues.) Bathing Location: L Arm, R Arm, L Upper Leg, R Upper Leg, Chest, Abdomen Shower/Bathe Self (QC): 1 (Two peson assist for washing nuria front and back, in standing. Help to wash feet) Upper Body Dressing (QC): 3 (Min assist) Lower Body Dressing (QC): 3 (Mod assist) On/Off Footwear: 2 (Max assist) Education OT Patient Education: Purpose of tx/functional activities, Safety issues, Transfer techniques Teaching Recipient: Patient Teaching Methods: Demonstration, Discussion Response to Teaching: Reinforcement Needed OT Short Term Goals Short Term Goals Time Frame: Feb 20, 2023 Eatin Oral hygiene: 5 Toileting hygiene: 3 (min assist) Shower/bathe self: 3 (min assist) Upper body dressin Lower body dressin (Min assist with AE) Putting on/taking off footwear: 4 (supervision with AE) OT [facility] Clerk Goals [facility]ental Clerk Goals Time Frame: Mar 06, 2023 Acute change in mental status: 0 Inattention: 0 Disorganized thinkin Altered level of consciousness: 0 Eating (QC): 6 Oral Hygiene (QC): 6 Toileting Hygiene (QC): 6 Shower/Bathe Self (QC): 4 Upper Body Dressing (QC): 5 Lower Body Dressing (QC): 5 (set up with AE) On/Off Footwear (QC): 5 (Set up with AE) Additional Goals: 1-Demonstrate ADL Tasks, 2-Verbalize Understanding, 3- ImproveStrength/Shae 1=Demonstrate adherence to instructed precautions during ADL tasks. 2=Patient will verbalize/demonstrate understanding of assistive devices/modifications for ADL. 3=Patient will improve strength/tolerance for activity to enable patient to perform ADL's. OT Education/Plan Discharge Recommendations Plan/Recommendations: Continue POC Treatment Plan/Plan of Care Patient would benefit from OT for education, treatment and training to promote independence in ADL's, mobility, safety and/or upper extremity function for ADL's. Plan of Care: ADL Retraining, Caregiver Training, Cognitive Retraining, Functional Mobility, Group Exercise/Act as Ind, UE Funct Exercise/Act Treatment Duration: Mar 06, 2023 Frequency: At least 5 of 7 days/Wk (IRF) Estimated Hrs Per Day: 1.5 hours per day Agreement: Yes Rehab Potential: Poor Time Start Time: 08:30 Stop Time: 10:00 DATE: Feb 09, 2023 Total Time Billed (hr/min): 90 Billed Treatment Time visit, ADL 90 minutes 8:30 to 9:20 individual, 9:20 to 10:00 co-tx with GUSTAVO HART OT Feb 09, 2023 12:02
[2023-02-09 12:25] LABS: ABG BASE EXCESS 2.9 MMOL/L (-2.5-2.5); ABG OXYGEN SATURATION 98 % (94-100); ABG PCO2 57 MMHG (35-45); ABG PO2 89 MMHG (79-93); ABG TCO2 30.3 MMOL/L (21.0-31.0)
[2023-02-09 12:27] LABS: ABG PH 7.32 (7.37-7.43); ALLENS TEST YES-POS; INSPIRED O2 2L; PATIENT TEMP 37; VENTILATOR NO
--- NOTE | 2023-02-09 13:56 | Diagnostic Imaging Report ---
EXAMINATION: Chest radiograph, portable AP view. DATE: 02/09/2023 12:24 PM INDICATION: 72-year-old male, hypoxia. COMPARISON: February 02, 2023. FINDINGS: There is a right-sided PICC line with tip overlying the mid to lower SVC. Heart size and mediastinal contours are unchanged. There is no identified pneumothorax. There is blunting of the left lateral costophrenic angle. There are streaky opacities in the right lung. IMPRESSION: 1. Largely unchanged nonspecific left basilar airspace consolidation and streaky opacities in the right lung. 2. Right-sided PICC line overlying the mid to lower SVC. Dictated by: Dictated on workstation # [id number]
[2023-02-09 20:30] VITALS: BP 156/77
[2023-02-09] MEDS: ENOXAPARIN 40 MG/0.4 ML SYRINGE SC SCH (20:58)
[2023-02-09] MEDS: FAMOTIDINE 20 MG TABLET PO SCH (20:58)
[2023-02-10] MEDS: LEVOTHYROXINE 50 MCG TABLET PO SCH (05:13)
[2023-02-10] MEDS: CATHETER FLUSH 10 ML SYR IVP SCH ×3 (05:13→21:47)
[2023-02-10] MEDS: inSUlin ASPART 1 UNIT/0.01 ML (PER UNIT) SC SCH ×4 (06:00→21:46)
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
[2023-02-10 07:00] LABS: BASOPHILS # (AUTO) 0.1 10^3/uL (0.0-0.1); BASOPHILS % (AUTO) 1 % (0-10); HEMOGLOBIN 8.9 g/dL (13.3-17.7); LYMPHOCYTES % (AUTO) 16 % (12-44)
[2023-02-10 07:02] LABS: EOSINOPHILS # (AUTO) 0.6 10^3/uL (0.0-0.3); EOSINOPHILS % (AUTO) 7 % (0-10); HEMATOCRIT 29 % (40-54); LYMPHOCYTES # (AUTO) 1.2 10^3/uL (1.0-4.0); MEAN CORPUSCULAR HEMOGLOBIN 28 pg (25-34); MEAN CORPUSCULAR HGB CONC 31 g/dL (32-36); MEAN CORPUSCULAR VOLUME 90 fL (80-99); MEAN PLATELET VOLUME 12.8 fL (9.0-12.2); MONOCYTES # (AUTO) 0.8 10^3/uL (0.0-1.0); MONOCYTES % (AUTO) 10 % (0-12); NEUTROPHILS # (AUTO) 4.9 10^3/uL (1.8-7.8); NEUTROPHILS % (AUTO) 66 % (42-75); WHITE BLOOD COUNT 7.5 10^3/uL (4.3-11.0)
[2023-02-10 07:07] LABS: PLATELET COUNT 164 10^3/uL (130-400)
[2023-02-10 07:08] LABS: ALBUMIN 2.8 GM/DL (3.2-4.5); POTASSIUM 3.9 MMOL/L (3.6-5.0)
[2023-02-10 07:09] LABS: CALCIUM 8.5 MG/DL (8.5-10.1)
[2023-02-10 07:11] LABS: TOTAL PROTEIN 5.2 GM/DL (6.4-8.2)
[2023-02-10 07:12] LABS: BILIRUBIN,TOTAL 0.4 MG/DL (0.1-1.0)
[2023-02-10 07:14] LABS: CREATININE SERUM 0.69 MG/DL (0.60-1.30)
[2023-02-10] MEDS: RT-Ipratropium/Albuterol NEB 3 ML VIAL INH SCH ×2 (07:18→20:44)
[2023-02-10] MEDS: RT-BUDESONIDE NEBS 0.5 MG/2ML VIAL INH SCH ×2 (07:18→20:44)
[2023-02-10 07:22] LABS: ABG PCO2 55 MMHG (35-45); ABG PH 7.36 (7.37-7.43); ABG PO2 94 MMHG (79-93); ABG TCO2 31.7 MMOL/L (21.0-31.0)
[2023-02-10 07:29] LABS: ABG OXYGEN SATURATION 97 % (94-100); ALLENS TEST YES-POS; INSPIRED O2 2L; PATIENT TEMP 37.5; VENTILATOR NO
[2023-02-10 08:15] VITALS: BP 161/79
[2023-02-10] MEDS: SERTRALINE 100 MG TABLET PO SCH ×2 (08:25→21:45)
[2023-02-10] MEDS: amLODIPine 5 MG TABLET PO SCH (08:25)
[2023-02-10] MEDS: SENNA W/DOCUSATE TABLET PO SCH ×2 (08:26→21:46)
[2023-02-10] MEDS: PANTOPRAZOLE 40 MG TABLET PO SCH (08:26)
[2023-02-10] MEDS: hydrALAZINE 25 MG TABLET PO SCH ×3 (08:26→21:45)
[2023-02-10] MEDS: DOCUSATE SODIUM 100 MG CAPSULE PO SCH ×2 (08:26→21:46)
[2023-02-10] MEDS: inSUlin DETERMIR 1 UNIT/0.01 ML (CHARGE PER UNIT) SQ SCH ×2 (08:27→21:45)
[2023-02-10] MEDS: MICONAZOLE 2% POWDER 90 GM TOP SCH ×2 (09:54→21:48)
[2023-02-10] MEDS: MICONAZOLE 2% CREAM 30 GM TP SCH ×2 (09:54→21:48)
[2023-02-10] MEDS: MENTHOL/ZINC OXIDE OINTMENT 113 GM TUBE TOP SCH ×2 (09:54→21:48)
--- NOTE | 2023-02-10 10:25 | Diagnostic Imaging Report ---
Indication: Hypoxia. Time of Exam: 7:11 AM Correlation is made with prior chest from one day earlier. Heart size normal. Right upper extremity PICC line has tip overlying the SVC right atrial junction. Lungs appear clear. No infiltrates are seen. There is no effusion or pneumothorax. Impression: No acute cardiopulmonary process is detected. Dictated by: Dictated on workstation # [id number]
[2023-02-10] MEDS: CHOLESTYRAMINE LITE 4 GM PACKET PO SCH ×2 (16:09→21:45)
[2023-02-10 20:50] VITALS: BP 172/65
[2023-02-10] MEDS: ENOXAPARIN 40 MG/0.4 ML SYRINGE SC SCH (21:45)
[2023-02-10] MEDS: FAMOTIDINE 20 MG TABLET PO SCH (21:45)
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
[2023-02-11] MEDS: LEVOTHYROXINE 50 MCG TABLET PO SCH (06:25)
[2023-02-11] MEDS: CATHETER FLUSH 10 ML SYR IVP SCH ×3 (06:25→22:17)
[2023-02-11] MEDS: inSUlin ASPART 1 UNIT/0.01 ML (PER UNIT) SC SCH ×4 (06:25→20:24)
[2023-02-11 08:00] VITALS: BP 181/81
[2023-02-11] MEDS: SERTRALINE 100 MG TABLET PO SCH ×2 (08:37→22:09)
[2023-02-11] MEDS: PANTOPRAZOLE 40 MG TABLET PO SCH (08:38)
[2023-02-11] MEDS: inSUlin DETERMIR 1 UNIT/0.01 ML (CHARGE PER UNIT) SQ SCH ×2 (08:38→22:11)
[2023-02-11] MEDS: hydrALAZINE 25 MG TABLET PO SCH ×3 (08:38→22:10)
[2023-02-11] MEDS: amLODIPine 5 MG TABLET PO SCH (08:38)
[2023-02-11] MEDS: DOCUSATE SODIUM 100 MG CAPSULE PO SCH ×2 (08:39→20:30)
[2023-02-11] MEDS: SENNA W/DOCUSATE TABLET PO SCH ×2 (08:40→20:30)
[2023-02-11] MEDS: CHOLESTYRAMINE LITE 4 GM PACKET PO SCH ×3 (09:00→22:10)
[2023-02-11] MEDS: RT-Ipratropium/Albuterol NEB 3 ML VIAL INH SCH ×2 (09:36→20:41)
[2023-02-11] MEDS: RT-BUDESONIDE NEBS 0.5 MG/2ML VIAL INH SCH ×2 (09:36→20:42)
[2023-02-11] MEDS: ACETAMINOPHEN 325 MG TABLET PO PRN (10:18)
--- NOTE | 2023-02-11 10:53 | Physical Therapy Daily Note ---
PT Daily Note-Current Subjective Pt sitting in recliner upon arrival. RT giving Breathing tx. O2 decreased to 1L per RT. CLICKER OPERATOR will monitor during tx. Pain Location Body Site: Sacrum Pain Description: Ache Comment: Reported but not rated Section J - Health Conditions 1. Rarely or not at all 2. Occasionally 3. Frequently 4. Almost constantly 8. Unable to answer Pain Effect on Sleep: 1 Pain Interference with Therapy: 2 Pain Interference w/Day-to-Day: 2 Mental Status Patient Orientation: Person, Place Transfers SCALE: Activities may be completed with or without assistive devices. 6-Irtloqjmue-mlpmjsk completes the activity by him/herself with no assistance from a helper. 5-Set-up or Clean-up Assistance-helper sets up or cleans up; patient completes activity. [place] assists only prior to or following the activity. 4-Supervision or Touching Assistance-helper provides verbal cues and/or touching/steadying and/or contact guard assistance as patient completes activity. Assistance may be provided throughout the activity or intermittently. 3-Partial/Moderate Assistance-helper does LESS THAN HALF the effort. [place] lifts, holds or supports trunk or limbs, but provides less than half the effort. 2-Substantial/Maximal Assistance-helper does MORE THAN HALF the effort. [place] lifts or holds trunk or limbs and provides more than half the effort. 2-Txivyusji-pxrxqe does ALL the effort. Patient does none of the effort to complete the activity. Or, the assistance of 2 or more helpers is required for the patient to complete the activity. If activity was not attempted, code reason: 7-Patient Refused. 9-Not Applicable-not attempted and the patient did not perform the activity before the current illness, exacerbation or injury. 10-Not Attempted due to Environmental Limitations-(lack of equipment, weather restraints, etc.). 88-Not Attempted due to Medical Conditions or Safety Concerns. Sit to Stand (QC): 4 Weight Bearing Right Lower Extremity: Right Full Weight Bearing Left Lower Extremity: Left Full Weight Bearing Gait Training Does the Patient Walk?: Yes Distance: 150' Walk 10 feet (QC): 4 Walk 50 ft with 2 Turns(QC): 4 Walk 150 ft (QC): 4 Gait Assistive Device: FWW Exercises Seated Therapy Exercises: Sit to stand Treatments Pt receives Breathing tx. and CLICKER OPERATOR & Nurse discuss progress of mobility and safety of movement. Pt TF from recliner to standing using FWW at CGA on 1L O2. Pt amb to Therapy Gym and rests on NuStep seat. Pt attempts NuStep (LE only) as UE was tossing fernández bags into basket. OT/PT CoTx ([id number]), 2 clinicians required to decrease fall risk, increase safety awareness, activity tolerance and increase functional mobility. PT working on LE strengthening, dynamic standing balance, and activity tolerance. OT working on UE strengthening, fine/gross motor grasp, activity tolerance, and weight bearing in B UEs for functional tasks. Pt working with PT/OT by using LEs in Nu-Step while completing functional task with fernández bags with UEs. Pt working on activity tolerance, crossing midline, stamina, UE strengthening/coordination, and LE strengthening. Pt then standing in parallel bars while completing functional UE task with activity, PT providing CGA for safety. Pt working on activity tolerance, weight bearing, and hand-eye coordination for continued independence with functional tasks. Pt then ended session with PT. Assessment Current Status: Fair Progress Pt fatigues easily and request RB. O2 remains above 90% throughout tx. 96% after initial walk, HR 103 & 96% w/HR 111 at end of PT tx before shower. Pt alert sitting in Nu-Step with PT. Pt agrees to therapy, c/o of pain on bottom when sitting on hard surfaces. Nrsg notified. PT Experience Designer Goals Prison Goals PT Experience Designer Goals Time Frame: Feb 20, 2023 Roll Left & Right (QC): 6 (Pt will be Mod I with bed mobility and transfers. ) Sit to Lying (QC): 6 (Pt will be Mod I with bed mobility and transfers. ) Lying-Sitting on Side/Bed(QC): 6 (Pt will be Mod I with bed mobility and transfers. ) Sit to Stand (QC): 6 (Pt will be Mod I with bed mobility and transfers. ) Chair/Kto-uo-Whqbm Xfer(QC): 6 (Pt will be Mod I with bed mobility and transfers. ) Toilet Transfer (QC): 6 (Pt will be Mod I with bed mobility and transfers. ) Car Transfer (QC): 6 (Pt will be Mod I with bed mobility and transfers. ) Does the Patient Walk: Yes Walk 10 feet (QC): 4 (Pt will be SBA for walking and stairs with the FWW. ) Walk 50ft with 2 Turns (QC): 4 (Pt will be SBA for walking and stairs with the FWW. ) Walk 150 ft (QC): 4 (Pt will be SBA for walking and stairs with the FWW. ) Walking 10ft on Uneven Surface: 4 (Pt will be SBA for walking and stairs with the FWW. ) 1 Step (curb) (QC): 4 (Pt will be SBA for walking and stairs with the FWW. ) 4 Steps (QC): 4 (Pt will be SBA for walking and stairs with the FWW. ) 12 Steps (QC): 9 Picking up an Object (QC): 6 (Mod I) Does the Pt use WC or Scooter?: No Wheel 50 feet with 2 turns (QC: 9 Type: N/A Wheel 150 feet: 9 Type: N/A PT Plan Problem List Problem List: Activity Tolerance, Safety, Balance Treatment/Plan Treatment Plan: Continue Plan of Care Treatment Plan: Bed Mobility, Concurrent Therapy, Education, Functional Activity Shae, Functional Strength, Group Therapy, Gait, Safety, Therapeutic Exercise, Transfers Treatment Duration: Feb 20, 2023 Frequency: At least 5 of 7 days/Wk (IRF) Estimated Hrs Per Day: 1.5 hours per day Patient and/or Family Agrees t: Yes Safety Risks/Education Patient Education: Correct Positioning, Safety Issues Teaching Recipient: Patient Teaching Methods: Discussion Response to Teaching: Verbalize Understanding Time Time In: 930 Time Out: 1030 DATE: Feb 11, 2023 Total Billed Treatment Time: 60 Total Billed Treatment Co-treat w/OT for 60m (930-1030) 1, GT x2 (25m), FA (20m) & EX (15m) LEO DUNN CLICKER OPERATOR Feb 11, 2023 10:53
[2023-02-11] MEDS: MENTHOL/ZINC OXIDE OINTMENT 113 GM TUBE TOP SCH ×2 (12:38→22:12)
[2023-02-11] MEDS: MICONAZOLE 2% CREAM 30 GM TP SCH ×2 (12:38→22:13)
[2023-02-11] MEDS: MICONAZOLE 2% POWDER 90 GM TOP SCH ×2 (12:39→22:14)
--- NOTE | 2023-02-11 13:11 | Occupational Ther Daily Note ---
OT Current Status-Daily Note Subjective Pt alert sitting in Nu-Step with PT. Pt agrees to therapy, c/o of pain on bottom when sitting on hard surfaces. Nrsg notified. OT/PT CoTx ([id number]), 2 clinicians required to decrease fall risk, increase safety awareness, activity tolerance and increase functional mobility. PT working on LE strengthening, dyn amic standing balance, and activity tolerance. OT working on UE strengthening, fine/gross motor grasp, activity tolerance, and weight bearing in B UEs for functional tasks. Mental Status/Objective Patient Orientation: Person, Place, Time, Situation, [place] Attachments: IV, Oxygen (1L) Displayed inattention to tasks requiring multiple verbal cues. ADL-Treatment Therapy Code Descriptions/Definitions Functional [place] Measure: 0=Not Assessed/NA 4=Minimal Assistance 1=Total Assistance 5=Supervision or Setup 2=Maximal Assistance 6=Modified [place] 3=Moderate Assistance 7=Complete IndependenceSCALE: Activities may be completed with or without assistive devices. 8-Cpooyarkhl-qpjrueo completes the activity by him/herself with no assistance from a helper. 5-Set-up or Clean-up Assistance-helper sets up or cleans up; patient completes activity. [place] assists only prior to or following the activity. 4-Supervision or Touching Assistance-helper provides verbal cues and/or touching/steadying and/or contact guard assistance as patient completes activity. Assistance may be provided throughout the activity or intermittently. 3-Partial/Moderate Assistance-helper does LESS THAN HALF the effort. [place] lifts, holds or supports trunk or limbs, but provides less than half the effort. 2-Substantial/Maximal Assistance-helper does MORE THAN HALF the effort. [place] lifts or holds trunk or limbs and provides more than half the effort. 5-Sywavdvxu-dbcwbn does ALL the effort. Patient does none of the effort to complete the activity. Or, the assistance of 2 or more helpers is required for the patient to complete the activity. If activity was not attempted, code reason: 7-Patient Refused. 9-Not Applicable-not attempted and the patient did not perform the activity before the current illness, exacerbation or injury. 10-Not Attempted due to Environmental Limitations-(lack of equipment, weather restraints, etc.). 88-Not Attempted due to Medical Conditions or Safety Concerns. Bathing Location: L Arm, R Arm, L Upper Leg, R Upper Leg, L Lower Leg (including foot), R Lower Leg (including foot), Chest, Abdomen, Buttocks, Perineal Area Shower/Bathe Self (QC): 4 (Standing during nuria care with CGA for steadying. Pt utilized long-handled sponge to wash feet, armpits, and back. Multiple verbal cues required for sequencing of tasks. ) Upper Body Dressing (QC): 3 (Min A to don/doff shirt over head, pt able to complete all other steps. ) Lower Body Dressing (QC): 2 (Mod A. Required assistance to thread brief and pants over feet while pt pulled pants up to knees. CGA for steadying during standing while pt hiked pants up over hips. ) On/Off Footwear: 2 (Max A to don/doff socks. Pt does have sock aide in room though due to decreased activity tolerance pt to fatigued to attempt this date.) Pt required max verbal cues after each step during ADLs for sequencing of functional tasks. Pt stated he was finished with showering before washing his body and needed verbal cue to utilize soap. Pt mumbled or laughed in response to verbal cues and questions. Pt brushed his hair independently and eliminated all tangles. Other Treatment Pt working with PT/OT by using LEs in Nu-Step while completing functional task with fernández bags with UEs. Pt working on activity tolerance, crossing midline, stamina, UE strengthening/coordination, and LE strengthening. Pt then standing in parallel bars while completing functional UE task with activity, PT providing CGA for safety. Pt working on activity tolerance, weight bearing, and hand-eye coordination for continued independence with functional tasks. Pt then ended session with PT and completed shower with OTAS. Pt propelled from bathroom to bed in w/c and transferred from wheelchair to EOB, CGA. Pt educated on HEP supine in bed with resistance bands. Pt required max cues to participate with therapy throughout session. Pt stated that he just wanted to go back to bed. Displayed lethargy during exercises, requiring verbal cues to stay awake. Ended session with pt supine in bed with call light/phone in reach. All needs met in room. Education OT Patient Education: Energy conservation, Home exercise program, Modified ADL techniques, Use of adapted equipment Teaching Recipient: Patient Teaching Methods: Demonstration, Handout, Discussion Response to Teaching: Verbalize Understanding, Return Demonstration, Reinforcement Needed Pt educated on HEP for UEs with resistance band. Skilled instruction required for proper positioning of UEs. Reinforcement needed in future sessions due to pt falling asleep/lethargy. OT Short Term Goals Short Term Goals Time Frame: Feb 20, 2023 Eatin Oral hygiene: 5 Toileting hygiene: 3 (min assist) Shower/bathe self: 3 (min assist) Upper body dressin Lower body dressin (Min assist with AE) Putting on/taking off footwear: 4 (supervision with AE) OT Mcc Goals Crane Chaser Goals Time Frame: Mar 06, 2023 Acute change in mental status: 0 Inattention: 0 Disorganized thinkin Altered level of consciousness: 0 Eating (QC): 6 Oral Hygiene (QC): 6 Toileting Hygiene (QC): 6 Shower/Bathe Self (QC): 4 Upper Body Dressing (QC): 5 Lower Body Dressing (QC): 5 (set up with AE) On/Off Footwear (QC): 5 (Set up with AE) Additional Goals: 1-Demonstrate ADL Tasks, 2-Verbalize Understanding, 3- ImproveStrength/Shae 1=Demonstrate adherence to instructed precautions during ADL tasks. 2=Patient will verbalize/demonstrate understanding of assistive devices/modifications for ADL. 3=Patient will improve strength/tolerance for activity to enable patient to perform ADL's. OT Education/Plan Problem List/Assessment Assessment: Decreased Activ Tolerance, Decreased Safety Aware, Decreased UE S trength, Impaired Coordination, Impaired Funct Balance, Impaired Self-Care Skills Discharge Recommendations Plan/Recommendations: Continue POC Treatment Plan/Plan of Care Patient would benefit from OT for education, treatment and training to promote independence in ADL's, mobility, safety and/or upper extremity function for AD L's. Plan of Care: ADL Retraining, Caregiver Training, Cognitive Retraining, Functional Mobility, Group Exercise/Act as Ind, UE Funct Exercise/Act Treatment Duration: Mar 06, 2023 Frequency: At least 5 of 7 days/Wk (IRF) Estimated Hrs Per Day: 1.5 hours per day Agreement: Yes Rehab Potential: Poor Time Start Time: 10:00 Stop Time: 11:30 DATE: Feb 11, 2023 Total Time Billed (hr/min): 90 Billed Treatment Time 1 visit-ADL 2 (30 min) EX 4 (60 min) cotreat with PT [id number], individual [id number] MARY NAVARRETE Feb 11, 2023 13:11
--- NOTE | 2023-02-11 13:26 | Speech Therapy Daily Note ---
Speech Daily Progress Note Subjective Date Seen by Provider: Feb 11, 2023 Time Seen by Provider: 09:00 The patient was seated in the recliner, eyes intermittently open, upon entrance to his room by the clinician. The patient greeted the clinician appropriately and was agreeable to participation in the skilled cognitive treatment session. Objective - Orientation: The patient remains oriented to month, year, and rationale for hospitalization. Safety Precautions: The clinician discussed the telesitter present in the room and the rationale for having a telesitter in the room for the patient. Following the discussion, the patient continued to refer to the telesitter as "a lamp." The use of the call light for safety was addressed by the clinician. Regardless of maximum verbal prompting, the patient was unable to state the accurate action to use prior to attempting to transfer, ambulate, or move from one item to another in his room. The necessity of the call light for his safety was discussed and the need to use the call light prior to any attempt ambulation. Immediately following the discussion, the patient stated he needed to use the restroom and attempt to stand without assistance. The clinician again prompted and reminded the patient of necessary call light use. The patient was able to state the emergency number of "911" however would not complete in-home safety scenerios regarding fires or falling. The patient continued to state, "It won't be too big to put out with the right stuff." The patient requires maximum verbal cueing and redirection for limited participation, frequently stating "I don't know" or keeping eyes closed throughout the session. The clinician will attempt one additional cognitive session. If the patient displays similar behaviors for the third subsequent treatment session, the patient will be discharged from skilled cognitive therapy. Assessment Assessment Current Status: Poor Progress Treatment Plan Continue Plan of Care Speech Short Term Goals Short Term Goals Short Term Goals 1. The patient will demonstrate 75% accuracy with memory exercises with moderate clinician verbal and visual cueing. Time Frame-STG: One Week. Speech All Source Intelligence Technician Goals Group Home Goals 1. The patient will demonstrate improved cognitive linguistic function for safe discharge to least restrictive environment. Time Frame: Two Weeks. Speech-Plan Treatment Plan Speech Therapy Treatment Plan: Continue Plan of Care Treatment Duration: Feb 15, 2023 Frequency: Modified Program (IRF) Estimated Hrs Per Day: .5 hour per day Rehab Potential: Poor Safety Risks/Education Teaching Recipient: Patient Teaching Methods: Discussion Response to Teaching: Reinforcement Needed Education Topics Provided: Safety Precautions, Safety Decision Making, Sequencing Time Speech Therapy Time In: 09:00 Speech Therapy Time Out: 09:30 DATE: Feb 11, 2023 Total Billed Time: 30 Billed Treatment Time 1, INEZ AVERY Feb 11, 2023 13:26
[2023-02-11 20:04] VITALS: BP 177/79
[2023-02-11] MEDS: FAMOTIDINE 20 MG TABLET PO SCH (22:10)
[2023-02-11] MEDS: ENOXAPARIN 40 MG/0.4 ML SYRINGE SC SCH (22:10)
[2023-02-11] MEDS: COLLAGENASE OINTMENT 30 GM TUBE TP SCH (22:13)
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
[2023-02-12] MEDS: LEVOTHYROXINE 50 MCG TABLET PO SCH (06:08)
[2023-02-12] MEDS: CATHETER FLUSH 10 ML SYR IVP SCH ×3 (06:09→22:18)
[2023-02-12] MEDS: inSUlin ASPART 1 UNIT/0.01 ML (PER UNIT) SC SCH ×4 (06:09→21:00)
[2023-02-12] MEDS: RT-BUDESONIDE NEBS 0.5 MG/2ML VIAL INH SCH ×2 (07:17→20:16)
[2023-02-12] MEDS: RT-Ipratropium/Albuterol NEB 3 ML VIAL INH SCH ×2 (07:17→20:16)
[2023-02-12 07:46] VITALS: BP 168/69
[2023-02-12 07:55] VITALS: BP 168/69
[2023-02-12] MEDS: inSUlin DETERMIR 1 UNIT/0.01 ML (CHARGE PER UNIT) SQ SCH ×2 (08:07→22:13)
--- NOTE | 2023-02-12 08:50 | Occupational Ther Daily Note ---
OT Current Status-Daily Note Subjective Pt alert, sitting up in recliner. Pt agrees to therapy, c/o of discomfort on bottom. Nrsg notified. Mental Status/Objective Patient Orientation: Person, Place, Time, Situation, Mumbles ADL-Treatment Therapy Code Descriptions/Definitions Functional [place] Measure: 0=Not Assessed/NA 4=Minimal Assistance 1=Total Assistance 5=Supervision or Setup 2=Maximal Assistance 6=Modified [place] 3=Moderate Assistance 7=Complete IndependenceSCALE: Activities may be completed with or without assistive devices. 5-Zarjvwzhnh-hqufxyn completes the activity by him/herself with no assistance from a helper. 5-Set-up or Clean-up Assistance-helper sets up or cleans up; patient completes activity. [place] assists only prior to or following the activity. 4-Supervision or Touching Assistance-helper provides verbal cues and/or touching/steadying and/or contact guard assistance as patient completes activity. Assistance may be provided throughout the activity or intermittently. 3-Partial/Moderate Assistance-helper does LESS THAN HALF the effort. [place] lifts, holds or supports trunk or limbs, but provides less than half the effort. 2-Substantial/Maximal Assistance-helper does MORE THAN HALF the effort. [place] lifts or holds trunk or limbs and provides more than half the effort. 6-Lpyikmuxl-lkddxo does ALL the effort. Patient does none of the effort to complete the activity. Or, the assistance of 2 or more helpers is required for the patient to complete the activity. If activity was not attempted, code reason: 7-Patient Refused. 9-Not Applicable-not attempted and the patient did not perform the activity before the current illness, exacerbation or injury. 10-Not Attempted due to Environmental Limitations-(lack of equipment, weather restraints, etc.). 88-Not Attempted due to Medical Conditions or Safety Concerns. On/Off Footwear: 2 (Pt requires max A to change footwear.) Toileting Hygiene (QC): 4 (CGA while pt wiped backside after BM.) Toilet Transfer (QC): 4 (CGA, sit to stand using FWW during toilet transfer for stability. ) Other Treatment Pt ambulated to therapy gym via FWW, CGA. Skilled instruction required during functional activities for proper positioning and encouragement to participate. Pt completed multiple B UE gross/fine motor tasks to increase strength, stamina, dynamic standing balance, and ROM. Pt displayed x1 LOB during standing functional task, required assist to regain balance. Pt completed nut/bolt task, demonstrated difficulty with B UE sequencing during task. Frequent verbal cues needed to refocus on tasks though improved from previous treatment. Pt demonstrated fair participation overall during tx. Pt worked on w/c mobility to propel to room from gym. Ended session with pt sitting up in recliner with call light/phone in hand. All needs met in room. OT Short Term Goals Short Term Goals Time Frame: Feb 20, 2023 Eatin Oral hygiene: 5 Toileting hygiene: 3 (min assist) Shower/bathe self: 3 (min assist) Upper body dressin Lower body dressin (Min assist with AE) Putting on/taking off footwear: 4 (supervision with AE) OT Kitchen Helper Goals Detention Goals Time Frame: Mar 06, 2023 Acute change in mental status: 0 Inattention: 0 Disorganized thinkin Altered level of consciousness: 0 Eating (QC): 6 Oral Hygiene (QC): 6 Toileting Hygiene (QC): 6 Shower/Bathe Self (QC): 4 Upper Body Dressing (QC): 5 Lower Body Dressing (QC): 5 (set up with AE) On/Off Footwear (QC): 5 (Set up with AE) Additional Goals: 1-Demonstrate ADL Tasks, 2-Verbalize Understanding, 3- ImproveStrength/Shae 1=Demonstrate adherence to instructed precautions during ADL tasks. 2=Patient will verbalize/demonstrate understanding of assistive devices/modifications for ADL. 3=Patient will improve strength/tolerance for activity to enable patient to perform ADL's. OT Education/Plan Problem List/Assessment Assessment: Decreased Activ Tolerance, Decreased Safety Aware, Decreased UE Strength, Impaired Cognition, Impaired Coordination, Impaired Funct Balance, Impaired Self-Care Skills, Restricted Funct UE ROM Discharge Recommendations Plan/Recommendations: Continue POC Treatment Plan/Plan of Care Patient would benefit from OT for education, treatment and training to promote independence in ADL's, mobility, safety and/or upper extremity function for ADL's. Plan of Care: ADL Retraining, Caregiver Training, Cognitive Retraining, Functional Mobility, Group Exercise/Act as Ind, UE Funct Exercise/Act Treatment Duration: Mar 06, 2023 Frequency: At least 5 of 7 days/Wk (IRF) Estimated Hrs Per Day: 1.5 hours per day Agreement: Yes Rehab Potential: Poor Time Start Time: 07:20 Stop Time: 09:50 DATE: Feb 12, 2023 Total Time Billed (hr/min): 90 Billed Treatment Time 1 visit-ADL 2 (30 min) FA 1 (20 min) EX 3 (40 min) MARY NAVARRETE Feb 12, 2023 08:50
[2023-02-12] MEDS: PANTOPRAZOLE 40 MG TABLET PO SCH (09:33)
[2023-02-12] MEDS: SERTRALINE 100 MG TABLET PO SCH ×2 (09:33→22:14)
[2023-02-12] MEDS: amLODIPine 5 MG TABLET PO SCH (09:33)
[2023-02-12] MEDS: hydrALAZINE 25 MG TABLET PO SCH ×3 (09:33→22:14)
[2023-02-12] MEDS: DOCUSATE SODIUM 100 MG CAPSULE PO SCH ×2 (09:34→22:00)
[2023-02-12] MEDS: SENNA W/DOCUSATE TABLET PO SCH ×2 (09:34→22:00)
[2023-02-12] MEDS: ACETAMINOPHEN 325 MG TABLET PO PRN (09:49)
--- NOTE | 2023-02-12 11:01 | Physical Therapy Daily Note ---
PT Daily Note-Current Subjective Pt found in bathroom /c staff present upon entry. Agreed to PT treatment. Reports that he is having a lot of pain on his rear due to sore and is very fatigued this AM. Does not rate pain. Pain Section J - Health Conditions 1. Rarely or not at all 2. Occasionally 3. Frequently 4. Almost constantly 8. Unable to answer Pain Effect on Sleep: 1 Pain Interference with Therapy: 2 Pain Interference w/Day-to-Day: 2 Mental Status Patient Orientation: Person, Place Attachments: Oxygen 2L O2 Transfers SCALE: Activities may be completed with or without assistive devices. 4-Dkeojravxx-vvlqxjk completes the activity by him/herself with no assistance from a helper. 5-Set-up or Clean-up Assistance-helper sets up or cleans up; patient completes activity. [place] assists only prior to or following the activity. 4-Supervision or Touching Assistance-helper provides verbal cues and/or touching/steadying and/or contact guard assistance as patient completes activity. Assistance may be provided throughout the activity or intermittently. 3-Partial/Moderate Assistance-helper does LESS THAN HALF the effort. [place] lifts, holds or supports trunk or limbs, but provides less than half the effort. 2-Substantial/Maximal Assistance-helper does MORE THAN HALF the effort. [place] lifts or holds trunk or limbs and provides more than half the effort. 5-Jejnmwjfu-eigcjy does ALL the effort. Patient does none of the effort to complete the activity. Or, the assistance of 2 or more helpers is required for the patient to complete the activity. If activity was not attempted, code reason: 7-Patient Refused. 9-Not Applicable-not attempted and the patient did not perform the activity before the current illness, exacerbation or injury. 10-Not Attempted due to Environmental Limitations-(lack of equipment, weather restraints, etc.). 88-Not Attempted due to Medical Conditions or Safety Concerns. Sit to Lying (QC): 4 Sit to Stand (QC): 4 Pt required CGA to perform sit to stand transfer due to balance and strength de ficits. Performs sit to stand 1x from edge of bed and 5x from chair /c armrests. Required SBA and verbal cues for correct body positioning to complete sit to lying transfer. Weight Bearing Right Lower Extremity: Right Full Weight Bearing Left Lower Extremity: Left Full Weight Bearing Gait Training Does the Patient Walk?: Yes Distance: 100 x 2, 40, 100 feet Walk 10 feet (QC): 4 Walk 50 ft with 2 Turns(QC): 4 Gait Persons Needed: 1 Gait Assistive Device: FWW Treatments Supine Therapeutic Exercises (B) x 10 ea: - SLRs - Heel slides - Ankle pumps - Hip abd/add - Quad sets - Glute sets Assessment Current Status: Good Progress Pt displays decent muscle strength /c limited endurance /c therapeutic interventions. Able to ambulate up to 100 feet /c use of FWW before requiring a seated rest break. Pt reports increased fatigue during gait training and frequent requests to end visit and return to room. Pt returned to bed for completion of supine therapeutic exercises. No signs of increased fatigue while performing. Continue to progress pt per POC. PT [place] Goals Skilled Nursing Goals PT Skilled Nursing Goals Time Frame: Feb 20, 2023 Roll Left & Right (QC): 6 (Pt will be Mod I with bed mobility and transfers. ) Sit to Lying (QC): 6 (Pt will be Mod I with bed mobility and transfers. ) Lying-Sitting on Side/Bed(QC): 6 (Pt will be Mod I with bed mobility and transfers. ) Sit to Stand (QC): 6 (Pt will be Mod I with bed mobility and transfers. ) Chair/Svu-au-Lqsdy Xfer(QC): 6 (Pt will be Mod I with bed mobility and transfers. ) Toilet Transfer (QC): 6 (Pt will be Mod I with bed mobility and transfers. ) Car Transfer (QC): 6 (Pt will be Mod I with bed mobility and transfers. ) Does the Patient Walk: Yes Walk 10 feet (QC): 4 (Pt will be SBA for walking and stairs with the FWW. ) Walk 50ft with 2 Turns (QC): 4 (Pt will be SBA for walking and stairs with the FWW. ) Walk 150 ft (QC): 4 (Pt will be SBA for walking and stairs with the FWW. ) Walking 10ft on Uneven Surface: 4 (Pt will be SBA for walking and stairs with the FWW. ) 1 Step (curb) (QC): 4 (Pt will be SBA for walking and stairs with the FWW. ) 4 Steps (QC): 4 (Pt will be SBA for walking and stairs with the FWW. ) 12 Steps (QC): 9 Picking up an Object (QC): 6 (Mod I) Does the Pt use WC or Scooter?: No Wheel 50 feet with 2 turns (QC: 9 Type: N/A Wheel 150 feet: 9 Type: N/A PT Plan Treatment/Plan Treatment Plan: Continue Plan of Care Treatment Plan: Bed Mobility, Concurrent Therapy, Education, Functional Activity Shae, Functional Strength, Group Therapy, Gait, Safety, Therapeutic Exercise, Transfers Treatment Duration: Feb 20, 2023 Frequency: At least 5 of 7 days/Wk (IRF) Estimated Hrs Per Day: 1.5 hours per day Patient and/or Family Agrees t: Yes Time Time In: 1000 Time Out: 1100 DATE: Feb 12, 2023 Total Billed Treatment Time: 60 Total Billed Treatment 1 visit GT x 2 EX x 1 FA x 1 YEISON PEOPLES PTA Feb 12, 2023 11:00
[2023-02-12] MEDS: CHOLESTYRAMINE LITE 4 GM PACKET PO SCH ×3 (11:14→22:13)
[2023-02-12] MEDS: MENTHOL/ZINC OXIDE OINTMENT 113 GM TUBE TOP SCH ×2 (11:16→22:18)
[2023-02-12] MEDS: MICONAZOLE 2% POWDER 90 GM TOP SCH ×2 (11:16→22:16)
[2023-02-12] MEDS: MICONAZOLE 2% CREAM 30 GM TP SCH ×2 (11:16→22:17)
[2023-02-12] MEDS: COLLAGENASE OINTMENT 30 GM TUBE TP SCH ×2 (11:17→22:16)
--- NOTE | 2023-02-12 13:22 | Speech Therapy Daily Note ---
Speech Daily Progress Note Subjective Date Seen by Provider: Feb 12, 2023 Time Seen by Provider: 09:00 The patient was lying in bed, sleeping, upon entrance to his room by the clinician. The patient woke to a verbal greeting and hesitantly agreed to participation in the skilled speech pathology cognitive treatment session. Per correspondence representative and discussion, the patient has displayed consistent use of his call light and demonstrated improved cognition throughout the previous 24 hours. Objective The patient continues to require verbal encouragement for continued participation throughout skilled speech pathology services. The patient frequently responds with "I don't know" or laughs following scenario questions for safety problem solving or sequencing. The patient did not participate in critical thinking exercises on this date, to evaluate his current progress and aid in brainstorming potential barriers to a safe discharge. Per patient, he is able to transfer independently, walk independently and dress independently. Per chart review, the patient requires assistance with all items discussed. When the clinician reviewed the items following chart review, the patient stated "Yeah, my can help with that." The clinician provided safety problem solving cards for discussion. When the patient's eyes were open, he was able to identify the safety issue or provide appropriate sarcasm towards communication efforts. At this time, the patient will be discharged from skilled speech pathology due to reported reductions in confusion per hospital staff and providers as well as a lack of participation and stimulability with skilled speech pathology exercises. Assessment Assessment Current Status: Fair Progress Treatment Plan Discontinue ST Speech Short Term Goals Short Term Goals Short Term Goals 1. The patient will demonstrate 75% accuracy with memory exercises with moderate clinician verbal and visual cueing. Time Frame-STG: One Week. Speech Snuff Blender Goals Detention Goals 1. The patient will demonstrate improved cognitive linguistic function for safe discharge to least restrictive environment. Time Frame: Two Weeks. Speech-Plan Treatment Plan Speech Therapy Treatment Plan: Discontinue ST Treatment Duration: Feb 15, 2023 Frequency: Modified Program (IRF) Estimated Hrs Per Day: .5 hour per day Rehab Potential: Poor Safety Risks/Education Teaching Recipient: Patient Teaching Methods: Discussion Response to Teaching: Reinforcement Needed Education Topics Provided: Results, Recommendations, Plan of Care Time Speech Therapy Time In: 09:00 Speech Therapy Time Out: 09:30 DATE: Feb 12, 2023 Total Billed Time: 30 Billed Treatment Time 1, INEZ AVERY Feb 12, 2023 13:22
--- NOTE | 2023-02-12 13:37 | Therapy Team Discharge Summary ---
Therapy Discharge Summary Discharge Recommendations Date of Discharge Physical Therapy Roll Left to Right (QC): 3 (Min A ) Sit to Lying (QC): 4 Lying to Sitting/Side of Bed(Q: 4 Sit to Stand (QC): 4 Chair/Ggf-ez-Dlllr Xfer(QC): 3 (Min A ) Toilet Transfer (QC): 4 Car Transfer (QC): 3 (Min A ) Does the Patient Walk: Yes Mode of Locomotion: Walk Anticipated Mode of Locomotion: Walk Walk 10 feet (QC): 4 Walk 50 ft with 2 Turns(QC): 4 Walk 150 ft (QC): 4 Walking 10ft on uneven surface: 3 (Min A ) Gait Assistive Device: FWW Does the Pt Use a Wheelchair: Yes Wheel 50 ft with 2 turns (QC): 4 Wheel 150 ft (QC): 9 Type of Wheelchair: N/A #of Steps: 8 1 Step (curb) (QC): 3 (Min A ) 4 Steps (QC): 3 (Min A ) 12 Steps (QC): 9 (Pt has 5 steps at home ) Balance Sitting Static: Good Balance Sitting Dynamic: Fair Balance-Standing Static: Fair Picking up an Object (QC): 3 (Min A with application integrator ) Occupational Therapy Decreased Activ Tolerance, Decreased Safety Aware, Decreased UE Strength, Impaired Cognition, Impaired Coordination, Impaired Funct Balance, Impaired Self-Care Skills, Restricted Funct UE ROM Eating (QC): 4 (Supervision and cues) Oral Hygiene (QC): 4 (Supervision and cues.) Shower/Bathe Self (QC): 4 (Standing during nuria care with CGA for steadying. Pt utilized long-handled sponge to wash feet, armpits, and back. Multiple verbal cues required for sequencing of tasks. ) Upper Body Dressing (QC): 3 (Min A to don/doff shirt over head, pt able to complete all other steps. ) Lower Body Dressing (QC): 2 (Mod A. Required assistance to thread brief and pants over feet while pt pulled pants up to knees. CGA for steadying during standing while pt hiked pants up over hips. ) On/Off Footwear (QC): 2 (Pt requires max A to change footwear.) Toileting Hygiene (QC): 4 (CGA while pt wiped backside after BM.) Speech-Language Pathology Due to lack of consistent participation and involvement throughout skilled speech pathology sessions, the patient will be discharged on this date. Per staff report, the patient's overall confusion is improving. PT Penitentiary Goals Penitentiary Goals PT Penitentiary Goals Time Frame: Feb 20, 2023 Roll Left to Right (QC): 6 (Pt will be Mod I with bed mobility and transfers. ) Sit to Lying (QC): 6 (Pt will be Mod I with bed mobility and transfers. ) Lying-Sitting on Side/Bed(QC): 6 (Pt will be Mod I with bed mobility and transfers. ) Sit to Stand (QC): 6 (Pt will be Mod I with bed mobility and transfers. ) Chair/Utz-sm-Zpcsr Xfer(QC): 6 (Pt will be Mod I with bed mobility and transfers. ) Toilet/Commode Transfer (QC): 6 (Pt will be Mod I with bed mobility and transfers. ) Car Transfer (QC): 6 (Pt will be Mod I with bed mobility and transfers. ) Does the Patient Walk: Yes Walk 10 feet (QC): 4 (Pt will be SBA for walking and stairs with the FWW. ) Walk 10ft-Uneven Surface(QC): 4 (Pt will be SBA for walking and stairs with the FWW. ) Walk 50ft with 2 Turns (QC): 4 (Pt will be SBA for walking and stairs with the FWW. ) Walk 150 ft (QC): 4 (Pt will be SBA for walking and stairs with the FWW. ) Does the Pt use WC or Scooter?: No Wheel 50 feet with 2 turns (QC: 9 Type: N/A Wheel 150 feet: 9 Type: N/A 1 Step (curb) (QC): 4 (Pt will be SBA for walking and stairs with the FWW. ) 4 Steps (QC): 4 (Pt will be SBA for walking and stairs with the FWW. ) 12 Steps (QC): 9 Picking up an Object (QC): 6 (Mod I) OT Workplace Rehabilitation Officer Goals Workplace Rehabilitation Officer Goals Time Frame: Mar 06, 2023 Acute change in mental status: 0 Inattention: 0 Disorganized thinkin Altered level of consciousness: 0 Eating (QC): 6 Oral Hygiene (QC): 6 Toileting Hygiene (QC): 6 Shower/Bathe Self (QC): 4 Upper Body Dressing (QC): 5 Lower Body Dressing (QC): 5 (set up with AE) On/Off Footwear (QC): 5 (Set up with AE) Additional Goals: 1-Demonstrate ADL Tasks, 2-Verbalize Understanding, 3- ImproveStrength/Shae 1=Demonstrate adherence to instructed precautions during ADL tasks. 2=Patient will verbalize/demonstrate understanding of assistive devices/modifications for ADL. 3=Patient will improve strength/tolerance for activity to enable patient to perform ADL's. Speech Penitentiary Goals Penitentiary Goals 1. The patient will demonstrate improved cognitive linguistic function for safe discharge to least restrictive environment. Per staff report, the patient's confusion and overall mentation are improving. The patient consistently demonstrated poor participation and stimulability for skilled speech pathology tasks and will be discharged on this date. Due to poor participation, the clinician is unable to state the patient met skilled goals placed by this clinician. Time Frame: Two Weeks. INEZ NOBLE Feb 12, 2023 13:37
[2023-02-12 13:58] VITALS: BP 190/85
[2023-02-12 17:07] VITALS: BP 155/70
[2023-02-12 20:19] VITALS: BP 155/70
[2023-02-12 20:48] VITALS: BP 169/67
[2023-02-12] MEDS: ENOXAPARIN 40 MG/0.4 ML SYRINGE SC SCH (22:13)
[2023-02-12] MEDS: FAMOTIDINE 20 MG TABLET PO SCH (22:14)
[2023-02-13] MEDS: inSUlin ASPART 1 UNIT/0.01 ML (PER UNIT) SC SCH ×4 (05:34→21:50)
[2023-02-13] MEDS: CATHETER FLUSH 10 ML SYR IVP SCH ×3 (06:23→22:06)
[2023-02-13] MEDS: LEVOTHYROXINE 50 MCG TABLET PO SCH (06:23)
--- NOTE | 2023-02-13 07:44 | Occupational Ther Daily Note ---
OT Current Status-Daily Note Subjective Pt dozing in bed. Pt agrees to therapy. No c/o of pain. Mental Status/Objective Patient Orientation: Person, Place, Time, Situation, [place] ADL-Treatment Therapy Code Descriptions/Definitions Functional [place] Measure: 0=Not Assessed/NA 4=Minimal Assistance 1=Total Assistance 5=Supervision or Setup 2=Maximal Assistance 6=Modified [place] 3=Moderate Assistance 7=Complete IndependenceSCALE: Activities may be completed with or without assistive devices. 8-Itlctquqbm-mzyqtjl completes the activity by him/herself with no assistance from a helper. 5-Set-up or Clean-up Assistance-helper sets up or cleans up; patient completes activity. [place] assists only prior to or following the activity. 4-Supervision or Touching Assistance-helper provides verbal cues and/or touching/steadying and/or contact guard assistance as patient completes activity. Assistance may be provided throughout the activity or intermittently. 3-Partial/Moderate Assistance-helper does LESS THAN HALF the effort. [place] lifts, holds or supports trunk or limbs, but provides less than half the effort. 2-Substantial/Maximal Assistance-helper does MORE THAN HALF the effort. [place] lifts or holds trunk or limbs and provides more than half the effort. 1-Devvbelfh-iynqcc does ALL the effort. Patient does none of the effort to complete the activity. Or, the assistance of 2 or more helpers is required for the patient to complete the activity. If activity was not attempted, code reason: 7-Patient Refused. 9-Not Applicable-not attempted and the patient did not perform the activity before the current illness, exacerbation or injury. 10-Not Attempted due to Environmental Limitations-(lack of equipment, weather restraints, etc.). 88-Not Attempted due to Medical Conditions or Safety Concerns. Eating (QC): 5 (Set up due to pt difficulty problem solving with taking off paper on straw before putting in drink. Pt attempted opening packages with utensils, but needed assistance. Pt flipped coffee cup upside down and attampted to remove a lid that wasn't there.) Oral Hygiene (QC): 5 (Set up while sitting in recliner to complete oral care.) Bathing Location: L Arm, R Arm, L Upper Leg, R Upper Leg, Chest, Abdomen Shower/Bathe Self (QC): 3 (Pt completed sponge bath in recliner with VCs for steps of the task. Pt needed assistance to wash feet. CGA for steadying during standing while pt completed nuria care.) Upper Body Dressing (QC): 5 (Pt able to doff shirt. Set up for donning shirt. ) Lower Body Dressing (QC): 3 (Min A to thread brief and pants around feet while pt pulled them up to knees. CGA to stand while pt hiked pants over hips. ) On/Off Footwear: 2 (Pt utilized sock aid to don socks. Many VC needed to use sock aid properly. Required assistance to place sock onto sock aid, then pt completed the rest.) Toileting Hygiene (QC): 4 (CGA and VCs to pull down/up pants while pt wiped.) Toilet Transfer (QC): 4 (CGA for steadying during ambulation with FWW and sitting down/getting up from toilet.) Pt displayed difficulty solving problems while completing ADLs during tx. Pt seemed to disregard VCs when instruction was given in regard to proper use of s ock aid. Ended session with pt sitting up in recliner with call light/phone in reach. All needs met and safety measures in place. Education OT Patient Education: Correct positioning, Modified ADL techniques, Use of adapted equipment Teaching Recipient: Patient Teaching Methods: Demonstration, Discussion Response to Teaching: Unable to Return Demonstration, Reinforcement Needed Pt educated on proper use of sock aid. Pt verbalized understanding of how to get the sock onto the sock aid, but could not demonstrate after instruction. Skilled instruction of AE needed in future sessions for reinforcement. OT Short Term Goals Short Term Goals Time Frame: Feb 20, 2023 Eatin Oral hygiene: 5 Toileting hygiene: 3 (min assist) Shower/bathe self: 3 (min assist) Upper body dressin Lower body dressin (Min assist with AE) Putting on/taking off footwear: 4 (supervision with AE) OT Prison Goals Prison Goals Time Frame: Mar 06, 2023 Acute change in mental status: 0 Inattention: 0 Disorganized thinkin Altered level of consciousness: 0 Eating (QC): 6 Oral Hygiene (QC): 6 Toileting Hygiene (QC): 6 Shower/Bathe Self (QC): 4 Upper Body Dressing (QC): 5 Lower Body Dressing (QC): 5 (set up with AE) On/Off Footwear (QC): 5 (Set up with AE) Additional Goals: 1-Demonstrate ADL Tasks, 2-Verbalize Understanding, 3- ImproveStrength/Shae 1=Demonstrate adherence to instructed precautions during ADL tasks. 2=Patient will verbalize/demonstrate understanding of assistive devices/modifications for ADL. 3=Patient will improve strength/tolerance for activity to enable patient to perform ADL's. OT Education/Plan Problem List/Assessment Assessment: Decreased Activ Tolerance, Decreased Safety Aware, Decreased UE Strength, Impaired Cognition, Impaired Coordination, Impaired Funct Balance, Impaired Self-Care Skills Discharge Recommendations Plan/Recommendations: Continue POC Treatment Plan/Plan of Care Treatment,Training & Education: Yes Patient would benefit from OT for education, treatment and training to promote independence in ADL's, mobility, safety and/or upper extremity function for ADL's. Plan of Care: ADL Retraining, Caregiver Training, Cognitive Retraining, Functional Mobility, Group Exercise/Act as Ind, UE Funct Exercise/Act Treatment Duration: Mar 06, 2023 Frequency: At least 5 of 7 days/Wk (IRF) Estimated Hrs Per Day: 1.5 hours per day Agreement: Yes Rehab Potential: Poor Time Start Time: 07:00 Stop Time: 07:30 DATE: Feb 13, 2023 Total Time Billed (hr/min): 30 Billed Treatment Time 1 visit- ADL 2 (30 min) MARY NAVARRETE Feb 13, 2023 07:44
[2023-02-13 08:00] VITALS: BP 177/80
[2023-02-13] MEDS: SENNA W/DOCUSATE TABLET PO SCH ×2 (09:00→21:50)
[2023-02-13] MEDS: DOCUSATE SODIUM 100 MG CAPSULE PO SCH ×2 (09:00→21:50)
[2023-02-13] MEDS: hydrALAZINE 25 MG TABLET PO SCH ×3 (09:00→22:04)
[2023-02-13] MEDS: PANTOPRAZOLE 40 MG TABLET PO SCH (09:00)
[2023-02-13] MEDS: amLODIPine 5 MG TABLET PO SCH (09:00)
[2023-02-13] MEDS: SERTRALINE 100 MG TABLET PO SCH ×2 (09:00→22:04)
[2023-02-13] MEDS: inSUlin DETERMIR 1 UNIT/0.01 ML (CHARGE PER UNIT) SQ SCH ×2 (09:01→22:04)
[2023-02-13] MEDS: MICONAZOLE 2% POWDER 90 GM TOP SCH ×2 (09:02→22:05)
[2023-02-13] MEDS: COLLAGENASE OINTMENT 30 GM TUBE TP SCH ×2 (09:02→22:03)
[2023-02-13] MEDS: MICONAZOLE 2% CREAM 30 GM TP SCH ×2 (09:03→22:02)
[2023-02-13] MEDS: MENTHOL/ZINC OXIDE OINTMENT 113 GM TUBE TOP SCH ×2 (09:03→22:02)
[2023-02-13] MEDS: RT-Ipratropium/Albuterol NEB 3 ML VIAL INH SCH ×2 (09:42→20:34)
[2023-02-13] MEDS: RT-BUDESONIDE NEBS 0.5 MG/2ML VIAL INH SCH ×2 (09:42→20:35)
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
[2023-02-13] MEDS: CHOLESTYRAMINE LITE 4 GM PACKET PO SCH ×3 (10:40→22:05)
--- NOTE | 2023-02-13 12:31 | Physical Therapy Daily Note ---
PT Daily Note-Current Subjective Pt laying Supine in bed upon arrival. Pt agrees to PT although demonstrates distraction throughout tx (looking for Sp). Pain Section J - Health Conditions 1. Rarely or not at all 2. Occasionally 3. Frequently 4. Almost constantly 8. Unable to answer Pain Effect on Sleep: 1 Pain Interference with Therapy: 2 Pain Interference w/Day-to-Day: 2 Mental Status Patient Orientation: Person, Confused, Place Attachments: Oxygen (1L) Transfers SCALE: Activities may be completed with or without assistive devices. 6-Gafbkuwfmu-bxtablt completes the activity by him/herself with no assistance from a helper. 5-Set-up or Clean-up Assistance-helper sets up or cleans up; patient completes activity. [place] assists only prior to or following the activity. 4-Supervision or Touching Assistance-helper provides verbal cues and/or touching/steadying and/or contact guard assistance as patient completes activity. Assistance may be provided throughout the activity or intermittently. 3-Partial/Moderate Assistance-helper does LESS THAN HALF the effort. [place] lifts, holds or supports trunk or limbs, but provides less than half the effort. 2-Substantial/Maximal Assistance-helper does MORE THAN HALF the effort. [place] lifts or holds trunk or limbs and provides more than half the effort. 5-Yqvwnjpax-crspmk does ALL the effort. Patient does none of the effort to complete the activity. Or, the assistance of 2 or more helpers is required for the patient to complete the activity. If activity was not attempted, code reason: 7-Patient Refused. 9-Not Applicable-not attempted and the patient did not perform the activity before the current illness, exacerbation or injury. 10-Not Attempted due to Environmental Limitations-(lack of equipment, weather restraints, etc.). 88-Not Attempted due to Medical Conditions or Safety Concerns. Sit to Lying (QC): 4 Lying to Sitting/Side of Bed(Q: 4 Sit to Stand (QC): 4 Weight Bearing Right Lower Extremity: Right Full Weight Bearing Left Lower Extremity: Left Full Weight Bearing Gait Training Does the Patient Walk?: Yes Distance: 150' Walk 10 feet (QC): 4 Walk 50 ft with 2 Turns(QC): 4 Walk 150 ft (QC): 4 Gait Assistive Device: FWW Exercises Seated Therapy Exercises: Ankle pumps, Long arc quads, Hip flexion, Hip abd/add, Glut set Seated Reps: 15 Treatments After explaining why pt cannot get up w/o staff at this time (pt is fall risk), pt wanted to discuss progress and independence. Pt TF to standing and amb in hallway before complete Seated EX. After RB, pt amb back to [facility] and rest in chair for lunch with all needs met. Assessment Current Status: Fair Progress Pt remains impulsive at times and needs VC for safety and occasionally for sequencing. PT Cook Sauce Goals [facility] Goals PT [facility] Goals Time Frame: Feb 20, 2023 Roll Left & Right (QC): 6 (Pt will be Mod I with bed mobility and transfers. ) Sit to Lying (QC): 6 (Pt will be Mod I with bed mobility and transfers. ) Lying-Sitting on Side/Bed(QC): 6 (Pt will be Mod I with bed mobility and transfers. ) Sit to Stand (QC): 6 (Pt will be Mod I with bed mobility and transfers. ) Chair/Piz-vc-Oigad Xfer(QC): 6 (Pt will be Mod I with bed mobility and transfers. ) Toilet Transfer (QC): 6 (Pt will be Mod I with bed mobility and transfers. ) Car Transfer (QC): 6 (Pt will be Mod I with bed mobility and transfers. ) Does the Patient Walk: Yes Walk 10 feet (QC): 4 (Pt will be SBA for walking and stairs with the FWW. ) Walk 50ft with 2 Turns (QC): 4 (Pt will be SBA for walking and stairs with the FWW. ) Walk 150 ft (QC): 4 (Pt will be SBA for walking and stairs with the FWW. ) Walking 10ft on Uneven Surface: 4 (Pt will be SBA for walking and stairs with the FWW. ) 1 Step (curb) (QC): 4 (Pt will be SBA for walking and stairs with the FWW. ) 4 Steps (QC): 4 (Pt will be SBA for walking and stairs with the FWW. ) 12 Steps (QC): 9 Picking up an Object (QC): 6 (Mod I) Does the Pt use WC or Scooter?: No Wheel 50 feet with 2 turns (QC: 9 Type: N/A Wheel 150 feet: 9 Type: N/A PT Plan Problem List Problem List: Activity Tolerance, Safety Treatment/Plan Treatment Plan: Continue Plan of Care Treatment Plan: Bed Mobility, Concurrent Therapy, Education, Functional Activity Shae, Functional Strength, Group Therapy, Gait, Safety, Therapeutic E xercise, Transfers Treatment Duration: Feb 20, 2023 Frequency: At least 5 of 7 days/Wk (IRF) Estimated Hrs Per Day: 1.5 hours per day Patient and/or Family Agrees t: Yes Safety Risks/Education Patient Education: Safety Issues Teaching Recipient: Patient Teaching Methods: Discussion Response to Teaching: Reinforcement Needed Time Time In: 1100 Time Out: 1200 DATE: Feb 13, 2023 Total Billed Treatment Time: 60 Total Billed Treatment 1, FA (15m), EX x2 (25m) & GT (20m) LEO DUNN PTA Feb 13, 2023 12:31
--- NOTE | 2023-02-13 13:45 | Occupational Ther Daily Note ---
OT Current Status-Daily Note Subjective Pt alert, lying in bed. present in room. Co-treat with PT ([id number]), skills of 2 clinicians required for family training with spouse for education on pt's mobility, mobility needs and functional needs. PT focusing on transfers, ambulation and mobility while OT focusing on functional mobility and education on pt's needs during ADLs. Mental Status/Objective Patient Orientation: Person, Confused, Place, Time, Situation ADL-Treatment Therapy Code Descriptions/Definitions Functional [place] Measure: 0=Not Assessed/NA 4=Minimal Assistance 1=Total Assistance 5=Supervision or Setup 2=Maximal Assistance 6=Modified [place] 3=Moderate Assistance 7=Complete IndependenceSCALE: Activities may be completed with or without assistive devices. 9-Kbpunnmfuk-sztrcjd completes the activity by him/herself with no assistance from a helper. 5-Set-up or Clean-up Assistance-helper sets up or cleans up; patient completes activity. [place] assists only prior to or following the activity. 4-Supervision or Touching Assistance-helper provides verbal cues and/or touching/steadying and/or contact guard assistance as patient completes activity. Assistance may be provided throughout the activity or intermittently. 3-Partial/Moderate Assistance-helper does LESS THAN HALF the effort. [place] lifts, holds or supports trunk or limbs, but provides less than half the effort. 2-Substantial/Maximal Assistance-helper does MORE THAN HALF the effort. [place] lifts or holds trunk or limbs and provides more than half the effort. 1-Hqpurscxn-bmttca does ALL the effort. Patient does none of the effort to complete the activity. Or, the assistance of 2 or more helpers is required for the patient to complete the activity. If activity was not attempted, code reason: 7-Patient Refused. 9-Not Applicable-not attempted and the patient did not perform the activity before the current illness, exacerbation or injury. 10-Not Attempted due to Environmental Limitations-(lack of equipment, weather restraints, etc.). 88-Not Attempted due to Medical Conditions or Safety Concerns. Other Treatment Pt is impulsive and has decreased safety awareness during mobility and ADLs. Cues given with each task and during each session for safe transfers and safety awareness. Spouse states that their trailer is small and that pt has been on a FWW for 3 years and she is not worried. MONTALVO and RAIL LOADER attempt to discuss safety concerns with , pt and have no concerns or questions other than about pt's wounds on buttocks Nrsg aware. After session, pt lying in bed with call light/phone in reach. All needs met in room. Bed alarm set. Education OT Patient Education: Instructions to caregiver, Safety issues Teaching Recipient: Patient, Family Teaching Methods: Demonstration, Discussion Response to Teaching: Reinforcement Needed OT Short Term Goals Short Term Goals Time Frame: Feb 20, 2023 Eatin Oral hygiene: 5 Toileting hygiene: 3 (min assist) Shower/bathe self: 3 (min assist) Upper body dressin Lower body dressin (Min assist with AE) Putting on/taking off footwear: 4 (supervision with AE) OT Assisted Goals [place] [employer] Cutter And Mounter Goals Time Frame: Mar 06, 2023 Acute change in mental status: 0 Inattention: 0 Disorganized thinkin Altered level of consciousness: 0 Eating (QC): 6 Oral Hygiene (QC): 6 Toileting Hygiene (QC): 6 Shower/Bathe Self (QC): 4 Upper Body Dressing (QC): 5 Lower Body Dressing (QC): 5 (set up with AE) On/Off Footwear (QC): 5 (Set up with AE) Additional Goals: 1-Demonstrate ADL Tasks, 2-Verbalize Understanding, 3- ImproveStrength/Shae 1=Demonstrate adherence to instructed precautions during ADL tasks. 2=Patient will verbalize/demonstrate understanding of assistive devices/modifications for ADL. 3=Patient will improve strength/tolerance for activity to enable patient to perform ADL's. OT Education/Plan Problem List/Assessment Assessment: Decreased Activ Tolerance, Decreased Safety Aware, Impaired Funct Balance, Impaired Self-Care Skills Discharge Recommendations Plan/Recommendations: Continue POC Treatment Plan/Plan of Care Patient would benefit from OT for education, treatment and training to promote independence in ADL's, mobility, safety and/or upper extremity function for ADL's. Plan of Care: ADL Retraining, Caregiver Training, Cognitive Retraining, Functional Mobility, Group Exercise/Act as Ind, UE Funct Exercise/Act Treatment Duration: Mar 06, 2023 Frequency: At least 5 of 7 days/Wk (IRF) Estimated Hrs Per Day: 1.5 hours per day Agreement: Yes Rehab Potential: Poor Time Start Time: 13:00 Stop Time: 13:30 DATE: Feb 13, 2023 Total Time Billed (hr/min): 30 Billed Treatment Time 1 visit-FA 2 (30 min) co-treat with PT 30 min MARY NAVARRETE Feb 13, 2023 13:45
--- NOTE | 2023-02-13 14:00 | Physical Therapy Daily Note ---
PT Daily Note-Current Subjective Pt laying in bed visiting with Sp upon arrival. Pt agrees to PT/OT co-treat for Family Training. Pain Location: No Pain Reported Section J - Health Conditions 1. Rarely or not at all 2. Occasionally 3. Frequently 4. Almost constantly 8. Unable to answer Pain Effect on Sleep: 1 Pain Interference with Therapy: 2 Pain Interference w/Day-to-Day: 2 Mental Status Patient Orientation: Person, Confused, Place Transfers SCALE: Activities may be completed with or without assistive devices. 4-Kzsfnkkzik-nvicyde completes the activity by him/herself with no assistance from a helper. 5-Set-up or Clean-up Assistance-helper sets up or cleans up; patient completes activity. [place] assists only prior to or following the activity. 4-Supervision or Touching Assistance-helper provides verbal cues and/or touching/steadying and/or contact guard assistance as patient completes activity. Assistance may be provided throughout the activity or intermittently. 3-Partial/Moderate Assistance-helper does LESS THAN HALF the effort. [place] lifts, holds or supports trunk or limbs, but provides less than half the effort. 2-Substantial/Maximal Assistance-helper does MORE THAN HALF the effort. [place] lifts or holds trunk or limbs and provides more than half the effort. 3-Wdjeajggo-hwgvyq does ALL the effort. Patient does none of the effort to complete the activity. Or, the assistance of 2 or more helpers is required for the patient to complete the activity. If activity was not attempted, code reason: 7-Patient Refused. 9-Not Applicable-not attempted and the patient did not perform the activity before the current illness, exacerbation or injury. 10-Not Attempted due to Environmental Limitations-(lack of equipment, weather restraints, etc.). 88-Not Attempted due to Medical Conditions or Safety Concerns. Sit to Lying (QC): 4 Lying to Sitting/Side of Bed(Q: 4 Sit to Stand (QC): 4 Car Transfer (QC): 4 Weight Bearing Right Lower Extremity: Right Full Weight Bearing Left Lower Extremity: Left Full Weight Bearing Gait Training Does the Patient Walk?: Yes Distance: 150' Walk 10 feet (QC): 5 Walk 50 ft with 2 Turns(QC): 4 Walk 150 ft (QC): 4 Walking 10ft/uneven surface-QC: 4 Gait Assistive Device: FWW Stair Training Stair Training: Handrails/: 2 handrails #of Steps: 6 1 Step (curb) (QC): 4 4 Steps (QC): 4 Stairs: Pattern: Step to Treatments Family Training consisted of demonstrating TF, bed mobility and amb. Pt's safety is also discussed olivia. in regards to TF. Pt returns to room at end of tx to rest in bed w/all needs met, call light in hand. Assessment Current Status: Fair Progress Pt fatigues easily and motivation is down today. PT Warehouse Team Leader Goals Warehouse Team Leader Goals PT Warehouse Team Leader Goals Time Frame: Feb 20, 2023 Roll Left & Right (QC): 6 (Pt will be Mod I with bed mobility and transfers. ) Sit to Lying (QC): 6 (Pt will be Mod I with bed mobility and transfers. ) Lying-Sitting on Side/Bed(QC): 6 (Pt will be Mod I with bed mobility and transfers. ) Sit to Stand (QC): 6 (Pt will be Mod I with bed mobility and transfers. ) Chair/Qtn-or-Ymwfr Xfer(QC): 6 (Pt will be Mod I with bed mobility and transfers. ) Toilet Transfer (QC): 6 (Pt will be Mod I with bed mobility and transfers. ) Car Transfer (QC): 6 (Pt will be Mod I with bed mobility and transfers. ) Does the Patient Walk: Yes Walk 10 feet (QC): 4 (Pt will be SBA for walking and stairs with the FWW. ) Walk 50ft with 2 Turns (QC): 4 (Pt will be SBA for walking and stairs with the FWW. ) Walk 150 ft (QC): 4 (Pt will be SBA for walking and stairs with the FWW. ) Walking 10ft on Uneven Surface: 4 (Pt will be SBA for walking and stairs with the FWW. ) 1 Step (curb) (QC): 4 (Pt will be SBA for walking and stairs with the FWW. ) 4 Steps (QC): 4 (Pt will be SBA for walking and stairs with the FWW. ) 12 Steps (QC): 9 Picking up an Object (QC): 6 (Mod I) Does the Pt use WC or Scooter?: No Wheel 50 feet with 2 turns (QC: 9 Type: N/A Wheel 150 feet: 9 Type: N/A PT Plan Problem List Problem List: Activity Tolerance, Safety Treatment/Plan Treatment Plan: Continue Plan of Care Treatment Plan: Bed Mobility, Concurrent Therapy, Education, Functional Activity Shae, Functional Strength, Group Therapy, Gait, Safety, Therapeutic Exercise, Transfers Treatment Duration: Feb 20, 2023 Frequency: At least 5 of 7 days/Wk (IRF) Estimated Hrs Per Day: 1.5 hours per day Patient and/or Family Agrees t: Yes Safety Risks/Education Patient Education: Transfer Techniques, Steps, Correct Positioning, Safety Issues Teaching Recipient: Patient, Significant Other Teaching Methods: Discussion Response to Teaching: Verbalize Understanding, Reinforcement Needed Time Time In: 1300 Time Out: 1330 DATE: Feb 13, 2023 Total Billed Treatment Time: 30 Total Billed Treatment Co-treat w/OT for 30m 1, GT (10m) & FA (20m) LEO DUNN PTA Feb 13, 2023 14:00
[2023-02-13 20:15] VITALS: BP 170/74
[2023-02-13] MEDS: ENOXAPARIN 40 MG/0.4 ML SYRINGE SC SCH (22:04)
[2023-02-13] MEDS: FAMOTIDINE 20 MG TABLET PO SCH (22:04)
[2023-02-14] MEDS: inSUlin ASPART 1 UNIT/0.01 ML (PER UNIT) SC SCH ×4 (06:00→21:30)
[2023-02-14] MEDS: LEVOTHYROXINE 50 MCG TABLET PO SCH (06:46)
[2023-02-14] MEDS: CATHETER FLUSH 10 ML SYR IVP SCH ×3 (06:46→21:08)
[2023-02-14] MEDS: RT-Ipratropium/Albuterol NEB 3 ML VIAL INH SCH ×2 (07:23→21:00)
[2023-02-14] MEDS: RT-BUDESONIDE NEBS 0.5 MG/2ML VIAL INH SCH ×2 (07:23→21:00)
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
[2023-02-14 08:11] VITALS: BP 170/74
[2023-02-14] MEDS: CHOLESTYRAMINE LITE 4 GM PACKET PO SCH ×3 (08:19→21:07)
[2023-02-14] MEDS: SERTRALINE 100 MG TABLET PO SCH ×2 (08:20→21:08)
[2023-02-14] MEDS: inSUlin DETERMIR 1 UNIT/0.01 ML (CHARGE PER UNIT) SQ SCH ×2 (08:20→21:07)
[2023-02-14] MEDS: hydrALAZINE 25 MG TABLET PO SCH ×3 (08:20→21:08)
[2023-02-14] MEDS: oxyCODONE/ACETAMINOPHEN 5/325MG TABLET PO PRN (08:20)
[2023-02-14] MEDS: amLODIPine 5 MG TABLET PO SCH (08:20)
[2023-02-14] MEDS: PANTOPRAZOLE 40 MG TABLET PO SCH (08:20)
[2023-02-14] MEDS: DOCUSATE SODIUM 100 MG CAPSULE PO SCH ×2 (08:23→21:30)
[2023-02-14] MEDS: SENNA W/DOCUSATE TABLET PO SCH ×2 (08:25→21:30)
[2023-02-14] MEDS: MICONAZOLE 2% CREAM 30 GM TP SCH ×2 (08:25→21:08)
[2023-02-14] MEDS: COLLAGENASE OINTMENT 30 GM TUBE TP SCH ×2 (08:26→21:09)
[2023-02-14] MEDS: MICONAZOLE 2% POWDER 90 GM TOP SCH ×2 (08:26→21:10)
[2023-02-14 08:28] VITALS: BP 158/69
[2023-02-14] MEDS: MENTHOL/ZINC OXIDE OINTMENT 113 GM TUBE TOP SCH ×2 (08:30→21:08)
--- NOTE | 2023-02-14 09:53 | Occupational Ther Daily Note ---
OT Current Status-Daily Note Subjective Pt dozing sitting in recliner. Pt agrees to therapy. C/o of pain on bottom, nrsg notified. Mental Status/Objective Patient Orientation: Person, Place, Time, Situation Attachments: IV ADL-Treatment Therapy Code Descriptions/Definitions Functional [place] Measure: 0=Not Assessed/NA 4=Minimal Assistance 1=Total Assistance 5=Supervision or Setup 2=Maximal Assistance 6=Modified [place] 3=Moderate Assistance 7=Complete IndependenceSCALE: Activities may be completed with or without assistive devices. 0-Fuqirzxwpc-tgxbckd completes the activity by him/herself with no assistance from a helper. 5-Set-up or Clean-up Assistance-helper sets up or cleans up; patient completes activity. [place] assists only prior to or following the activity. 4-Supervision or Touching Assistance-helper provides verbal cues and/or touching/steadying and/or contact guard assistance as patient completes activity. Assistance may be provided throughout the activity or intermittently. 3-Partial/Moderate Assistance-helper does LESS THAN HALF the effort. [place] lifts, holds or supports trunk or limbs, but provides less than half the effort. 2-Substantial/Maximal Assistance-helper does MORE THAN HALF the effort. [place] lifts or holds trunk or limbs and provides more than half the effort. 7-Hqymuafta-jwdqob does ALL the effort. Patient does none of the effort to complete the activity. Or, the assistance of 2 or more helpers is required for the patient to complete the activity. If activity was not attempted, code reason: 7-Patient Refused. 9-Not Applicable-not attempted and the patient did not perform the activity before the current illness, exacerbation or injury. 10-Not Attempted due to Environmental Limitations-(lack of equipment, weather restraints, etc.). 88-Not Attempted due to Medical Conditions or Safety Concerns. Oral Hygiene (QC): 6 (Ind standing at sink to complete oral hygiene.) Bathing Location: L Arm, R Arm, L Upper Leg, R Upper Leg, L Lower Leg (including foot), R Lower Leg (including foot), Chest, Abdomen, Buttocks, Perineal Area Shower/Bathe Self (QC): 5 (Set up for shower. Pt utilized long-handled sponge to wash feet, lower legs, back, and bottom.) Upper Body Dressing (QC): 5 (Set up clothes on FWW while pt dressed UB.) Lower Body Dressing (QC): 4 (Pt threaded pants around feet. SBA while pt stood to hike pants over hips.) On/Off Footwear: 3 (Pt able to doff socks utilizing cross country and track and field coach. Pt donned socks with sock-aid, min A to pull socks onto AE.) Pt ind brushed hair standing at sink, then needed to sit due to fatigue after shower. Other Treatment Pt ambulated to gym from room with FWW, CGA. Pt displayed increased activity tolerance during tx this day than previous. Pt completed dowel martínez activity working on AROM, activity tolerance, and B UE strengthening for ~10 mins. Pt then completed resistive clothespins task working on fine/gross motor strengthening and AROM, 16x with each hand. Pt then ambulated back to room with FWW, CGA. Ended session with pt sitting up in recliner with call light/phone in reach. All needs met in room and safety measures in place. Education OT Patient Education: Energy conservation, Use of adapted equipment Teaching Recipient: Patient Teaching Methods: Demonstration, Discussion Pt instruction on sock-aid. Skilled instruction were required for reinforcement of instruction, pt demonstrated understanding of instructions. OT Short Term Goals Short Term Goals Time Frame: Feb 20, 2023 Eatin Oral hygiene: 5 Toileting hygiene: 3 (min assist) Shower/bathe self: 3 (min assist) Upper body dressin Lower body dressin (Min assist with AE) Putting on/taking off footwear: 4 (supervision with AE) OT Nursing Home Goals Nursing Home Goals Time Frame: Mar 06, 2023 Acute change in mental status: 0 Inattention: 0 Disorganized thinkin Altered level of consciousness: 0 Eating (QC): 6 Oral Hygiene (QC): 6 Toileting Hygiene (QC): 6 Shower/Bathe Self (QC): 4 Upper Body Dressing (QC): 5 Lower Body Dressing (QC): 5 (set up with AE) On/Off Footwear (QC): 5 (Set up with AE) Additional Goals: 1-Demonstrate ADL Tasks, 2-Verbalize Understanding, 3-ImproveStrength/Shae 1=Demonstrate adherence to instructed precautions during ADL tasks. 2=Patient will verbalize/demonstrate understanding of assistive devices/modifications for ADL. 3=Patient will improve strength/tolerance for activity to enable patient to perform ADL's. OT Education/Plan Problem List/Assessment Assessment: Decreased Activ Tolerance, Decreased UE Strength, Impaired Self- Care Skills Discharge Recommendations Plan/Recommendations: Continue POC Treatment Plan/Plan of Care Treatment,Training & Education: Yes Patient would benefit from OT for education, treatment and training to promote independence in ADL's, mobility, safety and/or upper extremity function for ADL's. Plan of Care: ADL Retraining, Caregiver Training, Cognitive Retraining, Functional Mobility, Group Exercise/Act as Ind, UE Funct Exercise/Act Treatment Duration: Mar 06, 2023 Frequency: At least 5 of 7 days/Wk (IRF) Estimated Hrs Per Day: 1.5 hours per day Agreement: Yes Rehab Potential: Poor Time Start Time: 09:00 Stop Time: 10:30 DATE: Feb 14, 2023 Total Time Billed (hr/min): 90 Billed Treatment Time 1 visit- ADL 4 (60 min) FA 2 (30 mins) MARY NAVARRETE Feb 14, 2023 09:53
--- NOTE | 2023-02-14 12:02 | Physical Therapy Daily Note ---
PT Daily Note-Current Subjective Pt laying Supine in bed upon arrival. Pt agrees to PT. Pain Location: No Pain Reported Section J - Health Conditions 1. Rarely or not at all 2. Occasionally 3. Frequently 4. Almost constantly 8. Unable to answer Pain Effect on Sleep: 1 Pain Interference with Therapy: 1 Pain Interference w/Day-to-Day: 1 Mental Status Patient Orientation: Person, Place, Situation Attachments: Oxygen (1L) Transfers SCALE: Activities may be completed with or without assistive devices. 2-Sbiyrcnvfs-oczcblr completes the activity by him/herself with no assistance from a helper. 5-Set-up or Clean-up Assistance-helper sets up or cleans up; patient completes activity. [place] assists only prior to or following the activity. 4-Supervision or Touching Assistance-helper provides verbal cues and/or touching/steadying and/or contact guard assistance as patient completes activity. Assistance may be provided throughout the activity or intermittently. 3-Partial/Moderate Assistance-helper does LESS THAN HALF the effort. [place] lifts, holds or supports trunk or limbs, but provides less than half the effort. 2-Substantial/Maximal Assistance-helper does MORE THAN HALF the effort. [place] lifts or holds trunk or limbs and provides more than half the effort. 1-Qzfblaaze-mcecsg does ALL the effort. Patient does none of the effort to complete the activity. Or, the assistance of 2 or more helpers is required for the patient to complete the activity. If activity was not attempted, code reason: 7-Patient Refused. 9-Not Applicable-not attempted and the patient did not perform the activity before the current illness, exacerbation or injury. 10-Not Attempted due to Environmental Limitations-(lack of equipment, weather restraints, etc.). 88-Not Attempted due to Medical Conditions or Safety Concerns. Sit to Lying (QC): 5 Lying to Sitting/Side of Bed(Q: 5 Sit to Stand (QC): 5 Weight Bearing Right Lower Extremity: Right Full Weight Bearing Left Lower Extremity: Left Full Weight Bearing Gait Training Does the Patient Walk?: Yes Distance: 150' x2 Walk 10 feet (QC): 5 Walk 50 ft with 2 Turns(QC): 5 Walk 150 ft (QC): 5 Gait Assistive Device: FWW VC for monitoring O2 line for safety. Exercises Seated Therapy Exercises: Ankle pumps, Long arc quads, Hip flexion, Hip abd/add, Glut set Seated Reps: 15 Treatments Pt TF from Supine to EOB & completes Seated EX. Pt TF to Standing and uses BR before amb in hallway. Pt takes RB as needed. Pt amb again before returning to room to rest Supine in bed. All needs met, call light in hand. Assessment Current Status: Good Progress Pt has gained strength and independence of tasks but remains impulsive which at times affects pt's safety. PT Senior Windows Administrator Goals Long-Term Goals PT Long-Term Goals Time Frame: Feb 20, 2023 Roll Left & Right (QC): 6 (Pt will be Mod I with bed mobility and transfers. ) Sit to Lying (QC): 6 (Pt will be Mod I with bed mobility and transfers. ) Lying-Sitting on Side/Bed(QC): 6 (Pt will be Mod I with bed mobility and transfers. ) Sit to Stand (QC): 6 (Pt will be Mod I with bed mobility and transfers. ) Chair/Bya-fh-Edaor Xfer(QC): 6 (Pt will be Mod I with bed mobility and transfers. ) Toilet Transfer (QC): 6 (Pt will be Mod I with bed mobility and transfers. ) Car Transfer (QC): 6 (Pt will be Mod I with bed mobility and transfers. ) Does the Patient Walk: Yes Walk 10 feet (QC): 4 (Pt will be SBA for walking and stairs with the FWW. ) Walk 50ft with 2 Turns (QC): 4 (Pt will be SBA for walking and stairs with the FWW. ) Walk 150 ft (QC): 4 (Pt will be SBA for walking and stairs with the FWW. ) Walking 10ft on Uneven Surface: 4 (Pt will be SBA for walking and stairs with the FWW. ) 1 Step (curb) (QC): 4 (Pt will be SBA for walking and stairs with the FWW. ) 4 Steps (QC): 4 (Pt will be SBA for walking and stairs with the FWW. ) 12 Steps (QC): 9 Picking up an Object (QC): 6 (Mod I) Does the Pt use WC or Scooter?: No Wheel 50 feet with 2 turns (QC: 9 Type: N/A Wheel 150 feet: 9 Type: N/A PT Plan Problem List Problem List: Activity Tolerance, Safety Treatment/Plan Treatment Plan: Continue Plan of Care Treatment Plan: Bed Mobility, Concurrent Therapy, Education, Functional Activity Shae, Functional Strength, Group Therapy, Gait, Safety, Therapeutic Exercise, Transfers Treatment Duration: Feb 20, 2023 Frequency: At least 5 of 7 days/Wk (IRF) Estimated Hrs Per Day: 1.5 hours per day Patient and/or Family Agrees t: Yes Safety Risks/Education Patient Education: Safety Issues Teaching Recipient: Patient Teaching Methods: Discussion Response to Teaching: Verbalize Understanding Time Time In: 1100 Time Out: 1200 DATE: Feb 14, 2023 Total Billed Treatment Time: 60 Total Billed Treatment 1, GT x2 (30m), EX (15m) & FA (15m) LEO DNUN VEHICLE GLASS TECHNICIAN Feb 14, 2023 12:02
--- NOTE | 2023-02-14 13:47 | Occupational Ther Daily Note ---
OT Current Status-Daily Note Subjective Pt sitting EOB when entering room. Pt agrees to therapy, no c/o of pain. Mental Status/Objective Patient Orientation: Person, Place, Time, Situation ADL-Treatment Therapy Code Descriptions/Definitions Functional [place] Measure: 0=Not Assessed/NA 4=Minimal Assistance 1=Total Assistance 5=Supervision or Setup 2=Maximal Assistance 6=Modified [place] 3=Moderate Assistance 7=Complete IndependenceSCALE: Activities may be completed with or without assistive devices. 9-Igchgfmvsx-zlcphrw completes the activity by him/herself with no assistance from a helper. 5-Set-up or Clean-up Assistance-helper sets up or cleans up; patient completes activity. [place] assists only prior to or following the activity. 4-Supervision or Touching Assistance-helper provides verbal cues and/or touching/steadying and/or contact guard assistance as patient completes activity. Assistance may be provided throughout the activity or intermittently. 3-Partial/Moderate Assistance-helper does LESS THAN HALF the effort. [place] lifts, holds or supports trunk or limbs, but provides less than half the effort. 2-Substantial/Maximal Assistance-helper does MORE THAN HALF the effort. [place] lifts or holds trunk or limbs and provides more than half the effort. 7-Zfwrrwhsb-zbtcdj does ALL the effort. Patient does none of the effort to complete the activity. Or, the assistance of 2 or more helpers is required for the patient to complete the activity. If activity was not attempted, code reason: 7-Patient Refused. 9-Not Applicable-not attempted and the patient did not perform the activity before the current illness, exacerbation or injury. 10-Not Attempted due to Environmental Limitations-(lack of equipment, weather restraints, etc.). 88-Not Attempted due to Medical Conditions or Safety Concerns. Toilet Transfer (QC): 4 (SBA to stand while toileting.) Other Treatment Pt sitting EOB during treatment due to fatigue. Pt completed 2 sets of 5 dowel martínez UE exercises against gravity working on UE strengthening, activity tolerance, and energy conservation. Skilled instruction required for proper positioning during functional movements.Pt showed improvement in activity tolerance due to requiring less rest breaks. Pt working on B UE AROM in shldr flexion/adduction/abduction and elbow flexion/extension. Pt independent from EOB to supine. Pt ended session supine in bed with call light/phone in reach. All needs met and safety measures in place. Education OT Patient Education: Correct positioning, Energy conservation Teaching Recipient: Patient Teaching Methods: Demonstration, Discussion Response to Teaching: Verbalize Understanding OT Short Term Goals Short Term Goals Time Frame: Feb 20, 2023 Eatin Oral hygiene: 5 Toileting hygiene: 3 (min assist) Shower/bathe self: 3 (min assist) Upper body dressin Lower body dressin (Min assist with AE) Putting on/taking off footwear: 4 (supervision with AE) OT Long-Term Goals Computer Clerk Goals Time Frame: Mar 06, 2023 Acute change in mental status: 0 Inattention: 0 Disorganized thinkin Altered level of consciousness: 0 Eating (QC): 6 Oral Hygiene (QC): 6 Toileting Hygiene (QC): 6 Shower/Bathe Self (QC): 4 Upper Body Dressing (QC): 5 Lower Body Dressing (QC): 5 (set up with AE) On/Off Footwear (QC): 5 (Set up with AE) Additional Goals: 1-Demonstrate ADL Tasks, 2-Verbalize Understanding, 3- ImproveStrength/Shae 1=Demonstrate adherence to instructed precautions during ADL tasks. 2=Patient will verbalize/demonstrate understanding of assistive devices/modifications for ADL. 3=Patient will improve strength/tolerance for activity to enable patient to perform ADL's. OT Education/Plan Problem List/Assessment Assessment: Decreased Activ Tolerance, Decreased UE Strength, Impaired Coordination, Impaired Funct Balance, Impaired Self-Care Skills Discharge Recommendations Plan/Recommendations: Continue POC Treatment Plan/Plan of Care Treatment,Training & Education: Yes Patient would benefit from OT for education, treatment and training to promote independence in ADL's, mobility, safety and/or upper extremity function for ADL's. Plan of Care: ADL Retraining, Caregiver Training, Cognitive Retraining, Functional Mobility, Group Exercise/Act as Ind, UE Funct Exercise/Act Treatment Duration: Mar 06, 2023 Frequency: At least 5 of 7 days/Wk (IRF) Estimated Hrs Per Day: 1.5 hours per day Agreement: Yes Rehab Potential: Poor Time Start Time: 13:00 Stop Time: 13:30 DATE: Feb 14, 2023 Total Time Billed (hr/min): 30 Billed Treatment Time 1 visit- EX 2 (30 mins) MARY NAVARRETE Feb 14, 2023 13:46
[2023-02-14 20:21] VITALS: BP 169/63
[2023-02-14] MEDS: ENOXAPARIN 40 MG/0.4 ML SYRINGE SC SCH (21:07)
[2023-02-14] MEDS: FAMOTIDINE 20 MG TABLET PO SCH (21:08)
[2023-02-15] MEDS: inSUlin ASPART 1 UNIT/0.01 ML (PER UNIT) SC SCH ×4 (05:34→21:15)
[2023-02-15] MEDS: LEVOTHYROXINE 50 MCG TABLET PO SCH (06:19)
[2023-02-15] MEDS: CATHETER FLUSH 10 ML SYR IVP SCH ×3 (06:19→21:16)
--- NOTE | 2023-02-15 07:14 | Occupational Ther Daily Note ---
OT Current Status-Daily Note Subjective Pt alert, sitting up in bed. Pt agrees to therapy. No c/o of pain. Mental Status/Objective Patient Orientation: Person, Place, Time, Situation ADL-Treatment Therapy Code Descriptions/Definitions Functional [place] Measure: 0=Not Assessed/NA 4=Minimal Assistance 1=Total Assistance 5=Supervision or Setup 2=Maximal Assistance 6=Modified [place] 3=Moderate Assistance 7=Complete IndependenceSCALE: Activities may be completed with or without assistive devices. 3-Pygieaiarf-tqekcli completes the activity by him/herself with no assistance fr om a helper. 5-Set-up or Clean-up Assistance-helper sets up or cleans up; patient completes activity. [place] assists only prior to or following the activity. 4-Supervision or Touching Assistance-helper provides verbal cues and/or touching/steadying and/or contact guard assistance as patient completes activity. Assistance may be provided throughout the activity or intermittently. 3-Partial/Moderate Assistance-helper does LESS THAN HALF the effort. [place] lifts, holds or supports trunk or limbs, but provides less than half the effort. 2-Substantial/Maximal Assistance-helper does MORE THAN HALF the effort. [place] lifts or holds trunk or limbs and provides more than half the effort. 8-Qxiwbiqhb-srifzl does ALL the effort. Patient does none of the effort to complete the activity. Or, the assistance of 2 or more helpers is required for the patient to complete the activity. If activity was not attempted, code reason: 7-Patient Refused. 9-Not Applicable-not attempted and the patient did not perform the activity before the current illness, exacerbation or injury. 10-Not Attempted due to Environmental Limitations-(lack of equipment, weather restraints, etc.). 88-Not Attempted due to Medical Conditions or Safety Concerns. Eating (QC): 6 (Independently opened packages and utilized utensils with R hand. ) Toileting Hygiene (QC): 4 (Cleaned up after BMx2 standing, SBA for safety. Pt completed clean up by self and clothing manipulation.) Toilet Transfer (QC): 4 (SBA for safety) Pt showed increased awareness and eagerness to participate in tx session. Other Treatment Pt ambulated from room to dining area with FWW, SBA for safety. Sitting at table, pt working with theraputty and beads for functional tasks requiring fine motor skills. Pt completed task 3x, working on fine/gross motor control and hand strengthening. Pt then ambulated to room for toileting and back to dining area, SBA. Pt completed 4 hand exercises w/theraputty for fine/gross motor strengthening. Discussion w/ pt about concerns when going back home and techniques for energy conservation while completing functional tasks at home. Pt ambulated back to room with FWW and ended session laying supine in bed. Call lig ht/phone in reach. All needs met and safety measures in place. Education OT Patient Education: Energy conservation, Purpose of tx/functional activities Teaching Recipient: Patient Teaching Methods: Discussion Response to Teaching: Verbalize Understanding Pt education about energy conservation while completing functional tasks at home. Skilled instruction required for energy conservation techniques. Pt verbalized understanding of instruction. OT Short Term Goals Short Term Goals Time Frame: Feb 20, 2023 Eatin Oral hygiene: 5 Toileting hygiene: 3 (min assist) Shower/bathe self: 3 (min assist) Upper body dressin Lower body dressin (Min assist with AE) Putting on/taking off footwear: 4 (supervision with AE) OT Product Info Specialist Goals Prison Goals Time Frame: Mar 06, 2023 Acute change in mental status: 0 Inattention: 0 Disorganized thinkin Altered level of consciousness: 0 Eating (QC): 6 Oral Hygiene (QC): 6 Toileting Hygiene (QC): 6 Shower/Bathe Self (QC): 4 Upper Body Dressing (QC): 5 Lower Body Dressing (QC): 5 (set up with AE) On/Off Footwear (QC): 5 (Set up with AE) Additional Goals: 1-Demonstrate ADL Tasks, 2-Verbalize Understanding, 3-ImproveStrength/Shae 1=Demonstrate adherence to instructed precautions during ADL tasks. 2=Patient will verbalize/demonstrate understanding of assistive devices/modifications for ADL. 3=Patient will improve strength/tolerance for activity to enable patient to perform ADL's. OT Education/Plan Problem List/Assessment Assessment: Decreased Activ Tolerance, Decreased UE Strength, Impaired Funct Balance, Impaired Self-Care Skills Discharge Recommendations Plan/Recommendations: Continue POC Treatment Plan/Plan of Care Treatment,Training & Education: Yes Patient would benefit from OT for education, treatment and training to promote independence in ADL's, mobility, safety and/or upper extremity function for ADL's. Plan of Care: ADL Retraining, Caregiver Training, Cognitive Retraining, Functional Mobility, Group Exercise/Act as Ind, UE Funct Exercise/Act Treatment Duration: Mar 06, 2023 Frequency: At least 5 of 7 days/Wk (IRF) Estimated Hrs Per Day: 1.5 hours per day Agreement: Yes Rehab Potential: Poor Time Start Time: 07:00 Stop Time: 08:30 DATE: Feb 15, 2023 Total Time Billed (hr/min): 90 Billed Treatment Time 1 visit- ADL 2 (30 mins) FA 2 (35 mins) EX 2 (25 mins) MARY NAVARRETE Feb 15, 2023 07:14
[2023-02-15 07:52] VITALS: BP 148/72
[2023-02-15] MEDS: RT-BUDESONIDE NEBS 0.5 MG/2ML VIAL INH SCH ×2 (08:18→20:28)
[2023-02-15] MEDS: RT-Ipratropium/Albuterol NEB 3 ML VIAL INH SCH ×3 (08:18→20:29)
[2023-02-15 08:28] VITALS: BP 148/72
[2023-02-15] MEDS: CHOLESTYRAMINE LITE 4 GM PACKET PO SCH ×3 (09:54→21:14)
[2023-02-15] MEDS: SERTRALINE 100 MG TABLET PO SCH ×2 (09:54→21:15)
[2023-02-15] MEDS: hydrALAZINE 25 MG TABLET PO SCH ×3 (09:55→21:15)
[2023-02-15] MEDS: PANTOPRAZOLE 40 MG TABLET PO SCH (09:55)
[2023-02-15] MEDS: amLODIPine 5 MG TABLET PO SCH (09:55)
[2023-02-15] MEDS: inSUlin DETERMIR 1 UNIT/0.01 ML (CHARGE PER UNIT) SQ SCH ×2 (09:56→21:14)
[2023-02-15] MEDS: DOCUSATE SODIUM 100 MG CAPSULE PO SCH ×2 (10:06→21:15)
[2023-02-15] MEDS: SENNA W/DOCUSATE TABLET PO SCH ×2 (10:06→21:15)
[2023-02-15] MEDS: COLLAGENASE OINTMENT 30 GM TUBE TP SCH ×2 (10:08→21:13)
[2023-02-15] MEDS: MICONAZOLE 2% CREAM 30 GM TP SCH ×2 (10:08→21:14)
[2023-02-15] MEDS: MICONAZOLE 2% POWDER 90 GM TOP SCH ×2 (10:09→21:15)
[2023-02-15] MEDS: MENTHOL/ZINC OXIDE OINTMENT 113 GM TUBE TOP SCH ×2 (10:10→21:14)
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
[2023-02-15] MEDS ORDERED: RT-ALBUTEROL SULF 2.5 MG/3 ML PRE-MIX VIAL INH PRN (11:00)
--- NOTE | 2023-02-15 14:54 | Physical Therapy Daily Note ---
PT Daily Note-Current Subjective Pt laying Supine in bed upon arrival. Pt agrees to PT. Pain Location: No Pain Reported Section J - Health Conditions 1. Rarely or not at all 2. Occasionally 3. Frequently 4. Almost constantly 8. Unable to answer Pain Effect on Sleep: 1 Pain Interference with Therapy: 1 Pain Interference w/Day-to-Day: 1 Mental Status Patient Orientation: Person, Place, Situation Transfers SCALE: Activities may be completed with or without assistive devices. 7-Pyuxrhvwxk-awkjbxl completes the activity by him/herself with no assistance from a helper. 5-Set-up or Clean-up Assistance-helper sets up or cleans up; patient completes activity. [place] assists only prior to or following the activity. 4-Supervision or Touching Assistance-helper provides verbal cues and/or touching/steadying and/or contact guard assistance as patient completes activity. Assistance may be provided throughout the activity or intermittently. 3-Partial/Moderate Assistance-helper does LESS THAN HALF the effort. [place] lifts, holds or supports trunk or limbs, but provides less than half the effort. 2-Substantial/Maximal Assistance-helper does MORE THAN HALF the effort. [place] lifts or holds trunk or limbs and provides more than half the effort. 1-Sdwcjgsnh-raqekv does ALL the effort. Patient does none of the effort to complete the activity. Or, the assistance of 2 or more helpers is required for the patient to complete the activity. If activity was not attempted, code reason: 7-Patient Refused. 9-Not Applicable-not attempted and the patient did not perform the activity before the current illness, exacerbation or injury. 10-Not Attempted due to Environmental Limitations-(lack of equipment, weather restraints, etc.). 88-Not Attempted due to Medical Conditions or Safety Concerns. Lying to Sitting/Side of Bed(Q: 5 Sit to Stand (QC): 5 Toilet Transfer (QC): 5 Weight Bearing Right Lower Extremity: Right Full Weight Bearing Left Lower Extremity: Left Full Weight Bearing Gait Training Does the Patient Walk?: Yes Distance: 75', 150' Walk 10 feet (QC): 5 Walk 50 ft with 2 Turns(QC): 4 Walk 150 ft (QC): 4 Gait Assistive Device: FWW Stair Training Stair Training: Handrails/: 2 handrails #of Steps: 4 1 Step (curb) (QC): 4 4 Steps (QC): 4 Stairs: Pattern: Step to Treatments TF from Supine to EOB to Standing and amb to BR. After toileting, pt amb to hallway & takes RB as needed. Pt amb again taking RB as needed. After amb, pt returns to room to rest at EOB before laying Supine. All needs met, call light in hand. Assessment Current Status: Good Progress Pt is able to walk farther before needing RB and walking w/o O2 (only on Room Air). O2 is monitored throughout tx & remains 94-95% even while walking and amb stairs. PT Shelter Goals Dispute Specialist Goals PT Dispute Specialist Goals Time Frame: Feb 20, 2023 Roll Left & Right (QC): 6 (Pt will be Mod I with bed mobility and transfers. ) Sit to Lying (QC): 6 (Pt will be Mod I with bed mobility and transfers. ) Lying-Sitting on Side/Bed(QC): 6 (Pt will be Mod I with bed mobility and transfers. ) Sit to Stand (QC): 6 (Pt will be Mod I with bed mobility and transfers. ) Chair/Zhh-fy-Kbcmn Xfer(QC): 6 (Pt will be Mod I with bed mobility and transfers. ) Toilet Transfer (QC): 6 (Pt will be Mod I with bed mobility and transfers. ) Car Transfer (QC): 6 (Pt will be Mod I with bed mobility and transfers. ) Does the Patient Walk: Yes Walk 10 feet (QC): 4 (Pt will be SBA for walking and stairs with the FWW. ) Walk 50ft with 2 Turns (QC): 4 (Pt will be SBA for walking and stairs with the FWW. ) Walk 150 ft (QC): 4 (Pt will be SBA for walking and stairs with the FWW. ) Walking 10ft on Uneven Surface: 4 (Pt will be SBA for walking and stairs with the FWW. ) 1 Step (curb) (QC): 4 (Pt will be SBA for walking and stairs with the FWW. ) 4 Steps (QC): 4 (Pt will be SBA for walking and stairs with the FWW. ) 12 Steps (QC): 9 Picking up an Object (QC): 6 (Mod I) Does the Pt use WC or Scooter?: No Wheel 50 feet with 2 turns (QC: 9 Type: N/A Wheel 150 feet: 9 Type: N/A PT Plan Problem List Problem List: Safety Treatment/Plan Treatment Plan: Continue Plan of Care Treatment Plan: Bed Mobility, Concurrent Therapy, Education, Functional Activity Shae, Functional Strength, Group Therapy, Gait, Safety, Therapeutic Exercise, Transfers Treatment Duration: Feb 20, 2023 Frequency: At least 5 of 7 days/Wk (IRF) Estimated Hrs Per Day: 1.5 hours per day Patient and/or Family Agrees t: Yes Safety Risks/Education Patient Education: Steps, Correct Positioning, Safety Issues Teaching Recipient: Patient Teaching Methods: Discussion Response to Teaching: Verbalize Understanding Time Time In: 1000 Time Out: 1100 DATE: Feb 15, 2023 Total Billed Treatment Time: 60 Total Billed Treatment 1, GT x2 (30m) & FA x2 (30m) LEO DUNN [place] SURFACE HEATER OPERATOR Feb 15, 2023 14:54
--- NOTE | 2023-02-15 15:08 | Physical Therapy Daily Note ---
PT Daily Note-Current Subjective Pt sitting at EOB visiting w/Sp, Nurse present. Pt agrees to PT. Pain Location: No Pain Reported Section J - Health Conditions 1. Rarely or not at all 2. Occasionally 3. Frequently 4. Almost constantly 8. Unable to answer Pain Effect on Sleep: 1 Pain Interference with Therapy: 1 Pain Interference w/Day-to-Day: 1 Mental Status Patient Orientation: Person, Place, Situation Transfers SCALE: Activities may be completed with or without assistive devices. 1-Qvvxoikvci-wsapvvj completes the activity by him/herself with no assistance from a helper. 5-Set-up or Clean-up Assistance-helper sets up or cleans up; patient completes activity. [place] assists only prior to or following the activity. 4-Supervision or Touching Assistance-helper provides verbal cues and/or touch ing/steadying and/or contact guard assistance as patient completes activity. Assistance may be provided throughout the activity or intermittently. 3-Partial/Moderate Assistance-helper does LESS THAN HALF the effort. [place] lifts, holds or supports trunk or limbs, but provides less than half the effort. 2-Substantial/Maximal Assistance-helper does MORE THAN HALF the effort. [place] lifts or holds trunk or limbs and provides more than half the effort. 9-Vvsruunpp-phrauy does ALL the effort. Patient does none of the effort to complete the activity. Or, the assistance of 2 or more helpers is required for the patient to complete the activity. If activity was not attempted, code reason: 7-Patient Refused. 9-Not Applicable-not attempted and the patient did not perform the activity before the current illness, exacerbation or injury. 10-Not Attempted due to Environmental Limitations-(lack of equipment, weather restraints, etc.). 88-Not Attempted due to Medical Conditions or Safety Concerns. Lying to Sitting/Side of Bed(Q: 5 Sit to Stand (QC): 5 Weight Bearing Right Lower Extremity: Right Full Weight Bearing Left Lower Extremity: Left Full Weight Bearing Gait Training Does the Patient Walk?: Yes Distance: 75' x2 Walk 10 feet (QC): 5 Walk 50 ft with 2 Turns(QC): 4 Gait Assistive Device: FWW Treatments TF from Supine to EOB to Standing. Pt amb in hallway taking RB as needed. Pt amb after RB and returns to room to rest EOB to visit w/Sp. All needs met, call light next to pt. Assessment Current Status: Good Progress Pt denise. tx well. O2 again remains 95% & above throughout tx. PT Penitentiary Goals Penitentiary Goals PT Feed And Farm Management Adviser Goals Time Frame: Feb 20, 2023 Roll Left & Right (QC): 6 (Pt will be Mod I with bed mobility and transfers. ) Sit to Lying (QC): 6 (Pt will be Mod I with bed mobility and transfers. ) Lying-Sitting on Side/Bed(QC): 6 (Pt will be Mod I with bed mobility and trans fers. ) Sit to Stand (QC): 6 (Pt will be Mod I with bed mobility and transfers. ) Chair/Crg-oj-Pweys Xfer(QC): 6 (Pt will be Mod I with bed mobility and transfers. ) Toilet Transfer (QC): 6 (Pt will be Mod I with bed mobility and transfers. ) Car Transfer (QC): 6 (Pt will be Mod I with bed mobility and transfers. ) Does the Patient Walk: Yes Walk 10 feet (QC): 4 (Pt will be SBA for walking and stairs with the FWW. ) Walk 50ft with 2 Turns (QC): 4 (Pt will be SBA for walking and stairs with the FWW. ) Walk 150 ft (QC): 4 (Pt will be SBA for walking and stairs with the FWW. ) Walking 10ft on Uneven Surface: 4 (Pt will be SBA for walking and stairs with the FWW. ) 1 Step (curb) (QC): 4 (Pt will be SBA for walking and stairs with the FWW. ) 4 Steps (QC): 4 (Pt will be SBA for walking and stairs with the FWW. ) 12 Steps (QC): 9 Picking up an Object (QC): 6 (Mod I) Does the Pt use WC or Scooter?: No Wheel 50 feet with 2 turns (QC: 9 Type: N/A Wheel 150 feet: 9 Type: N/A PT Plan Problem List Problem List: Activity Tolerance Treatment/Plan Treatment Plan: Continue Plan of Care Treatment Plan: Bed Mobility, Concurrent Therapy, Education, Functional Activity Shae, Functional Strength, Group Therapy, Gait, Safety, Therapeutic Exercise, Transfers Treatment Duration: Feb 20, 2023 Frequency: At least 5 of 7 days/Wk (IRF) Estimated Hrs Per Day: 1.5 hours per day Patient and/or Family Agrees t: Yes Safety Risks/Education Patient Education: Transfer Techniques, Correct Positioning, Safety Issues Teaching Recipient: Patient Teaching Methods: Discussion Response to Teaching: Verbalize Understanding Time Time In: 1300 Time Out: 1330 DATE: Feb 15, 2023 Total Billed Treatment Time: 30 Total Billed Treatment 1, GT (20m) & FA (10m) LEO DUNN SMUTTER Feb 15, 2023 15:07
[2023-02-15 19:50] VITALS: BP 169/74
[2023-02-15] MEDS: ENOXAPARIN 40 MG/0.4 ML SYRINGE SC SCH (21:14)
[2023-02-15] MEDS: FAMOTIDINE 20 MG TABLET PO SCH (21:15)
[2023-02-15] MEDS: ACETAMINOPHEN 325 MG TABLET PO PRN (22:08)
[2023-02-16] MEDS: RT-Ipratropium/Albuterol NEB 3 ML VIAL INH SCH ×3 (02:59→20:50)
[2023-02-16] MEDS: CATHETER FLUSH 10 ML SYR IVP SCH ×3 (06:07→21:26)
[2023-02-16] MEDS: LEVOTHYROXINE 50 MCG TABLET PO SCH (06:07)
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
[2023-02-16] MEDS: inSUlin ASPART 1 UNIT/0.01 ML (PER UNIT) SC SCH ×4 (06:19→21:19)
[2023-02-16 08:03] VITALS: BP 146/64
[2023-02-16] MEDS: RT-BUDESONIDE NEBS 0.5 MG/2ML VIAL INH SCH ×2 (09:03→20:51)
[2023-02-16] MEDS: CHOLESTYRAMINE LITE 4 GM PACKET PO SCH ×3 (09:21→21:44)
[2023-02-16] MEDS: inSUlin DETERMIR 1 UNIT/0.01 ML (CHARGE PER UNIT) SQ SCH ×2 (09:22→21:44)
[2023-02-16] MEDS: hydrALAZINE 25 MG TABLET PO SCH ×3 (09:22→21:44)
[2023-02-16] MEDS: SERTRALINE 100 MG TABLET PO SCH ×2 (09:23→21:44)
[2023-02-16] MEDS: amLODIPine 5 MG TABLET PO SCH (09:23)
[2023-02-16] MEDS: SENNA W/DOCUSATE TABLET PO SCH ×2 (09:23→21:19)
[2023-02-16] MEDS: DOCUSATE SODIUM 100 MG CAPSULE PO SCH ×2 (09:23→21:18)
[2023-02-16] MEDS: PANTOPRAZOLE 40 MG TABLET PO SCH (09:23)
[2023-02-16] MEDS: MICONAZOLE 2% CREAM 30 GM TP SCH ×2 (09:27→21:25)
[2023-02-16] MEDS: COLLAGENASE OINTMENT 30 GM TUBE TP SCH ×2 (09:28→21:21)
[2023-02-16] MEDS: MENTHOL/ZINC OXIDE OINTMENT 113 GM TUBE TOP SCH ×2 (09:28→21:25)
[2023-02-16] MEDS: MICONAZOLE 2% POWDER 90 GM TOP SCH ×2 (09:29→21:20)
[2023-02-16 19:10] VITALS: BP 179/80
[2023-02-16] MEDS: ENOXAPARIN 40 MG/0.4 ML SYRINGE SC SCH (21:44)
[2023-02-16] MEDS: FAMOTIDINE 20 MG TABLET PO SCH (21:44)
[2023-02-17] MEDS: RT-Ipratropium/Albuterol NEB 3 ML VIAL INH SCH ×3 (03:15→21:05)
[2023-02-17] MEDS: LEVOTHYROXINE 50 MCG TABLET PO SCH (05:37)
[2023-02-17] MEDS: CATHETER FLUSH 10 ML SYR IVP SCH ×3 (05:37→20:42)
[2023-02-17] MEDS: inSUlin ASPART 1 UNIT/0.01 ML (PER UNIT) SC SCH ×4 (05:44→20:43)
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
[2023-02-17 07:25] VITALS: BP 127/56
[2023-02-17] MEDS: inSUlin DETERMIR 1 UNIT/0.01 ML (CHARGE PER UNIT) SQ SCH ×2 (08:44→20:41)
[2023-02-17] MEDS: hydrALAZINE 25 MG TABLET PO SCH ×3 (08:44→20:41)
[2023-02-17] MEDS: amLODIPine 5 MG TABLET PO SCH (08:44)
[2023-02-17] MEDS: SERTRALINE 100 MG TABLET PO SCH ×2 (08:44→20:41)
[2023-02-17] MEDS: CHOLESTYRAMINE LITE 4 GM PACKET PO SCH ×3 (08:44→20:42)
[2023-02-17] MEDS: PANTOPRAZOLE 40 MG TABLET PO SCH (08:44)
[2023-02-17] MEDS: COLLAGENASE OINTMENT 30 GM TUBE TP SCH ×2 (08:45→20:44)
[2023-02-17] MEDS: MICONAZOLE 2% CREAM 30 GM TP SCH ×2 (08:45→20:44)
[2023-02-17] MEDS: MICONAZOLE 2% POWDER 90 GM TOP SCH ×2 (08:45→20:44)
[2023-02-17] MEDS: MENTHOL/ZINC OXIDE OINTMENT 113 GM TUBE TOP SCH ×2 (08:46→20:43)
[2023-02-17] MEDS: DOCUSATE SODIUM 100 MG CAPSULE PO SCH ×2 (08:46→20:42)
[2023-02-17] MEDS: SENNA W/DOCUSATE TABLET PO SCH ×2 (08:46→20:42)
[2023-02-17] MEDS: RT-BUDESONIDE NEBS 0.5 MG/2ML VIAL INH SCH ×2 (08:54→21:05)
[2023-02-17 08:57] VITALS: BP 127/56
[2023-02-17 20:31] VITALS: BP 181/74
[2023-02-17] MEDS: ACETAMINOPHEN 325 MG TABLET PO PRN (20:41)
[2023-02-17] MEDS: ENOXAPARIN 40 MG/0.4 ML SYRINGE SC SCH (20:41)
[2023-02-17] MEDS: FAMOTIDINE 20 MG TABLET PO SCH (20:41)
[2023-02-18] MEDS: LEVOTHYROXINE 50 MCG TABLET PO SCH (05:28)
[2023-02-18] MEDS: CATHETER FLUSH 10 ML SYR IVP SCH ×3 (05:28→21:23)
[2023-02-18 05:32] LABS: BASOPHILS # (AUTO) 0.1 10^3/uL (0.0-0.1); BASOPHILS % (AUTO) 1 % (0-10); EOSINOPHILS # (AUTO) 0.3 10^3/uL (0.0-0.3); EOSINOPHILS % (AUTO) 3 % (0-10); HEMATOCRIT 32 % (40-54); HEMOGLOBIN 9.8 g/dL (13.3-17.7); LYMPHOCYTES # (AUTO) 1.2 10^3/uL (1.0-4.0); LYMPHOCYTES % (AUTO) 10 % (12-44); MEAN CORPUSCULAR HEMOGLOBIN 28 pg (25-34); MEAN CORPUSCULAR HGB CONC 31 g/dL (32-36); MEAN CORPUSCULAR VOLUME 90 fL (80-99); MEAN PLATELET VOLUME 12.9 fL (9.0-12.2); MONOCYTES % (AUTO) 9 % (0-12); NEUTROPHILS # (AUTO) 8.6 10^3/uL (1.8-7.8); NEUTROPHILS % (AUTO) 78 % (42-75); PLATELET COUNT 151 10^3/uL (130-400); WHITE BLOOD COUNT 11.1 10^3/uL (4.3-11.0)
[2023-02-18 05:55] LABS: ALBUMIN 3.1 GM/DL (3.2-4.5); BILIRUBIN,TOTAL 0.6 MG/DL (0.1-1.0); CALCIUM 8.5 MG/DL (8.5-10.1); CREATININE SERUM 0.75 MG/DL (0.60-1.30); POTASSIUM 3.8 MMOL/L (3.6-5.0); TOTAL PROTEIN 5.7 GM/DL (6.4-8.2)
[2023-02-18] MEDS: inSUlin ASPART 1 UNIT/0.01 ML (PER UNIT) SC SCH ×4 (06:00→21:30)
[2023-02-18] MEDS: RT-BUDESONIDE NEBS 0.5 MG/2ML VIAL INH SCH (07:04)
[2023-02-18] MEDS: RT-Ipratropium/Albuterol NEB 3 ML VIAL INH SCH (07:05)
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
[2023-02-18 08:00] VITALS: BP 167/71
[2023-02-18] MEDS: CHOLESTYRAMINE LITE 4 GM PACKET PO SCH ×3 (08:30→21:24)
[2023-02-18] MEDS: PANTOPRAZOLE 40 MG TABLET PO SCH (08:30)
[2023-02-18] MEDS: SERTRALINE 100 MG TABLET PO SCH ×2 (08:30→21:21)
[2023-02-18] MEDS: inSUlin DETERMIR 1 UNIT/0.01 ML (CHARGE PER UNIT) SQ SCH ×2 (08:30→21:21)
--- NOTE | 2023-02-18 08:30 | Physical Therapy Daily Note ---
PT Daily Note-Current Subjective Pt sitting at EOB working w/OT upon arrival. Pt agrees to short PT/OT co-treat to obtain QC scoring for anticipated d/c tomorrow. Pain Location: No Pain Reported Section J - Health Conditions 1. Rarely or not at all 2. Occasionally 3. Frequently 4. Almost constantly 8. Unable to answer Pain Effect on Sleep: 1 Pain Interference with Therapy: 1 Pain Interference w/Day-to-Day: 1 Mental Status Patient Orientation: Person, Place, Time, Situation Transfers SCALE: Activities may be completed with or without assistive devices. 4-Theovoahfx-rkjypxk completes the activity by him/herself with no assistance from a helper. 5-Set-up or Clean-up Assistance-helper sets up or cleans up; patient completes activity. [place] assists only prior to or following the activity. 4-Supervision or Touching Assistance-helper provides verbal cues and/or touching/steadying and/or contact guard assistance as patient completes activity. Assistance may be provided throughout the activity or intermittently. 3-Partial/Moderate Assistance-helper does LESS THAN HALF the effort. [place] lifts, holds or supports trunk or limbs, but provides less than half the effort. 2-Substantial/Maximal Assistance-helper does MORE THAN HALF the effort. [place] lifts or holds trunk or limbs and provides more than half the effort. 9-Jlflfruoa-jebtje does ALL the effort. Patient does none of the effort to complete the activity. Or, the assistance of 2 or more helpers is required for the patient to complete the activity. If activity was not attempted, code reason: 7-Patient Refused. 9-Not Applicable-not attempted and the patient did not perform the activity before the current illness, exacerbation or injury. 10-Not Attempted due to Environmental Limitations-(lack of equipment, weather restraints, etc.). 88-Not Attempted due to Medical Conditions or Safety Concerns. Roll Left & Right (QC): 6 Sit to Lying (QC): 6 Lying to Sitting/Side of Bed(Q: 6 Sit to Stand (QC): 6 Chair/Bhl-ll-Gjruu Xfer(QC): 6 Toilet Transfer (QC): 6 Car Transfer (QC): 6 Weight Bearing Right Lower Extremity: Right Full Weight Bearing Left Lower Extremity: Left Full Weight Bearing Gait Training Does the Patient Walk?: Yes Distance: 150' Walk 10 feet (QC): 6 Walk 50 ft with 2 Turns(QC): 6 Walk 150 ft (QC): 5 Gait Assistive Device: FWW Wheelchair Training Does the Pt Use a Wheelchair?: No Wheel 50 ft with 2 turns (QC): 9 Wheel 150 ft (QC): 9 Stair Training Stair Training: Handrails/: 2 handrails #of Steps: 8 1 Step (curb) (QC): 6 4 Steps (QC): 6 12 Steps (QC): 9 Stairs: Pattern: Reciprocal Balance Picking up an Object (QC): 6 Treatments Pt TF from bed and completes QC scoring listed above including amb, stairs, TF & bed mobility. Pt returns to room to rest Supine in bed at end of tx. All needs met, call light in hand. Assessment Current Status: Good Progress VC needed occasionally for safety. Pt will sometimes "buttdive" when fatigued to get to seated surface. PT Production Recorder Goals Production Recorder Goals PT Assisted Goals Time Frame: Feb 20, 2023 Roll Left & Right (QC): 6 (Pt will be Mod I with bed mobility and transfers. ) Sit to Lying (QC): 6 (Pt will be Mod I with bed mobility and transfers. ) Lying-Sitting on Side/Bed(QC): 6 (Pt will be Mod I with bed mobility and transfers. ) Sit to Stand (QC): 6 (Pt will be Mod I with bed mobility and transfers. ) Chair/Zdg-wp-Folbn Xfer(QC): 6 (Pt will be Mod I with bed mobility and trans fers. ) Toilet Transfer (QC): 6 (Pt will be Mod I with bed mobility and transfers. ) Car Transfer (QC): 6 (Pt will be Mod I with bed mobility and transfers. ) Does the Patient Walk: Yes Walk 10 feet (QC): 4 (Pt will be SBA for walking and stairs with the FWW. ) Walk 50ft with 2 Turns (QC): 4 (Pt will be SBA for walking and stairs with the FWW. ) Walk 150 ft (QC): 4 (Pt will be SBA for walking and stairs with the FWW. ) Walking 10ft on Uneven Surface: 4 (Pt will be SBA for walking and stairs with the FWW. ) 1 Step (curb) (QC): 4 (Pt will be SBA for walking and stairs with the FWW. ) 4 Steps (QC): 4 (Pt will be SBA for walking and stairs with the FWW. ) 12 Steps (QC): 9 Picking up an Object (QC): 6 (Mod I) Does the Pt use WC or Scooter?: No Wheel 50 feet with 2 turns (QC: 9 Type: N/A Wheel 150 feet: 9 Type: N/A PT Plan Problem List Problem List: Activity Tolerance Treatment/Plan Treatment Plan: Continue Plan of Care Treatment Plan: Bed Mobility, Concurrent Therapy, Education, Functional Activity Shae, Functional Strength, Group Therapy, Gait, Safety, Therapeutic Exercise, Transfers Treatment Duration: Feb 20, 2023 Frequency: At least 5 of 7 days/Wk (IRF) Estimated Hrs Per Day: 1.5 hours per day Patient and/or Family Agrees t: Yes Safety Risks/Education Patient Education: Safety Issues Teaching Recipient: Patient Teaching Methods: Discussion Response to Teaching: Verbalize Understanding Time Time In: 0800 Time Out: 0830 DATE: Feb 18, 2023 Total Billed Treatment Time: 30 Total Billed Treatment 1, FA x2 (30m) LEO DUNN SUBSTATION INSPECTOR Feb 18, 2023 08:30
[2023-02-18] MEDS: amLODIPine 5 MG TABLET PO SCH (08:31)
[2023-02-18] MEDS: ACETAMINOPHEN 325 MG TABLET PO PRN (08:31)
[2023-02-18] MEDS: hydrALAZINE 25 MG TABLET PO SCH ×3 (08:31→21:22)
[2023-02-18] MEDS: SENNA W/DOCUSATE TABLET PO SCH ×2 (08:34→21:30)
[2023-02-18] MEDS: DOCUSATE SODIUM 100 MG CAPSULE PO SCH ×2 (08:34→21:30)
[2023-02-18] MEDS: COLLAGENASE OINTMENT 30 GM TUBE TP SCH ×2 (08:35→21:22)
[2023-02-18] MEDS: MENTHOL/ZINC OXIDE OINTMENT 113 GM TUBE TOP SCH ×2 (08:35→21:22)
[2023-02-18] MEDS: MICONAZOLE 2% POWDER 90 GM TOP SCH ×2 (08:35→21:23)
[2023-02-18] MEDS: MICONAZOLE 2% CREAM 30 GM TP SCH ×2 (08:36→21:22)
--- NOTE | 2023-02-18 13:09 | Diagnostic Imaging Report ---
INDICATION: Fever. Time of Exam: 12:44 PM Correlation is made with prior chest 02/10/2023. Right upper extremity PICC line has tip overlying the SVC right atrial junction. There may be some minimal infiltrate in the left base. Right lung is clear. No effusion or pneumothorax is identified. IMPRESSION: Minimal left basilar infiltrate or atelectasis. Dictated by: Dictated on workstation # [id number]
--- NOTE | 2023-02-18 14:27 | Therapy Group Daily Note ---
Therapy Daily Group Note Patient Education Topic Exercises, Other List Below (ARU description) Exercises UE Exercise Session Ratio (pt:therapist): 3:1 Goal of Session: Education on ARU Expectations, UE/LE Strengthing Goal Met for this Session: Yes Pt Benefit of Group: Contributions to Others, Increased Functional Safety, Increased Functional Strength, Improved Cognition, Recognition of Peers, Socialization Other/Notes Pt transported via w/c to therapy gym for OT group. Group consisted of introductions (name, favorite fall activity), socialization, B UE seated exercises, education on benefits of exercise and ARU description. Pt introduced self appropriately and activity listened to peers. Pt asked questions of other group members and responded to questions appropriately. Pt able to complete B UE seated exercises and tolerated well. Pt propelled w/c to area of each exercise with SBA. Pt vocalized understanding of educational topic and gave personal story about each. After session, pt lying in bed with call light/phone in reach. All needs met in room. Start Time: 13:00 Stop Time: 14:00 Total Billed Treatment Time: 60 Total Billed Treatment 1-GRP MARY NAVARRETE Feb 18, 2023 14:27
[2023-02-18] MEDS: DOXYCYCLINE INJECTION 100 MG in NS (IVPB) 100 ML 100 ML IV SCH ×2 (15:34→21:25)
[2023-02-18] MEDS: dexAMETHasone INJ 4 MG/ML SDV IV SCH (15:38)
[2023-02-18] MEDS: VANCOMYCIN 125 MG CAPSULE PO SCH ×3 (15:39→21:21)
[2023-02-18 16:57] LABS: AMORPHOUS SEDIMENT,UR RARE AMOR PHOSPHATE /LPF; BACTERIA,URINE NEGATIVE /HPF; BILIRUBIN,URINE NEGATIVE (NEGATIVE); CLARITY,URINE CLEAR; COLOR,URINE YELLOW; GLUCOSE, URINE (UA) NEGATIVE (NEGATIVE); KETONES,URINE NEGATIVE (NEGATIVE); LEUKOCYTE ESTERASE ,URINE NEGATIVE (NEGATIVE); NITRITE,URINE NEGATIVE (NEGATIVE); PROTEIN,URINE 3+ (NEGATIVE)
[2023-02-18 19:51] VITALS: BP 180/81
[2023-02-18] MEDS: ENOXAPARIN 40 MG/0.4 ML SYRINGE SC SCH (21:21)
[2023-02-18] MEDS: FAMOTIDINE 20 MG TABLET PO SCH (21:22)
[2023-02-19] MEDS: RT-BUDESONIDE NEBS 0.5 MG/2ML VIAL INH SCH (01:30)
[2023-02-19] MEDS: RT-Ipratropium/Albuterol NEB 3 ML VIAL INH SCH (01:31)
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
[2023-02-19 05:30] LABS: BASOPHILS # (AUTO) 0.1 10^3/uL (0.0-0.1); BASOPHILS % (AUTO) 1 % (0-10); EOSINOPHILS # (AUTO) 0.1 10^3/uL (0.0-0.3); EOSINOPHILS % (AUTO) 1 % (0-10); HEMOGLOBIN 9.2 g/dL (13.3-17.7)
[2023-02-19 05:31] LABS: HEMATOCRIT 31 % (40-54); LYMPHOCYTES # (AUTO) 1.2 10^3/uL (1.0-4.0); LYMPHOCYTES % (AUTO) 13 % (12-44); MEAN CORPUSCULAR HEMOGLOBIN 27 pg (25-34); MEAN CORPUSCULAR HGB CONC 30 g/dL (32-36); MEAN CORPUSCULAR VOLUME 91 fL (80-99); MEAN PLATELET VOLUME 12.8 fL (9.0-12.2); MONOCYTES # (AUTO) 1.3 10^3/uL (0.0-1.0); MONOCYTES % (AUTO) 14 % (0-12); NEUTROPHILS # (AUTO) 6.4 10^3/uL (1.8-7.8); NEUTROPHILS % (AUTO) 71 % (42-75); PLATELET COUNT 101 10^3/uL (130-400)
[2023-02-19 05:55] LABS: ALBUMIN 2.9 GM/DL (3.2-4.5); BILIRUBIN,TOTAL 0.4 MG/DL (0.1-1.0); CALCIUM 8.4 MG/DL (8.5-10.1); CREATININE SERUM 0.7 MG/DL (0.60-1.30); POTASSIUM 3.8 MMOL/L (3.6-5.0); TOTAL PROTEIN 5.5 GM/DL (6.4-8.2)
[2023-02-19 06:08] LABS: SMEAR SCAN COMMENT YES
[2023-02-19] MEDS: LEVOTHYROXINE 50 MCG TABLET PO SCH (06:20)
[2023-02-19] MEDS: CATHETER FLUSH 10 ML SYR IVP SCH ×3 (06:39→21:56)
[2023-02-19] MEDS: inSUlin ASPART 1 UNIT/0.01 ML (PER UNIT) SC SCH ×4 (06:40→22:13)
[2023-02-19 08:00] VITALS: BP 134/72
[2023-02-19 09:00] VITALS: BP 145/63
[2023-02-19] MEDS: DOXYCYCLINE INJECTION 100 MG in NS (IVPB) 100 ML 100 ML IV SCH ×2 (09:13→21:44)
[2023-02-19] MEDS: amLODIPine 5 MG TABLET PO SCH (09:14)
[2023-02-19] MEDS: SERTRALINE 100 MG TABLET PO SCH ×2 (09:14→21:46)
[2023-02-19] MEDS: dexAMETHasone INJ 4 MG/ML SDV IV SCH (09:14)
[2023-02-19] MEDS: PANTOPRAZOLE 40 MG TABLET PO SCH (09:14)
[2023-02-19] MEDS: inSUlin DETERMIR 1 UNIT/0.01 ML (CHARGE PER UNIT) SQ SCH ×2 (09:15→21:45)
[2023-02-19] MEDS: hydrALAZINE 25 MG TABLET PO SCH ×3 (09:15→21:46)
[2023-02-19] MEDS: SENNA W/DOCUSATE TABLET PO SCH ×2 (09:16→20:03)
[2023-02-19] MEDS: DOCUSATE SODIUM 100 MG CAPSULE PO SCH ×2 (09:16→20:02)
[2023-02-19] MEDS: MICONAZOLE 2% CREAM 30 GM TP SCH ×2 (09:30→21:55)
[2023-02-19] MEDS: COLLAGENASE OINTMENT 30 GM TUBE TP SCH ×2 (09:30→21:57)
[2023-02-19] MEDS: MICONAZOLE 2% POWDER 90 GM TOP SCH ×2 (09:31→21:56)
[2023-02-19] MEDS: VANCOMYCIN 125 MG CAPSULE PO SCH ×4 (09:34→21:46)
--- NOTE | 2023-02-19 10:40 | Occupational Ther Daily Note ---
OT Current Status-Daily Note Subjective Pt alert, sitting in recliner. Pt agrees to therapy reluctantly due to not being able to go home. With encouragement pt had limited participation throughout session. Co-treat with PT([id number]), skills of 2 clinicians required to increase activity tolerance, decrease fall risk and education on benefits of continuing with therapy. PT focusing on ambulation, transfers and increasing B LE strength while OT focusing on ADLs, functional mobility and increasing B UE strength. Mental Status/Objective Patient Orientation: Person, Place, Time, Situation Attachments: IV ADL-Treatment Sitting at sink, pt completes grooming and has demonstrated ability to complete oral care independently. Therapy Code Descriptions/Definitions Functional [place] Measure: 0=Not Assessed/NA 4=Minimal Assistance 1=Total Assistance 5=Supervision or Setup 2=Maximal Assistance 6=Modified [place] 3=Moderate Assistance 7=Complete IndependenceSCALE: Activities may be completed with or without assistive devices. 5-Pspwuiltlq-rklolen completes the activity by him/herself with no assistance from a helper. 5-Set-up or Clean-up Assistance-helper sets up or cleans up; patient completes activity. [place] assists only prior to or following the activity. 4-Supervision or Touching Assistance-helper provides verbal cues and/or touching/steadying and/or contact guard assistance as patient completes activity. Assistance may be provided throughout the activity or intermittently. 3-Partial/Moderate Assistance-helper does LESS THAN HALF the effort. [place] lifts, holds or supports trunk or limbs, but provides less than half the effort. 2-Substantial/Maximal Assistance-helper does MORE THAN HALF the effort. [place] lifts or holds trunk or limbs and provides more than half the effort. 1-Kfnsasnhp-qggnmz does ALL the effort. Patient does none of the effort to complete the activity. Or, the assistance of 2 or more helpers is required for the patient to complete the activity. If activity was not attempted, code reason: 7-Patient Refused. 9-Not Applicable-not attempted and the patient did not perform the activity before the current illness, exacerbation or injury. 10-Not Attempted due to Environmental Limitations-(lack of equipment, weather restraints, etc.). 88-Not Attempted due to Medical Conditions or Safety Concerns. Oral Hygiene (QC): 6 Other Treatment Pt given medium resistance theraputty with beads to increase strength and AROM for pinch and vat overhauler. Pt takes increased time to complete all tasks due to decreased motivation and lengthy recovery times after exertion. Pt able to ambulate with SBA/supervision assisting only for IV pole and tubing. Pt demonstrates good fine motor strength and dexterity throughout session. Independent with sit to stands from surface to surface. Independent with bed mobility. After session, pt lying in bed with call light/phone in reach. All needs met. OT Short Term Goals Short Term Goals Time Frame: Feb 20, 2023 Eatin Oral hygiene: 5 Toileting hygiene: 3 (min assist) Shower/bathe self: 3 (min assist) Upper body dressin Lower body dressin (Min assist with AE) Putting on/taking off footwear: 4 (supervision with AE) OT Community Service Worker Goals Community Service Worker Goals Time Frame: Mar 06, 2023 Acute change in mental status: 0 Inattention: 0 Disorganized thinkin Altered level of consciousness: 0 Eating (QC): 6 (met) Oral Hygiene (QC): 6 (met) Toileting Hygiene (QC): 6 (met) Shower/Bathe Self (QC): 4 (met) Upper Body Dressing (QC): 5 (met) Lower Body Dressing (QC): 5 (set up with AE-not met) On/Off Footwear (QC): 5 (Set up with AE met) Additional Goals: 1-Demonstrate ADL Tasks, 2-Verbalize Understanding, 3-I mproveStrength/Shae 1=Demonstrate adherence to instructed precautions during ADL tasks. 2=Patient will verbalize/demonstrate understanding of assistive devices/modifications for ADL. 3=Patient will improve strength/tolerance for activity to enable patient to perform ADL's. OT Education/Plan Problem List/Assessment Assessment: Decreased Activ Tolerance, Decreased Safety Aware, Decreased UE Strength, Impaired Self-Care Skills Discharge Recommendations Plan/Recommendations: Continue POC Treatment Plan/Plan of Care Patient would benefit from OT for education, treatment and training to promote independence in ADL's, mobility, safety and/or upper extremity function for ADL's. Plan of Care: ADL Retraining, Caregiver Training, Cognitive Retraining, Functional Mobility, Group Exercise/Act as Ind, UE Funct Exercise/Act Treatment Duration: Mar 06, 2023 Frequency: At least 5 of 7 days/Wk (IRF) Estimated Hrs Per Day: 1.5 hours per day Agreement: Yes Rehab Potential: Poor Time Start Time: 09:30 Stop Time: 11:00 DATE: Feb 19, 2023 Total Time Billed (hr/min): 90 Billed Treatment Time 1 visit-ADL 2 (30 min) FA 4 (60 min) co-treat with PT 90 min MARY NAVARRETE Feb 19, 2023 10:40
--- NOTE | 2023-02-19 11:02 | Physical Therapy Daily Note ---
PT Daily Note-Current Subjective Pt sitting in recliner upon arrival. Pt agrees to PT/OT co-treat reluctantly due to not being able to go home. With encouragement pt had limited participation throughout session. Co-treat with PT([id number]), skills of 2 clinicians required to increase activity tolerance, decrease fall risk and education on benefits of continuing with therapy. PT focusing on ambulation, transfers and increasing B LE strength while OT focusing on ADLs, functional mobility and increasing B UE strength. . Pain Location: No Pain Reported Section J - Health Conditions 1. Rarely or not at all 2. Occasionally 3. Frequently 4. Almost constantly 8. Unable to answer Pain Effect on Sleep: 1 Pain Interference with Therapy: 1 Pain Interference w/Day-to-Day: 1 Mental Status Patient Orientation: Person, Place, Time, Situation Attachments: Oxygen (2L), IV Transfers SCALE: Activities may be completed with or without assistive devices. 4-Tgprurfqei-ivjnijf completes the activity by him/herself with no assistance from a helper. 5-Set-up or Clean-up Assistance-helper sets up or cleans up; patient completes activity. [place] assists only prior to or following the activity. 4-Supervision or Touching Assistance-helper provides verbal cues and/or touching/steadying and/or contact guard assistance as patient completes activity. Assistance may be provided throughout the activity or intermittently. 3-Partial/Moderate Assistance-helper does LESS THAN HALF the effort. [place] lifts, holds or supports trunk or limbs, but provides less than half the effort. 2-Substantial/Maximal Assistance-helper does MORE THAN HALF the effort. [place] lifts or holds trunk or limbs and provides more than half the effort. 0-Ipohbpnjl-qansly does ALL the effort. Patient does none of the effort to com plete the activity. Or, the assistance of 2 or more helpers is required for the patient to complete the activity. If activity was not attempted, code reason: 7-Patient Refused. 9-Not Applicable-not attempted and the patient did not perform the activity before the current illness, exacerbation or injury. 10-Not Attempted due to Environmental Limitations-(lack of equipment, weather restraints, etc.). 88-Not Attempted due to Medical Conditions or Safety Concerns. Sit to Stand (QC): 5 Weight Bearing Right Lower Extremity: Right Full Weight Bearing Left Lower Extremity: Left Full Weight Bearing Gait Training Does the Patient Walk?: Yes Distance: 15' x2 Walk 10 feet (QC): 5 Gait Assistive Device: FWW Treatments Pt given medium resistance theraputty with beads to increase strength and AROM for pinch and heating systems installer. Pt takes increased time to complete all tasks due to decreased motivation and lengthy recovery times after exertion. Pt able to am bulate with SBA/supervision assisting only for IV pole and tubing. Pt demonstrates good fine motor strength and dexterity throughout session. Independent with sit to stands from surface to surface. Independent with bed mobility. After session, pt lying in bed with call light/phone in reach. All needs met. Assessment Pt fatigues at times due to dx. but pushes self as he is able. PT Business Operations Consultant Goals Business Operations Consultant Goals PT Business Operations Consultant Goals Time Frame: Feb 20, 2023 Roll Left & Right (QC): 6 (Pt will be Mod I with bed mobility and transfers. ) Sit to Lying (QC): 6 (Pt will be Mod I with bed mobility and transfers. ) Lying-Sitting on Side/Bed(QC): 6 (Pt will be Mod I with bed mobility and transfers. ) Sit to Stand (QC): 6 (Pt will be Mod I with bed mobility and transfers. ) Chair/Cmo-sd-Qqyre Xfer(QC): 6 (Pt will be Mod I with bed mobility and transfers. ) Toilet Transfer (QC): 6 (Pt will be Mod I with bed mobility and transfers. ) Car Transfer (QC): 6 (Pt will be Mod I with bed mobility and transfers. ) Does the Patient Walk: Yes Walk 10 feet (QC): 4 (Pt will be SBA for walking and stairs with the FWW. ) Walk 50ft with 2 Turns (QC): 4 (Pt will be SBA for walking and stairs with the FWW. ) Walk 150 ft (QC): 4 (Pt will be SBA for walking and stairs with the FWW. ) Walking 10ft on Uneven Surface: 4 (Pt will be SBA for walking and stairs with the FWW. ) 1 Step (curb) (QC): 4 (Pt will be SBA for walking and stairs with the FWW. ) 4 Steps (QC): 4 (Pt will be SBA for walking and stairs with the FWW. ) 12 Steps (QC): 9 Picking up an Object (QC): 6 (Mod I) Does the Pt use WC or Scooter?: No Wheel 50 feet with 2 turns (QC: 9 Type: N/A Wheel 150 feet: 9 Type: N/A PT Plan Problem List Problem List: Activity Tolerance Treatment/Plan Treatment Plan: Continue Plan of Care Treatment Plan: Bed Mobility, Concurrent Therapy, Education, Functional Activity Shae, Functional Strength, Group Therapy, Gait, Safety, Therapeutic Exercise, Transfers Treatment Duration: Feb 20, 2023 Frequency: At least 5 of 7 days/Wk (IRF) Estimated Hrs Per Day: 1.5 hours per day Patient and/or Family Agrees t: Yes Time Time In: 930 Time Out: 1100 DATE: Feb 19, 2023 Total Billed Treatment Time: 90 Total Billed Treatment Co-treat w/OT for 90m 1, FA x6 (90m) LEO DUNN FITNESS TECHNICIAN Feb 19, 2023 11:02
[2023-02-19] MEDS: CHOLESTYRAMINE LITE 4 GM PACKET PO SCH ×3 (11:18→21:45)
[2023-02-19] MEDS: MENTHOL/ZINC OXIDE OINTMENT 113 GM TUBE TOP SCH ×2 (11:22→21:56)
[2023-02-19 13:14] VITALS: BP 173/74
[2023-02-19 20:55] VITALS: BP 172/71
[2023-02-19] MEDS: ENOXAPARIN 40 MG/0.4 ML SYRINGE SC SCH (21:45)
[2023-02-19] MEDS: FAMOTIDINE 20 MG TABLET PO SCH (21:46)
[2023-02-20] MEDS ORDERED: LEVO50TA6 PO (05:06)
[2023-02-20] MEDS ORDERED: CHOL4PAC3 PO (05:06)
[2023-02-20] MEDS ORDERED: MICO5POW6 MC (05:06)
[2023-02-20] MEDS ORDERED: VANC125C5 PO (05:06)
[2023-02-20] MEDS ORDERED: PANT40TA52 PO (05:06)
[2023-02-20] MEDS ORDERED: AMLO-250 PO (05:06)
[2023-02-20] MEDS ORDERED: ATEN50TA PO (05:06)
[2023-02-20] MEDS ORDERED: FAMO20TA5 PO (05:06)
[2023-02-20] MEDS ORDERED: SERT-414 PO (05:06)
[2023-02-20] MEDS ORDERED: HYDR-3923 PO (05:06)
[2023-02-20] MEDS ORDERED: LISI10TA25 PO (05:06)
[2023-02-20] MEDS ORDERED: INSU100I10 SC (05:06)
--- NOTE | 2023-02-20 05:09 | D/C HH Face to Face Order ---
D/C HH Face to Face Orders Reconcile Patient Problems Problems Reviewed?: Yes Instructions for Patient HH Patient Instructions/FollowUp: PCP as scheduled Physician to follow Patient: [facility] Discharge Diet for Home: No Restrictions Patient Problems: Debilitated Patient Data-Allergies,Ht & Wt Patient Allergies: Coded Allergies: duloxetine (Verified Allergy, Unknown, 01/15/23) Penicillins (Verified Adverse Reaction, Unknown, ears pop and eye's blurry, 08/18/19) Home Health Need/Face to Face Date of Face to Face: Feb 20, 2023 Clinical Findings: Generalized weakness and fatigue, Instability, Muscle weakness I have seen Pt blsx-ao-sufe: Yes Discharged To: Home Diagnosis/Conditions: Debilitated Patient is Homebound due to: Francy fall risk due to instabilty, Muscle weakness Homebound Status Due to the above stated illness, injury or surgical procedure (medical condition or diagnosis) and associated clinical findings, the patient is homebound because of his/her inability to leave home except with aid of a supportive device and/or person AND leaving the home requires a considerable and taxing effort or is medically contraindicated. Pt req the following assistanc: Walker Home Health Nursing Orders Home Health Services Order: Nursing Services, Senior Audit Manager-Evaluate & Treat, Physical Therapy-Evaluate & Treat Certify Stmt I certify that this patient is under my care and that I, a nurse practitioner or a physician; a teachers assistant working with me, had a face to face encounter that - meets the physician face to face encounter requirements with this patient as dated. ANDRES GARCÍA DO Feb 20, 2023 05:08
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
[2023-02-20] MEDS: CATHETER FLUSH 10 ML SYR IVP SCH (06:51)
[2023-02-20] MEDS: LEVOTHYROXINE 50 MCG TABLET PO SCH (06:51)
[2023-02-20] MEDS: inSUlin ASPART 1 UNIT/0.01 ML (PER UNIT) SC SCH (07:10)
[2023-02-20 08:00] VITALS: BP 149/69
[2023-02-20] MEDS: DOXYCYCLINE INJECTION 100 MG in NS (IVPB) 100 ML 100 ML IV SCH (08:39)
[2023-02-20] MEDS: hydrALAZINE 25 MG TABLET PO SCH (08:50)
[2023-02-20] MEDS: PANTOPRAZOLE 40 MG TABLET PO SCH (08:50)
[2023-02-20] MEDS: SERTRALINE 100 MG TABLET PO SCH (08:51)
[2023-02-20] MEDS: dexAMETHasone INJ 4 MG/ML SDV IV SCH (08:51)
[2023-02-20] MEDS: amLODIPine 5 MG TABLET PO SCH (08:51)
[2023-02-20] MEDS: VANCOMYCIN 125 MG CAPSULE PO SCH (08:51)
[2023-02-20] MEDS: inSUlin DETERMIR 1 UNIT/0.01 ML (CHARGE PER UNIT) SQ SCH (08:52)
[2023-02-20] MEDS: SENNA W/DOCUSATE TABLET PO SCH (09:00)
[2023-02-20] MEDS: DOCUSATE SODIUM 100 MG CAPSULE PO SCH (09:00)
[2023-02-20] MEDS: MICONAZOLE 2% CREAM 30 GM TP SCH (09:02)
[2023-02-20] MEDS: COLLAGENASE OINTMENT 30 GM TUBE TP SCH (09:03)
[2023-02-20] MEDS: MENTHOL/ZINC OXIDE OINTMENT 113 GM TUBE TOP SCH (09:03)
[2023-02-20] MEDS: MICONAZOLE 2% POWDER 90 GM TOP SCH (09:03)
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
--- NOTE | 2023-02-20 10:39 | Therapy Team Discharge Summary ---
Therapy Discharge Summary Discharge Recommendations Date of Discharge Therapy D/C Recommendations: Home w/ Family Support, Physical Therapy Home Care Physical Therapy Roll Left to Right (QC): 6 Sit to Lying (QC): 6 Lying to Sitting/Side of Bed(Q: 6 Sit to Stand (QC): 6 Chair/Kgm-xn-Hqmfz Xfer(QC): 6 Toilet Transfer (QC): 6 Car Transfer (QC): 6 Does the Patient Walk: Yes Mode of Locomotion: Walk Anticipated Mode of Locomotion: Walk Walk 10 feet (QC): 6 Walk 50 ft with 2 Turns(QC): 6 Walk 150 ft (QC): 5 Walking 10ft on uneven surface: 4 Gait Assistive Device: FWW Does the Pt Use a Wheelchair: No Wheel 50 ft with 2 turns (QC): 9 Wheel 150 ft (QC): 9 Type of Wheelchair: N/A #of Steps: 8 1 Step (curb) (QC): 6 4 Steps (QC): 6 12 Steps (QC): 9 Balance Sitting Static: Good Balance Sitting Dynamic: Fair Balance-Standing Static: Fair Picking up an Object (QC): 6 Occupational Therapy Pt admitted to ARU with post concussion syndrome. PLOF unknown due to pt's being a poor historian. Upon initial evaluation, pt required min A with oral care and UE dressing, supervision with eating, mod A showering, and max A LE dressing, footwear and toileting. OT tx focused on increasing BUE Strength and activity tolerance and increasing safety and independence with ADLS and functional mobility. Pt made good progress towards goals, attaining all LTGs except LE dressing. Pt discharging from ARU, d/c from OT. Decreased Activ Tolerance, Decreased Safety Aware, Decreased UE Strength, Impair ed Self-Care Skills Eating (QC): 6 Oral Hygiene (QC): 6 Shower/Bathe Self (QC): 4 (Supervision) Upper Body Dressing (QC): 5 Lower Body Dressing (QC): 4 (SBA) On/Off Footwear (QC): 5 Toileting Hygiene (QC): 6 PT [employer] C[employer] Developer Goals [employer] Crm Developer Goals PT [facility] Goals Time Frame: Feb 20, 2023 Roll Left to Right (QC): 6 (Pt will be Mod I with bed mobility and transfers. ) Sit to Lying (QC): 6 (Pt will be Mod I with bed mobility and transfers. ) Lying-Sitting on Side/Bed(QC): 6 (Pt will be Mod I with bed mobility and transfers. ) Sit to Stand (QC): 6 (Pt will be Mod I with bed mobility and transfers. ) Chair/Zjl-nx-Zxcer Xfer(QC): 6 (Pt will be Mod I with bed mobility and transfers. ) Toilet/Commode Transfer (QC): 6 (Pt will be Mod I with bed mobility and transfers. ) Car Transfer (QC): 6 (Pt will be Mod I with bed mobility and transfers. ) Does the Patient Walk: Yes Walk 10 feet (QC): 4 (Pt will be SBA for walking and stairs with the FWW. ) Walk 10ft-Uneven Surface(QC): 4 (Pt will be SBA for walking and stairs with the FWW. ) Walk 50ft with 2 Turns (QC): 4 (Pt will be SBA for walking and stairs with the FWW. ) Walk 150 ft (QC): 4 (Pt will be SBA for walking and stairs with the FWW. ) Does the Pt use WC or Scooter?: No Wheel 50 feet with 2 turns (QC: 9 Type: N/A Wheel 150 feet: 9 Type: N/A 1 Step (curb) (QC): 4 (Pt will be SBA for walking and stairs with the FWW. ) 4 Steps (QC): 4 (Pt will be SBA for walking and stairs with the FWW. ) 12 Steps (QC): 9 Picking up an Object (QC): 6 (Mod I) OT [employer] Developer Goals [facility] Goals Time Frame: Mar 06, 2023 Acute change in mental status: 0 Inattention: 0 Disorganized thinkin Altered level of consciousness: 0 Eating (QC): 6 (met) Oral Hygiene (QC): 6 (met) Toileting Hygiene (QC): 6 (met) Shower/Bathe Self (QC): 4 (met) Upper Body Dressing (QC): 5 (met) Lower Body Dressing (QC): 5 (set up with AE-not met) On/Off Footwear (QC): 5 (Set up with AE met) Additional Goals: 1-Demonstrate ADL Tasks, 2-Verbalize Understanding, 3- ImproveStrength/Shae 1=Demonstrate adherence to instructed precautions during ADL tasks. 2=Patient will verbalize/demonstrate understanding of assistive devices/modifications for ADL. 3=Patient will improve strength/tolerance for activity to enable patient to perform ADL's. Speech [employer] Crm Developer Goals [employer] C[employer] Developer Goals 1. The patient will demonstrate improved cognitive linguistic function for safe discharge to least restrictive environment. Per staff report, the patient's confusion and overall mentation are improving. The patient consistently demonstrated poor participation and stimulability for skilled speech pathology tasks and will be discharged on this date. Due to poor participation, the clinician is unable to state the patient met skilled goals placed by this clinician. Time Frame: Two Weeks. LILY MORELOS OT Feb 20, 2023 10:39
[2023-02-20] MEDS: FLUTICASONE 100 MCG IH SCH ×2 (10:41→10:42)
[2023-02-20] MEDS: RT-ALBUTEROL HFA 8.5 GM INHALER IH SCH ×2 (10:41→10:42)
[2023-02-20] MEDS: CHOLESTYRAMINE LITE 4 GM PACKET PO SCH (12:16)
[2023-02-20 12:57] VITALS: BP 149/69
== END 2023-02-20 12:45 | disposition home health service (06) | DRG 102 ==
PROVIDERS: ADMIT Internal Medicine; ATTEND Internal Medicine
DX: F07.81 Postconcussional syndrome (principal); J12.82 Pneumonia due to coronavirus disease 2019; J96.02 Acute respiratory failure with hypercapnia; L89.153 Pressure ulcer of sacral region, stage 3; U07.1 COVID-19; E46 Unspecified protein-calorie malnutrition; A04.72 Enterocolitis due to Clostridium difficile, not specified as recurrent; E66.2 Morbid (severe) obesity with alveolar hypoventilation; S22.41XD Multiple fractures of ribs, right side, subsequent encounter for fracture with routine healing; I10 Essential (primary) hypertension; M19.90 Unspecified osteoarthritis, unspecified site; M06.9 Rheumatoid arthritis, unspecified; E11.9 Type 2 diabetes mellitus without complications; H91.90 Unspecified hearing loss, unspecified ear; F32.A Depression, unspecified; J44.9 Chronic obstructive pulmonary disease, unspecified; E03.9 Hypothyroidism, unspecified; S40.811D Abrasion of right upper arm, subsequent encounter; S51.011D Laceration without foreign body of right elbow, subsequent encounter; L24.A2 Irritant contact dermatitis due to fecal, urinary or dual incontinence; N39.46 Mixed incontinence; B37.2 Candidiasis of skin and nail; R05.3 Chronic cough; D64.9 Anemia, unspecified; Z79.890 Hormone replacement therapy; Z87.891 Personal history of nicotine dependence; Z79.899 Other long term (current) drug therapy; Z85.038 Personal history of other malignant neoplasm of large intestine; Z79.4 Long term (current) use of insulin; Z88.0 Allergy status to penicillin; V29.99XD Rider (driver) (passenger) of other motorcycle injured in unspecified traffic accident, subsequent encounter; Z68.35 Body mass index [BMI] 35.0-35.9, adult
CPT/HCPCS: 36415; 36600; 71045; 80053; 81000; 82607; 82805; 82947; 83540; 85025; 87324; 87449; 87636; 94640; 94660; 94760; 94761

== ENCOUNTER → 2023-02-26 | Outpatient (CLI) | payer MEDICARE, MEDICAID ==
[~2023-02-26] MED LIST changes: +AMLO-250 PO; +CHOL4PAC3 PO; +FAMO20TA5 PO; +HYDR-3923 PO; +MICO5POW6 MC; +VANC125C5 PO
== END ==
LOC: WOUNDCARE 13:44
PROVIDERS: ATTEND Family Medicine
DX: I96 Gangrene, not elsewhere classified (principal); S41.121A Laceration with foreign body of right upper arm, initial encounter; B37.2 Candidiasis of skin and nail; L89.153 Pressure ulcer of sacral region, stage 3; S91.112A Laceration without foreign body of left great toe without damage to nail, initial encounter; E11.9 Type 2 diabetes mellitus without complications; E66.01 Morbid (severe) obesity due to excess calories; E44.0 Moderate protein-calorie malnutrition; D46.4 Refractory anemia, unspecified; A49.9 Bacterial infection, unspecified; L92.8 Other granulomatous disorders of the skin and subcutaneous tissue; V27 Motorcycle rider injured in collision with fixed or stationary object
CPT/HCPCS: 11042; 83036; 84134; 85652; 86141; 87070; 87205; A6197; A6212; G0463; 36415

== ENCOUNTER → 2023-03-05 | Outpatient (CLI) | payer MEDICARE, MEDICAID | LOC: WOUNDCARE 13:30 | PROVIDERS: ATTEND Family Medicine | DX: S41.121A Laceration with foreign body of right upper arm, initial encounter (principal); L89.153 Pressure ulcer of sacral region, stage 3; S91.112A Laceration without foreign body of left great toe without damage to nail, initial encounter; E11.9 Type 2 diabetes mellitus without complications; E66.01 Morbid (severe) obesity due to excess calories; E44.0 Moderate protein-calorie malnutrition; D46.4 Refractory anemia, unspecified; A49.9 Bacterial infection, unspecified; V27 Motorcycle rider injured in collision with fixed or stationary object; L92.8 Other granulomatous disorders of the skin and subcutaneous tissue | CPT/HCPCS: 11042; A6197; A6212; G0463 ==

== ENCOUNTER → 2023-03-27 | Outpatient (CLI) | payer MEDICARE, MEDICAID | LOC: WOUNDCARE 13:00 | PROVIDERS: ATTEND Family Medicine | DX: S41.121A Laceration with foreign body of right upper arm, initial encounter (principal); S91.112A Laceration without foreign body of left great toe without damage to nail, initial encounter; E66.01 Morbid (severe) obesity due to excess calories; E44.0 Moderate protein-calorie malnutrition; D46.4 Refractory anemia, unspecified; L92.8 Other granulomatous disorders of the skin and subcutaneous tissue; E11.52 Type 2 diabetes mellitus with diabetic peripheral angiopathy with gangrene; V27.09XA Other motorcycle driver injured in collision with fixed or stationary object in nontraffic accident, initial encounter | CPT/HCPCS: 11042; G0463 ==

== ENCOUNTER → 2023-04-03 | Outpatient (CLI) | payer MEDICARE, MEDICAID | LOC: WOUNDCARE 13:00 | PROVIDERS: ATTEND Family Medicine | DX: S41.121A Laceration with foreign body of right upper arm, initial encounter (principal); S91.112A Laceration without foreign body of left great toe without damage to nail, initial encounter; E44.0 Moderate protein-calorie malnutrition; E66.01 Morbid (severe) obesity due to excess calories; D46.4 Refractory anemia, unspecified; L92.9 Granulomatous disorder of the skin and subcutaneous tissue, unspecified; E11.52 Type 2 diabetes mellitus with diabetic peripheral angiopathy with gangrene; V27.49XA Other motorcycle driver injured in collision with fixed or stationary object in traffic accident, initial encounter | CPT/HCPCS: 11042; G0463 ==

== ENCOUNTER → 2023-04-10 | Outpatient (CLI) | payer MEDICARE, MEDICAID | LOC: WOUNDCARE 12:54 | PROVIDERS: ATTEND Family Medicine | DX: S41.121A Laceration with foreign body of right upper arm, initial encounter (principal); I96 Gangrene, not elsewhere classified; E11.9 Type 2 diabetes mellitus without complications; D46.4 Refractory anemia, unspecified; E44.0 Moderate protein-calorie malnutrition; E66.01 Morbid (severe) obesity due to excess calories; V27 Motorcycle rider injured in collision with fixed or stationary object; Z68.29 Body mass index [BMI] 29.0-29.9, adult | CPT/HCPCS: 99213 ==

== ENCOUNTER → 2023-04-11 | Outpatient (CLI) | payer MEDICARE, MEDICAID ==
[~2023-04-11] MED LIST changes: +OXC5T PO
== END ==
LOC: ORTHO 09:25
PROVIDERS: ATTEND Orthopaedic Surgery
DX: M86.8X8 Other osteomyelitis, other site (principal)
CPT/HCPCS: 99203

== ENCOUNTER → 2023-04-11 | Outpatient (CLI) | payer MEDICARE, MEDICAID ==
[~2023-04-11] VITALS: Ht 175.3 cm; Wt 92.8 kg
== END | disposition home or self-care (01) ==
LOC: PREOP 10:55
PROVIDERS: ATTEND Orthopaedic Surgery
DX: Z01.818 Encounter for other preprocedural examination (principal)

== ENCOUNTER 2023-04-15 08:18 | Day surgery (SDC) | payer MEDICARE, MEDICAID ==
[2023-04-15] VITALS (9 sets, daily range): BP systolic 102–190; BP diastolic 59–82
[~2023-04-15] VITALS: Ht 175 cm; Wt 92.8 kg
[~2023-04-15 08:18] MED LIST changes: -OXC5T PO
[2023-04-15] MEDS ORDERED: LIDOCAINE 2% w/EPI 1:100,000 20 ML VIAL ONE (08:44)
[2023-04-15] MEDS ORDERED: LACTATED RINGERS 1,000 ML 1,000 ML IV PRN (08:45)
[2023-04-15] MEDS ORDERED: fentaNYL INJECTION 100 MCG/2 ML VIAL ONE (11:18)
--- NOTE | 2023-04-15 11:44 | Progress Note-Pre Operative ---
Pre-Operative Progress Note Date of Available H&P: Apr 11, 2023 Date H&P Reviewed: Apr 15, 2023 Time H&P Reviewed: 10:30 History & Physical: H&P Reviewed, Patient Examed, No changes noted Pre-Operative Diagnosis: Right Elbow Septic Bursitis SOHEILA KELLEY MD Apr 15, 2023 11:44
--- NOTE | 2023-04-15 11:44 | Anesthesia-General Post-Op ---
MAC Patient Condition Mental Status/LOC: Same as Preop Cardiovascular: Satisfactory Nausea/Vomiting: Absent Respiratory: Satisfactory Pain: Controlled Complications: Absent Post Op Complications Complications None Follow Up Care/Instructions Patient Instructions None needed. Anesthesiology Discharge Order Discharge Order Patient is doing well, no complaints, stable vital signs, no apparent adverse anesthesia problems. No complications reported per nursing. VITA HAM CRNA Apr 15, 2023 11:43
[2023-04-15] MEDS ORDERED: morphine INJ 10 MG/ML 1ML (SYR OR VIAL) IVP ONE (11:45)
[2023-04-15] MEDS ORDERED: ONDANSETRON INJECTION 4 MG/2 ML (SDV) IVP PRN (11:45)
[2023-04-15] MEDS ORDERED: fentaNYL INJECTION 100 MCG/2 ML VIAL IVP ONE (11:45)
--- NOTE | 2023-04-15 11:48 | Operative Report - Ortho ---
Operative Report Surgeon (s)/Switchboard Installer (s) Surgeon SOHEILA KELLEY MD Switchboard Installer n/a Pre-Operative Diagnosis Right Elbow Septic Bursitis Post-Operative Diagnosis same Operative Report Date of Procedure: Apr 15, 2023 Name of Procedure Performed: Right Olecranon Bursectomy Description & Findings After obtaining informed consent and marking the patient in the preoperative holding area, patient was taken to the operating room. Sedation was administ ered. Surgical timeout was taken. The right upper extremity was prepped and draped in the usual sterile fashion. The area of the open wound was anesthetized locally. Wound was extended distally and proximally. Blunt dissection was carried down. Culture swab from the bursa was obtained and sent. Scissors and pickups as well as a rongeur were used to debride inflamed bursal tissue. Debridement was carried down the level of the proximal ulna. Wound was explored and no evidence of foreign bodies was found. Wound was lavage with normal saline. Wound was closed with 3-0 vicryl and 3-0 nylon. Elbow was dressed with xeroform, 4x4s, Kerlix, and MATTHEW wrap. Patient tolerated the procedure well and was stable to recovery. Anesthesia Type Local plus MAC Estimated Blood Loss minimal Specimen(s) collected/removed Swab sent for gram stain, aerobic, and anaerobic culture SOHEILA KELLEY MD Apr 15, 2023 11:48
[2023-04-15] MEDS ORDERED: OXC5T PO (11:50)
== END 2023-04-15 13:15 | disposition home or self-care (01) ==
LOC: SDC 08:18
PROVIDERS: ATTEND Orthopaedic Surgery
DX: M71.121 Other infective bursitis, right elbow (principal); E11.9 Type 2 diabetes mellitus without complications; Z79.4 Long term (current) use of insulin; Z79.85 Long-term (current) use of injectable non-insulin antidiabetic drugs; Z85.038 Personal history of other malignant neoplasm of large intestine; F17.220 Nicotine dependence, chewing tobacco, uncomplicated
CPT/HCPCS: 82947; 87070; 87075; 87077; 87081; 87205

== ENCOUNTER → 2023-04-30 | Outpatient (CLI) | payer MEDICARE, MEDICAID ==
[~2023-04-30] MED LIST changes: +OXC5T PO
== END ==
LOC: ORTHO 09:48
PROVIDERS: ATTEND Orthopaedic Surgery
DX: Z47.89 Encounter for other orthopedic aftercare (principal)

== ENCOUNTER → 2023-05-14 | Outpatient (CLI) | payer MEDICARE, MEDICAID | LOC: ORTHO 13:54 | PROVIDERS: ATTEND Orthopaedic Surgery | DX: Z47.89 Encounter for other orthopedic aftercare (principal) ==